=== PATIENT | female | born 1950 | race Caucasian/White ===

== ENCOUNTER 2019-10-23 19:33 | Inpatient (IN) | payer MEDICARE, OTHER ==
[~2019-10-23] VITALS: Ht 160 cm; Wt 86.9 kg
[2019-10-23 19:53] LABS: HEMOGLOBIN 10.7 G/DL (11.5-16.0); MEAN CORPUSCULAR HEMOGLOBIN 27 PG (25-34); WHITE BLOOD COUNT 11.7 10^3/uL (4.3-11.0)
[2019-10-23 19:54] LABS: BASOPHILS # (AUTO) 0.1 10^3/uL (0.0-0.1); BASOPHILS % (AUTO) 1 % (0-10); EOSINOPHILS # (AUTO) 0.1 10^3/uL (0.0-0.3); EOSINOPHILS % (AUTO) 0 % (0-10); HEMATOCRIT 31 % (35-52); LYMPHOCYTES % (AUTO) 9 % (12-44); MEAN CORPUSCULAR HGB CONC 34 G/DL (32-36); MEAN CORPUSCULAR VOLUME 78 FL (80-99); MEAN PLATELET VOLUME 8.1 FL (7.4-10.4); MONOCYTES % (AUTO) 9 % (0-12); NEUTROPHILS # (AUTO) 9.5 X 10^3 (1.8-7.8); NEUTROPHILS % (AUTO) 81 % (42-75); PLATELET COUNT 505 10^3/uL (130-400); RED CELL DISTRIBUTION WIDTH 17.7 % (10.0-14.5)
--- NOTE | 2019-10-23 19:54 | ED GI ---
General Chief Complaint: Abdominal/GI Problems Stated Complaint: WEAKNESS,VOMITING Source of Information: Patient Exam Limitations: No Limitations History of Present Illness Date Seen by Provider: Oct 23, 2019 Time Seen by Provider: 19:40 Initial Comments The patient is a pleasant 69-year-old female who presents for evaluation of 3-4 days of nausea, vomiting, and diarrhea which started after eating some hamburger at home which she states tasted "funny". No one else ate the food and she has not been around anyone else with similar symptoms. She reports an intermittent fever which she most recently had yesterday and she states was just about 101F. She denies any acute loss of taste or smell but mentions that she has not had a good sense of taste for years. She denies hematemesis, rectal bleeding, abdominal pain, chest pain or shortness of breath, cough, sore throat, headache, neck pain, urinary complaints, palpitations or syncope. She does report some fatigue and generalized weakness. She states that her daughter drove her to the emergency department this evening. She denies any recent travel or any recent antibiotics. Timing/Duration: 3-4 Days Severity/Quality: Moderate Associated Symptoms: Fever/Chills, Nausea/Vomiting Allergies and Home Medications Allergies Coded Allergies: Penicillins (Verified Allergy, Unknown, 10/23/19) Sulfa (Sulfonamide Antibiotics) (Verified Allergy, Unknown, 10/23/19) Patient Home Medication List Home Medication List Reviewed: Yes Review of Systems Review of Systems Constitutional: fever, weakness EENTM: No Symptoms Reported Respiratory: No Symptoms Reported Cardiovascular: No Symptoms Reported Gastrointestinal: Diarrhea, Nausea, Vomiting Genitourinary: No Symptoms Reported Musculoskeletal: no symptoms reported Skin: no symptoms reported Psychiatric/Neurological: No Symptoms Reported Endocrine: No Symptoms Reported Hematologic/Lymphatic: No Symptoms Reported All Other Systems Reviewed Negative Unless Noted: Yes Past Mcharzf-Bsfrjp-Thzwof Hx Past Med/Social Hx: Reviewed Nursing Past Med/Soc Hx Patient Social History Recent Foreign Travel: No Contact w/Someone Who Travel: No Physical Exam Vital Signs Vital Signs - First Documented 10/23/19 19:35 Temp 36.7 Pulse 98 Resp 18 B/P (MAP) 122/75 (91) Pulse Ox 98 Capillary Refill : Height/Weight/BMI Height: '" Weight: lbs. oz. 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, no motor/sensory deficits, alert, normal mood/affect, oriented x 3 Skin: normal color, warm/dry Progress/Results/Core Measures Results/Orders Lab Results Laboratory Tests Test 10/23/19 17:45 10/23/19 19:45 10/23/19 20:05 Range/Units White Blood Count 11.7 H 4.3-11.0 10^3/uL Red Blood Count 4.00 L 4.35-5.85 10^6/uL Hemoglobin 10.7 L 11.5-16.0 G/DL Hematocrit 31 L 35-52 % Mean Corpuscular Volume 78 L 80-99 FL Mean Corpuscular Hemoglobin 27 25-34 PG Mean Corpuscular Hemoglobin Concent 34 32-36 G/DL Red Cell Distribution Width 17.7 H 10.0-14.5 % Platelet Count 505 H 130-400 10^3/uL Mean Platelet Volume 8.1 7.4-10.4 FL Neutrophils (%) (Auto) 81 H 42-75 % Lymphocytes (%) (Auto) 9 L 12-44 % Monocytes (%) (Auto) 9 0-12 % Eosinophils (%) (Auto) 0 0-10 % Basophils (%) (Auto) 1 0-10 % Neutrophils # (Auto) 9.5 H 1.8-7.8 X 10^3 Lymphocytes # (Auto) 1.0 1.0-4.0 X 10^3 Monocytes # (Auto) 1.0 0.0-1.0 X 10^3 Eosinophils # (Auto) 0.1 0.0-0.3 10^3/uL Basophils # (Auto) 0.1 0.0-0.1 10^3/uL Sodium Level 114 *L 135-145 MMOL/L Potassium Level 4.5 3.6-5.0 MMOL/L Chloride Level 80 L 98-107 MMOL/L Carbon Dioxide Level 18 L 21-32 MMOL/L Anion Gap 16 H 5-14 MMOL/L Blood Urea Nitrogen 13 7-18 MG/DL Creatinine 1.24 0.60-1.30 MG/DL Estimat Glomerular Filtration Rate 43 BUN/Creatinine Ratio 10 Glucose Level 118 H 70-105 MG/DL Calcium Level 9.1 8.5-10.1 MG/DL Corrected Calcium 9.3 8.5-10.1 MG/DL Magnesium Level 1.7 1.6-2.4 MG/DL Total Bilirubin 0.3 0.1-1.0 MG/DL Aspartate Amino Transf (AST/SGOT) 15 5-34 U/L Alanine Aminotransferase (ALT/SGPT) 10 0-55 U/L Alkaline Phosphatase 107 40-136 U/L Total Protein 7.1 6.4-8.2 GM/DL Albumin 3.8 3.2-4.5 GM/DL My Orders Orders - AYESHA ABEBE DO Cbc With Automated Diff (10/23/19 19:40) Comprehensive Metabolic Panel (10/23/19 19:40) Magnesium (10/23/19 19:40) Ua Culture If Indicated (10/23/19 19:40) Ed Iv/Invasive Line Start (10/23/19 19:40) Coronavirus Sars-Cov-2 So 2018 (10/23/19 19:50) Ns Iv 1000 Ml (Sodium Chloride 0.9%) (10/23/19 20:00) Ondansetron Injection (Zofran Injectio (10/23/19 20:00) Ondansetron Injection (Zofran Injectio (10/23/19 19:59) Ns Iv 1000 Ml (Sodium Chloride 0.9%) (10/23/19 19:59) Chest 1 View Ap/Pa Only (10/23/19 20:41) Medications Given in ED Current Medications Medications Dose Ordered Sig/Kathy Route Start Time Stop Time Status Last Admin Dose Admin Ondansetron HCl 4 mg ONCE ONCE IVP 10/23/19 20:00 10/23/19 20:02 DC 10/23/19 20:06 4 MG Vital Signs/I&O 10/23/19 19:35 Temp 36.7 Pulse 98 Resp 18 B/P (MAP) 122/75 (91) Pulse Ox 98 Progress Progress Note : Progress Note @2042 - patient updated on lab results showing profound hyponatremia. She is receiving IV fluids at this time. Case discussed with Dr. Whiting who accepts the patient for admission at the ICU at [facility]. The patient is agreeable to this plan. Dr. Whiting requested a chest x-ray the patient be performed to evaluate for possible small cell carcinoma in relation to the hyponatremia as there is no clear cause at this time. Critical Care Note Critical Care Start Time: 20:00 Stop Time: 20:40 Total Time (minutes) 40 Progress Interpretation of lab results, discussion with the patient, discussion with consulting physician, admission, response to treatment Departure Communication (Admissions) Time/Spoke to Admitting Phy: 20:43 Dr. Whiting accepts the admission in the ICU at [facility]. The patient is agreeable to this plan. Impression Primary Impression: Acute hyponatremia Additional Impression: Nausea vomiting and diarrhea Disposition: ADMITTED INPATIENT Condition: Critical Admissions Decision to Admit Reason: Admit from ER (General) Decision to Admit/Date: Oct 23, 2019 Time/Decision to Admit Time: 20:43 Departure-Patient Inst. Referrals: ODALYS OWEN MD (PCP/Family) Primary Care Physician AYESHA ABEBE DO Oct 23, 2019 19:54
[2019-10-23] MEDS ORDERED: ONDANSETRON 4 MG/2 ML (SDV) Z0FRAN ONE (19:59)
[2019-10-23] MEDS ORDERED: NS IV 1000 ML 1,000 ML ONE ×2 (19:59→21:42)
[2019-10-23] MEDS ORDERED: NS IV 1000 ML 1,000 ML IV SCH ×2 (20:00→21:11)
[2019-10-23] MEDS ORDERED: ONDANSETRON 4 MG/2 ML (SDV) Z0FRAN IVP ONE (20:00)
[2019-10-23 20:16] LABS: POTASSIUM 4.5 MMOL/L (3.6-5.0)
[2019-10-23 20:17] LABS: ALBUMIN 3.8 GM/DL (3.2-4.5); BILIRUBIN,TOTAL 0.3 MG/DL (0.1-1.0); CALCIUM 9.1 MG/DL (8.5-10.1); CREATININE SERUM 1.24 MG/DL (0.60-1.30); MAGNESIUM 1.7 MG/DL (1.6-2.4); TOTAL PROTEIN 7.1 GM/DL (6.4-8.2)
[2019-10-23] MEDS ORDERED: morphine INJ 4 MG/ML 1 ML (VIAL/SYRINGE) IV PRN (21:15)
[2019-10-23] MEDS ORDERED: PATIENT MAY USE OWN MEDS, ALL PO SCH ×2 (21:15→21:30)
[2019-10-23] MEDS ORDERED: ONDANSETRON 4 MG/2 ML (SDV) Z0FRAN IVP PRN (21:15)
[2019-10-23] MEDS ORDERED: LORazepam INJ 2 MG/ML (ATIVAN) VIAL IVP PRN (21:15)
[2019-10-23] MEDS ORDERED: ENOXAPARIN 40 MG/0.4 ML (LOVENOX) SYR ONE (21:41)
[2019-10-23] MEDS ORDERED: 1/2 NS IV SOLUTION 0 ML IV ONE (21:41)
[2019-10-23 22:25] VITALS: BP 137/74
[2019-10-23] MEDS: ENOXAPARIN 40 MG/0.4 ML (LOVENOX) SYR SC SCH (22:43)
[2019-10-23] MEDS: NS IV 1000 ML 1,000 ML IV SCH (22:43)
[2019-10-23 22:45] VITALS: BP 126/75
[2019-10-23] MEDS: ACETAMINOPHEN 500 MG TAB (TYLENOL) PO SCH (22:48)
[2019-10-23 23:00] VITALS: BP 130/70
[2019-10-23 23:15] VITALS: BP 133/90
[2019-10-23 23:30] VITALS: BP 130/66
[2019-10-23 23:45] VITALS: BP 135/70
[2019-10-24] VITALS (22 sets, daily range): BP systolic 122–183; BP diastolic 54–109
[2019-10-24 03:51] LABS: BASOPHILS % (AUTO) 0 % (0-10); EOSINOPHILS # (AUTO) 0.1 10^3/uL (0.0-0.3); EOSINOPHILS % (AUTO) 2 % (0-10); HEMATOCRIT 28 % (35-52); HEMOGLOBIN 9.6 G/DL (11.5-16.0); LYMPHOCYTES # (AUTO) 1.3 X 10^3 (1.0-4.0); LYMPHOCYTES % (AUTO) 15 % (12-44); MEAN CORPUSCULAR HEMOGLOBIN 26 PG (25-34); MEAN CORPUSCULAR HGB CONC 34 G/DL (32-36); MEAN CORPUSCULAR VOLUME 78 FL (80-99); MEAN PLATELET VOLUME 8.4 FL (7.4-10.4); MONOCYTES # (AUTO) 1.1 X 10^3 (0.0-1.0); MONOCYTES % (AUTO) 13 % (0-12); NEUTROPHILS # (AUTO) 6.1 X 10^3 (1.8-7.8); NEUTROPHILS % (AUTO) 70 % (42-75); PLATELET COUNT 382 10^3/uL (130-400); RED CELL DISTRIBUTION WIDTH 18.1 % (10.0-14.5); WHITE BLOOD COUNT 8.7 10^3/uL (4.3-11.0)
[2019-10-24 04:07] LABS: POTASSIUM 4.7 MMOL/L (3.6-5.0)
[2019-10-24 04:08] LABS: CALCIUM 8.8 MG/DL (8.5-10.1)
[2019-10-24 04:12] LABS: PHOSPHORUS 3.9 MG/DL (2.3-4.7)
[2019-10-24 04:13] LABS: CREATININE SERUM 1.3 MG/DL (0.60-1.30)
[2019-10-24 04:15] LABS: MAGNESIUM 1.6 MG/DL (1.6-2.4)
[2019-10-24] MEDS: KCL 20 MEQ TAB (K-DUR) PO SCH (04:28)
[2019-10-24] MEDS: POTASSIUM CL 10MEQ/50ML IVPB 50 ML IV SCH (04:28)
[2019-10-24] MEDS: MAGNESIUM 1 GM/100 ML IVPB 100 ML IV SCH ×3 (04:29→08:16)
--- NOTE | 2019-10-24 05:05 | Pulmonary Consultation ---
History of Present Illness History of Present Illness Date Seen by Provider: Oct 24, 2019 Time Seen by Provider: 04:59 Date of Admission History of Present Illness 69yo presented to ED secondary to persistent fatigue, nausea, diarrhea, and vomiting over the last 3-4 days. SHe also had fever of 101. She denies any acute loss of taste or smell. She denies SOB, cough or any recent travel. I am consulted for ICU management. Allergies and Home Medications Allergies Coded Allergies: Penicillins (Verified Allergy, Unknown, 10/23/19) Sulfa (Sulfonamide Antibiotics) (Verified Allergy, Unknown, 10/23/19) Home Medications Acetaminophen 325 Mg Capsule, 650 MG PO Q6H PRN for PAIN-MILD (1-4), (Reported) Allopurinol 300 Mg Tablet, 150 MG PO DAILY, (Reported) LAST FILLED 07-18-2019 #30/60 DAY SUPPLY Bupropion HCl 150 Mg Tablet.er, 150 MG PO DAILY, (Reported) Citalopram Hydrobromide 20 Mg Tablet, 40 MG PO HS, (Reported) TAKES 2 (20MG) TABS Ferrous Sulfate 325 Mg Tablet, 650 MG PO DAILY, (Reported) TAKES 2 (325MG) TABS Lisinopril 10 Mg Tablet, 10 MG PO DAILY, (Reported) Meloxicam 15 Mg Tablet, 15 MG PO DAILY, (Reported) Past Njbjqeu-Dqrjmr-Etsbbx Hx Past Med/Social Hx: Reviewed Nursing Past Med/Soc Hx Patient Social History Alcohol Use: Denies Use Recreational Drug Use: No Smoking Status: Never a Smoker 2nd Hand Smoke Exposure: No Recent Foreign Travel: No Contact w/Someone Who Travel: No Recent Infectious Disease Expo: No Recent Hopitalizations: No Physical Abuse: No Sexual Abuse: No Past Medical History Surgeries: No Respiratory: No Cardiac: Yes Hypertension Neurological: No Genitourinary: No Gastrointestinal: No Musculoskeletal: Yes Gout Endocrine: No HEENT: No Cancer: No Psychosocial: Yes Depression Integumentary: No Review of Systems Time Seen by Provider: 04:59 Constitutional: Fever, Chills, Sweats, Weakness, Malaise, Other Eyes: No: Pain, Vision change, Conjunctivae inflammation, Eyelid inflammation, Other, Redness ENT: No: Ear pain, Ear discharge, Nose pain, Nose discharge, Nose congestion, Mouth pain, Mouth swelling, Throat pain, Throat swelling, Other Respiratory: No: Cough, Dry, Shortness of breath, SOB with excertion, Wheezing, Hemoptysis, Pleuritic Pain, Sputum, Wheezing, Other Cardiovascular: No: Chest Pain, Palpitations, Orthopnea, Paroxysmal Noc. Dyspnea, Edema, Lt Headedness, Other Gastrointestinal: Nausea, Vomiting, Abdominal Pain, Diarrhea Sepsis Event Evaluation Height, Weight, BMI Height: '" Weight: lbs. oz. kg; 30.00 BMI Method: Exam Exam Vital Signs Date Time Temp Pulse Resp B/P (MAP) Pulse Ox O2 Delivery O2 Flow Rate FiO2 10/24/19 04:00 98 Room Air 10/24/19 03:00 71 13 147/77 (100) Room Air 10/24/19 02:00 76 25 148/75 (99) Room Air 10/24/19 01:00 81 15 143/73 (96) Room Air 10/24/19 01:00 81 10/24/19 00:00 98 Room Air 10/24/19 00:00 36.5 10/24/19 00:00 79 11 151/86 (107) Room Air 10/23/19 23:45 82 7 135/70 (91) Room Air 10/23/19 23:30 86 16 130/66 (87) Room Air 10/23/19 23:30 86 16 130/66 (87) Room Air 10/23/19 23:15 87 15 133/90 (104) Room Air 10/23/19 23:10 Room Air 10/23/19 23:00 90 15 130/70 (90) Room Air 10/23/19 22:45 90 9 126/75 (92) 98 Room Air 10/23/19 22:25 36.5 88 18 137/74 (95) 98 Room Air 10/23/19 22:22 102 10/23/19 21:12 86 16 135/51 99 Room Air 10/23/19 19:35 36.7 98 18 122/75 (91) 98 Height & Weight Height: '" Weight: lbs. oz. kg; 30.00 BMI Method: Capillary Refill: Less Than 3 Seconds Gastrointestinal: normal bowel sounds, non tender, soft, no pulsatile mass, abnormal bowel sounds (hyperactive) Results Lab Laboratory Tests 10/23/19 17:45 10/23/19 19:45 10/24/19 03:22 Assessment/Plan Assessment/Plan Severe hyponatremia - Chronic -Pt states her sodium is always low. - -Pt feels much better since admission. -Currently on NS -Na has improved since admission while on NS. Will continue to montior Acute gastritis with nausea Vomiting and diarrhea -COVID testing is pending Leukocytosis - improving -Monitor Metabolic acidosis -Check JUDIE REYES DO Oct 24, 2019 05:05
[2019-10-24] MEDS: NS IV 1000 ML 1,000 ML IV SCH ×4 (05:18→18:37)
--- NOTE | 2019-10-24 05:54 | Diagnostic Imaging Report ---
Indication: Epigastric pain Portable chest 9:12 PM Heart size and pulmonary vascularity are normal. Lungs are clear. There are no effusions or pneumothoraces. IMPRESSION: Negative chest Dictated by: Dictated on workstation # [id number]
[2019-10-24] MEDS: ACETAMINOPHEN 500 MG TAB (TYLENOL) PO SCH ×4 (06:07→21:51)
[2019-10-24] MEDS ORDERED: hydrALAZINE (APESOLINE) 20 MG/ML VIAL IV PRN (07:00)
[2019-10-24] MEDS: PANTOPRAZOLE 40 MG (PROTONIX) VIAL IV SCH (08:16)
[2019-10-24 08:50] LABS: AMPHETAMINE SCREEN, URINE NEGATIVE (NEGATIVE); BARBITURATE SCREEN URINE NEGATIVE (NEGATIVE); BENZODIAZEPINES SCREEN URINE NEGATIVE (NEGATIVE); CANNABINOID SCREEN, URINE NEGATIVE (NEGATIVE); COCAINE SCREEN URINE NEGATIVE (NEGATIVE); METHADONE STAT NEGATIVE (NEGATIVE); METHAMPHETAMINE SCREEN URINE S NEGATIVE (NEGATIVE); OPIATE SCREEN URINE NEGATIVE (NEGATIVE); OXYCODONE STAT NEGATIVE (NEGATIVE); PROPOXYPHENE STAT NEGATIVE (NEGATIVE); TRICYCLIC ANTIDEPRESSANTS SCRE NEGATIVE (NEGATIVE)
[2019-10-24 08:55] LABS: CLARITY,URINE CLEAR; COLOR,URINE YELLOW
[2019-10-24 08:56] LABS: BACTERIA,URINE MODERATE /HPF; BILIRUBIN,URINE NEGATIVE (NEGATIVE); GLUCOSE, URINE (UA) NEGATIVE (NEGATIVE); KETONES,URINE NEGATIVE (NEGATIVE); LEUKOCYTE ESTERASE ,URINE NEGATIVE (NEGATIVE); NITRITE,URINE NEGATIVE (NEGATIVE); PROTEIN,URINE NEGATIVE (NEGATIVE); RBC,URINE RARE /HPF; SQUAMOUS EPITHELIAL CELL,UR RARE /HPF; WBC,URINE 0-2 /HPF
--- NOTE | 2019-10-24 10:03 | NUR ---
Received dietary consult for MST score. Note pt is currently COVID PUI. Will monitor PO intake and have full assessment, pending results. Deena Melara, MS, RD, LD
[2019-10-24 11:53] LABS: ALBUMIN 3.5 GM/DL (3.2-4.5); BILIRUBIN,TOTAL 0.2 MG/DL (0.1-1.0); CALCIUM 8.7 MG/DL (8.5-10.1); CREATININE SERUM 1.24 MG/DL (0.60-1.30); POTASSIUM 4.1 MMOL/L (3.6-5.0); TOTAL PROTEIN 6.3 GM/DL (6.4-8.2)
[2019-10-24] MEDS ORDERED: BUPR150T14 PO (12:12)
[2019-10-24] MEDS ORDERED: ACET325C7 PO (12:12)
[2019-10-24] MEDS ORDERED: MELO15TA39 PO (12:12)
[2019-10-24] MEDS ORDERED: CITA20TA9 PO (12:12)
[2019-10-24] MEDS ORDERED: FERR-84 PO (12:12)
[2019-10-24] MEDS ORDERED: LISI10TA2 PO (12:12)
[2019-10-24] MEDS ORDERED: ALLO300T2 PO (12:12)
--- NOTE | 2019-10-24 12:13 | NUR ---
SPOKE WITH THE PT (I CALLED HER ROOM PHONE) AND WENT THRU THE EXT MED HISTORY TO COMPLETE THE MED REC ALLOPURINOL 300MG : DIRECTIONS SHOW 1 TAB DAILY HOWEVER PT IS ONLY TAKES 150MG ( TAB) DAILY- IT WAS LAST FILLED 07-18-2019 #30/60DS. I DID DOCUMENT THE PAST DUE FILL ON THE MED REC OTC MEDs: IRON TYLENOL
[2019-10-24] MEDS ORDERED: SODIUM BICARB 8.4% 50 MEQ/50 ML VIAL IV NR (14:30)
[2019-10-24 17:21] LABS: POTASSIUM 4.4 MMOL/L (3.6-5.0)
[2019-10-24 17:22] LABS: CALCIUM 8.4 MG/DL (8.5-10.1)
[2019-10-24 17:26] LABS: PHOSPHORUS 3.7 MG/DL (2.3-4.7)
[2019-10-24 17:27] LABS: CREATININE SERUM 1.14 MG/DL (0.60-1.30)
[2019-10-24 17:29] LABS: MAGNESIUM 2.1 MG/DL (1.6-2.4)
--- NOTE | 2019-10-24 18:41 | History & Physical ---
HPI History of Present Illness: 69 yo F that presented to ER with 3-4 days of severe diarrhea and vomiting. States that she ate some beef that tasted funny but no one else who ate it is sick. Otherwise she denies any new foods or new medications. States that she has been on an SSRI for many years. Denies ever having similar symptoms in the past. Denies any other sick contacts and she has not been around anyone other then her . Denies any blood in stool or vomit. No cough but states that she felt hot yesterday. States that she is feeling much better this AM. She is still having the diarrhea but it is improving. Tolerating PO diet w/o N/V. Source: patient, old records Exam Limitations: no limitations Date seen by provider: Oct 24, 2019 Time Seen by Provider: 09:00 Attending Physician Hui Whiting Pankaj K MD Consult Date of Admission Oct 23, 2019 at 22:10 Home Medications Home Medications Reviewed patient Home Medication Reconciliation performed by pharmacy medication reconciliations customer data technician and/or nursing. Patients Allergies have been reviewed. Allergies Coded Allergies: Penicillins (Verified Allergy, Unknown, 10/23/19) Sulfa (Sulfonamide Antibiotics) (Verified Allergy, Unknown, 10/23/19) CAD-Jigill-Qnzbon Hx Patient Social History Alcohol Use: Denies Use Recreational Drug Use: No Smoking Status: Never a Smoker 2nd Hand Smoke Exposure: No Recent Foreign Travel: No Contact w/other who traveled: No Recent Hopitalizations: No Recent Infectious Disease Expo: No Past Medical History HTN Anemia Depression Review of Systems (CHC) Constitutional: chills, fever, malaise EENTM: no symptoms reported; No mouth pain, No nose congestion, No nose pain Respiratory: no symptoms reported; No cough, No dyspnea on exertion, No short of breath Cardiovascular: no symptoms reported; No chest pain, No edema, No palpitations Gastrointestinal: abdominal pain, diarrhea, loss of appetite, nausea, vomiting Genitourinary: no symptoms reported; No dysuria, No frequency, No hematuria : No Musculoskeletal: no symptoms reported; No back pain, No joint pain, No muscle pain Skin: no symptoms reported; No lesions, No rash Psychiatric/Neurological: No Symptoms Reported; Denies Headache, Denies Tremors, Denies Weakness Reviewed Test Results Reviewed Test Results Lab Laboratory Tests Test 10/23/19 19:45 10/23/19 20:05 10/24/19 03:22 10/24/19 08:17 Range/Units Sodium Level 114 *L 118 *L 135-145 MMOL/L Potassium Level 4.5 4.7 3.6-5.0 MMOL/L Chloride Level 80 L 91 L 98-107 MMOL/L Carbon Dioxide Level 18 L 17 L 21-32 MMOL/L Anion Gap 16 H 10 5-14 MMOL/L Blood Urea Nitrogen 13 13 7-18 MG/DL Creatinine 1.24 1.30 0.60-1.30 MG/DL Estimat Glomerular Filtration Rate 43 41 BUN/Creatinine Ratio 10 10 Glucose Level 118 H 92 70-105 MG/DL Calcium Level 9.1 8.8 8.5-10.1 MG/DL Corrected Calcium 9.3 8.5-10.1 MG/DL Magnesium Level 1.7 1.6 1.6-2.4 MG/DL Total Bilirubin 0.3 0.1-1.0 MG/DL Aspartate Amino Transf (AST/SGOT) 15 5-34 U/L Alanine Aminotransferase (ALT/SGPT) 10 0-55 U/L Alkaline Phosphatase 107 40-136 U/L Total Protein 7.1 6.4-8.2 GM/DL Albumin 3.8 3.2-4.5 GM/DL White Blood Count 8.7 4.3-11.0 10^3/uL Red Blood Count 3.64 L 4.35-5.85 10^6/uL Hemoglobin 9.6 L 11.5-16.0 G/DL Hematocrit 28 L 35-52 % Mean Corpuscular Volume 78 L 80-99 FL Mean Corpuscular Hemoglobin 26 25-34 PG Mean Corpuscular Hemoglobin Concent 34 32-36 G/DL Red Cell Distribution Width 18.1 H 10.0-14.5 % Platelet Count 382 130-400 10^3/uL Mean Platelet Volume 8.4 7.4-10.4 FL Neutrophils (%) (Auto) 70 42-75 % Lymphocytes (%) (Auto) 15 12-44 % Monocytes (%) (Auto) 13 H 0-12 % Eosinophils (%) (Auto) 2 0-10 % Basophils (%) (Auto) 0 0-10 % Neutrophils # (Auto) 6.1 1.8-7.8 X 10^3 Lymphocytes # (Auto) 1.3 1.0-4.0 X 10^3 Monocytes # (Auto) 1.1 H 0.0-1.0 X 10^3 Eosinophils # (Auto) 0.1 0.0-0.3 10^3/uL Basophils # (Auto) 0.0 0.0-0.1 10^3/uL Phosphorus Level 3.9 2.3-4.7 MG/DL B-Type Natriuretic Peptide 14.1 <100.0 PG/ML Urine Opiates Screen NEGATIVE NEGATIVE Urine Oxycodone Screen NEGATIVE NEGATIVE Urine Methadone Screen NEGATIVE NEGATIVE Urine Propoxyphene Screen NEGATIVE NEGATIVE Urine Barbiturates Screen NEGATIVE NEGATIVE Ur Tricyclic Antidepressants Screen NEGATIVE NEGATIVE Urine Phencyclidine Screen NEGATIVE NEGATIVE Urine Amphetamines Screen NEGATIVE NEGATIVE Urine Methamphetamines Screen NEGATIVE NEGATIVE Urine Benzodiazepines Screen NEGATIVE NEGATIVE Urine Cocaine Screen NEGATIVE NEGATIVE Urine Cannabinoids Screen NEGATIVE NEGATIVE Test 10/24/19 11:30 10/24/19 17:04 Range/Units Sodium Level 118 *L 125 *L 135-145 MMOL/L Potassium Level 4.1 4.4 3.6-5.0 MMOL/L Chloride Level 93 L 98 98-107 MMOL/L Carbon Dioxide Level 17 L 18 L 21-32 MMOL/L Anion Gap 8 9 5-14 MMOL/L Blood Urea Nitrogen 14 13 7-18 MG/DL Creatinine 1.24 1.14 0.60-1.30 MG/DL Estimat Glomerular Filtration Rate 43 47 BUN/Creatinine Ratio 11 11 Glucose Level 108 H 94 70-105 MG/DL Lactic Acid Level 1.12 0.50-2.00 MMOL/L Calcium Level 8.7 8.4 L 8.5-10.1 MG/DL Corrected Calcium 9.1 8.5-10.1 MG/DL Total Bilirubin 0.2 0.1-1.0 MG/DL Aspartate Amino Transf (AST/SGOT) 14 5-34 U/L Alanine Aminotransferase (ALT/SGPT) 10 0-55 U/L Alkaline Phosphatase 92 40-136 U/L Total Protein 6.3 L 6.4-8.2 GM/DL Albumin 3.5 3.2-4.5 GM/DL Phosphorus Level 3.7 2.3-4.7 MG/DL Magnesium Level 2.1 1.6-2.4 MG/DL Physical Exam-(CHC) Physical Exam Vital Signs VS - Last 72 Hours, by Label 10/23/19 10/23/19 10/23/19 10/23/19 19:35 21:12 22:22 22:25 Temp 36.7 36.5 Pulse 98 86 102 88 Resp 18 16 18 B/P (MAP) 122/75 (91) 135/51 137/74 (95) Pulse Ox 98 99 98 O2 Delivery Room Air Room Air 10/23/19 10/23/19 10/23/19 10/23/19 22:45 23:00 23:10 23:15 Pulse 90 90 87 Resp 9 15 15 B/P (MAP) 126/75 (92) 130/70 (90) 133/90 (104) Pulse Ox 98 O2 Delivery Room Air Room Air Room Air Room Air 10/23/19 10/23/19 10/23/19 10/24/19 23:30 23:30 23:45 00:00 Pulse 86 86 82 79 Resp 16 16 7 11 B/P (MAP) 130/66 (87) 130/66 (87) 135/70 (91) 151/86 (107) O2 Delivery Room Air Room Air Room Air Room Air 10/24/19 10/24/19 10/24/19 10/24/19 00:00 00:00 01:00 01:00 Temp 36.5 Pulse 81 81 Resp 15 B/P (MAP) 143/73 (96) Pulse Ox 98 O2 Delivery Room Air Room Air 10/24/19 10/24/19 10/24/19 10/24/19 02:00 03:00 04:00 04:15 Pulse 76 71 72 Resp 25 13 14 B/P (MAP) 148/75 (99) 147/77 (100) 123/60 (81) Pulse Ox 98 O2 Delivery Room Air Room Air Room Air Room Air 10/24/19 10/24/19 10/24/19 10/24/19 05:15 06:00 06:40 07:00 Pulse 79 78 79 86 Resp 14 13 15 B/P (MAP) 145/75 (98) 175/84 (114) 168/79 (108) O2 Delivery Room Air Room Air Room Air 10/24/19 10/24/19 10/24/19 10/24/19 07:39 08:00 08:00 09:00 Temp 36.6 Pulse 77 93 Resp 8 19 B/P (MAP) 163/90 (114) 145/93 (110) Pulse Ox 97 99 O2 Delivery Room Air Room Air Room Air 10/24/19 10/24/19 10/24/19 10/24/19 10:00 11:00 12:00 12:30 Pulse 93 96 92 Resp 16 14 21 B/P (MAP) 163/83 (109) 122/58 (79) Pulse Ox 97 98 98 97 O2 Delivery Room Air Room Air Room Air Room Air 10/24/19 10/24/19 10/24/19 10/24/19 12:51 13:00 14:00 15:00 Pulse 110 104 92 91 Resp 23 18 16 B/P (MAP) 179/92 (121) 183/109 (133) 151/54 (86) Pulse Ox 99 98 97 O2 Delivery Room Air Room Air Room Air 10/24/19 16:40 Pulse Ox 97 O2 Delivery Room Air Capillary Refill : Less Than 3 Seconds General Appearance: WD/WN, no apparent distress HEENT: PERRL/EOMI Neck: non-tender, full range of motion, supple Respiratory: chest non-tender, lungs clear, normal breath sounds, no respiratory distress, no accessory muscle use Cardiovascular: normal peripheral pulses, regular rate, rhythm, no edema, no murmur Gastrointestinal: normal bowel sounds, soft, tenderness (LLQ) Back: no CVA tenderness, no vertebral tenderness Extremities: normal range of motion, non-tender, normal inspection, no pedal edema, no calf tenderness, normal capillary refill 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, no motor/sensory deficits, alert, normal mood/affect, oriented x 3 Skin: normal color, warm/dry Lymphatic: no adenopathy Assessment/Plan Assessment/Plan Admission Status: Inpatient Order (span 2 midnights) Reason for Inpatient Admission: Patient requiring close monitoring for severe hyponatremia in order to monitor for over correction, needing ICU care (1) Hyponatremia Status: Acute Assessment & Plan: 10/23: Dr Christian consulted for ICU management, NS @ 100/hr, continue q 6hr labs (2) Acute gastritis without bleeding Status: Acute Assessment & Plan: 10/23: PPI, bland diet, advance as tolerated (3) HTN (hypertension) Status: Chronic Assessment & Plan: 10/23: Restarted home meds and decreased IVFs Qualifiers: Qualified Codes: I10 - Essential (primary) hypertension (4) Microcytic anemia Status: Chronic Assessment & Plan: 10/23: Will get iron studies (5) DVT prophylaxis Status: Acute Assessment & Plan: - Lovenox Clinical Quality Measures DVT/VTE Risk/Contraindication: Risk Factor Score Per Nursin RFS Level Per Nursing on Admit: 3=High FRANCY MORGAN MD Oct 24, 2019 18:41
[2019-10-24] MEDS: ENOXAPARIN 40 MG/0.4 ML (LOVENOX) SYR SC SCH (20:16)
[2019-10-25] VITALS (16 sets, daily range): BP systolic 139–180; BP diastolic 70–127
[2019-10-25 03:35] LABS: BASOPHILS % (AUTO) 0 % (0-10); EOSINOPHILS % (AUTO) 1 % (0-10); HEMATOCRIT 26 % (35-52); HEMOGLOBIN 8.6 G/DL (11.5-16.0); LYMPHOCYTES # (AUTO) 0.7 X 10^3 (1.0-4.0); LYMPHOCYTES % (AUTO) 13 % (12-44); MEAN CORPUSCULAR HEMOGLOBIN 26 PG (25-34); MEAN CORPUSCULAR HGB CONC 33 G/DL (32-36); MEAN CORPUSCULAR VOLUME 79 FL (80-99); MEAN PLATELET VOLUME 8.6 FL (7.4-10.4); MONOCYTES # (AUTO) 0.8 X 10^3 (0.0-1.0); MONOCYTES % (AUTO) 15 % (0-12); NEUTROPHILS # (AUTO) 3.9 X 10^3 (1.8-7.8); NEUTROPHILS % (AUTO) 71 % (42-75); PLATELET COUNT 361 10^3/uL (130-400); WHITE BLOOD COUNT 5.5 10^3/uL (4.3-11.0)
[2019-10-25 03:53] LABS: POTASSIUM 3.8 MMOL/L (3.6-5.0)
[2019-10-25 03:58] LABS: PHOSPHORUS 3.1 MG/DL (2.3-4.7)
[2019-10-25 03:59] LABS: CREATININE SERUM 0.96 MG/DL (0.60-1.30)
[2019-10-25 04:01] LABS: MAGNESIUM 1.9 MG/DL (1.6-2.4)
[2019-10-25] MEDS: NS IV 1000 ML 1,000 ML IV SCH ×2 (04:36→05:00)
[2019-10-25] MEDS: MAGNESIUM 1 GM/100 ML IVPB 100 ML IV SCH (04:37)
[2019-10-25] MEDS: KCL 20 MEQ TAB (K-DUR) PO SCH (04:37)
[2019-10-25] MEDS: POTASSIUM CL 10MEQ/50ML IVPB 50 ML IV SCH (04:37)
[2019-10-25] MEDS: ACETAMINOPHEN 500 MG TAB (TYLENOL) PO SCH ×2 (05:01→12:01)
--- NOTE | 2019-10-25 05:08 | Pulmonary Progress Note ---
Subjective Time Seen by a Provider: 05:07 Subjective/Events-last exam Pt appears to be doing better. Sepsis Event Evaluation Height, Weight, BMI Height: '" Weight: lbs. oz. kg; 30.00 BMI Method: Focused Exam Lactate Level 10/24/19 11:30: Lactic Acid Level 1.12 Exam Exam Vital Signs Date Time Temp Pulse Resp B/P (MAP) Pulse Ox O2 Delivery O2 Flow Rate FiO2 10/25/19 04:00 87 16 144/73 (96) 96 Room Air 10/25/19 04:00 97 Room Air 10/25/19 03:00 90 21 157/76 (103) 97 Room Air 10/25/19 02:00 89 16 153/78 (103) 95 Room Air 10/25/19 01:00 93 10/25/19 01:00 93 18 164/89 (114) 97 Room Air 10/25/19 00:00 97 Room Air 10/25/19 00:00 92 17 143/70 (94) 96 Room Air 10/24/19 23:00 89 20 138/75 (96) 97 Room Air 10/24/19 22:00 89 13 148/75 (99) 99 Room Air 10/24/19 21:00 88 11 135/74 (94) 99 Room Air 10/24/19 20:00 87 18 127/67 (87) 97 Room Air 10/24/19 20:00 97 Room Air 10/24/19 19:00 87 13 147/78 (101) 99 Room Air 10/24/19 19:00 87 10/24/19 18:00 97 21 131/69 (89) 98 Room Air 10/24/19 17:00 91 16 100 Room Air 10/24/19 16:40 97 Room Air 10/24/19 16:00 91 17 141/64 (89) 100 Room Air 10/24/19 15:00 91 16 151/54 (86) 97 Room Air 10/24/19 14:00 92 18 183/109 (133) 98 Room Air 10/24/19 13:00 104 23 179/92 (121) 99 Room Air 10/24/19 12:51 110 10/24/19 12:30 97 Room Air 10/24/19 12:00 92 21 98 Room Air 10/24/19 11:00 96 14 122/58 (79) 98 Room Air 10/24/19 10:00 93 16 163/83 (109) 97 Room Air 10/24/19 09:00 93 19 145/93 (110) 99 Room Air 10/24/19 08:00 97 Room Air 10/24/19 08:00 77 8 163/90 (114) Room Air 10/24/19 07:39 36.6 10/24/19 07:00 86 15 168/79 (108) Room Air 10/24/19 06:40 79 10/24/19 06:00 78 13 175/84 (114) Room Air 10/24/19 05:15 79 14 145/75 (98) Room Air I & O 10/25/19 07:00 Intake Total 1855 ml Output Total 400 ml Balance 1455 ml Height & Weight Height: '" Weight: lbs. oz. kg; 30.00 BMI Method: General Appearance: No Apparent Distress, WD/WN HEENT: PERRL/EOMI, TMs Normal, Normal ENT Inspection Neck: Full Range of Motion, Normal Inspection, Non Tender Respiratory: Chest Non Tender, Lungs Clear, Normal Breath Sounds, No Accessory Muscle Use, No Respiratory Distress Cardiovascular: Regular Rate, Rhythm, No Edema Capillary Refill: Less Than 3 Seconds Gastrointestinal: normal bowel sounds, soft, tenderness (LLQ) Extremity: Normal Capillary Refill, No Pedal Edema Neurologic/Psychiatric: Alert, Oriented x3 Skin: Normal Color, Warm/Dry Lymphatic: No Adenopathy Results Lab Laboratory Tests 10/23/19 17:45 10/23/19 19:45 10/24/19 03:22 10/24/19 11:30 10/24/19 17:04 10/25/19 02:57 Assessment/Plan Assessment/Plan Severe hyponatremia -acute on chronic -- Improving -Repeat Labs at 1300. If Na is still improving pt maybe able to transfer to 4th. -Pt states her sodium is always low probably from Antidepressants -Pt feels much better since admission. -fluid restriction -Currently on NS -Na has improved since admission while on NS. Will continue to montior Acute gastritis with nausea Vomiting and diarrhea-- improved -COVID testing is pending Leukocytosis - improving -Monitor Metabolic acidosis -Check LA Once pt transfers to 4th floor I am going to sign off. JUDIE ADEN DO Oct 25, 2019 05:08
[2019-10-25] MEDS ORDERED: SODIUM BICARB 8.4% 50 MEQ/50 ML VIAL IV ONE (05:15)
--- NOTE | 2019-10-25 05:46 | NUR ---
RECEIVED CALL FROM LAB @ 2057 ON 10/23 STATING THAT THIS PT'S COVID RESULTS CAME BACK NEGATIVE. CATHY NOTIFIED AT 2058 AND THIS RN RECEIVED ORDER TO REMOVE PT FROM ISOLATION.
[2019-10-25] MEDS: PANTOPRAZOLE 40 MG (PROTONIX) VIAL IV SCH (08:01)
[2019-10-25] MEDS ORDERED: lisINopril 10 MG (PRINIVIL) TABLET PO SCH (09:00)
[2019-10-25 13:43] LABS: ALANINE AMINOTRANSFERASE 8 U/L (0-55); ALBUMIN 3.2 GM/DL (3.2-4.5); ALKALINE PHOSPHATASE 94 U/L (40-136); BILIRUBIN,TOTAL 0.2 MG/DL (0.1-1.0); BUN/CREATININE RATIO 15; CALCIUM 8.1 MG/DL (8.5-10.1); CARBON DIOXIDE 22 MMOL/L (21-32); CHLORIDE 97 MMOL/L (98-107); CREATININE SERUM 0.89 MG/DL (0.60-1.30); GFR ESTIMATED > 60; GLUCOSE 106 MG/DL (70-105); POTASSIUM 3.7 MMOL/L (3.6-5.0); SODIUM 127 MMOL/L (135-145); TOTAL PROTEIN 5.7 GM/DL (6.4-8.2)
--- NOTE | 2019-10-25 13:48 | NUR ---
THIS NURSE NOTIFIED DR MORGAN PT SODIUM LEVEL WAS 127. PT WALKED A FEW LAPS AROUND THE UNIT INDEPENDENTLY. DR MORGAN SPOKE WITH DR ADEN AND NOTIFIED THIS NURSE PT MAY GO HOME. PT IS TO GET LABS THURSDAY AND FOLLOW-UP WITH PCP. DR MORGAN WILL PUT IN ORDERS.
--- NOTE | 2019-10-25 15:36 | Discharge Summary ---
Diagnosis/Chief Complaint Date of Admission Oct 23, 2019 at 22:10 Date of Discharge 10/25/2019 Admission Diagnosis Admission Diagnosis See problem list Discharge Diagnosis See Below Problems/Diagnosis: (1) Hyponatremia Assessment & Plan: 10/23: Dr Christian consulted for ICU management, NS @ 100/hr, continue q 6hr labs 10/24: Sodium improving, patient A/O x3, patient is wishing to go home today and will follow closely with outpatient labs on , stop SSRIs Status: Acute (2) Acute gastritis without bleeding Assessment & Plan: 10/23: PPI, bland diet, advance as tolerated 10/24: Continue PPI Status: Acute (3) HTN (hypertension) Assessment & Plan: 10/23: Restarted home meds and decreased IVFs Qualifiers: Qualified Codes: I10 - Essential (primary) hypertension Status: Chronic (4) Microcytic anemia Assessment & Plan: 10/23: Will get iron studies Status: Chronic (5) DVT prophylaxis Assessment & Plan: - Lovenox Status: Acute Chief Complaint/HPI Chief Complaint/HPI 69 yo F that presented to ER with 3-4 days of severe diarrhea and vomiting. States that she ate some beef that tasted funny but no one else who ate it is sick. Otherwise she denies any new foods or new medications. States that she has been on an SSRI for many years. Denies ever having similar symptoms in the past. Denies any other sick contacts and she has not been around anyone other then her . Denies any blood in stool or vomit. No cough but states that she felt hot yesterday. States that she is feeling much better this AM. She is still having the diarrhea but it is improving. Tolerating PO diet w/o N/V. Discharge Summary-Simple/Stand Consultations Dr Christian: Critical Care Discharge Physical Examination Allergies: Coded Allergies: Penicillins (Verified Allergy, Unknown, 10/23/19) Sulfa (Sulfonamide Antibiotics) (Verified Allergy, Unknown, 10/23/19) Vitals & I&Os Vital Sign - Last 12Hours Date Time Temp Pulse Resp B/P (MAP) Pulse Ox O2 Delivery O2 Flow Rate FiO2 10/25/19 15:00 87 16 180/81 (114) Room Air 10/25/19 14:00 99 10/25/19 11:25 36.3 Intake and Output 10/25/19 00:00 Intake Total 855 ml Balance 855 ml General Appearance: Alert, Oriented X3, Cooperative, No Acute Distress HEENT: Mucous Memb Moist/[place] Respiratory: Clear to Auscultation, Normal Air Movement Cardiovascular: Regular Rate, No Murmurs Abdominal: Normal Bowel Sounds, Soft, No Tenderness, No Masses Extremities: No Edema, No Tenderness/Swelling Skin: No Rashes, No Breakdown Neuro: Normal Speech, Sensation Intact, Cranial Nerves 3-12 NL Psych/Mental Status: Mental Status NL, Mood NL Hospital Course Was the Problem List Reviewed?: Yes See final discharge diagnosis. Discussion & Recommendations 69 yo F that presented with N/V and severe diarrhea and found to have hyponatremia. Patient was alert and oriented throughout her hospital stay which is consistent with a more nursing home and chronic hyponatremia. Hyponatremia is concerning for SSRI use. Patient's N/V resolved during hospital stay and her diarrhea has much improved. Will continue to follow CMP as outpatient. Discharge Condition at discharge stable Instructions to patient/family Please see electronic discharge instructions given to patient. Discharge Medications Reviewed and agree with Discharge Medication list on patient's Discharge Instruction sheet Clinical Quality Measures DVT/VTE Risk/Contraindication: Risk Factor Score Per Nursin RFS Level Per Nursing on Admit: 3=High Copy Copies To 1: ODALYS OWEN MD, HOLLY R MD Oct 25, 2019 15:36
--- NOTE | 2019-10-25 15:40 | Discharge Summary ---
Discharge [facility] Reconcile Patient Problems Problems Reviewed?: Yes Discharge Medications Continued Medications: Acetaminophen (Tylenol) 325 Mg Capsule 650 MG PO Q6H PRN for PAIN-MILD (1-4), CAP Allopurinol (Allopurinol) 300 Mg Tablet 150 MG PO DAILY, TAB LAST FILLED 07-18-2019 #30/60 DAY SUPPLY Ferrous Sulfate (Iron) 325 Mg Tablet 650 MG PO DAILY, TAB TAKES 2 (325MG) TABS Lisinopril (Lisinopril) 10 Mg Tablet 10 MG PO DAILY, TAB Discontinued Medications: Bupropion HCl (Bupropion HCl Sr) 150 Mg Tablet.er 150 MG PO DAILY, TAB Meloxicam (Meloxicam) 15 Mg Tablet 15 MG PO DAILY, TAB Patient Instructions Goal/Follow Up Appt: You have a f.u appt with Dr Levine on Nov 02 @ 09:45 am Patient Instructions: - Your SSRIs could be a cause of your hyponatremia, hold these medications and discuss alternatives with your PCP Return to The Hospital For: - Confusion - Altered mental status - Tremors Activity & Diet Discharge Diet: No Restrictions Activity as Tolerated: Yes Orders-Post D/C & Referrals Pneu Vac Indicated: Yes FRANCY MORGAN MD Oct 25, 2019 15:40
--- NOTE | 2019-10-25 16:10 | NUR ---
PT EDUCATED ON DISCHARGE INSTRUCTIONS AND HOME MEDICATIONS. PT STATED UNDERSTANDING. PT TAKEN DOWN VIA WHEELCHAIR WITH BELONGINGS.
--- NOTE | 2019-10-25 16:29 | NUR ---
THIS NURSE NOTIFIED DR HELMS PT IS UNABLE TO PEE FOR THE LAST COUPLE HOURS. PT IS STILL ON BEDREST R/T POST CATH AND HAS TRIED PUREWICK AND BEDPAN WITHOUT LUCK. PT BLADDER IS DISTENDED AND IS VERY UNCOMFORTABLE. ORDER GIVEN FOR STRAIGHT CATH X1. Addendum: 10/25/19 at 1702 by OSWALDO LUCIANO RN WRONG PT.
== END 2019-10-25 16:20 | disposition home or self-care (01) | DRG 641 ==
LOC: ER FS 19:36 → ICU 22:10
PROVIDERS: ADMIT Internal Medicine; ATTEND Family Medicine
DX: E87.1 Hypo-osmolality and hyponatremia (principal); K29.00 Acute gastritis without bleeding; I10 Essential (primary) hypertension; D50.9 Iron deficiency anemia, unspecified; E87.2 Acidosis; T43.225A Adverse effect of selective serotonin reuptake inhibitors, initial encounter; D72.829 Elevated white blood cell count, unspecified; F32.9 Major depressive disorder, single episode, unspecified; M10.9 Gout, unspecified; Z20.828 Contact with and (suspected) exposure to other viral communicable diseases; Z88.0 Allergy status to penicillin; Z88.2 Allergy status to sulfonamides
CPT/HCPCS: 36415; 71045; 80048; 80053; 80306; 81000; 82728; 83540; 83605; 83735; 83880; 84100; 84300; 85025; 87077; 87081; 87088; 87186; 87324; 87449; 87635

== ENCOUNTER → 2020-01-11 | Outpatient (CLI) | payer MEDICARE, OTHER ==
[~2020-01-11] MED LIST: ACET325C7 PO; ALLO300T2 PO; BUPR150T14 PO; CATHETER FLUSH 10 ML SYR IV PRN; CITA20TA9 PO; FERR-84 PO; HOLD METFORMIN - RECEIVED CONTRAST 20 ML VIAL IV SCH; IOHEXOL 350 MG/ML 100 ML (OMNIPAQUE 350) VIAL IV ONE; LISI10TA2 PO; MELO15TA39 PO; NS 100 ML (IVPB) BAG IV ONE
[2020-01-11 10:01] LABS: CALCIUM 9.6 MG/DL (8.5-10.1)
[2020-01-11 10:04] LABS: BILIRUBIN,TOTAL 0.4 MG/DL (0.1-1.0)
[2020-01-11 10:06] LABS: CREATININE SERUM 1.02 MG/DL (0.60-1.30)
--- NOTE | 2020-01-11 11:57 | Diagnostic Imaging Report ---
PROCEDURE: CT abdomen and pelvis with contrast. TECHNIQUE: Multiple contiguous axial images were obtained through the abdomen and pelvis after administration of intravenous contrast. Auto Exposure Controls were utilized during the CT exam to meet ALARA standards for radiation dose reduction. All CT scans use one or more of the following dose optimizing techniques: automated exposure control, MA and/or KvP adjustment based on patient size and exam type or iterative reconstruction. INDICATION: Lower abdominal pain COMPARISON: None available FINDINGS: Minimal left basilar scarring. Cholecystectomy. 1 cm enhancing nodule is noted within the dome of the right hepatic lobe, though this appears isodense on delayed imaging. Hyperenhancement is also seen within the left hepatic lobe adjacent to the falciform ligament. This is isodense on delayed imaging. 8 mm hypodensity is noted within the right hepatic lobe, series 2, image 19. Additional 7 mm hypodensity within the right hepatic lobe, series 2, image 15. The spleen is unremarkable. The adrenal glands are unremarkable. The pancreas is unremarkable. The kidneys are unremarkable. Moderate vascular calcifications without aneurysmal dilatation of the abdominal aorta. Extensive masslike mural thickening is identified associated with the cecum extending into the terminal ileum. This measures at least 8.2 x 4.7 x 4.9 cm. Several adjacent enlarged lymph nodes are also present within the right lower quadrant adjacent to the cecum, largest measuring 2.6 x 1.8 cm. No bowel obstruction. A left periaortic lymph node is present which is mildly enlarged measuring 1.2 cm in short dimension. Several central mesenteric lymph nodes also appear slightly prominent in size and number. The urinary bladder is decompressed, therefore not well evaluated. The uterus is not seen, likely surgically absent. No abnormal adnexal mass lesion. Grade 1 anterolisthesis of L4 and L5 with associated high-grade degenerative changes. There is resulting severe central canal stenosis. Superior endplate deformity with associated lucency and sclerosis is noted associated with L2, particularly on the right. More discrete lucency is seen extending through the anterior aspect of the L2 vertebral body with cortical discontinuity. Anterior wedging with sclerosis of T12 is also present. IMPRESSION: Large mass associated with the cecum extending into the terminal ileum with associated right lower quadrant adenopathy is concerning for malignancy with regional metastatic disease to proven otherwise. Recommend colonoscopy for further evaluation. Additional periaortic and mesenteric lymph nodes appearing borderline enlarged. Metastatic disease of these locations are not excluded. Recent mild superior endplate fracture of L2 versus metastatic lesion with age-indeterminate anterior wedging and sclerosis of T12 versus metastatic disease. MRI would help to further evaluate. Ill-defined small hypodensities within the liver. This may simply relate to transhepatic arterial defects, though small mass lesions not totally excluded. Depending on biopsy of the cecum and terminal ileum, PET/CT is likely necessary. Additional findings as above. Report was called/faxed to Shellie/transportation security officer of Dr. Levine by [place] at 11:53AM. Dictated by: Dictated on workstation # [id number]
== END ==
LOC: RAD 09:45
PROVIDERS: ATTEND Family Medicine
DX: K76.89 Other specified diseases of liver (principal); K63.89 Other specified diseases of intestine; E11.69 Type 2 diabetes mellitus with other specified complication; R59.0 Localized enlarged lymph nodes
CPT/HCPCS: 36415; 74177; 80053

== ENCOUNTER 2020-01-13 11:04 | Outpatient (RCR) | payer MEDICARE, OTHER ==
[~2020-01-13] VITALS: Ht 160 cm; Wt 77.2 kg
[~2020-01-13 11:04] MED LIST changes: -CATHETER FLUSH 10 ML SYR IV PRN; -HOLD METFORMIN - RECEIVED CONTRAST 20 ML VIAL IV SCH; -IOHEXOL 350 MG/ML 100 ML (OMNIPAQUE 350) VIAL IV ONE; -NS 100 ML (IVPB) BAG IV ONE
== END 2020-01-13 12:02 | disposition home or self-care (01) ==
LOC: PREOP 11:04
PROVIDERS: ATTEND Surgery
DX: Z01.818 Encounter for other preprocedural examination (principal)

== ENCOUNTER 2020-01-16 09:38 | Day surgery (SDC) | payer MEDICARE, OTHER ==
[~2020-01-16] VITALS: Ht 160 cm; Wt 77.2 kg
[2020-01-16] MEDS ORDERED: LACTATED RINGERS 1,000 ML IV ONE (09:51)
--- NOTE | 2020-01-16 10:03 | Progress Note-Pre Operative ---
Pre-Operative Progress Note H&P Reviewed The H&P was reviewed, patient examined and no changes noted. Time Seen by Provider: 10:01 Date H&P Reviewed: Jan 16, 2020 Time H&P Reviewed: 10:00 Pre-Operative Diagnosis: cecal/right colon mass KAREN FITZPATRICK DO Jan 16, 2020 10:03
[2020-01-16] MEDS ORDERED: LACTATED RINGERS 1,000 ML IV STA (10:14)
[2020-01-16 10:28] VITALS: BP 133/81
[2020-01-16] MEDS ORDERED: PROPOFOL INJECTION 50 ML IV ONE (10:43)
[2020-01-16 11:35] VITALS: BP 135/69
[2020-01-16 11:40] VITALS: BP 134/74
--- NOTE | 2020-01-16 11:40 | Anesthesia-General Post-Op ---
MAC Patient Condition Mental Status/LOC: Same as Preop Cardiovascular: Satisfactory Nausea/Vomiting: Absent Respiratory: Satisfactory Pain: Controlled Complications: Absent Post Op Complications Complications None Follow Up Care/Instructions Patient Instructions None needed. Anesthesiology Discharge Order Discharge Order Patient is doing well, no complaints, stable vital signs, no apparent adverse anesthesia problems. No complications reported per nursing. KIM ROBERTSON CRNA Jan 16, 2020 11:40
--- NOTE | 2020-01-16 11:42 | Progress Note-Post Operative ---
Post-Operative Progess Note Surgeon (s)/Steel Detailer (s) Surgeon KAREN FITZPATRICK DO Steel Detailer: none Pre-Operative Diagnosis cecal/right colon mass Post-Operative Diagnosis cecal mass colon polyps diverticula internal hemorrhoids Procedure & Operative Findings Date of Procedure 01/16/20 Procedure Performed/Findings Colon with snare Colon with hot bx Tattoo of colon Anesthesia Type IV sedation by PATIENT SERVICES REPRESENTATIVE Estimated Blood Loss Estimated blood loss (mL): scant Specimens/Packing Specimens Removed bx cecal mass transverse colon mass bx descending colon polyp sigmoid colon polyp KAREN FITZPATRICK DO Jan 16, 2020 11:42
--- NOTE | 2020-01-16 11:43 | Endoscopy Discharge Instruct ---
Endo Procedure/Findings Findings 1.: Other Findings (Cecal Mass) 2.: Polyp 3.: Diverticulosis 4.: Internal Hemorrhoids Discharge Instructions - Activity: You might feel a little sleepy until tomorrow. This is due to the med icine you received to relax you. Until tomorrow, you should: NOT drive a car, operate machinery or power tools. NOT drink any alcoholic beverages. NOT make any important decisions or sign importortant papers. Do not return to work until tomorrow, unless otherwise instructed. Resume previous activities tomorrow. Diet: Start by taking liquids. If you tolerate liquids, advance to solid food. 1.: Colonoscopy in 1 year Notify Physician - If you experience excessive bleeding, unusual abdominal pain, fever, or chest pain, contact your doctor immediately. KAREN FITZPATRICK DO Jan 16, 2020 11:43
[2020-01-16 12:10] VITALS: BP 120/78
[2020-01-16 12:25] VITALS: BP 120/78
--- NOTE | 2020-01-16 20:56 | OPERATIVE REPORT ---
DATE OF SERVICE: PREOPERATIVE DIAGNOSIS: Cecal mass. POSTOPERATIVE DIAGNOSES: Cecal mass, colon polyps, diverticula, internal hemorrhoids. PROCEDURES: 1. Colonoscopy with snare polypectomy. 2. Colonoscopy with hot biopsy. 3. Colonoscopy with tattooing. SURGEON: Sukhdev Guerrero DO MATERIAL HANDLER: None. ANESTHESIA: IV sedation by the FORM LAYER. SPECIMEN: Two biopsies from the cecal mass, two biopsies from a transverse colon mass and then one large descending colon polyp removed with snare in 3 pieces and then the sigmoid polyp. BLOOD LOSS: Scant. FLUIDS: Per anesthesia. POSTOPERATIVE CONDITION: Stable. INDICATION FOR PROCEDURE: The patient is a 69-year-old female who has been having some right lower quadrant pain going around to her back and she is being fatigued, had a CT which showed a cecal mass, she needed a workup. FINDINGS: The patient had a cecal mass. She also had large mass in the transverse colon. She had a large polyp in the descending colon and she had a small sigmoid polyp. She also had some internal hemorrhoids and some diverticula . PROCEDURE NOTE: After informed consent was obtained, the patient was brought to the endoscopy suite, placed in bed in left lateral decubitus position. She was administered IV sedation by the FORM LAYER who then monitored her vitals the entire time, heart rate, blood pressure and pulse ox and the scope was inserted, pushed all the way to about 150 cm, able to get to the cecum, took a picture of a polyp on the way in and then at the cecum, saw a large mass. was seen on the CAT scan, it looked like it may have actually been coming from the ileocecal valve. Elected to do two hot biopsies of this, then able to push pass this to take a picture of appendiceal orifice, then slowly withdrew the scope insufflating looking circumferentially at cardona looking the cecum and then up the ascending colon to the hepatic flexure and then down the transverse colon. In the transverse colon, saw another large mass, I elected to do two hot biopsies of this and then tattooed around it, in case we needed to go back to this area and then continued down to the splenic flexure, then into the descending colon. In the descending colon, saw a large polyp, I elected to do a snare polypectomy of this to remove it completely, took it in three pieces. Unable to get all of it completely off and then continued down into the sigmoid colon, saw the polyp we have seen earlier, did another snare polypectomy to completely remove this and then continued down into the rectum, retroflexed in rectal vault, saw some internal hemorrhoids, took a picture, one of the pieces from the descending colon polyp was so large, actually had to suction up to the scope, pulled the scope all the way out and then take the polyp off and then put the scope back in to complete the colonoscopy. The patient was recovered in the endoscopy suite. Job ID: [id number] DocumentID: [id number] Dictated Date: 01/16/2020 15:56:14 It Technician Date: 01/16/2020 20:54:50 Dictated By: SUKHDEV GUERRERO DO
== END 2020-01-16 12:25 | disposition home or self-care (01) ==
LOC: ENDO 09:38
PROVIDERS: ATTEND Surgery
DX: D12.0 Benign neoplasm of cecum (principal); D12.4 Benign neoplasm of descending colon; K63.5 Polyp of colon; K64.8 Other hemorrhoids; D37.4 Neoplasm of uncertain behavior of colon; E87.1 Hypo-osmolality and hyponatremia; Z79.899 Other long term (current) drug therapy; Z88.0 Allergy status to penicillin; Z88.2 Allergy status to sulfonamides; Z88.7 Allergy status to serum and vaccine; Z90.710 Acquired absence of both cervix and uterus; Z90.49 Acquired absence of other specified parts of digestive tract
CPT/HCPCS: 36415; 82378

== ENCOUNTER 2020-01-24 05:49 | Outpatient (RCR) | payer MEDICARE, OTHER ==
[~2020-01-24] VITALS: Ht 160 cm; Wt 76.8 kg
== END 2020-01-24 16:12 | disposition home or self-care (01) ==
LOC: PREOP 05:49
PROVIDERS: ATTEND Surgery
DX: Z01.812 Encounter for preprocedural laboratory examination (principal); C18.9 Malignant neoplasm of colon, unspecified; Z20.828 Contact with and (suspected) exposure to other viral communicable diseases

== ENCOUNTER → 2020-01-30 | Outpatient (CLI) | payer MEDICARE, OTHER | LOC: LAB FS 08:57 | PROVIDERS: ATTEND Surgery | DX: Z01.812 Encounter for preprocedural laboratory examination (principal); C18.9 Malignant neoplasm of colon, unspecified; Z20.828 Contact with and (suspected) exposure to other viral communicable diseases ==

== ENCOUNTER 2020-02-01 06:26 | Inpatient (IN) | payer MEDICARE, OTHER ==
[~2020-02-01] VITALS: Ht 160 cm; Wt 76.8 kg
[2020-02-01] VITALS (10 sets, daily range): BP systolic 108–154; BP diastolic 54–84
[2020-02-01] MEDS: LACTATED RINGERS 1,000 ML IV PRN ×2 (06:45→08:58)
[2020-02-01] MEDS ORDERED: CLINDAMYCIN 600 MG/50 ML IVPB 50 ML IV ONE ×2 (07:04→07:30)
[2020-02-01 07:16] LABS: BASOPHILS # (AUTO) 0.1 10^3/uL (0.0-0.1); BASOPHILS % (AUTO) 1 % (0-10); EOSINOPHILS # (AUTO) 0.1 10^3/uL (0.0-0.3); EOSINOPHILS % (AUTO) 0 % (0-10); HEMATOCRIT 32 % (35-52); HEMOGLOBIN 9.9 g/dL (11.5-16.0); LYMPHOCYTES # (AUTO) 0.7 10^3/uL (1.0-4.0); LYMPHOCYTES % (AUTO) 5 % (12-44); MEAN CORPUSCULAR HEMOGLOBIN 26 pg (25-34); MEAN CORPUSCULAR HGB CONC 31 g/dL (32-36); MEAN CORPUSCULAR VOLUME 83 fL (80-99); MONOCYTES # (AUTO) 0.5 10^3/uL (0.0-1.0); MONOCYTES % (AUTO) 4 % (0-12); NEUTROPHILS # (AUTO) 10.9 10^3/uL (1.8-7.8); NEUTROPHILS % (AUTO) 89 % (42-75); PLATELET COUNT 455 10^3/uL (130-400); WHITE BLOOD COUNT 12.3 10^3/uL (4.3-11.0)
[2020-02-01] MEDS ORDERED: fentaNYL INJECTION 100 MCG/2 ML AMP ONE (07:16)
[2020-02-01] MEDS ORDERED: LIDOCAINE PF 2% 5 ML (XYLOCAINE) VIAL ONE (07:16)
[2020-02-01] MEDS ORDERED: ONDANSETRON 4 MG/2 ML (SDV) Z0FRAN ONE (07:16)
[2020-02-01] MEDS ORDERED: proPOfol 200 MG/20 ML (DIPRIVAN) VIAL IV ONE (07:16)
[2020-02-01] MEDS ORDERED: SEVOFLURANE (ULTANE) 15 ML INHAL SOLN ONE ×8 (07:16→10:26)
[2020-02-01] MEDS ORDERED: MIDAZOLAM 2 MG/2 ML (VERSED) VIAL ONE (07:17)
[2020-02-01] MEDS ORDERED: ROCURONIUM 10 MG/ML 5 ML SYRINGE IV ONE (07:18)
[2020-02-01 07:34] LABS: ANISOCYTOSIS SLIGHT; BASOPHILS % (MANUAL) 2 %; HYPOCHROMASIA SLIGHT; LYMPHOCYTES % (MANUAL) 6 %; MONOCYTES % (MANUAL) 2 %; NEUTROPHILS % (MANUAL) 90 %
[2020-02-01 07:34] LABS: CALCIUM 10.3 MG/DL (8.5-10.1); CREATININE SERUM 1.17 MG/DL (0.60-1.30); POTASSIUM 3.9 MMOL/L (3.6-5.0)
[2020-02-01] MEDS ORDERED: LIDOCAINE/EPI 1%-1:100,000 (XYLOCAINE) 20ML ONE (07:35)
[2020-02-01] MEDS ORDERED: CATHETER FLUSH 10 ML SYR IV PRN (07:45)
--- NOTE | 2020-02-01 08:06 | Progress Note-Pre Operative ---
Pre-Operative Progress Note H&P Reviewed The H&P was reviewed, patient examined and no changes noted. Time Seen by Provider: 08:03 Date H&P Reviewed: Feb 01, 2020 Time H&P Reviewed: 08:04 Pre-Operative Diagnosis: Right sided colon CA KAREN FITZPATRICK DO Feb 01, 2020 08:06
[2020-02-01] MEDS ORDERED: PHENYLEPHRINE 100 MCG/ML 10 ML (ANESTHESIA) SYR ONE (08:56)
[2020-02-01] MEDS ORDERED: METHYLENE BLUE 0.5% (PROVAYBLUE) 50 mg/10 ml vial IV ONE (09:33)
[2020-02-01] MEDS ORDERED: NEOSTIGMINE 3 MG/3 ML VIAL ONE (10:56)
[2020-02-01] MEDS ORDERED: GLYCOPYRROLATE 0.2 MG/ML (ROBINUL) 2 ML VIAL ONE (10:56)
[2020-02-01] MEDS ORDERED: ROPIVACAINE 5MG/ML 30ML VIAL ONE (11:03)
[2020-02-01] MEDS ORDERED: HYDROmorphone 2 MG/ML VIAL (DILAUDID) ONE ×2 (11:05→11:52)
[2020-02-01] MEDS ORDERED: ACETAMINOPHEN 500 MG TAB (TYLENOL) PO SCH (11:15)
[2020-02-01] MEDS ORDERED: ONDANSETRON 4 MG/2 ML (SDV) Z0FRAN IVP PRN ×2 (11:15→11:45)
[2020-02-01] MEDS ORDERED: KETOROLAC 30 MG/ML VIAL IVP SCH (11:15)
[2020-02-01] MEDS ORDERED: metroNIDAZOLE 500MG/100ML IVPB 100 ML IV SCH (11:15)
--- NOTE | 2020-02-01 11:20 | Progress Note-Post Operative ---
Post-Operative Progess Note Surgeon (s)/Non Destructive Testing Specialist (s) Surgeon KAREN FITZPATRICK DO Non Destructive Testing Specialist: Karly Pre-Operative Diagnosis Right sided colon CA Post-Operative Diagnosis same pending path Procedure & Operative Findings Date of Procedure 02/01/20 Procedure Performed/Findings Lap Hand assisted right colectomy Anesthesia Type GET Estimated Blood Loss Estimated blood loss (mL): less than 20ml Specimens/Packing Specimens Removed Cecum, portion of ascending colon, portion of TI KAREN FITZPATRICK DO Feb 01, 2020 11:20
[2020-02-01] MEDS ORDERED: HYDROmorphone 2 MG/ML VIAL (DILAUDID) IV ONE (11:45)
[2020-02-01] MEDS: CLINDAMYCIN 600 MG/50 ML IVPB 50 ML IV SCH ×2 (14:31→21:54)
[2020-02-01] MEDS: morphine INJ 4 MG/ML 1 ML (VIAL/SYRINGE) IVP PRN ×3 (14:31→20:21)
[2020-02-01] MEDS: metroNIDAZOLE 500MG/100ML IVPB 100 ML IV SCH ×2 (16:01→23:32)
--- NOTE | 2020-02-01 16:28 | NUR ---
Contacted Dr Guerrero as patient has C/O pain in left eye since returning from surgery, states she feels like there is something in it. Flushed with NS a looked for anything in it, nothing found. Tried warm packing but pt continues to state is very uncomfortable. Dr Guerrero requested I ask anesthesia come look at it. Message left on phone as no answer.
[2020-02-01] MEDS: KETOROLAC 30 MG/ML VIAL IVP SCH ×2 (18:12→23:32)
[2020-02-01] MEDS: ACETAMINOPHEN 500 MG TAB (TYLENOL) PO SCH (18:13)
[2020-02-01] MEDS: LACTATED RINGERS 1,000 ML IV SCH ×3 (18:15→20:15)
--- NOTE | 2020-02-01 18:36 | OPERATIVE REPORT ---
DATE OF SERVICE: 02/01/2020 ATTENDING PHYSICIAN: Sukhdev Guerrero DO PREOPERATIVE DIAGNOSIS: Possible right ureteral laceration. POSTOPERATIVE DIAGNOSIS: Possible right ureteral laceration. OPERATION PERFORMED: Cystoscopy and right ureteral catheterization. DESCRIPTION OF PROCEDURE: I was asked in the operating room by Dr. Guerrero who was performing surgery on cancer of the colon and was concerned about injury to the right ureter. Looking at the laparoscopy, I was not very convinced that there was an injury to the ureter, being too superficial to the site of the ureter. We will give the patient methylene blue and Lasix, but we could not have still much of the bluish coloration, so we put the patient in the lithotomy position and removed the Dunn catheter, prepped and draped in sterile fashion. I inserted the cystoscope. I could see efflux on the right ureteral orifice. I went ahead and passed a 6-British ureteral catheter, injected contrast. There was no extravasation seen intraoperatively laparoscopically by me or the general surgeons. I went ahead and passed the catheter very easily with no problem whatsoever all the way up to the kidney. Greenish urine was coming out through it. Dr. Brandt was able to feel the catheter in the ureter that was not in the area of injury and as I said there was no extravasation of contrast intraabdominally. We did some fluoroscopy images. There was no extravasation of contrast and I could see the catheter going all the way up to the kidney. I went ahead and removed the cystoscope, reinserted the Dunn catheter and connected it to the ureteral catheter that was left indwelling for preventing injury of the ureter and it was connected with the Dunn catheter to the . The patient tolerated the procedure well and Dr. Guerrero and Karly proceeded with rest of her surgery that they will dictate. Job ID: [id number] DocumentID: [id number] Dictated Date: 02/01/2020 10:53:23 Footwear Sales Leader Date: 02/01/2020 18:35:47 Dictated By: JUAN DIEGO TURK MD
[2020-02-02 00:25] VITALS: BP 132/75
[2020-02-02] MEDS: ACETAMINOPHEN 500 MG TAB (TYLENOL) PO SCH ×2 (02:33→08:15)
[2020-02-02] MEDS: morphine INJ 4 MG/ML 1 ML (VIAL/SYRINGE) IVP PRN (03:19)
--- NOTE | 2020-02-02 03:24 | OPERATIVE REPORT ---
DATE OF SERVICE: 02/01/2020 PREOPERATIVE DIAGNOSIS: Right-sided colon cancer. POSTOPERATIVE DIAGNOSES: Right-sided colon cancer, pending pathology. PROCEDURE: Laparoscopic hand-assisted right colectomy. SURGEON: Karen Guerrero DO CRAFT RECRUITER: Chris Brandt DO ANESTHESIA: General endotracheal tube. SPECIMEN: Cecum, portion of ascending colon as well as portion of terminal ileum. BLOOD LOSS: Less than 50 mL. FLUIDS: Per anesthesia. POSTOPERATIVE CONDITION: Stable. INDICATION FOR PROCEDURE: The patient is a 69-year-old female who unfortunately had a mass seen on CT and then confirmed by colonoscopy that this was a cancer. FINDINGS: The patient had a large mass that incorporated part of the large portion of terminal ileum and there maybe even some tumor outside and she had some large lymph nodes as well removed and sent to pathology. PROCEDURE NOTE: After informed consent was obtained, the patient was brought to the operating room, placed on the operating table in supine position. She was sterilely prepped and draped in normal fashion. Midline incision was made starting about 2 or 3 inches above the umbilicus to just below the umbilicus, a C type incision made with a #15 blade, carried down through the skin into subcutaneous tissue, then deepened down to subcutaneous tissue with Bovie electrocautery down to the fascia. Fascia was incised with Bovie electrocautery and bluntly entered the abdomen. The patient had a lot of omentum and adhesions to the abdominal wall. Carefully started taking these down with blunt dissection. Once we were able to get most of this down then placed a limited trocar port in the subxiphoid area using local lidocaine, 11 blade for stab incision and then placed a bladder blade in to hold this to protect the bowel and then advanced the VersaStep system under direct visualization and then placed an 11 mm trocar port through here, then placed the gel hand port closed this, created pneumoperitoneum and placed another port suprapubically using local lidocaine, 11-blade for stab incision and VersaStep system, all done under direct visualization. This was a 5 mm port, took a picture of this mass in the right lower quadrant and it was attached to the abdominal wall, started taking this down with Bovie electrocautery as well as blunt dissection. Once we were able to take this down, then started coming up across the white line of Toldt in the pericolic gutter moving along this with the LigaSure and then Bovie electrocautery coming up and around the hepatic flexure looking distally in the pelvis coming across the mesentery, came across what looked like a cystic structure unsure whether this was Ureter. It did not appear to be in the right spot, but we were concerned this could be the ureter, so had Dr. Yanes come in. He was able to do a stent and the stent were all the way out passed and into the kidney and he was able to get urine out of this. It was reassured that this was not the ureter. At this point, came across above this. Continued to free up the cecum and the terminal ileum. There was a large mass and once we had freed up most of this, then able to bring this up through the midline incision. This area had a lot of the small intestine involved in it, picked a spot away from this mass of tumor. Made a defect in the mesentery with a Bovie electrocautery as well as blunt dissection then placed a SWETA-75 across the terminal ileum, clamped and fired, thereby transecting and then went up above the mass on the ascending colon. Again, got under the mesentery with Bovie electrocautery as well as blunt dissection, placed in the SWETA-75 and then clamped, held for 30 seconds, then fired, then started removing this portion of colon and mesentery with LigaSure, clamping, coagulating and transecting. There was a large area we thought was the right colic artery and mass of what felt like firm lymph nodes. Teased this out with Bovie electrocautery, trying to get down around it and then tied with 0 Vicryl tie and then finally able to remove this entire block of intestine and tumor. Passed this off table, then elected to perform our anastomosis grabbing the portion of terminal ileum antimesenteric border. I made a hole here with Bovie electrocautery as well as the hole along the tinea of the ascending colon, crossed these together with the SWETA-75 one on either side. Placed a crotch stitch with a 3-0 Vicryl and then held for seconds, clamped and fired thereby creating a [id number] functional end-to-end anastomosis and then used another SWETA-75 load to come across the enterocolotomy to close this. Once this was closed, then dropped this back into the abdomen, copiously irrigated with normal saline, suctioned this out. There did not appear to be any bleeding, no other obvious pathology. At this point, then closed the midline incision with #1 double stranded PDS suture running from the inferior portion and superior portion tied to itself, recreated pneumoperitoneum and looked around the midline incision, looked closed. I did not see any other obvious pathology. At this point, then removed all ports under direct visualization and allowed pneumoperitoneum to escape, closed all these ports with anthony as well as close the midline incision with anthony. The patient tolerated the procedure. Sponge and needle count correct at the end of the case. Dr. Brandt assisted in this case helping to make incisions, close incisions, identify anatomy, hold anatomy out of the way. Job ID: [id number] DocumentID: [id number] Dictated Date: 02/01/2020 16:27:52 Flight Radio Officer Date: 02/02/2020 03:23:55 Dictated By: KAREN GUERRERO DO MTDKristina
[2020-02-02 03:26] VITALS: BP 142/77
[2020-02-02] MEDS: LACTATED RINGERS 1,000 ML IV SCH (05:39)
[2020-02-02] MEDS: KETOROLAC 30 MG/ML VIAL IVP SCH ×2 (05:39→12:21)
[2020-02-02 07:50] VITALS: BP 132/70
[2020-02-02] MEDS ORDERED: PANTOPRAZOLE 40 MG (PROTONIX) VIAL IVP SCH (09:00)
[2020-02-02] MEDS ORDERED: ENOXAPARIN 40 MG/0.4 ML (LOVENOX) SYR SC SCH ×2 (11:15→14:30)
[2020-02-02 11:45] VITALS: BP 139/63
--- NOTE | 2020-02-02 14:08 | Progress Note - Surgery ---
Subjective Time Seen by a Provider: 12:47 Subjective/Events-last exam Pt seen and examined, states very little pain and she is hungry. She has been up walking and had some flatus, but hasn't urinated since phan was removed. Review of Systems General: No Chills, No Night Sweats Pulmonary: No Dyspnea, No Cough Cardiovascular: No: Chest Pain, Palpitations Gastrointestinal: Abdominal Pain; No: Nausea, Vomiting Objective Exam Vital Signs Date Time Temp Pulse Resp B/P (MAP) Pulse Ox O2 Delivery O2 Flow Rate FiO2 02/02/20 11:45 36.3 78 18 139/63 (88) 97 Room Air 02/02/20 09:33 Room Air 02/02/20 07:50 36.2 83 18 132/70 (90) 99 Room Air 02/02/20 03:26 36.4 78 16 142/77 (98) 99 Room Air 02/02/20 00:25 36.4 83 16 132/75 (94) 98 Room Air 02/01/20 21:00 Room Air 02/01/20 19:15 35.3 89 18 130/54 (79) 98 Room Air 02/01/20 18:13 35.0 02/01/20 15:50 35.0 89 16 154/84 (107) 100 Room Air I & O 02/02/20 07:00 Intake Total 3200 ml Output Total 1250 ml Balance 1950 ml Capillary Refill : Less Than 3 SecondsLess Than 3 Seconds General Appearance: No Apparent Distress, Obese Respiratory: Lungs Clear, Normal Breath Sounds, No Accessory Muscle Use, No Respiratory Distress Cardiovascular: Regular Rate, Rhythm, No Murmur Gastrointestinal: soft, tenderness (at incision), other (incisions C/D/I) Results Lab Microbiology 02/01/20 MRSA Screen - Final, Complete MRSA not isolated Assessment/Plan Assessment/Plan Assessment/Plan S/P Right colon resection Pt wants to increase to a soft diet and would like to go home today. Will try her on diet and make sure she is able to urinate. Her pain is controlled, so if she wants to go home after eating a little bit more and urinates; then I will send her home. KAREN FITZPATRICK DO Feb 02, 2020 14:08
--- NOTE | 2020-02-02 14:21 | Anesthesia-General Post-Op ---
General Patient Condition Mental Status/LOC: Same as Preop Cardiovascular: Satisfactory Nausea/Vomiting: Absent Respiratory: Satisfactory Pain: Controlled Complications: Absent Post Op Complications Complications None Follow Up Care/Instructions Patient Instructions None needed. Anesthesia/Patient Condition Patient Condition Patient is doing well, no complaints and stable vital signs. She was seen this morning C/O Left eye pain, stating it felt like she had a "rock" in her eye. I explained that this was most likely a small corneal abrasion, which usually occurs post op while the patient is emerging from anesthesia and rubs her eye. I told her this will most likely be self-limiting within 24 hours and the best thing she can do is leave the afftected eye alone. I just checked on the patient and the eye pain is now resolved and she has no complaints. We will be available if needed. LAURENT ALEJANDRA DO Feb 02, 2020 14:21
[2020-02-02 16:11] VITALS: BP 151/68
--- NOTE | 2020-02-02 16:21 | NUR ---
IV DC, VOIDING WITHOUT DIFFICULTY, ATE 75 PERCENT LUNCH, NO C/O ABD PAIN OR NAUSEA, WALKED IN [place], PASSING FLATUS. WANTING TO GO HOME.
--- NOTE | 2020-02-02 16:32 | Discharge Inst-Surgical ---
Discharge Inst-Surgical Depart Medication/Instructions New, Converted or Re-Newed RX: Other (use tylenol and ibuprofen at home for pain) Patient Instructions Follow up Appt: Make appointment for 1 week. [phone] Instructions: No lifting greater than 20 pounds. No strenuous activity. May shower in 24 hours, no tub bath or soaking. Use incentive spirometer at home as directed. No Smoking Skin/Wound Care: May remove bandages in am. You need to leave the Dermabond on incision it will fall off on it's own. Symptoms to Report: Appetite Changes, Extremity Discoloration, Numbness/Tingling, Swelling Increased, Bleeding Excessive, Eyesight Changes, Pain Increased, Urine Color Change, Constipation(Persistent), Fever over 101 degree F, Pain/Pressure in chest, Urinating Difficulty, Cough Up/Vomit Blood, Heart Beat Irreg/Pounding, Pain/Pressure in jaw, Cramps in feet or legs, Lightheadedness, Pain/Pressure in shoulder, Diarrhea(Persistent), Memory Changes Suddenly, Questions/Concerns, Weight gain consecutive days, Dizziness/Fainting, Nausea/Vomiting, Shortness of Breath, Weight gain over 2 pounds If questions or concerns contact your physician Or seek help at emergency department. Activity Activity as Tolerated: Yes Activity Instructions: Avoid Stress to Incision Driving Instructions: No Driving/Refer to Dr. Carrizales Discharge Diet: No Restrictions Diet After 24 Hours: Clear Liquid if Nauseous If Any Problems/Questions/Issu: Contact Your Physician, Go to Emergency Room Skin/Wound Care Infection Signs and Symptoms: Increased Redness, Foul Odor of Wound, Increased Drainage, Skin Itchy or Has a Rash, Increased Swelling, Temperature Above 101 F Bathing Instructions: Shower Stitches/Jerliyn/Dermabond Dis: Care of KAREN Rebollar DO Feb 02, 2020 16:32
[2020-02-02 16:56] VITALS: BP 151/68
--- NOTE | 2020-02-02 16:58 | NUR ---
DENIS ALTAMIRANO demonstrates understanding of discharge instructions and accurately returns instructions upon questioning. Copy of Post-Discharge Instructions and Medication Discharge Instructions given to PATIENT. DENIS ALTAMIRANO iS able to manage continuing needs after discharge. Patients belongings returned to PATIENT. Skin dry and intact; no breakdown noted. Patient discharged from [facility] on 02/02/20 at 1657. DENIS ALTAMIRANO left floor via W/C, accompanied by STAFF.
--- NOTE | 2020-02-08 07:42 | Physician Query Clarification ---
PQ-Link Path Diagnosis Admission/Discharge Admission Date: Feb 01, 2020 at 06:26 Discharge Date: Feb 02, 2020 at 17:00 Dr. 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 Please document a response in Progress Notes or Discharge Summary. 1. Agree with pathological diagnosis of list primary or metastasis. 2. No - Do not agree with pathology findings of [list primary or metastasis]. 3. Other, with explanation of the clinical findings. 4. Clinically undetermined, no explanation for the clinical findings. Is is appropriate for a provider to add additional documentation (addenda) to the record to explain the evaluation & care up to 30 days post-discharge. See [facility] and Patient Record Guidelines below. The [facility] Chapter Record of Care, Standard; RC.01.03.01EP 1: "The hospital has a written policy that required timely entry of information into the medical record." According to [facility] Patient Record Guidelines, ARTICLE XXI. CORRECTIONS AND ADDENDA, Modifications (addenda amendments, corrections and retractions) should be made timely and no later than regulatory requirements for record completion (i.e. 30 days post discharge). Official coding guidelines require coders to query the physician for agreement with pathology findings that occur during the encounter. Coders are not allowed to pull information directly from the path reports. PHYSICIAN RESPONSE Pathology Report Findings: Yes,agree w/path dx as documented Please remember a lack of response to the above will prompt a phone page by CDI/Coding staff. In responding to this query, please exercise your independent professional judgment. The purpose of this communication is to more accurately reflect the complexity of your patients condition. The fact that a question is asked does not imply that any particular answer is desired or expected. Thank you for your timely response to this clarification. Requestors name: Leatha THIS PHYSICIAN QUERY FORM IS A PERMANENT PART OF THE MEDICAL RECORD LEATHA EDGE Feb 08, 2020 07:42 KAREN GUERRERO DO Feb 13, 2020 14:56
== END 2020-02-02 17:00 | disposition home or self-care (01) | DRG 330 ==
LOC: 4TH 06:26 → SURG 06:27 → 4TH 12:35
PROVIDERS: ADMIT Surgery; ATTEND Surgery
PROC: 0DBB4ZZ Excision of Ileum, Percutaneous Endoscopic Approach (ICD-10-PCS; 2020-02-01)
PROC: 0T9680Z Drainage of Right Ureter with Drainage Device, Via Natural or Artificial Opening Endoscopic (ICD-10-PCS; 2020-02-01)
PROC: 0DTH4ZZ Resection of Cecum, Percutaneous Endoscopic Approach (ICD-10-PCS; principal; 2020-02-01 08:39)
PROC: 0DBK4ZZ Excision of Ascending Colon, Percutaneous Endoscopic Approach (ICD-10-PCS; 2020-02-01 08:39)
DX: C18.0 Malignant neoplasm of cecum (principal); C77.2 Secondary and unspecified malignant neoplasm of intra-abdominal lymph nodes; Z87.891 Personal history of nicotine dependence
CPT/HCPCS: 36415; 76000; 80048; 85007; 85027; 86850; 86900; 86901; 87081; 88309

== ENCOUNTER 2020-02-20 13:04 | Outpatient (RCR) | payer MEDICARE, OTHER ==
[2020-02-20 14:31] LABS: BASOPHILS # (AUTO) 0.1 10^3/uL (0.0-0.1); BASOPHILS % (AUTO) 1 % (0-10); EOSINOPHILS # (AUTO) 0.3 10^3/uL (0.0-0.3); EOSINOPHILS % (AUTO) 3 % (0-10); HEMATOCRIT 27 % (35-52); HEMOGLOBIN 8.2 g/dL (11.5-16.0); LYMPHOCYTES # (AUTO) 1.9 10^3/uL (1.0-4.0); LYMPHOCYTES % (AUTO) 20 % (12-44); MEAN CORPUSCULAR HEMOGLOBIN 25 pg (25-34); MEAN CORPUSCULAR HGB CONC 31 g/dL (32-36); MEAN CORPUSCULAR VOLUME 83 fL (80-99); MEAN PLATELET VOLUME 9.6 fL (9.0-12.2); MONOCYTES # (AUTO) 0.9 10^3/uL (0.0-1.0); MONOCYTES % (AUTO) 10 % (0-12); NEUTROPHILS # (AUTO) 6.2 10^3/uL (1.8-7.8); NEUTROPHILS % (AUTO) 67 % (42-75); PLATELET COUNT 397 10^3/uL (130-400); WHITE BLOOD COUNT 9.4 10^3/uL (4.3-11.0)
[2020-02-20 14:56] LABS: ALANINE AMINOTRANSFERASE 7 U/L (0-55); ALBUMIN 3.7 GM/DL (3.2-4.5); ALKALINE PHOSPHATASE 124 U/L (40-136); BILIRUBIN,TOTAL 0.4 MG/DL (0.1-1.0); BUN/CREATININE RATIO 13; CALCIUM 9.4 MG/DL (8.5-10.1); CARBON DIOXIDE 25 MMOL/L (21-32); CHLORIDE 102 MMOL/L (98-107); CREATININE SERUM 0.83 MG/DL (0.60-1.30); GFR ESTIMATED > 60; GLUCOSE 91 MG/DL (70-105); SODIUM 134 MMOL/L (135-145); TOTAL PROTEIN 7.6 GM/DL (6.4-8.2)
== END 2020-03-01 12:56 | disposition home or self-care (01) ==
LOC: ONC 13:04
PROVIDERS: ATTEND Internal Medicine Hematology & Oncology
DX: C18.2 Malignant neoplasm of ascending colon (principal); D50.9 Iron deficiency anemia, unspecified; I25.10 Atherosclerotic heart disease of native coronary artery without angina pectoris; E11.9 Type 2 diabetes mellitus without complications; I10 Essential (primary) hypertension; Z90.49 Acquired absence of other specified parts of digestive tract; Z90.89 Acquired absence of other organs
CPT/HCPCS: 80053; 82378; 82728; 83540; 85025; G0463; 99214

== ENCOUNTER → 2020-02-28 | Outpatient (CLI) | payer MEDICARE, OTHER ==
--- NOTE | 2020-02-28 13:42 | Diagnostic Imaging Report ---
INDICATION: Colon carcinoma, initial staging. TECHNIQUE: Serum blood glucose level at the time of injection is 98 mg/dL. Patient was administered 15.6 mCi F-18 FDG intravenously in the left antecubital location and PET imaging was performed from the top of the skull to mid thighs. Noncontrast CT was also performed for attenuation correction and anatomic correlation. COMPARISON: No prior PET/CT studies available for comparison. Comparison is made with prior CT abdomen and pelvis study from 01/11/2020. FINDINGS: There is symmetric activity throughout the brain. Soft tissues of the neck are unremarkable. No mediastinal or hilar hypermetabolism is identified. No pulmonary parenchymal hypermetabolism is seen. The upper abdomen does show a slightly hypermetabolic lesion within the right lobe of the liver anteriorly with SUV max of 4.3. Postsurgical changes in the right abdomen are identified from colon resection. There is some activity in the right colon which is indeterminate. This could be physiologic. No definite hypermetabolic abdominal or pelvic lymphadenopathy is seen. There is physiologic activity in the tracts. IMPRESSION: Postop changes involving the right colon. There is some activity in right-sided abdominal bowel loops which may be physiologic. No definite hypermetabolic abdominal or pelvic lymphadenopathy is seen. Dictated by: Dictated on workstation # [id number]
== END ==
LOC: RAD 09:34
PROVIDERS: ATTEND Internal Medicine Hematology & Oncology
DX: C18.9 Malignant neoplasm of colon, unspecified (principal)
CPT/HCPCS: 78815; A9552

== ENCOUNTER 2020-02-29 05:44 | Outpatient (RCR) | payer MEDICARE, OTHER ==
[~2020-02-29] VITALS: Ht 160 cm; Wt 78.0 kg
== END 2020-02-29 08:23 | disposition home or self-care (01) ==
LOC: PREOP 05:44
PROVIDERS: ATTEND Surgery
DX: Z01.812 Encounter for preprocedural laboratory examination (principal); C18.9 Malignant neoplasm of colon, unspecified

== ENCOUNTER 2020-03-02 07:09 | Day surgery (SDC) | payer MEDICARE, OTHER ==
[2020-03-02] VITALS (7 sets, daily range): BP systolic 149–176; BP diastolic 74–85
[~2020-03-02] VITALS: Ht 160 cm; Wt 99.0 kg
[2020-03-02] MEDS ORDERED: CLINDAMYCIN 600 MG/50 ML IVPB 50 ML IV ONE (07:15)
[2020-03-02] MEDS ORDERED: LIDOCAINE/EPI 1%-1:200,000 (XYLOCAINE) 30 ML VIAL ONE (07:19)
[2020-03-02] MEDS ORDERED: 0.9% SODIUM CHLORIDE PF INJ 20 ML VIAL ONE (07:19)
[2020-03-02] MEDS ORDERED: HEParin (CENTRAL IV FLUSH) 500 UNIT/5 ML SYR ONE (07:19)
[2020-03-02] MEDS: LACTATED RINGERS 1,000 ML IV PRN ×2 (07:30→09:33)
[2020-03-02] MEDS ORDERED: CATHETER FLUSH 10 ML SYR IV PRN (07:30)
[2020-03-02] MEDS ORDERED: PROPOFOL INJECTION 50 ML IV ONE (08:29)
--- NOTE | 2020-03-02 08:57 | Progress Note-Pre Operative ---
Pre-Operative Progress Note H&P Reviewed The H&P was reviewed, patient examined and no changes noted. Time Seen by Provider: 08:45 Date H&P Reviewed: Mar 02, 2020 Time H&P Reviewed: 08:46 Pre-Operative Diagnosis: Colon CA, Venous Insufficiency KAREN FITZPATRICK DO Mar 02, 2020 08:57
--- NOTE | 2020-03-02 09:42 | Progress Note-Post Operative ---
Post-Operative Progess Note Surgeon (s)/Hr Manager (s) Surgeon KAREN FITZPATRICK DO Hr Manager: ANGÉLICA Navarro Pre-Operative Diagnosis Colon CA, Venous Insufficiency Post-Operative Diagnosis same Procedure & Operative Findings Date of Procedure 03/02/20 Procedure Performed/Findings PROCEDURE: [Right] subclavian vein port placement. COMPLICATIONS: None. INDICATIONS: The patient is a 69 year old female [with Colon CA and Venous insufficiency]. Patient understands the risks and benefits of port placement and wished to proceed with the procedure. Consent was signed on the chart. PROCEDURE: The patient was taken to the operating suite, was prepped and draped in the sterile fashion. A surgical pause was performed. Local anesthetic was infiltrate the right anterior chest wall and towards the right clavicle. Using an 18 guage finder needle with negative inspiration it was advanced toward the right subclavian vein. It was accessed on second attempt and dark nonpulsatile blood was withdrawn. The wire was inserted using the Seldinger technique. Fluoroscopy assured proper placement. The needle was removed and the wire was then secured. A #11 blade scalpel was used to make an incision over the right anterior chest and a stab incision along the wire. Cautery was used to dissect down to the pectoral fascia. A pocket was created with blunt dissection. The dilator sheath was then advanced over the wire under fluoroscopy and the dilator and wire were removed. The Groshong catheter was then tunneled to the right chest pocket. It was inserted through the sheath and the sheath was then removed. Fluoroscopy was used to cut to length and this was then attached to the port which was then placed within the pocket. The port was then accessed without difficulty. It was then flushed with saline and then heparin. The subcutaneous tissues were then reapproximated using 3-0 Vicryl. The skin was then closed with 4-0 Undyed monocryl, 3 subcuticular stitches. The areas were then washed and dried. Skin Affix was placed over incision. The patient tolerated the procedure well without complication and was taken to recovery room in stable condition. Anesthesia Type IV sedation by HANDLE FINISHER Estimated Blood Loss Estimated blood loss (mL): scant Specimens/Packing Specimens Removed none KAREN FITZPATRICK DO Mar 02, 2020 09:42
--- NOTE | 2020-03-02 09:43 | Discharge Inst-Surgical ---
Discharge Inst-Surgical Depart Medication/Instructions New, Converted or Re-Newed RX: Other (pt to take home meds) Patient Instructions Follow up Appt: Make appointment for 1 week. [phone] Instructions: No lifting greater than 20 pounds. No strenuous activity. May shower in 24 hours, no tub bath or soaking. Use incentive spirometer at home as directed. No Smoking Skin/Wound Care: May remove bandages in am. You need to leave the Dermabond on incision it will fall off on it's own. Symptoms to Report: Appetite Changes, Extremity Discoloration, Numbness/Tingling, Swelling Increased, Bleeding Excessive, Eyesight Changes, Pain Increased, Urine Color Change, Constipation(Persistent), Fever over 101 degree F, Pain/Pressure in chest, Urinating Difficulty, Cough Up/Vomit Blood, Heart Beat Irreg/Pounding, Pain/Pressure in jaw, Cramps in feet or legs, Lightheadedness, Pain/Pressure in shoulder, Diarrhea(Persistent), Memory Changes Suddenly, Questions/Concerns, Weight gain consecutive days, Dizziness/Fainting, Nausea/Vomiting, Shortness of Breath, Weight gain over 2 pounds If questions or concerns contact your physician Or seek help at emergency department. Activity Activity as Tolerated: Yes Activity Instructions: Avoid Stress to Incision Driving Instructions: You May Drive Diet Discharge Diet: No Restrictions Diet After 24 Hours: Clear Liquid if Nauseous If Any Problems/Questions/Issu: Contact Your Physician, Go to Emergency Room Skin/Wound Care Infection Signs and Symptoms: Increased Redness, Foul Odor of Wound, Increased Drainage, Skin Itchy or Has a Rash, Increased Swelling, Temperature Above 101 F Bathing Instructions: Shower Stitches/[place]/Dermabond Dis: Dermabond Ice Pack: Ice On and Off Site (as needed for pain) KAREN FITZPATRICK DO Mar 02, 2020 09:43
--- NOTE | 2020-03-02 10:09 | Anesthesia-General Post-Op ---
MAC Patient Condition Mental Status/LOC: Same as Preop Cardiovascular: Satisfactory Nausea/Vomiting: Absent Respiratory: Satisfactory Pain: Controlled Complications: Absent Post Op Complications Complications None Follow Up Care/Instructions Patient Instructions None needed. Anesthesiology Discharge Order Discharge Order Patient is doing well, no complaints, stable vital signs, no apparent adverse anesthesia problems. No complications reported per nursing. KIM ROBERTSON CRNA Mar 02, 2020 10:09
--- NOTE | 2020-03-02 14:11 | Diagnostic Imaging Report ---
HISTORY: Port-A-Cath insertion. TECHNIQUE: Intraoperative fluoroscopy was used for the patient's procedure. One fluoroscopic image of the chest was saved. Fluoroscopy time: 3.9 seconds. FINDINGS/ IMPRESSION: Intraoperative fluoroscopy was used for the patient's procedure. Dictated by: Dictated on workstation # [id number]
== END 2020-03-02 10:50 | disposition home or self-care (01) ==
LOC: SDC 07:09
PROVIDERS: ATTEND Surgery
DX: C18.9 Malignant neoplasm of colon, unspecified (principal); I87.2 Venous insufficiency (chronic) (peripheral); M10.9 Gout, unspecified; Z88.0 Allergy status to penicillin; Z88.2 Allergy status to sulfonamides; Z90.710 Acquired absence of both cervix and uterus; Z87.891 Personal history of nicotine dependence
CPT/HCPCS: 36561; 76000; 87081; C1788

== ENCOUNTER → 2020-05-02 | Outpatient (CLI) | payer MEDICARE, OTHER ==
[~2020-05-02] MED LIST changes: -LISI10TA2 PO; +LISI10TA25 PO
[2020-05-02 12:03] LABS: BILIRUBIN,URINE NEGATIVE (NEGATIVE); CLARITY,URINE CLOUDY; COLOR,URINE YELLOW; GLUCOSE, URINE (UA) NEGATIVE (NEGATIVE); KETONES,URINE NEGATIVE (NEGATIVE); LEUKOCYTE ESTERASE ,URINE 2+ (NEGATIVE); NITRITE,URINE NEGATIVE (NEGATIVE); PROTEIN,URINE NEGATIVE (NEGATIVE)
[2020-05-02 12:04] LABS: BACTERIA,URINE LARGE /HPF; WBC,URINE 50-100 /HPF
== END ==
LOC: LAB FS 10:45
PROVIDERS: ATTEND Internal Medicine Hematology & Oncology
DX: R19.7 Diarrhea, unspecified (principal); R35.0 Frequency of micturition
CPT/HCPCS: 81000; 87077; 87088; 87324; 87449

== ENCOUNTER → 2020-05-29 | Outpatient (CLI) | payer MEDICARE, OTHER ==
--- NOTE | 2020-05-29 14:13 | Diagnostic Imaging Report ---
INDICATION: Malignant neoplasm of the colon. This study was performed to evaluate treatment response and restaging. TECHNIQUE: The serum blood glucose level at the time of injection was 125 mg/dL. The patient was administered 14.8 mCi of F18 FDG intravenously in the right antecubital location and PET imaging was performed from the top of the skull to the mid thighs. Noncontrast CT was also performed for attenuation correction and anatomic correlation. COMPARISON: PET/CT study from 02/28/2020. FINDINGS: There is physiologic activity throughout the brain. The soft tissues of the neck are unremarkable. No mediastinal or hilar hypermetabolism is identified. No pulmonary parenchymal hypermetabolism is identified. Physiologic activity throughout the GI and tracts is again noted within the abdomen and pelvis. There is a questionable small region of uptake in the left and right lobes of the liver, indeterminate. Assessment with a conventional CT abdomen and pelvis study could be performed. No hypermetabolic adenopathy in the abdomen or pelvis is seen. IMPRESSION: Essentially unremarkable PET/CT study apart from some questionable uptake in the right and left lobes of the liver. Liver metastases cannot be excluded and the appearance is similar to the prior PET study. Correlation with conventional CT would be recommended for better characterization. Dictated by: Dictated on workstation # [id number]
== END ==
LOC: RAD 09:08
PROVIDERS: ATTEND Internal Medicine Hematology & Oncology
DX: C18.9 Malignant neoplasm of colon, unspecified (principal)
CPT/HCPCS: 78815; A9552

== ENCOUNTER → 2020-06-05 | Outpatient (RCR) | payer MEDICARE, OTHER ==
[2020-03-07 10:48] LABS: BASOPHILS # (AUTO) 0.1 10^3/uL (0.0-0.1); BASOPHILS % (AUTO) 1 % (0-10); EOSINOPHILS # (AUTO) 0.6 10^3/uL (0.0-0.3); EOSINOPHILS % (AUTO) 6 % (0-10); HEMATOCRIT 27 % (35-52); HEMOGLOBIN 8.3 g/dL (11.5-16.0); LYMPHOCYTES # (AUTO) 1.8 10^3/uL (1.0-4.0); LYMPHOCYTES % (AUTO) 18 % (12-44); MEAN CORPUSCULAR HEMOGLOBIN 25 pg (25-34); MEAN CORPUSCULAR HGB CONC 30 g/dL (32-36); MEAN CORPUSCULAR VOLUME 82 fL (80-99); MEAN PLATELET VOLUME 9.5 fL (9.0-12.2); MONOCYTES # (AUTO) 0.7 10^3/uL (0.0-1.0); MONOCYTES % (AUTO) 7 % (0-12); NEUTROPHILS # (AUTO) 6.6 10^3/uL (1.8-7.8); NEUTROPHILS % (AUTO) 68 % (42-75); PLATELET COUNT 445 10^3/uL (130-400); WHITE BLOOD COUNT 9.8 10^3/uL (4.3-11.0)
[2020-03-07 11:07] LABS: ALANINE AMINOTRANSFERASE 12 U/L (0-55); ALBUMIN 3.7 GM/DL (3.2-4.5); ALKALINE PHOSPHATASE 128 U/L (40-136); BILIRUBIN,TOTAL 0.2 MG/DL (0.1-1.0); BUN/CREATININE RATIO 14; CALCIUM 9.5 MG/DL (8.5-10.1); CARBON DIOXIDE 24 MMOL/L (21-32); CHLORIDE 104 MMOL/L (98-107); CREATININE SERUM 0.84 MG/DL (0.60-1.30); GFR ESTIMATED > 60; GLUCOSE 104 MG/DL (70-105); POTASSIUM 4.2 MMOL/L (3.6-5.0); SODIUM 137 MMOL/L (135-145); TOTAL PROTEIN 7.5 GM/DL (6.4-8.2)
[2020-03-20 09:45] LABS: BASOPHILS % (AUTO) 1 % (0-10); EOSINOPHILS # (AUTO) 0.2 10^3/uL (0.0-0.3); EOSINOPHILS % (AUTO) 4 % (0-10); HEMATOCRIT 27 % (35-52); HEMOGLOBIN 8.3 g/dL (11.5-16.0); LYMPHOCYTES # (AUTO) 1.1 10^3/uL (1.0-4.0); LYMPHOCYTES % (AUTO) 18 % (12-44); MEAN CORPUSCULAR HEMOGLOBIN 26 pg (25-34); MEAN CORPUSCULAR HGB CONC 31 g/dL (32-36); MEAN CORPUSCULAR VOLUME 83 fL (80-99); MEAN PLATELET VOLUME 9.8 fL (9.0-12.2); MONOCYTES # (AUTO) 0.8 10^3/uL (0.0-1.0); MONOCYTES % (AUTO) 13 % (0-12); NEUTROPHILS # (AUTO) 4.2 10^3/uL (1.8-7.8); NEUTROPHILS % (AUTO) 65 % (42-75); PLATELET COUNT 200 10^3/uL (130-400); WHITE BLOOD COUNT 6.4 10^3/uL (4.3-11.0)
[2020-03-20 10:09] LABS: ALBUMIN 3.6 GM/DL (3.2-4.5); BILIRUBIN,TOTAL 0.2 MG/DL (0.1-1.0); CALCIUM 8.8 MG/DL (8.5-10.1); CREATININE SERUM 0.95 MG/DL (0.60-1.30); MAGNESIUM 1.5 MG/DL (1.6-2.4); POTASSIUM 3.6 MMOL/L (3.6-5.0); TOTAL PROTEIN 6.9 GM/DL (6.4-8.2)
[2020-04-03 10:00] LABS: BASOPHILS # (AUTO) 0.1 10^3/uL (0.0-0.1); BASOPHILS % (AUTO) 2 % (0-10); EOSINOPHILS # (AUTO) 0.2 10^3/uL (0.0-0.3); EOSINOPHILS % (AUTO) 4 % (0-10); HEMATOCRIT 31 % (35-52); HEMOGLOBIN 9.7 g/dL (11.5-16.0); LYMPHOCYTES % (AUTO) 24 % (12-44); MEAN CORPUSCULAR HEMOGLOBIN 27 pg (25-34); MEAN CORPUSCULAR HGB CONC 31 g/dL (32-36); MEAN CORPUSCULAR VOLUME 85 fL (80-99); MEAN PLATELET VOLUME 10.5 fL (9.0-12.2); MONOCYTES # (AUTO) 0.7 10^3/uL (0.0-1.0); MONOCYTES % (AUTO) 16 % (0-12); NEUTROPHILS # (AUTO) 2.4 10^3/uL (1.8-7.8); NEUTROPHILS % (AUTO) 55 % (42-75); PLATELET COUNT 147 10^3/uL (130-400); WHITE BLOOD COUNT 4.3 10^3/uL (4.3-11.0)
[2020-04-03 10:18] LABS: CALCIUM 9.4 MG/DL (8.5-10.1); CREATININE SERUM 0.94 MG/DL (0.60-1.30); MAGNESIUM 1.4 MG/DL (1.6-2.4); POTASSIUM 3.6 MMOL/L (3.6-5.0)
[2020-04-17 10:06] LABS: BASOPHILS % (AUTO) 1 % (0-10); EOSINOPHILS # (AUTO) 0.1 10^3/uL (0.0-0.3); EOSINOPHILS % (AUTO) 3 % (0-10); HEMATOCRIT 31 % (35-52); LYMPHOCYTES % (AUTO) 22 % (12-44); MEAN CORPUSCULAR HEMOGLOBIN 28 pg (25-34); MEAN CORPUSCULAR HGB CONC 32 g/dL (32-36); MEAN CORPUSCULAR VOLUME 87 fL (80-99); MEAN PLATELET VOLUME 9.9 fL (9.0-12.2); MONOCYTES # (AUTO) 0.7 10^3/uL (0.0-1.0); MONOCYTES % (AUTO) 16 % (0-12); NEUTROPHILS # (AUTO) 2.4 10^3/uL (1.8-7.8); NEUTROPHILS % (AUTO) 57 % (42-75); PLATELET COUNT 100 10^3/uL (130-400); WHITE BLOOD COUNT 4.2 10^3/uL (4.3-11.0)
[2020-04-17 10:32] LABS: ALBUMIN 3.6 GM/DL (3.2-4.5); BILIRUBIN,TOTAL 0.4 MG/DL (0.1-1.0); CALCIUM 9.2 MG/DL (8.5-10.1); CREATININE SERUM 0.99 MG/DL (0.60-1.30); MAGNESIUM 1.4 MG/DL (1.6-2.4); POTASSIUM 3.5 MMOL/L (3.6-5.0); TOTAL PROTEIN 6.9 GM/DL (6.4-8.2)
[2020-05-01 10:36] LABS: BASOPHILS # (AUTO) 0.1 10^3/uL (0.0-0.1); BASOPHILS % (AUTO) 2 % (0-10); EOSINOPHILS # (AUTO) 0.1 10^3/uL (0.0-0.3); EOSINOPHILS % (AUTO) 2 % (0-10); HEMATOCRIT 32 % (35-52); HEMOGLOBIN 10.5 g/dL (11.5-16.0); LYMPHOCYTES % (AUTO) 26 % (12-44); MEAN CORPUSCULAR HEMOGLOBIN 29 pg (25-34); MEAN CORPUSCULAR HGB CONC 33 g/dL (32-36); MEAN CORPUSCULAR VOLUME 89 fL (80-99); MEAN PLATELET VOLUME 10.5 fL (9.0-12.2); MONOCYTES # (AUTO) 0.7 10^3/uL (0.0-1.0); MONOCYTES % (AUTO) 20 % (0-12); NEUTROPHILS # (AUTO) 1.8 10^3/uL (1.8-7.8); NEUTROPHILS % (AUTO) 49 % (42-75); PLATELET COUNT 130 10^3/uL (130-400); WHITE BLOOD COUNT 3.7 10^3/uL (4.3-11.0)
[2020-05-01 10:54] LABS: ALBUMIN 3.5 GM/DL (3.2-4.5); BILIRUBIN,TOTAL 0.6 MG/DL (0.1-1.0); CREATININE SERUM 1.06 MG/DL (0.60-1.30); MAGNESIUM 1.3 MG/DL (1.6-2.4); POTASSIUM 3.3 MMOL/L (3.6-5.0)
[2020-05-08 13:21] LABS: BASOPHILS # (AUTO) 0.1 10^3/uL (0.0-0.1); BASOPHILS % (AUTO) 1 % (0-10); EOSINOPHILS # (AUTO) 0.2 10^3/uL (0.0-0.3); EOSINOPHILS % (AUTO) 2 % (0-10); HEMATOCRIT 35 % (35-52); HEMOGLOBIN 11.2 g/dL (11.5-16.0); LYMPHOCYTES # (AUTO) 1.1 10^3/uL (1.0-4.0); LYMPHOCYTES % (AUTO) 14 % (12-44); MEAN CORPUSCULAR HEMOGLOBIN 30 pg (25-34); MEAN CORPUSCULAR HGB CONC 32 g/dL (32-36); MEAN CORPUSCULAR VOLUME 93 fL (80-99); MONOCYTES # (AUTO) 1.1 10^3/uL (0.0-1.0); MONOCYTES % (AUTO) 13 % (0-12); NEUTROPHILS # (AUTO) 5.4 10^3/uL (1.8-7.8); NEUTROPHILS % (AUTO) 69 % (42-75); PLATELET COUNT 200 10^3/uL (130-400); WHITE BLOOD COUNT 7.9 10^3/uL (4.3-11.0)
[2020-05-08 13:45] LABS: ALBUMIN 3.5 GM/DL (3.2-4.5); BILIRUBIN,TOTAL 0.4 MG/DL (0.1-1.0); CREATININE SERUM 1.19 MG/DL (0.60-1.30); MAGNESIUM 1.9 MG/DL (1.6-2.4); POTASSIUM 3.7 MMOL/L (3.6-5.0); TOTAL PROTEIN 7.2 GM/DL (6.4-8.2)
[2020-05-22 11:11] LABS: BASOPHILS # (AUTO) 0.1 10^3/uL (0.0-0.1); BASOPHILS % (AUTO) 1 % (0-10); EOSINOPHILS # (AUTO) 0.2 10^3/uL (0.0-0.3); EOSINOPHILS % (AUTO) 3 % (0-10); HEMATOCRIT 34 % (35-52); HEMOGLOBIN 11.2 g/dL (11.5-16.0); LYMPHOCYTES # (AUTO) 1.1 10^3/uL (1.0-4.0); LYMPHOCYTES % (AUTO) 21 % (12-44); MEAN CORPUSCULAR HEMOGLOBIN 31 pg (25-34); MEAN CORPUSCULAR HGB CONC 33 g/dL (32-36); MEAN CORPUSCULAR VOLUME 93 fL (80-99); MEAN PLATELET VOLUME 10.5 fL (9.0-12.2); MONOCYTES # (AUTO) 0.8 10^3/uL (0.0-1.0); MONOCYTES % (AUTO) 16 % (0-12); NEUTROPHILS # (AUTO) 3.1 10^3/uL (1.8-7.8); NEUTROPHILS % (AUTO) 59 % (42-75); PLATELET COUNT 125 10^3/uL (130-400); WHITE BLOOD COUNT 5.2 10^3/uL (4.3-11.0)
[2020-05-22 11:35] LABS: ALBUMIN 3.6 GM/DL (3.2-4.5); BILIRUBIN,TOTAL 0.4 MG/DL (0.1-1.0); CALCIUM 9.3 MG/DL (8.5-10.1); CREATININE SERUM 0.94 MG/DL (0.60-1.30); MAGNESIUM 1.7 MG/DL (1.6-2.4); TOTAL PROTEIN 7.7 GM/DL (6.4-8.2)
[~2020-06-05] VITALS: Ht 160 cm; Wt 74.4 kg
[~2020-06-05] MED LIST changes: +D5W 500 ML IV (CANCER CTR) 500 ML IV SCH; +FAMOTIDINE 20MG/2ML IV (CANCER CTR) IV SCH; +FERRIC CARBOXYMALTOSE (CANCER) 750 MG in NS (IVPB) CANCER CENTER 250 ML IV SCH; +FLUOROURACIL IV SCH; +FOSAPREPITANT (CANCER CENTER) 150 MG in NS (IVPB) CANCER CENTER ONLY 150 ML IV SCH; +LEUCOVORIN CALCIUM 500 MG, LEUCOVORIN CALCIUM 100 MG in D5W 250 ML IVPB (CANCER CTR) 25... IV SCH; +LEUCOVORIN CALCIUM IV SCH; +MAGNESIUM SULFATE (CANCER CTR) 2 GM in NS (IVPB) CANCER CENTER 100 ML IV ONE; +MAGNESIUM SULFATE (CANCER CTR) 2 GM in NS (IVPB) CANCER CENTER 50 ML IV ONE; +MAGNESIUM SULFATE (CANCER CTR) 3 GM in D5W 50 ML IV(CANCER CTR) 50 ML IV ONE; +MAGNESIUM SULFATE IV ONE; +NS IV ONE; +NS IV SCH; +OXALIPLATIN 100 MG, OXALIPLATIN (GENERIC) 50 MG in D5W 250 ML IVPB (CANCER CTR) 250 ML IV SCH; +[UNRECOGNIZED DRUG - OTHER] IV SCH; +diphenhydrAMINE 25 MG TAB (BENADRYL) CANCER CENTER PO SCH
[2020-06-05 10:18] LABS: BASOPHILS # (AUTO) 0.1 10^3/uL (0.0-0.1); BASOPHILS % (AUTO) 2 % (0-10); EOSINOPHILS # (AUTO) 0.1 10^3/uL (0.0-0.3); EOSINOPHILS % (AUTO) 2 % (0-10); HEMATOCRIT 33 % (35-52); HEMOGLOBIN 10.7 g/dL (11.5-16.0); LYMPHOCYTES # (AUTO) 0.9 10^3/uL (1.0-4.0); LYMPHOCYTES % (AUTO) 28 % (12-44); MEAN CORPUSCULAR HEMOGLOBIN 31 pg (25-34); MEAN CORPUSCULAR HGB CONC 33 g/dL (32-36); MEAN CORPUSCULAR VOLUME 95 fL (80-99); MEAN PLATELET VOLUME 10.5 fL (9.0-12.2); MONOCYTES # (AUTO) 0.6 10^3/uL (0.0-1.0); MONOCYTES % (AUTO) 20 % (0-12); NEUTROPHILS # (AUTO) 1.5 10^3/uL (1.8-7.8); NEUTROPHILS % (AUTO) 48 % (42-75); PLATELET COUNT 105 10^3/uL (130-400); WHITE BLOOD COUNT 3.1 10^3/uL (4.3-11.0)
[2020-06-05 10:38] LABS: ALBUMIN 3.4 GM/DL (3.2-4.5); BILIRUBIN,TOTAL 0.6 MG/DL (0.1-1.0); CREATININE SERUM 0.96 MG/DL (0.60-1.30); POTASSIUM 3.7 MMOL/L (3.6-5.0)
== END | disposition home or self-care (01) ==
LOC: ONC 03-07 08:50
PROVIDERS: ATTEND Internal Medicine Hematology & Oncology
DX: C18.0 Malignant neoplasm of cecum (principal); D50.9 Iron deficiency anemia, unspecified; K90.9 Intestinal malabsorption, unspecified
CPT/HCPCS: 80053; 82378; 85025; 96367; 96368; 96375; 96411; 96413; 96416; G0463; 36591; 80048; 83735; 84443; 96365; 96415

== ENCOUNTER → 2020-06-25 | Outpatient (CLI) | payer MEDICARE, OTHER ==
[~2020-06-25] MED LIST changes: -D5W 500 ML IV (CANCER CTR) 500 ML IV SCH; -FAMOTIDINE 20MG/2ML IV (CANCER CTR) IV SCH; -FERRIC CARBOXYMALTOSE (CANCER) 750 MG in NS (IVPB) CANCER CENTER 250 ML IV SCH; -FLUOROURACIL IV SCH; -FOSAPREPITANT (CANCER CENTER) 150 MG in NS (IVPB) CANCER CENTER ONLY 150 ML IV SCH; -LEUCOVORIN CALCIUM 500 MG, LEUCOVORIN CALCIUM 100 MG in D5W 250 ML IVPB (CANCER CTR) 25... IV SCH; -LEUCOVORIN CALCIUM IV SCH; -MAGNESIUM SULFATE (CANCER CTR) 2 GM in NS (IVPB) CANCER CENTER 100 ML IV ONE; -MAGNESIUM SULFATE (CANCER CTR) 2 GM in NS (IVPB) CANCER CENTER 50 ML IV ONE; -MAGNESIUM SULFATE (CANCER CTR) 3 GM in D5W 50 ML IV(CANCER CTR) 50 ML IV ONE; -MAGNESIUM SULFATE IV ONE; -NS IV ONE; -NS IV SCH; -OXALIPLATIN 100 MG, OXALIPLATIN (GENERIC) 50 MG in D5W 250 ML IVPB (CANCER CTR) 250 ML IV SCH; -[UNRECOGNIZED DRUG - OTHER] IV SCH; -diphenhydrAMINE 25 MG TAB (BENADRYL) CANCER CENTER PO SCH
[2020-06-25 10:50] LABS: BASOPHILS # (AUTO) 0.1 10^3/uL (0.0-0.1); BASOPHILS % (AUTO) 2 % (0-10); EOSINOPHILS # (AUTO) 0.1 10^3/uL (0.0-0.3); EOSINOPHILS % (AUTO) 3 % (0-10); HEMATOCRIT 36 % (35-52); HEMOGLOBIN 11.8 G/DL (11.5-16.0); LYMPHOCYTES # (AUTO) 1.1 X 10^3 (1.0-4.0); LYMPHOCYTES % (AUTO) 27 % (12-44); MEAN CORPUSCULAR HEMOGLOBIN 32 PG (25-34); MEAN CORPUSCULAR HGB CONC 33 G/DL (32-36); MEAN CORPUSCULAR VOLUME 98 FL (80-99); MEAN PLATELET VOLUME 9.8 FL (7.4-10.4); MONOCYTES # (AUTO) 0.8 X 10^3 (0.0-1.0); MONOCYTES % (AUTO) 20 % (0-12); NEUTROPHILS # (AUTO) 1.9 X 10^3 (1.8-7.8); NEUTROPHILS % (AUTO) 48 % (42-75); PLATELET COUNT 138 10^3/uL (130-400); WHITE BLOOD COUNT 3.9 10^3/uL (4.3-11.0)
== END ==
LOC: LAB FS 09:59
PROVIDERS: ATTEND Internal Medicine Hematology & Oncology
DX: C18.9 Malignant neoplasm of colon, unspecified (principal)
CPT/HCPCS: 36415; 85025

== ENCOUNTER → 2020-09-17 | Outpatient (RCR) | payer MEDICARE, OTHER ==
[2020-06-19 11:11] LABS: BASOPHILS % (AUTO) 2 % (0-10); EOSINOPHILS # (AUTO) 0.1 10^3/uL (0.0-0.3); EOSINOPHILS % (AUTO) 5 % (0-10); HEMATOCRIT 33 % (35-52); HEMOGLOBIN 10.5 g/dL (11.5-16.0); LYMPHOCYTES # (AUTO) 0.7 10^3/uL (1.0-4.0); LYMPHOCYTES % (AUTO) 37 % (12-44); MEAN CORPUSCULAR HEMOGLOBIN 32 pg (25-34); MEAN CORPUSCULAR HGB CONC 32 g/dL (32-36); MEAN CORPUSCULAR VOLUME 99 fL (80-99); MONOCYTES # (AUTO) 0.4 10^3/uL (0.0-1.0); MONOCYTES % (AUTO) 19 % (0-12); NEUTROPHILS # (AUTO) 0.7 10^3/uL (1.8-7.8); NEUTROPHILS % (AUTO) 37 % (42-75); PLATELET COUNT 99 10^3/uL (130-400)
[2020-06-19 11:41] LABS: ALANINE AMINOTRANSFERASE 15 U/L (0-55); ALBUMIN 3.3 GM/DL (3.2-4.5); ALKALINE PHOSPHATASE 242 U/L (40-136); BILIRUBIN,TOTAL 0.5 MG/DL (0.1-1.0); BUN/CREATININE RATIO 10; CALCIUM 9.4 MG/DL (8.5-10.1); CARBON DIOXIDE 22 MMOL/L (21-32); CHLORIDE 106 MMOL/L (98-107); CREATININE SERUM 0.87 MG/DL (0.60-1.30); GFR ESTIMATED > 60; GLUCOSE 145 MG/DL (70-105); POTASSIUM 3.8 MMOL/L (3.6-5.0); SODIUM 138 MMOL/L (135-145); TOTAL PROTEIN 7.1 GM/DL (6.4-8.2)
[2020-06-26 13:20] LABS: BUN/CREATININE RATIO 15; CALCIUM 8.8 MG/DL (8.5-10.1); CARBON DIOXIDE 24 MMOL/L (21-32); CHLORIDE 101 MMOL/L (98-107); CREATININE SERUM 0.89 MG/DL (0.60-1.30); GFR ESTIMATED > 60; GLUCOSE 156 MG/DL (70-105); MAGNESIUM 1.5 MG/DL (1.6-2.4); POTASSIUM 4.1 MMOL/L (3.6-5.0); SODIUM 132 MMOL/L (135-145)
[2020-07-10 10:39] LABS: EOSINOPHILS # (AUTO) 0.2 10^3/uL (0.0-0.3); LYMPHOCYTES # (AUTO) 0.9 10^3/uL (1.0-4.0)
[2020-07-10 10:41] LABS: BASOPHILS % (AUTO) 1 % (0-10); EOSINOPHILS % (AUTO) 7 % (0-10); HEMATOCRIT 32 % (35-52); HEMOGLOBIN 10.1 g/dL (11.5-16.0); LYMPHOCYTES % (AUTO) 34 % (12-44); MEAN CORPUSCULAR HEMOGLOBIN 32 pg (25-34); MEAN CORPUSCULAR HGB CONC 32 g/dL (32-36); MEAN CORPUSCULAR VOLUME 102 fL (80-99); MONOCYTES # (AUTO) 0.6 10^3/uL (0.0-1.0); MONOCYTES % (AUTO) 21 % (0-12); NEUTROPHILS % (AUTO) 36 % (42-75); PLATELET COUNT 95 10^3/uL (130-400); WHITE BLOOD COUNT 2.7 10^3/uL (4.3-11.0)
[2020-07-10 10:53] LABS: ALANINE AMINOTRANSFERASE 17 U/L (0-55); ALBUMIN 3.3 GM/DL (3.2-4.5); ALKALINE PHOSPHATASE 242 U/L (40-136); BILIRUBIN,TOTAL 0.6 MG/DL (0.1-1.0); BUN/CREATININE RATIO 10; CARBON DIOXIDE 24 MMOL/L (21-32); CHLORIDE 105 MMOL/L (98-107); CREATININE SERUM 0.83 MG/DL (0.60-1.30); GFR ESTIMATED > 60; GLUCOSE 138 MG/DL (70-105); POTASSIUM 3.7 MMOL/L (3.6-5.0); SODIUM 136 MMOL/L (135-145); TOTAL PROTEIN 7.2 GM/DL (6.4-8.2)
[2020-07-16 10:52] LABS: BASOPHILS # (AUTO) 0.1 10^3/uL (0.0-0.1); BASOPHILS % (AUTO) 1 % (0-10); EOSINOPHILS # (AUTO) 0.2 10^3/uL (0.0-0.3); EOSINOPHILS % (AUTO) 4 % (0-10); HEMATOCRIT 33 % (35-52); HEMOGLOBIN 10.7 g/dL (11.5-16.0); LYMPHOCYTES # (AUTO) 1.2 10^3/uL (1.0-4.0); LYMPHOCYTES % (AUTO) 26 % (12-44); MEAN CORPUSCULAR HEMOGLOBIN 33 pg (25-34); MEAN CORPUSCULAR HGB CONC 32 g/dL (32-36); MEAN CORPUSCULAR VOLUME 103 fL (80-99); MONOCYTES % (AUTO) 22 % (0-12); NEUTROPHILS # (AUTO) 2.1 10^3/uL (1.8-7.8); NEUTROPHILS % (AUTO) 46 % (42-75); PLATELET COUNT 138 10^3/uL (130-400); WHITE BLOOD COUNT 4.6 10^3/uL (4.3-11.0)
[2020-07-16 11:10] LABS: ALANINE AMINOTRANSFERASE 14 U/L (0-55); ALBUMIN 3.4 GM/DL (3.2-4.5); ALKALINE PHOSPHATASE 246 U/L (40-136); BILIRUBIN,TOTAL 0.6 MG/DL (0.1-1.0); BUN/CREATININE RATIO 13; CALCIUM 9.2 MG/DL (8.5-10.1); CARBON DIOXIDE 27 MMOL/L (21-32); CHLORIDE 105 MMOL/L (98-107); CREATININE SERUM 0.86 MG/DL (0.60-1.30); GFR ESTIMATED > 60; GLUCOSE 124 MG/DL (70-105); POTASSIUM 3.8 MMOL/L (3.6-5.0); SODIUM 137 MMOL/L (135-145); TOTAL PROTEIN 7.8 GM/DL (6.4-8.2)
[2020-07-16 12:10] LABS: MAGNESIUM 1.5 MG/DL (1.6-2.4)
[2020-08-07 10:57] LABS: BASOPHILS # (AUTO) 0.1 10^3/uL (0.0-0.1); BASOPHILS % (AUTO) 2 % (0-10); EOSINOPHILS # (AUTO) 0.1 10^3/uL (0.0-0.3); EOSINOPHILS % (AUTO) 3 % (0-10); HEMATOCRIT 33 % (35-52); LYMPHOCYTES # (AUTO) 1.4 10^3/uL (1.0-4.0); LYMPHOCYTES % (AUTO) 28 % (12-44); MEAN CORPUSCULAR HEMOGLOBIN 33 pg (25-34); MEAN CORPUSCULAR HGB CONC 34 g/dL (32-36); MEAN CORPUSCULAR VOLUME 99 fL (80-99); MEAN PLATELET VOLUME 9.2 fL (9.0-12.2); MONOCYTES # (AUTO) 0.8 10^3/uL (0.0-1.0); MONOCYTES % (AUTO) 15 % (0-12); NEUTROPHILS # (AUTO) 2.7 10^3/uL (1.8-7.8); NEUTROPHILS % (AUTO) 52 % (42-75); PLATELET COUNT 131 10^3/uL (130-400); WHITE BLOOD COUNT 5.2 10^3/uL (4.3-11.0)
[2020-08-07 11:17] LABS: ALBUMIN 3.5 GM/DL (3.2-4.5); CHLORIDE 99 MMOL/L (98-107); POTASSIUM 3.8 MMOL/L (3.6-5.0); SODIUM 133 MMOL/L (135-145)
[2020-08-07 11:18] LABS: CALCIUM 9.3 MG/DL (8.5-10.1)
[2020-08-07 11:19] LABS: GLUCOSE 128 MG/DL (70-105)
[2020-08-07 11:20] LABS: TOTAL PROTEIN 8.3 GM/DL (6.4-8.2)
[2020-08-07 11:21] LABS: CARBON DIOXIDE 25 MMOL/L (21-32)
[2020-08-07 11:22] LABS: BILIRUBIN,TOTAL 0.7 MG/DL (0.1-1.0)
[2020-08-07 11:23] LABS: ALKALINE PHOSPHATASE 260 U/L (40-136); CREATININE SERUM 0.83 MG/DL (0.60-1.30); GFR ESTIMATED > 60
[2020-08-07 11:24] LABS: BUN/CREATININE RATIO 10
[2020-08-07 11:26] LABS: ALANINE AMINOTRANSFERASE 14 U/L (0-55); MAGNESIUM 1.7 MG/DL (1.6-2.4)
[2020-08-28 13:41] LABS: BASOPHILS # (AUTO) 0.1 10^3/uL (0.0-0.1); BASOPHILS % (AUTO) 2 % (0-10); EOSINOPHILS # (AUTO) 0.2 10^3/uL (0.0-0.3); EOSINOPHILS % (AUTO) 4 % (0-10); HEMATOCRIT 33 % (35-52); HEMOGLOBIN 11.1 g/dL (11.5-16.0); LYMPHOCYTES # (AUTO) 1.3 10^3/uL (1.0-4.0); LYMPHOCYTES % (AUTO) 28 % (12-44); MEAN CORPUSCULAR HEMOGLOBIN 33 pg (25-34); MEAN CORPUSCULAR HGB CONC 33 g/dL (32-36); MEAN CORPUSCULAR VOLUME 99 fL (80-99); MEAN PLATELET VOLUME 9.5 fL (9.0-12.2); MONOCYTES # (AUTO) 0.8 10^3/uL (0.0-1.0); MONOCYTES % (AUTO) 17 % (0-12); NEUTROPHILS # (AUTO) 2.4 10^3/uL (1.8-7.8); NEUTROPHILS % (AUTO) 49 % (42-75); PLATELET COUNT 143 10^3/uL (130-400); WHITE BLOOD COUNT 4.8 10^3/uL (4.3-11.0)
[2020-08-28 14:08] LABS: ALANINE AMINOTRANSFERASE 22 U/L (0-55); ALBUMIN 3.4 GM/DL (3.2-4.5); ALKALINE PHOSPHATASE 255 U/L (40-136); BILIRUBIN,TOTAL 0.6 MG/DL (0.1-1.0); BUN/CREATININE RATIO 9; CALCIUM 9.4 MG/DL (8.5-10.1); CARBON DIOXIDE 22 MMOL/L (21-32); CHLORIDE 101 MMOL/L (98-107); CREATININE SERUM 0.86 MG/DL (0.60-1.30); GFR ESTIMATED > 60; GLUCOSE 99 MG/DL (70-105); MAGNESIUM 1.5 MG/DL (1.6-2.4); POTASSIUM 4.1 MMOL/L (3.6-5.0); SODIUM 131 MMOL/L (135-145); TOTAL PROTEIN 8.1 GM/DL (6.4-8.2)
[2020-09-10 10:25] LABS: BASOPHILS # (AUTO) 0.1 10^3/uL (0.0-0.1); BASOPHILS % (AUTO) 1 % (0-10); EOSINOPHILS # (AUTO) 0.2 10^3/uL (0.0-0.3); EOSINOPHILS % (AUTO) 4 % (0-10); HEMATOCRIT 35 % (35-52); HEMOGLOBIN 11.7 g/dL (11.5-16.0); LYMPHOCYTES # (AUTO) 1.2 10^3/uL (1.0-4.0); LYMPHOCYTES % (AUTO) 20 % (12-44); MEAN CORPUSCULAR HEMOGLOBIN 33 pg (25-34); MEAN CORPUSCULAR HGB CONC 33 g/dL (32-36); MEAN CORPUSCULAR VOLUME 99 fL (80-99); MEAN PLATELET VOLUME 9.6 fL (9.0-12.2); MONOCYTES # (AUTO) 0.8 10^3/uL (0.0-1.0); MONOCYTES % (AUTO) 13 % (0-12); NEUTROPHILS # (AUTO) 3.8 10^3/uL (1.8-7.8); NEUTROPHILS % (AUTO) 62 % (42-75); PLATELET COUNT 129 10^3/uL (130-400); WHITE BLOOD COUNT 6.1 10^3/uL (4.3-11.0)
[2020-09-10 10:46] LABS: ALANINE AMINOTRANSFERASE 27 U/L (0-55); ALBUMIN 3.6 GM/DL (3.2-4.5); ALKALINE PHOSPHATASE 313 U/L (40-136); BILIRUBIN,TOTAL 0.6 MG/DL (0.1-1.0); BUN/CREATININE RATIO 18; CALCIUM 9.7 MG/DL (8.5-10.1); CARBON DIOXIDE 23 MMOL/L (21-32); CHLORIDE 102 MMOL/L (98-107); CREATININE SERUM 0.83 MG/DL (0.60-1.30); GFR ESTIMATED > 60; GLUCOSE 135 MG/DL (70-105); MAGNESIUM 1.7 MG/DL (1.6-2.4); POTASSIUM 4.5 MMOL/L (3.6-5.0); SODIUM 133 MMOL/L (135-145); TOTAL PROTEIN 8.5 GM/DL (6.4-8.2)
[~2020-09-17] MED LIST changes: +D5W 500 ML IV (CANCER CTR) 500 ML IV SCH; +FAMOTIDINE 20MG/2ML IV (CANCER CTR) IV SCH; +FOSAPREPITANT (CANCER CENTER) 150 MG in NS (IVPB) CANCER CENTER ONLY 150 ML IV SCH; +LEUCOVORIN CALCIUM 500 MG, LEUCOVORIN CALCIUM 100 MG in D5W 250 ML IVPB (CANCER CTR) 25... IV SCH; +MAGNESIUM SULFATE (CANCER CTR) 2 GM in D5W 50 ML IV(CANCER CTR) 50 ML IV ONE; +OXALIPLATIN 100 MG, OXALIPLATIN (GENERIC) 40 MG in D5W 250 ML IVPB (CANCER CTR) 250 ML IV SCH; +OXALIPLATIN 100 MG, OXALIPLATIN (GENERIC) 50 MG in D5W 250 ML IVPB (CANCER CTR) 250 ML IV SCH; +diphenhydrAMINE 25 MG TAB (BENADRYL) CANCER CENTER PO SCH
[2020-09-17 10:12] LABS: BASOPHILS # (AUTO) 0.1 10^3/uL (0.0-0.1); BASOPHILS % (AUTO) 1 % (0-10); EOSINOPHILS # (AUTO) 0.2 10^3/uL (0.0-0.3); EOSINOPHILS % (AUTO) 4 % (0-10); HEMATOCRIT 33 % (35-52); LYMPHOCYTES # (AUTO) 1.2 10^3/uL (1.0-4.0); LYMPHOCYTES % (AUTO) 18 % (12-44); MEAN CORPUSCULAR HEMOGLOBIN 33 pg (25-34); MEAN CORPUSCULAR HGB CONC 33 g/dL (32-36); MEAN CORPUSCULAR VOLUME 100 fL (80-99); MEAN PLATELET VOLUME 9.7 fL (9.0-12.2); MONOCYTES # (AUTO) 0.7 10^3/uL (0.0-1.0); MONOCYTES % (AUTO) 11 % (0-12); NEUTROPHILS # (AUTO) 4.3 10^3/uL (1.8-7.8); NEUTROPHILS % (AUTO) 66 % (42-75); PLATELET COUNT 146 10^3/uL (130-400); WHITE BLOOD COUNT 6.5 10^3/uL (4.3-11.0)
[2020-09-17 10:31] LABS: CALCIUM 9.2 MG/DL (8.5-10.1); CREATININE SERUM 0.84 MG/DL (0.60-1.30); MAGNESIUM 2.1 MG/DL (1.6-2.4); POTASSIUM 4.7 MMOL/L (3.6-5.0)
== END | disposition home or self-care (01) ==
LOC: ONC 06-19 10:56
PROVIDERS: ATTEND Internal Medicine Hematology & Oncology
DX: C18.9 Malignant neoplasm of colon, unspecified (principal); D50.9 Iron deficiency anemia, unspecified; K90.9 Intestinal malabsorption, unspecified; E83.42 Hypomagnesemia; E11.9 Type 2 diabetes mellitus without complications; I25.10 Atherosclerotic heart disease of native coronary artery without angina pectoris; Z90.49 Acquired absence of other specified parts of digestive tract; Z90.89 Acquired absence of other organs; Z79.899 Other long term (current) drug therapy
CPT/HCPCS: 80053; 85025; G0463; 36591; 80048; 82378; 83735; 96367; 96368; 96375; 96411; 96413

== ENCOUNTER → 2020-10-10 | Outpatient (CLI) | payer MEDICARE, OTHER ==
[~2020-10-10] MED LIST changes: -D5W 500 ML IV (CANCER CTR) 500 ML IV SCH; -FAMOTIDINE 20MG/2ML IV (CANCER CTR) IV SCH; -FOSAPREPITANT (CANCER CENTER) 150 MG in NS (IVPB) CANCER CENTER ONLY 150 ML IV SCH; +IOHEXOL 240 MGI/ML 50 ML (OMNIPAQUE) VIAL IV ONE; +IOHEXOL 300 MG/ML 50 ML (OMNIPAQUE 300) VIAL IV ONE; -LEUCOVORIN CALCIUM 500 MG, LEUCOVORIN CALCIUM 100 MG in D5W 250 ML IVPB (CANCER CTR) 25... IV SCH; -MAGNESIUM SULFATE (CANCER CTR) 2 GM in D5W 50 ML IV(CANCER CTR) 50 ML IV ONE; -OXALIPLATIN 100 MG, OXALIPLATIN (GENERIC) 40 MG in D5W 250 ML IVPB (CANCER CTR) 250 ML IV SCH; -OXALIPLATIN 100 MG, OXALIPLATIN (GENERIC) 50 MG in D5W 250 ML IVPB (CANCER CTR) 250 ML IV SCH; -diphenhydrAMINE 25 MG TAB (BENADRYL) CANCER CENTER PO SCH
--- NOTE | 2020-10-10 10:02 | Diagnostic Imaging Report ---
INDICATION: Port malfunction. DETAILS OF THE PROCEDURE: The patient was brought to the procedure room and placed on the table in the supine position. The patient's port was accessed by [facility] nursing. Approximately 20 cc of Omnipaque 240 contrast was injected through the patient's port during fluoroscopic observation. 23 seconds of fluoroscopic time was utilized with 2 images obtained. Images demonstrate normal passage of contrast through the port tubing and out the catheter tip at the SVC/right atrial junction. No extravasation of contrast is seen. There is no fracture or interruption of the port tubing. No kinking is seen. The port flushed normally with saline with normal aspiration of blood. IMPRESSION: Normal fluoroscopically evaluated port check. No port malfunction is identified. Dictated by: Dictated on workstation # [id number]
== END ==
LOC: RAD 09:00
PROVIDERS: ATTEND Internal Medicine Hematology & Oncology
DX: T82.599A Other mechanical complication of unspecified cardiac and vascular devices and implants, initial encounter (principal)
CPT/HCPCS: 36598

== ENCOUNTER → 2020-10-30 | Outpatient (CLI) | payer MEDICARE, OTHER ==
[~2020-10-30] MED LIST changes: -IOHEXOL 240 MGI/ML 50 ML (OMNIPAQUE) VIAL IV ONE; -IOHEXOL 300 MG/ML 50 ML (OMNIPAQUE 300) VIAL IV ONE
--- NOTE | 2020-10-30 12:58 | Diagnostic Imaging Report ---
INDICATION: Colon carcinoma with subsequent treatment strategy, restaging, and assessing treatment response. FINDINGS: The serum blood glucose level at the time of injection was 105 mg/dL. The patient was administered 12.4 mCi of F-18 FDG intravenously in the right antecubital location and PET imaging was performed from the top of the skull to the mid thighs. A noncontrast CT was also performed for attenuation correction and anatomic correlation. COMPARISON: Correlation is made with prior PET/CT study from 05/29/2020. FINDINGS: There is symmetric activity throughout the brain. The soft tissues of the neck are unremarkable. No mediastinal or hilar hypermetabolism is seen. No pulmonary parenchymal hypermetabolism is identified. There is physiologic activity throughout the GI and tracts of the abdomen and pelvis. No suspicious focus of tracer accumulation is seen. There are postop changes to the right colon. IMPRESSION: Continued stable PET/CT study when compared to the exam from 05/29/2020. No suspicious regions of hypermetabolism are identified. Dictated by: Dictated on workstation # [id number]
== END ==
LOC: RAD 08:15
PROVIDERS: ATTEND Internal Medicine Hematology & Oncology
DX: C18.9 Malignant neoplasm of colon, unspecified (principal)
CPT/HCPCS: 78815; A9552

== ENCOUNTER 2020-11-06 10:33 | Outpatient (RCR) | payer MEDICARE, OTHER ==
[2020-10-09 09:38] LABS: BASOPHILS # (AUTO) 0.1 10^3/uL (0.0-0.1); BASOPHILS % (AUTO) 1 % (0-10); EOSINOPHILS # (AUTO) 0.1 10^3/uL (0.0-0.3); EOSINOPHILS % (AUTO) 2 % (0-10); HEMATOCRIT 34 % (35-52); HEMOGLOBIN 11.5 g/dL (11.5-16.0); LYMPHOCYTES # (AUTO) 1.2 10^3/uL (1.0-4.0); LYMPHOCYTES % (AUTO) 23 % (12-44); MEAN CORPUSCULAR HEMOGLOBIN 32 pg (25-34); MEAN CORPUSCULAR HGB CONC 34 g/dL (32-36); MEAN CORPUSCULAR VOLUME 96 fL (80-99); MEAN PLATELET VOLUME 9.4 fL (9.0-12.2); MONOCYTES # (AUTO) 0.7 10^3/uL (0.0-1.0); MONOCYTES % (AUTO) 14 % (0-12); NEUTROPHILS # (AUTO) 3.1 10^3/uL (1.8-7.8); NEUTROPHILS % (AUTO) 60 % (42-75); PLATELET COUNT 174 10^3/uL (130-400); WHITE BLOOD COUNT 5.2 10^3/uL (4.3-11.0)
[2020-10-09 09:57] LABS: ALBUMIN 3.6 GM/DL (3.2-4.5); BILIRUBIN,TOTAL 0.6 MG/DL (0.1-1.0); CALCIUM 10.1 MG/DL (8.5-10.1); CREATININE SERUM 0.84 MG/DL (0.60-1.30); MAGNESIUM 1.7 MG/DL (1.6-2.4); TOTAL PROTEIN 8.4 GM/DL (6.4-8.2)
[2020-10-30 08:11] LABS: BASOPHILS # (AUTO) 0.1 10^3/uL (0.0-0.1); BASOPHILS % (AUTO) 2 % (0-10); EOSINOPHILS # (AUTO) 0.1 10^3/uL (0.0-0.3); EOSINOPHILS % (AUTO) 2 % (0-10); HEMATOCRIT 35 % (35-52); HEMOGLOBIN 11.8 g/dL (11.5-16.0); LYMPHOCYTES % (AUTO) 22 % (12-44); MEAN CORPUSCULAR HEMOGLOBIN 32 pg (25-34); MEAN CORPUSCULAR HGB CONC 34 g/dL (32-36); MEAN CORPUSCULAR VOLUME 95 fL (80-99); MEAN PLATELET VOLUME 9.1 fL (9.0-12.2); MONOCYTES # (AUTO) 0.9 10^3/uL (0.0-1.0); MONOCYTES % (AUTO) 19 % (0-12); NEUTROPHILS # (AUTO) 2.6 10^3/uL (1.8-7.8); NEUTROPHILS % (AUTO) 55 % (42-75); PLATELET COUNT 195 10^3/uL (130-400); WHITE BLOOD COUNT 4.6 10^3/uL (4.3-11.0)
[2020-10-30 08:28] LABS: ALBUMIN 3.8 GM/DL (3.2-4.5); BILIRUBIN,TOTAL 0.9 MG/DL (0.1-1.0); CALCIUM 10.7 MG/DL (8.5-10.1); CREATININE SERUM 0.85 MG/DL (0.60-1.30); POTASSIUM 4.1 MMOL/L (3.6-5.0); TOTAL PROTEIN 8.9 GM/DL (6.4-8.2)
[~2020-11-06 10:33] MED LIST changes: +D5W 500 ML IV (CANCER CTR) 500 ML IV SCH; +FAMOTIDINE 20MG/2ML IV (CANCER CTR) IV SCH; +FOSAPREPITANT (CANCER CENTER) 150 MG in NS (IVPB) CANCER CENTER ONLY 150 ML IV SCH; +IOHEXOL 240 MGI/ML 50 ML (OMNIPAQUE) VIAL IV ONE; +LEUCOVORIN CALCIUM 500 MG, LEUCOVORIN CALCIUM 100 MG in D5W 250 ML IVPB (CANCER CTR) 25... IV SCH; +LEUCOVORIN CALCIUM 600 MG in D5W 250 ML IVPB (CANCER CTR) 250 ML IV SCH; +OXALIPLATIN 100 MG, OXALIPLATIN (GENERIC) 40 MG in D5W 250 ML IVPB (CANCER CTR) 250 ML IV SCH; +diphenhydrAMINE 25 MG TAB (BENADRYL) CANCER CENTER PO SCH
== END 2021-01-07 | disposition home or self-care (01) ==
LOC: ONC 10:33
PROVIDERS: ATTEND Internal Medicine Hematology & Oncology
DX: Z51.11 Encounter for antineoplastic chemotherapy (principal); C18.0 Malignant neoplasm of cecum; D50.9 Iron deficiency anemia, unspecified; K90.9 Intestinal malabsorption, unspecified; E11.9 Type 2 diabetes mellitus without complications; I25.10 Atherosclerotic heart disease of native coronary artery without angina pectoris; Z90.49 Acquired absence of other specified parts of digestive tract; Z90.89 Acquired absence of other organs; Z79.899 Other long term (current) drug therapy; Z87.891 Personal history of nicotine dependence; Z45.2 Encounter for adjustment and management of vascular access device
CPT/HCPCS: 80053; 82378; 83735; 85025; G0463; 36591; 96367; 96368; 96375; 96409; 96411; 96413; 99213

== ENCOUNTER 2021-01-22 10:36 | Outpatient (RCR) | payer MEDICARE, OTHER ==
[~2021-01-22 10:36] MED LIST changes: -D5W 500 ML IV (CANCER CTR) 500 ML IV SCH; -FAMOTIDINE 20MG/2ML IV (CANCER CTR) IV SCH; -FOSAPREPITANT (CANCER CENTER) 150 MG in NS (IVPB) CANCER CENTER ONLY 150 ML IV SCH; -IOHEXOL 240 MGI/ML 50 ML (OMNIPAQUE) VIAL IV ONE; -LEUCOVORIN CALCIUM 500 MG, LEUCOVORIN CALCIUM 100 MG in D5W 250 ML IVPB (CANCER CTR) 25... IV SCH; -LEUCOVORIN CALCIUM 600 MG in D5W 250 ML IVPB (CANCER CTR) 250 ML IV SCH; -OXALIPLATIN 100 MG, OXALIPLATIN (GENERIC) 40 MG in D5W 250 ML IVPB (CANCER CTR) 250 ML IV SCH; -diphenhydrAMINE 25 MG TAB (BENADRYL) CANCER CENTER PO SCH
[2021-01-22 11:10] LABS: BASOPHILS # (AUTO) 0.1 10^3/uL (0.0-0.1); BASOPHILS % (AUTO) 1 % (0-10); EOSINOPHILS # (AUTO) 0.1 10^3/uL (0.0-0.3); EOSINOPHILS % (AUTO) 2 % (0-10); HEMATOCRIT 39 % (35-52); HEMOGLOBIN 12.4 g/dL (11.5-16.0); LYMPHOCYTES # (AUTO) 1.1 10^3/uL (1.0-4.0); LYMPHOCYTES % (AUTO) 19 % (12-44); MEAN CORPUSCULAR HEMOGLOBIN 31 pg (25-34); MEAN CORPUSCULAR HGB CONC 32 g/dL (32-36); MEAN CORPUSCULAR VOLUME 98 fL (80-99); MONOCYTES # (AUTO) 0.7 10^3/uL (0.0-1.0); MONOCYTES % (AUTO) 11 % (0-12); NEUTROPHILS # (AUTO) 3.9 10^3/uL (1.8-7.8); NEUTROPHILS % (AUTO) 66 % (42-75); PLATELET COUNT 152 10^3/uL (130-400); WHITE BLOOD COUNT 5.9 10^3/uL (4.3-11.0)
[2021-01-22 11:30] LABS: ALBUMIN 3.7 GM/DL (3.2-4.5); BILIRUBIN,TOTAL 0.5 MG/DL (0.1-1.0); CALCIUM 9.6 MG/DL (8.5-10.1); CREATININE SERUM 0.84 MG/DL (0.60-1.30); POTASSIUM 3.8 MMOL/L (3.6-5.0); TOTAL PROTEIN 8.1 GM/DL (6.4-8.2)
== END 2021-02-22 | disposition home or self-care (01) ==
LOC: ONC 10:36
PROVIDERS: ATTEND Internal Medicine Hematology & Oncology
DX: Z45.2 Encounter for adjustment and management of vascular access device (principal); C18.0 Malignant neoplasm of cecum; D50.9 Iron deficiency anemia, unspecified; K90.9 Intestinal malabsorption, unspecified; E11.9 Type 2 diabetes mellitus without complications; I25.10 Atherosclerotic heart disease of native coronary artery without angina pectoris; Z90.49 Acquired absence of other specified parts of digestive tract; Z90.89 Acquired absence of other organs; Z79.899 Other long term (current) drug therapy; Z87.891 Personal history of nicotine dependence
CPT/HCPCS: 80053; 82378; 85025; G0463; 36591

== ENCOUNTER → 2021-04-24 | Outpatient (CLI) | payer MEDICARE, OTHER ==
[2021-04-24 11:14] LABS: BASOPHILS # (AUTO) 0.1 10^3/uL (0.0-0.1); BASOPHILS % (AUTO) 1 % (0-10); EOSINOPHILS # (AUTO) 0.2 10^3/uL (0.0-0.3); EOSINOPHILS % (AUTO) 3 % (0-10); HEMATOCRIT 33 % (35-52); HEMOGLOBIN 11.2 g/dL (11.5-16.0); LYMPHOCYTES # (AUTO) 1.3 10^3/uL (1.0-4.0); LYMPHOCYTES % (AUTO) 19 % (12-44); MEAN CORPUSCULAR HEMOGLOBIN 31 pg (25-34); MEAN CORPUSCULAR HGB CONC 34 g/dL (32-36); MEAN CORPUSCULAR VOLUME 91 fL (80-99); MEAN PLATELET VOLUME 8.8 fL (9.0-12.2); MONOCYTES # (AUTO) 0.6 10^3/uL (0.0-1.0); MONOCYTES % (AUTO) 9 % (0-12); NEUTROPHILS # (AUTO) 4.5 10^3/uL (1.8-7.8); NEUTROPHILS % (AUTO) 68 % (42-75); PLATELET COUNT 140 10^3/uL (130-400); WHITE BLOOD COUNT 6.6 10^3/uL (4.3-11.0)
[2021-04-24 11:41] LABS: BILIRUBIN,TOTAL 0.3 MG/DL (0.1-1.0); CALCIUM 7.5 MG/DL (8.5-10.1); CREATININE SERUM 0.55 MG/DL (0.60-1.30); POTASSIUM 3.4 MMOL/L (3.6-5.0); TOTAL PROTEIN 6.1 GM/DL (6.4-8.2)
== END ==
LOC: ONC 10:32
PROVIDERS: ATTEND Internal Medicine Hematology & Oncology
DX: Z45.2 Encounter for adjustment and management of vascular access device (principal); C18.9 Malignant neoplasm of colon, unspecified; D50.9 Iron deficiency anemia, unspecified; E83.42 Hypomagnesemia; I25.10 Atherosclerotic heart disease of native coronary artery without angina pectoris; E11.9 Type 2 diabetes mellitus without complications; F17.210 Nicotine dependence, cigarettes, uncomplicated; Z90.89 Acquired absence of other organs; Z90.49 Acquired absence of other specified parts of digestive tract
CPT/HCPCS: 80053; 82378; 85025; G0463; 36591; 99213

== ENCOUNTER → 2021-04-29 | Outpatient (CLI) | payer MEDICARE, OTHER ==
--- NOTE | 2021-04-29 12:24 | Diagnostic Imaging Report ---
INDICATION: Malignant neoplasm of the colon, restaging. TECHNIQUE: The serum blood glucose level at the time of injection was 100 mg/dL. The patient was administered 13.8 mCi of F-18 FDG intravenously in the right antecubital location and PET imaging was performed from the top of the skull to the mid thighs. A noncontrast CT was also performed for attenuation correction and anatomic correlation. COMPARISON: Correlation is made with the prior PET/CT study from 10/30/2020. FINDINGS: Symmetric activity throughout the brain is noted. The soft tissues of the neck are unremarkable. No mediastinal or hilar hypermetabolism is seen. No pulmonary parenchymal hypermetabolism is identified. Physiologic activity throughout the GI and tracts is again noted. No suspicious region of hypermetabolism is identified. IMPRESSION: Continued stable and unremarkable PET/CT study when compared with the prior exam from 10/30/2020. No suspicious region of hypermetabolism is identified. Dictated by: Dictated on workstation # [id number]
== END ==
LOC: RAD 09:45
PROVIDERS: ATTEND Internal Medicine Hematology & Oncology
DX: C18.9 Malignant neoplasm of colon, unspecified (principal)
CPT/HCPCS: 78815; A9552

== ENCOUNTER 2021-05-03 05:35 | Outpatient (CLI) | payer MEDICARE, OTHER ==
[~2021-05-03] VITALS: Ht 160 cm; Wt 77.1 kg
[2021-05-03] MEDS ORDERED: ACET325T49 PO (09:50)
[2021-05-03] MEDS ORDERED: BACI1TAB8 PO (09:50)
[2021-05-03] MEDS ORDERED: ASCO500T16 PO (09:50)
[2021-05-03] MEDS ORDERED: MELO5CAP3 PO (09:50)
== END 2021-05-03 09:59 ==
LOC: PREOP 05:35
PROVIDERS: ATTEND Surgery
DX: Z01.818 Encounter for other preprocedural examination (principal)

== ENCOUNTER 2021-05-06 10:28 | Day surgery (SDC) | payer MEDICARE, OTHER ==
[~2021-05-06] VITALS: Ht 160 cm; Wt 77.0 kg
[~2021-05-06 10:28] MED LIST changes: +ACET325T49 PO; +ASCO500T16 PO; +BACI1TAB8 PO; +MELO5CAP3 PO
[2021-05-06] MEDS ORDERED: LACTATED RINGERS 1,000 ML IV ONE (10:37)
[2021-05-06 10:45] VITALS: BP 132/74
[2021-05-06] MEDS ORDERED: LACTATED RINGERS 1,000 ML IV STA (10:50)
--- NOTE | 2021-05-06 11:42 | Progress Note-Pre Operative ---
Pre-Operative Progress Note H&P Reviewed The H&P was reviewed, patient examined and no changes noted. Time Seen by Provider: 11:23 Date H&P Reviewed: May 06, 2021 Time H&P Reviewed: 11:23 Pre-Operative Diagnosis: Hx of colon CA KAREN FITZPATRICK DO May 06, 2021 11:42
[2021-05-06] MEDS ORDERED: PROPOFOL INJECTION 50 ML IV ONE (12:40)
[2021-05-06] MEDS ORDERED: proPOfol 200 MG/20 ML (DIPRIVAN) VIAL IV ONE (13:21)
[2021-05-06] MEDS ORDERED: PHENYLEPHRINE 100 MCG/ML 10 ML (ANESTHESIA) SYR ONE (13:26)
[2021-05-06 13:35] VITALS: BP 110/55
--- NOTE | 2021-05-06 13:37 | Progress Note-Post Operative ---
Post-Operative Progess Note Surgeon (s)/Preservationist (s) Surgeon KAREN FITZPATRICK DO Preservationist: VALENTIN Oconnor Pre-Operative Diagnosis Hx of colon CA Post-Operative Diagnosis large polyp Procedure & Operative Findings Date of Procedure 05/06/21 Procedure Performed/Findings Colon with snare polypectomy PROCEDURE NOTE: After informed consent was obtained, the patient was brought to the endoscopy suite, placed in bed in left lateral decubitus position. She was administered IV sedation by the WINDOWS MOBILE DEVELOPER who then monitored her vitals the entire time, heart rate, blood pressure and pulse ox and the scope was inserted, pushed all the way to about 110 cm and got to previous anastomosis. Slowly withdrew the scope insufflating to look circumferentially at the cardona and approximately 10cm away from the anastomosis near some tattooing found a large polyp. It was right on a fold and very hard to get, took many attempts with the snare and finally got 5 pieces; one so large we grabbed it and two others with the fang net. Continue up to the hepatic flexure, then down the transverse colon, splenic flexure, into the descending colon down in the sigmoid and then into the rectal vault. The patient tolerated the procedure. She was recovered in endoscopy suite. Anesthesia Type IV sedation by WINDOWS MOBILE DEVELOPER Estimated Blood Loss Estimated blood loss (mL): scant Specimens/Packing Specimens Removed polyp KAREN FITZPATRICK DO May 06, 2021 13:37
--- NOTE | 2021-05-06 13:38 | Endoscopy Discharge Instruct ---
Endo Procedure/Findings Findings 1.: Polyp Discharge Instructions - Activity: You might feel a little sleepy until tomorrow. This is due to the medicine you received to relax you. Until tomorrow, you should: NOT drive a car, operate machinery or power tools. NOT drink any alcoholic beverages. NOT make any important decisions or sign importortant papers. Do not return to work until tomorrow, unless otherwise instructed. Resume pr evious activities tomorrow. Diet: Start by taking liquids. If you tolerate liquids, advance to solid food. 1.: Colonoscopy in 1 year Notify Physician - If you experience excessive bleeding, unusual abdominal pain, fever, or chest pain, contact your doctor immediately. KAREN FITZPATRICK DO May 06, 2021 13:38
[2021-05-06 13:41] VITALS: BP 100/60
--- NOTE | 2021-05-06 14:03 | Anesthesia-General Post-Op ---
MAC Patient Condition Mental Status/LOC: Same as Preop Cardiovascular: Satisfactory Nausea/Vomiting: Absent Respiratory: Satisfactory Pain: Controlled Complications: Absent Post Op Complications Complications None Follow Up Care/Instructions Patient Instructions None needed. Anesthesiology Discharge Order Discharge Order Patient is doing well, no complaints, stable vital signs, no apparent adverse anesthesia problems. No complications reported per nursing. EULA ABREU CRNA May 06, 2021 14:03
[2021-05-06 14:08] VITALS: BP 111/74
[2021-05-06 14:09] VITALS: BP 111/74
== END 2021-05-06 14:16 | disposition home or self-care (01) ==
LOC: ENDO 10:28
PROVIDERS: ATTEND Surgery
DX: Z12.11 Encounter for screening for malignant neoplasm of colon (principal); D12.6 Benign neoplasm of colon, unspecified; Z85.038 Personal history of other malignant neoplasm of large intestine; Z87.891 Personal history of nicotine dependence

== ENCOUNTER → 2021-05-23 | Outpatient (RCR) | payer MEDICARE, OTHER | END | disposition home or self-care (01) | LOC: ONC 13:43 | PROVIDERS: ATTEND Internal Medicine Hematology & Oncology | DX: C18.0 Malignant neoplasm of cecum (principal) | CPT/HCPCS: 99213 ==

== ENCOUNTER 2021-07-25 12:51 | Outpatient (RCR) | payer MEDICARE, OTHER ==
[~2021-07-25 12:51] MED LIST changes: +BUPR-105 PO; -BUPR150T14 PO
[2021-07-25 13:31] LABS: BASOPHILS # (AUTO) 0.1 10^3/uL (0.0-0.1); BASOPHILS % (AUTO) 1 % (0-10); EOSINOPHILS # (AUTO) 0.1 10^3/uL (0.0-0.3); EOSINOPHILS % (AUTO) 1 % (0-10); HEMATOCRIT 35 % (35-52); LYMPHOCYTES # (AUTO) 1.4 10^3/uL (1.0-4.0); LYMPHOCYTES % (AUTO) 11 % (12-44); MEAN CORPUSCULAR HEMOGLOBIN 31 pg (25-34); MEAN CORPUSCULAR HGB CONC 34 g/dL (32-36); MEAN CORPUSCULAR VOLUME 89 fL (80-99); MONOCYTES # (AUTO) 1.1 10^3/uL (0.0-1.0); MONOCYTES % (AUTO) 9 % (0-12); NEUTROPHILS # (AUTO) 9.5 10^3/uL (1.8-7.8); NEUTROPHILS % (AUTO) 78 % (42-75); PLATELET COUNT 187 10^3/uL (130-400); WHITE BLOOD COUNT 12.3 10^3/uL (4.3-11.0)
[2021-07-25 13:43] LABS: ALBUMIN 3.8 GM/DL (3.2-4.5)
[2021-07-25 13:44] LABS: POTASSIUM 3.9 MMOL/L (3.6-5.0)
[2021-07-25 13:45] LABS: CALCIUM 9.1 MG/DL (8.5-10.1)
[2021-07-25 13:46] LABS: TOTAL PROTEIN 7.5 GM/DL (6.4-8.2)
[2021-07-25 13:48] LABS: BILIRUBIN,TOTAL 0.6 MG/DL (0.1-1.0)
[2021-07-25 13:50] LABS: CREATININE SERUM 0.74 MG/DL (0.60-1.30)
== END 2021-08-22 | disposition home or self-care (01) ==
LOC: ONC 12:51
PROVIDERS: ATTEND Internal Medicine Hematology & Oncology
DX: Z45.2 Encounter for adjustment and management of vascular access device (principal); C18.9 Malignant neoplasm of colon, unspecified; C77.9 Secondary and unspecified malignant neoplasm of lymph node, unspecified; D50.9 Iron deficiency anemia, unspecified; E83.42 Hypomagnesemia; I25.10 Atherosclerotic heart disease of native coronary artery without angina pectoris; E11.9 Type 2 diabetes mellitus without complications; Z90.49 Acquired absence of other specified parts of digestive tract; Z90.89 Acquired absence of other organs
CPT/HCPCS: 80053; 82378; 85025; G0463; 36591

== ENCOUNTER 2021-09-02 09:44 | Emergency (ER) | payer MEDICARE, OTHER ==
[~2021-09-02] VITALS: Ht 160 cm; Wt 77.0 kg
[2021-09-02] MEDS ORDERED: FAMOTIDINE 20 MG (PEPCID) TABLET PO STA (10:03)
[2021-09-02] MEDS ORDERED: LACTATED RINGERS 1,000 ML IV STA (10:03)
[2021-09-02 10:05] VITALS: BP 169/83
[2021-09-02] MEDS ORDERED: ONDA4TAB11 PO (10:11)
--- NOTE | 2021-09-02 10:11 | ED GI ---
General Chief Complaint: COVID19 Suspect/Confirmed Stated Complaint: COVID+; GEN WEAKNESS Source of Information: Patient Exam Limitations: No Limitations History of Present Illness Date Seen by Provider: Sep 02, 2021 Time Seen by Provider: 09:50 Initial Comments 71yoF with no pertinent PMH coming COVID positive for 5 days with symptoms starting roughly 9 days ago coming in due to nausea and nonbloody nonbilious vomiting with nonbloody diarrhea. Symptoms have been okay, started Paxlovid roughly 4 days ago, she says it makes her stomach very upset. The nausea, vomiting, diarrhea really started yesterday. Denies any chest pain, shortness of breath, cough, abdominal pain, focal weakness or numbness, rash, headache, vision changes, or any other concerns. Nothing is really making the nausea better. She is not taking any medicines for it as of yet. Patient is vaccinated for COVID x2 with Moderna Allergies and Home Medications Allergies Coded Allergies: Penicillins (Verified Allergy, Mild, HIVES, 03/02/20) Sulfa (Sulfonamide Antibiotics) (Verified Allergy, Mild, HIVES, 03/02/20) Patient Home Medication List Home Medication List Reviewed: Yes Acetaminophen (Acetaminophen) 325 Mg Tablet, 325 MG PO PRN, (Reported) Entered as Reported by: DILLON KWAN on 05/03/21 0950 Ascorbic Acid/Ascorbate Sodium (Vitamin C 500 mg Tablet Chew) 500 Mg Tab.chew, 500 MG PO DAILY, (Reported) Entered as Reported by: DILLON KWAN on 05/03/21 0950 Bacillus Coagulans/Vitamin D3 (Probiotic 2 Billion Gummies) 1 Each Tab.chew, 1 EACH PO DAILY, (Reported) Entered as Reported by: DILLON KWAN on 05/03/21 0950 Meloxicam, Submicronized (Meloxicam) 5 Mg Capsule, 5 MG PO DAILY, (Reported) Entered as Reported by: DILLON KWAN on 05/03/21 0950 Ondansetron (Ondansetron Odt) 4 Mg Tab.rapdis, 4 MG PO Q6H PRN for NAUSEA/VOMITING-1ST LINE Prescribed by: ELLE BERRIOS on 09/02/21 1011 Review of Systems Review of Systems Constitutional: No fever EENTM: No Blurred Vision Respiratory: Denies Cough Cardiovascular: Denies Chest Pain Gastrointestinal: Denies Abdominal Pain; Diarrhea, Nausea, Vomiting Genitourinary: No Symptoms Reported Musculoskeletal: no symptoms reported Skin: no symptoms reported Psychiatric/Neurological: No Symptoms Reported Endocrine: No Symptoms Reported Hematologic/Lymphatic: No Symptoms Reported All Other Systems Reviewed Negative Unless Noted: Yes Past Fulfqmy-Iiphzl-Xhufco Hx Immunizations Up To Date First/Initial COVID19 Vaccinat: JUNE 2020 Second COVID19 Vaccination Hernando: JULY 2020 Third COVID19 Vaccination Date: NO Seasonal Allergies Seasonal Allergies: Yes Past Medical History Surgeries: Yes (wrist sx-CTR, colon resection) Appendectomy, Section, Gallbladder, Hysterectomy, Tonsillectomy Respiratory: No Currently Using CPAP: No Currently Using BIPAP: No Cardiac: No Hypertension Neurological: No Sexually Transmitted Disease: No HIV/AIDS: No Genitourinary: No Gastrointestinal: Yes (colon ca) Musculoskeletal: Yes Gout Endocrine: No HEENT: No Cancer: Yes Colon What Type of Treatment Did You: Surgical Intervention Psychosocial: Yes Depression Integumentary: No Blood Disorders: No Physical Exam Vital Signs Vital Signs - First Documented 09/02/21 10:05 Temp 36.8 Pulse 101 Resp 18 B/P (MAP) 169/83 (111) Pulse Ox 96 O2 Delivery Room Air Capillary Refill : Height/Weight/BMI Height: '" Weight: lbs. oz. kg; 30.07 BMI Method: General Appearance: WD/WN HEENT: PERRL/EOMI, normal ENT inspection, pharynx normal Neck: non-tender, full range of motion, supple, normal inspection Respiratory: chest non-tender, lungs clear, normal breath sounds, no respiratory distress, no accessory muscle use Cardiovascular: regular rate, rhythm, no edema, no murmur Gastrointestinal: normal bowel sounds, non tender, soft; No distended, No guarding, No rebound Extremities: normal range of motion, non-tender, normal inspection, no pedal edema, no calf tenderness, normal capillary refill Back: normal inspection, no CVA tenderness Neurologic/Psychiatric: no motor/sensory deficits, alert, normal mood/affect Skin: normal color, warm/dry Lymphatic: no adenopathy Progress/Results/Core Measures Results/Orders Lab Results Laboratory Tests Test 09/02/21 10:05 Range/Units White Blood Count 8.8 4.3-11.0 10^3/uL Red Blood Count 4.54 3.80-5.11 10^6/uL Hemoglobin 13.6 11.5-16.0 g/dL Hematocrit 38 35-52 % Mean Corpuscular Volume 84 80-99 fL Mean Corpuscular Hemoglobin 30 25-34 pg Mean Corpuscular Hemoglobin Concent 36 32-36 g/dL Red Cell Distribution Width 14.3 10.0-14.5 % Platelet Count 239 130-400 10^3/uL Mean Platelet Volume 9.3 9.0-12.2 fL Immature Granulocyte % (Auto) 1 % Neutrophils (%) (Auto) 76 H 42-75 % Lymphocytes (%) (Auto) 13 12-44 % Monocytes (%) (Auto) 9 0-12 % Eosinophils (%) (Auto) 1 0-10 % Basophils (%) (Auto) 1 0-10 % Neutrophils # (Auto) 6.7 1.8-7.8 10^3/uL Lymphocytes # (Auto) 1.1 1.0-4.0 10^3/uL Monocytes # (Auto) 0.8 0.0-1.0 10^3/uL Eosinophils # (Auto) 0.1 0.0-0.3 10^3/uL Basophils # (Auto) 0.1 0.0-0.1 10^3/uL Immature Granulocyte # (Auto) 0.0 0.0-0.1 10^3/uL Sodium Level 123 *L 135-145 MMOL/L Potassium Level 3.9 3.6-5.0 MMOL/L Chloride Level 88 L 98-107 MMOL/L Carbon Dioxide Level 22 21-32 MMOL/L Anion Gap 13 5-14 MMOL/L Blood Urea Nitrogen 7 7-18 MG/DL Creatinine 0.83 0.60-1.30 MG/DL Estimat Glomerular Filtration Rate 75 BUN/Creatinine Ratio 8 Glucose Level 140 H 70-105 MG/DL Calcium Level 9.6 8.5-10.1 MG/DL Corrected Calcium 9.5 8.5-10.1 MG/DL Magnesium Level 1.5 L 1.6-2.4 MG/DL Total Bilirubin 1.0 0.1-1.0 MG/DL Aspartate Amino Transf (AST/SGOT) 24 5-34 U/L Alanine Aminotransferase (ALT/SGPT) 17 0-55 U/L Alkaline Phosphatase 210 H 40-136 U/L Total Protein 8.1 6.4-8.2 GM/DL Albumin 4.1 3.2-4.5 GM/DL Lipase 27 8-78 U/L My Orders Orders - ELLE BERRIOS MD Cbc With Automated Diff (09/02/21 10:03) Comprehensive Metabolic Panel (09/02/21 10:03) Lipase (09/02/21 10:03) Magnesium (09/02/21 10:03) Ondansetron Injection (Zofran Injectio (09/02/21 10:15) Famotidine Tablet (Pepcid Tablet) (09/02/21 10:03) Lactated Ringers (Lr 1000 Ml Iv Solution (09/02/21 10:03) Ed Iv/Invasive Line Start (09/02/21 10:03) Medications Given in ED Current Medications Medications Dose Ordered Sig/Kathy Route Start Time Stop Time Status Last Admin Dose Admin Ondansetron HCl 4 mg ONCE ONCE IVP 09/02/21 10:15 09/02/21 10:16 DC 09/02/21 10:13 4 MG Vital Signs/I&O 09/02/21 10:05 Temp 36.8 Pulse 101 Resp 18 B/P (MAP) 169/83 (111) Pulse Ox 96 O2 Delivery Room Air Progress Progress Note : Progress Note 71-year-old female with above history coming in due to nausea, vomiting, diarrhea in the setting of being day 9 of symptoms from COVID and day 4 on Paxlovid. ABCs were intact and vitals were stable on presentation. Physical exam reassuring including a soft and nontender abdomen. An IV was placed and she was given a bolus of IV fluids as well as Zofran for nausea. Basic labs sent and are pending. Her sodium came back low at 123. 1 month ago was 128. A couple years ago it w as around 114. She has had intermittent issues with hyponatremia, and this seems to be more of a chronic issue. After IV fluids she was feeling back to her baseline. I did offer her admission for her hyponatremia. She is quite adamant that she wants to go home and she has follow-up with her regular doctor and is getting her sodium redrawn soon. I discussed if she changes her mind ever she can come back to the ER for reevaluation and potential admission. She is no longer feeling weak, and she is at her physical baseline. Departure Impression Primary Impression: COVID-19 Additional Impressions: Vomiting in adult Hyponatremia Disposition: 01 HOME, SELF-CARE Condition: Stable Departure-Patient Inst. Referrals: ODALYS OWEN MD (PCP) Primary Care Physician Patient Instructions: COVID-19 Overview, Hyponatremia Add. Discharge Instructions: It is possible the symptoms you are having are from the new pills you are taking for COVID. Given your day 9 roughly of symptoms, it is likely here over the worst of it from the infection standpoint. I sent nausea medicines to your pharmacy. Take frequent small sips of fluids until you are feeling better. Follow-up with your regular doctor in a couple days if you are not feeling better. Your sodium was low at 123. Roughly 1 month ago it was 128. I do want you to call your regular doctor and have it redrawn sooner if able. If you begin feeling extremely weak or worse in any way you can come back to the ER for reevaluation. Scripts Ondansetron (Ondansetron Odt) 4 Mg Tab.rapdis 4 MG PO Q6H PRN for NAUSEA/VOMITING-1ST LINE for 5 Days, #20 TAB Prov: ELLE BERRIOS MD 09/02/21 ELLE BERRIOS MD Sep 02, 2021 10:11
[2021-09-02] MEDS ORDERED: ONDANSETRON 4 MG/2 ML (SDV) Z0FRAN IVP ONE (10:15)
[2021-09-02 10:19] LABS: BASOPHILS # (AUTO) 0.1 10^3/uL (0.0-0.1); BASOPHILS % (AUTO) 1 % (0-10); EOSINOPHILS # (AUTO) 0.1 10^3/uL (0.0-0.3); EOSINOPHILS % (AUTO) 1 % (0-10); HEMATOCRIT 38 % (35-52); HEMOGLOBIN 13.6 g/dL (11.5-16.0); LYMPHOCYTES # (AUTO) 1.1 10^3/uL (1.0-4.0); LYMPHOCYTES % (AUTO) 13 % (12-44); MEAN CORPUSCULAR HEMOGLOBIN 30 pg (25-34); MEAN CORPUSCULAR HGB CONC 36 g/dL (32-36); MEAN CORPUSCULAR VOLUME 84 fL (80-99); MEAN PLATELET VOLUME 9.3 fL (9.0-12.2); MONOCYTES # (AUTO) 0.8 10^3/uL (0.0-1.0); MONOCYTES % (AUTO) 9 % (0-12); NEUTROPHILS # (AUTO) 6.7 10^3/uL (1.8-7.8); NEUTROPHILS % (AUTO) 76 % (42-75); PLATELET COUNT 239 10^3/uL (130-400); WHITE BLOOD COUNT 8.8 10^3/uL (4.3-11.0)
[2021-09-02 10:42] LABS: CALCIUM 9.6 MG/DL (8.5-10.1); CREATININE SERUM 0.83 MG/DL (0.60-1.30); MAGNESIUM 1.5 MG/DL (1.6-2.4); POTASSIUM 3.9 MMOL/L (3.6-5.0); TOTAL PROTEIN 8.1 GM/DL (6.4-8.2)
[2021-09-02 10:43] LABS: ALBUMIN 4.1 GM/DL (3.2-4.5)
== END 2021-09-02 11:00 | disposition home or self-care (01) ==
LOC: EDUNIT# 09:44 → ER FS 09:47
DX: U07.1 COVID-19 (principal); E87.1 Hypo-osmolality and hyponatremia; Z73.0 Burn-out
CPT/HCPCS: 36415; 80053; 83690; 83735; 85025

== ENCOUNTER 2021-10-24 12:28 | Outpatient (RCR) | payer MEDICARE, OTHER ==
[~2021-10-24 12:28] MED LIST changes: +ONDA4TAB11 PO
[2021-10-24 12:50] LABS: BASOPHILS # (AUTO) 0.1 10^3/uL (0.0-0.1); BASOPHILS % (AUTO) 1 % (0-10); EOSINOPHILS # (AUTO) 0.2 10^3/uL (0.0-0.3); EOSINOPHILS % (AUTO) 2 % (0-10); HEMATOCRIT 36 % (35-52); HEMOGLOBIN 12.3 g/dL (11.5-16.0); LYMPHOCYTES # (AUTO) 1.6 10^3/uL (1.0-4.0); LYMPHOCYTES % (AUTO) 19 % (12-44); MEAN CORPUSCULAR HEMOGLOBIN 31 pg (25-34); MEAN CORPUSCULAR HGB CONC 34 g/dL (32-36); MEAN CORPUSCULAR VOLUME 90 fL (80-99); MEAN PLATELET VOLUME 8.8 fL (9.0-12.2); MONOCYTES # (AUTO) 0.8 10^3/uL (0.0-1.0); MONOCYTES % (AUTO) 10 % (0-12); NEUTROPHILS # (AUTO) 5.9 10^3/uL (1.8-7.8); NEUTROPHILS % (AUTO) 68 % (42-75); PLATELET COUNT 199 10^3/uL (130-400); WHITE BLOOD COUNT 8.6 10^3/uL (4.3-11.0)
[2021-10-24 13:14] LABS: BILIRUBIN,TOTAL 0.5 MG/DL (0.1-1.0); CALCIUM 9.5 MG/DL (8.5-10.1); CREATININE SERUM 0.92 MG/DL (0.60-1.30); POTASSIUM 4.8 MMOL/L (3.6-5.0); TOTAL PROTEIN 7.8 GM/DL (6.4-8.2)
[2021-11-20] MEDS ORDERED: CITA20TA9 PO (14:43)
[2021-11-20] MEDS ORDERED: MELO15TA39 PO (14:43)
== END 2021-11-22 | disposition home or self-care (01) ==
LOC: ONC 12:28
PROVIDERS: ATTEND Internal Medicine Hematology & Oncology
DX: Z45.2 Encounter for adjustment and management of vascular access device (principal); C18.9 Malignant neoplasm of colon, unspecified; C77.9 Secondary and unspecified malignant neoplasm of lymph node, unspecified; D50.9 Iron deficiency anemia, unspecified; E83.42 Hypomagnesemia; I25.10 Atherosclerotic heart disease of native coronary artery without angina pectoris; E11.9 Type 2 diabetes mellitus without complications; Z90.49 Acquired absence of other specified parts of digestive tract; Z90.89 Acquired absence of other organs
CPT/HCPCS: 36591; 80053; 82378; 85025

== ENCOUNTER 2021-11-20 05:51 | Outpatient (CLI) | payer MEDICARE, OTHER ==
[2021-11-20] MEDS ORDERED: CITA20TA9 PO (14:43)
[2021-11-20] MEDS ORDERED: MELO15TA39 PO (14:43)
== END 2021-11-20 14:47 ==
LOC: PREOP 05:51
PROVIDERS: ATTEND Surgery
DX: Z01.818 Encounter for other preprocedural examination (principal); K63.5 Polyp of colon

== ENCOUNTER 2021-12-02 09:34 | Day surgery (SDC) | payer MEDICARE, OTHER ==
[~2021-12-02] VITALS: Ht 160 cm; Wt 81.3 kg
[2021-12-02] MEDS ORDERED: LACTATED RINGERS 1,000 ML IV STA (09:41)
--- NOTE | 2021-12-02 09:46 | Progress Note-Pre Operative ---
Pre-Operative Progress Note Date of Available H&P: Nov 12, 2021 Date H&P Reviewed: Dec 02, 2021 Time H&P Reviewed: 09:45 History & Physical: H&P Reviewed, Patient Examed, No changes noted Pre-Operative Diagnosis: Hx of polyp with high grade dysplasia KAREN FITZPATRICK DO Dec 02, 2021 09:46
[2021-12-02] MEDS ORDERED: LACTATED RINGERS 1,000 ML IV ONE (09:50)
[2021-12-02 10:15] VITALS: BP 133/80
[2021-12-02] MEDS ORDERED: PROPOFOL INJECTION 50 ML IV ONE (11:15)
[2021-12-02 11:45] VITALS: BP 96/55
--- NOTE | 2021-12-02 11:48 | Progress Note-Post Operative ---
Post-Operative Progess Note Surgeon (s)/Electrical Inspector (s) Surgeon KAREN FITZPATRICK DO Electrical Inspector: DEQUAN CameronII Pre-Operative Diagnosis Hx of polyp with high grade dysplasia Post-Operative Diagnosis Same rectal polyp int hemorrhoids Procedure & Operative Findings Date of Procedure 12/02/21 Procedure Performed/Findings Colonoscopy with hot bx PROCEDURE NOTE: After informed consent was obtained, the patient was brought to the endoscopy suite, placed in bed in left lateral decubitus position. She was administered IV sedation by the DRUM PULLER who then monitored her vitals the entire time, heart rate, blood pressure and pulse ox and the scope was inserted, pushed all the way to about 120 cm and pushed to the anastomosis, I also saw the area of tattoo. I took a picture of the anastomosis and then slowly withdrew the scope insufflating to look circumferentially at the cardona starting at anastomosis and then down to the tattooed area. I think I found the same polyp, again on a fold and hard to even get a hot biopsy of. Continued down the transverse colon, to the splenic flexure, into the descending colon down in the sigmoid and then into the rectal vault. Here I found another polyp and did another hot biopsy. Finally retroflexed the scope and took a picture of the internal hemorrhoids. The patient tolerated the procedure. She was recovered in endoscopy suite. Recommended for repeat colonoscopy in 1 years. Anesthesia Type IV sedation by DRUM PULLER Estimated Blood Loss Estimated blood loss (mL): scant Specimens/Packing Specimens Removed polyp near anastomosis rectal polyp KAREN FITZPATRICK DO Dec 02, 2021 11:48
--- NOTE | 2021-12-02 11:49 | Endoscopy Discharge Instruct ---
Endo Procedure/Findings Findings 1.: Polyp 2.: Internal Hemorrhoids Discharge Instructions - Activity: You might feel a little sleepy until tomorrow. This is due to the medicine you received to relax you. Until tomorrow, you should: NOT drive a car, operate machinery or power tools. NOT drink any alcoholic beverages. NOT make any important decisions or sign importortant papers. Do not return to work until tomorrow, unless otherwise instructed. Resume previous activities tomorrow. Diet: Start by taking liquids. If you tolerate liquids, advance to solid food. 1.: Colonoscopy in 1 year Notify Physician - If you experience excessive bleeding, unusual abdominal pain, fever, or chest pain, contact your doctor immediately. KAREN FITZPATRICK DO Dec 02, 2021 11:49
[2021-12-02 11:50] VITALS: BP 110/67
[2021-12-02 11:55] VITALS: BP 120/68
[2021-12-02 12:20] VITALS: BP 149/78
--- NOTE | 2021-12-02 12:23 | Anesthesia-General Post-Op ---
MAC Patient Condition Mental Status/LOC: Same as Preop Cardiovascular: Satisfactory Nausea/Vomiting: Absent Respiratory: Satisfactory Pain: Controlled Complications: Absent Post Op Complications Complications None Follow Up Care/Instructions Patient Instructions None needed. Anesthesiology Discharge Order Discharge Order Patient is doing well, no complaints, stable vital signs, no apparent adverse anesthesia problems. No complications reported per nursing. EULA ABREU CRNA Dec 02, 2021 12:23
[2021-12-02 12:27] VITALS: BP 149/78
== END 2021-12-02 12:27 | disposition home or self-care (01) ==
LOC: ENDO 09:34
PROVIDERS: ATTEND Surgery
DX: K62.1 Rectal polyp (principal); K63.5 Polyp of colon; K64.8 Other hemorrhoids; Z86.010 Personal history of colon polyps; Z87.891 Personal history of nicotine dependence; Z85.038 Personal history of other malignant neoplasm of large intestine
CPT/HCPCS: 88305

== ENCOUNTER 2022-01-23 13:12 | Outpatient (RCR) | payer MEDICARE, OTHER ==
[2022-01-23 13:56] LABS: BASOPHILS # (AUTO) 0.1 10^3/uL (0.0-0.1); BASOPHILS % (AUTO) 1 % (0-10); EOSINOPHILS # (AUTO) 0.1 10^3/uL (0.0-0.3); EOSINOPHILS % (AUTO) 1 % (0-10); HEMATOCRIT 34 % (35-52); HEMOGLOBIN 11.7 g/dL (11.5-16.0); LYMPHOCYTES # (AUTO) 1.5 10^3/uL (1.0-4.0); LYMPHOCYTES % (AUTO) 14 % (12-44); MEAN CORPUSCULAR HEMOGLOBIN 30 pg (25-34); MEAN CORPUSCULAR HGB CONC 34 g/dL (32-36); MEAN CORPUSCULAR VOLUME 89 fL (80-99); MEAN PLATELET VOLUME 9.3 fL (9.0-12.2); MONOCYTES # (AUTO) 0.8 10^3/uL (0.0-1.0); MONOCYTES % (AUTO) 7 % (0-12); NEUTROPHILS # (AUTO) 8.1 10^3/uL (1.8-7.8); NEUTROPHILS % (AUTO) 76 % (42-75); PLATELET COUNT 222 10^3/uL (130-400); WHITE BLOOD COUNT 10.7 10^3/uL (4.3-11.0)
[2022-01-23 14:21] LABS: ALBUMIN 3.7 GM/DL (3.2-4.5); BILIRUBIN,TOTAL 0.4 MG/DL (0.1-1.0); CALCIUM 9.1 MG/DL (8.5-10.1); CREATININE SERUM 0.78 MG/DL (0.60-1.30); POTASSIUM 3.5 MMOL/L (3.6-5.0); TOTAL PROTEIN 7.3 GM/DL (6.4-8.2)
== END 2022-02-22 | disposition home or self-care (01) ==
LOC: ONC 13:12
PROVIDERS: ATTEND Internal Medicine Hematology & Oncology
DX: Z45.2 Encounter for adjustment and management of vascular access device (principal); C18.9 Malignant neoplasm of colon, unspecified; C77.9 Secondary and unspecified malignant neoplasm of lymph node, unspecified; D50.9 Iron deficiency anemia, unspecified; E83.42 Hypomagnesemia; I25.10 Atherosclerotic heart disease of native coronary artery without angina pectoris; E11.9 Type 2 diabetes mellitus without complications; Z90.49 Acquired absence of other specified parts of digestive tract; Z90.89 Acquired absence of other organs
CPT/HCPCS: 80053; 82378; 85025; G0463; 36591

== ENCOUNTER → 2022-03-26 | Outpatient (CLI) | payer MEDICARE, OTHER ==
[~2022-03-26] MED LIST changes: +HOLD METFORMIN - RECEIVED CONTRAST 20 ML VIAL IV SCH; +IOHEXOL 350 MG/ML 100 ML (OMNIPAQUE 350) VIAL IV ONE; +NS 100 ML (IVPB) BAG IV ONE
--- NOTE | 2022-03-26 10:40 | Diagnostic Imaging Report ---
EXAMINATION: CT chest, abdomen and pelvis with intravenous contrast. TECHNIQUE: Multiple contiguous axial images were obtained through the chest, abdomen and pelvis after the uneventful administration of intravenous contrast. All CT scans use one or more of the following dose optimizing techniques: automated exposure control, MA and/or KvP adjustment based on patient size and exam type or iterative reconstruction. HISTORY: Colon cancer COMPARISON: 04/29/2021 FINDINGS: There is no edema or pneumonia. No pleural effusion. No pneumothorax. No suspicious nodules. There is no axillary or supraclavicular lymphadenopathy. There is no mediastinal lymphadenopathy. . Right-sided Port-A-Cath is present. Heart size is normal. There are severe coronary artery calcifications. No pericardial effusion. Aorta is normal in caliber. 1.0 cm segment 7 liver lesion measured 1.0 cm dated 01/11/2020. There is a new segment 8 lesion measuring 1.3 x 1.2 cm (series 2, image 98). There is a narrow segment 7 lesion measuring 0.8 cm seen on the same slice. There is no biliary ductal dilation. Gallbladder is absent. Pancreas is normal. Spleen is normal. Adrenal glands are normal. The kidneys are normal. There is no hydronephrosis. Urinary bladder is normal. Bowel is normal in caliber without obstruction or inflammation. There has been a right colon resection. No free fluid or air. No abdominal or pelvic lymphadenopathy. Aorta is normal in caliber without aneurysm. There are no suspicious osseus lesions. There are unchanged mild L4 and T12 compression fractures. IMPRESSION: 1. There are two new liver lesions compared to prior CT in 2019 and not seen on noncontrast PET/CT images from 04/29/2021. Liver MRI with and without contrast recommended to further characterize. 2. No metastatic disease in the chest. Dictated by: Dictated on workstation # [id number]
== END ==
LOC: RAD 09:32
PROVIDERS: ATTEND Internal Medicine Hematology & Oncology
DX: K76.9 Liver disease, unspecified (principal); C18.9 Malignant neoplasm of colon, unspecified
CPT/HCPCS: 71260; 74177

== ENCOUNTER → 2022-04-02 | Outpatient (CLI) | payer MEDICARE, OTHER ==
[~2022-04-02] MED LIST changes: +GADOTERATE 0.5 MMOL/ML (CLARISCAN) 20 ML VIAL IV ONE; -HOLD METFORMIN - RECEIVED CONTRAST 20 ML VIAL IV SCH; -IOHEXOL 350 MG/ML 100 ML (OMNIPAQUE 350) VIAL IV ONE; -NS 100 ML (IVPB) BAG IV ONE
--- NOTE | 2022-04-02 14:02 | Diagnostic Imaging Report ---
EXAMINATION: MRI of the abdomen with and without contrast. TECHNIQUE: Multiplanar, multisequence MR images of the abdomen were obtained with and without intravenous contrast. HISTORY: Liver lesion evaluation, history of colon cancer COMPARISON: 03/26/2022 FINDINGS: Liver: There are greater than five T1 hypointense, mildly T2 hyperintense lesions seen throughout the liver. Most of these demonstrate predominantly peripheral enhancement as seen on the 5 minute delayed images. A liability claims representative lesion within the left hepatic lobe measures 1.2 cm (series 11 image 34). A liability claims representative lesion within the right hepatic lobe measures 1.0 cm on (series 11 image 40). These likely correspond to abnormality seen on prior CT. There is some abnormal contouring of the liver adjacent to the more peripheral lesions in the right hepatic lobe. Gallbladder and Bile Ducts: Gallbladder is nonvisualized. No biliary ductal dilatation. Pancreas: The pancreas is normal in volume, signal intensity and enhancement. There is no dilation of the main pancreatic duct. Kidneys: There is no hydronephrosis. Adrenal glands: There is no adrenal gland nodule or thickening. Spleen: The spleen is normal in size without focal lesion. Lymph Nodes: There is no suspicious lymphadenopathy. Other: There is no ascites. IMPRESSION: 1. Greater than peripheral enhancing lesions seen throughout the liver measuring up to 1.2 cm highly concerning for polymetastatic disease given history of colon cancer. Dictated by: Dictated on workstation # [id number]
== END ==
LOC: RAD 12:30
PROVIDERS: ATTEND Internal Medicine Hematology & Oncology
DX: K76.9 Liver disease, unspecified (principal); Z85.038 Personal history of other malignant neoplasm of large intestine
CPT/HCPCS: 74183

== ENCOUNTER → 2022-04-09 | Outpatient (CLI) | payer MEDICARE, OTHER ==
[~2022-04-09] VITALS: Ht 160 cm; Wt 79.0 kg
[2022-04-09] VITALS (10 sets, daily range): BP systolic 130–185; BP diastolic 73–90
[~2022-04-09] MED LIST changes: -GADOTERATE 0.5 MMOL/ML (CLARISCAN) 20 ML VIAL IV ONE; +HYDROcodone/APAP 5 MG/325 MG (LORTAB) TAB PO PRN; +LIDOCAINE 1% INJ 30 ML (XYLOCAINE) VIAL INJ ONE; +MIDAZOLAM 2 MG/2 ML (VERSED) VIAL IVP ONE; +NS IV 1000 ML 1,000 ML IV STA; +fentaNYL INJ 100 MCG/2 ML AMP IVP ONE
[2022-04-09 08:47] LABS: HEMATOCRIT 35 % (35-52); HEMOGLOBIN 11.9 g/dL (11.5-16.0); MEAN CORPUSCULAR HEMOGLOBIN 30 pg (25-34); MEAN CORPUSCULAR HGB CONC 34 g/dL (32-36); MEAN CORPUSCULAR VOLUME 87 fL (80-99); MEAN PLATELET VOLUME 9.3 fL (9.0-12.2); PLATELET COUNT 225 10^3/uL (130-400); WHITE BLOOD COUNT 8.8 10^3/uL (4.3-11.0)
[2022-04-09 08:59] LABS: INR 0.9 (0.8-1.4); PROTHROMBIN TIME PATIENT 12.9 SEC (12.2-14.7)
--- NOTE | 2022-04-09 11:20 | Diagnostic Imaging Report ---
INDICATION: Liver disease, essential HTN. TECHNIQUE: All CT scans use one or more of the following dose optimizing techniques: Automated exposure control, MA and/or KvP adjustment based on patient size and exam type or iterative reconstruction. The patient was brought to the CT suite and placed on table in the supine position. Axial imaging through the liver was performed to evaluate appropriate entry site. The procedure was performed utilizing conscious sedation with radiology nursing and constant patient monitoring. Patient was given a total of 50 mcg of fentanyl intravenously and 0.5 mg of Versed intravenously. Total procedure time was approximately 9 minutes. The right abdomen was prepped and draped in the usual sterile fashion. A small amount of 1% lidocaine was utilized for local anesthesia. An 18-gauge coaxial Temno needle was advanced and placed with its tip along the margin of a low-attenuation lesion in the right lobe of the liver. A total of four core biopsies were obtained. The needle was removed during blood patch administration. Hemostasis was obtained using manual compression. Follow-up imaging shows no complicating features. IMPRESSION: CT-guided right lobe liver nodule biopsy, utilizing conscious sedation. Pathology results are currently pending. Dictated by: Dictated on workstation # [id number]
--- NOTE | 2022-04-09 12:22 | Pre-Op Note & Conscious Sedat ---
Pre-Operative Progress Note Date of Available H&P: Apr 09, 2022 Date H&P Reviewed: Apr 09, 2022 Time H&P Reviewed: 09:00 Pre-Op Diagnosis: Liver mass Conscious Sedation Pre-Proced Time 09:00 ASA Score 2 For ASA 3 and 4: Consider anesthesia and medical clearance. Also, for patients with a history of failed moderate sedation consider anesthesia. Airway Lungs Heart ASA score ASA 1: a normal healthy patient ASA 2: a patient with a mild systemic disease (mid diabetes, controlled hypertension, obesity ASA 3: a patient with a severe systemic disease that limits activity (angina, COPD, prior Myocardial infarction) ASA 4: a patient with an incapacitating disease that is a constant threat to life (CHF, renal failure) ASA 5: a moribund patient not expected to survive 24 hrs. (ruptured aneurysm) ASA 6: a declared brain- patient whose organs are being harvested. For emergent operations, add the letter E after the classification Mallampati Classification Grade 2 Sedation Plan Analgesia, Amnesia, Plan communicated to team members, Discussed options with patient/fam, Discussed risks with patient/fam The patient is an appropriate candidate to undergo the planned procedure, sedation, and anesthesia. The patient immediately re-assessed prior to indication. YAIR RUIZ MD Apr 09, 2022 12:22
== END ==
LOC: SDC 08:08
PROVIDERS: ATTEND Internal Medicine Hematology & Oncology
DX: K76.9 Liver disease, unspecified (principal)
CPT/HCPCS: 36415; 77012; 85027; 85610; 85730; 99156

== ENCOUNTER 2022-04-21 10:48 | Outpatient (RCR) | payer MEDICARE, OTHER ==
[2022-03-26 09:33] LABS: BASOPHILS # (AUTO) 0.1 10^3/uL (0.0-0.1); BASOPHILS % (AUTO) 1 % (0-10); EOSINOPHILS # (AUTO) 0.1 10^3/uL (0.0-0.3); EOSINOPHILS % (AUTO) 1 % (0-10); HEMATOCRIT 36 % (35-52); HEMOGLOBIN 12.3 g/dL (11.5-16.0); LYMPHOCYTES # (AUTO) 1.1 10^3/uL (1.0-4.0); LYMPHOCYTES % (AUTO) 10 % (12-44); MEAN CORPUSCULAR HEMOGLOBIN 30 pg (25-34); MEAN CORPUSCULAR HGB CONC 34 g/dL (32-36); MEAN CORPUSCULAR VOLUME 87 fL (80-99); MEAN PLATELET VOLUME 8.8 fL (9.0-12.2); MONOCYTES # (AUTO) 0.8 10^3/uL (0.0-1.0); MONOCYTES % (AUTO) 7 % (0-12); NEUTROPHILS # (AUTO) 8.6 10^3/uL (1.8-7.8); NEUTROPHILS % (AUTO) 81 % (42-75); PLATELET COUNT 227 10^3/uL (130-400); WHITE BLOOD COUNT 10.7 10^3/uL (4.3-11.0)
[2022-03-26 10:06] LABS: ALBUMIN 3.9 GM/DL (3.2-4.5); BILIRUBIN,TOTAL 0.6 MG/DL (0.1-1.0); CALCIUM 9.8 MG/DL (8.5-10.1); CREATININE SERUM 0.92 MG/DL (0.60-1.30); POTASSIUM 4.3 MMOL/L (3.6-5.0); TOTAL PROTEIN 7.7 GM/DL (6.4-8.2)
[~2022-04-21 10:48] MED LIST changes: -HYDROcodone/APAP 5 MG/325 MG (LORTAB) TAB PO PRN; -LIDOCAINE 1% INJ 30 ML (XYLOCAINE) VIAL INJ ONE; -MIDAZOLAM 2 MG/2 ML (VERSED) VIAL IVP ONE; -NS IV 1000 ML 1,000 ML IV STA; -fentaNYL INJ 100 MCG/2 ML AMP IVP ONE
== END 2022-04-22 | disposition home or self-care (01) ==
LOC: ONC 10:48
PROVIDERS: ATTEND Internal Medicine Hematology & Oncology
DX: C18.9 Malignant neoplasm of colon, unspecified (principal); D50.9 Iron deficiency anemia, unspecified; E83.42 Hypomagnesemia; Z90.49 Acquired absence of other specified parts of digestive tract; Z90.89 Acquired absence of other organs
CPT/HCPCS: 36415; 80053; 85025

== ENCOUNTER 2022-07-14 10:34 | Outpatient (RCR) | payer MEDICARE, OTHER ==
[2022-07-14 11:00] LABS: BASOPHILS # (AUTO) 0.1 10^3/uL (0.0-0.1); BASOPHILS % (AUTO) 1 % (0-10); EOSINOPHILS # (AUTO) 0.1 10^3/uL (0.0-0.3); EOSINOPHILS % (AUTO) 1 % (0-10); HEMATOCRIT 35 % (35-52); LYMPHOCYTES % (AUTO) 8 % (12-44); MEAN CORPUSCULAR HEMOGLOBIN 31 pg (25-34); MEAN CORPUSCULAR HGB CONC 35 g/dL (32-36); MEAN CORPUSCULAR VOLUME 88 fL (80-99); MEAN PLATELET VOLUME 9.2 fL (9.0-12.2); MONOCYTES # (AUTO) 0.9 10^3/uL (0.0-1.0); MONOCYTES % (AUTO) 8 % (0-12); NEUTROPHILS # (AUTO) 9.4 10^3/uL (1.8-7.8); NEUTROPHILS % (AUTO) 82 % (42-75); PLATELET COUNT 205 10^3/uL (130-400); WHITE BLOOD COUNT 11.5 10^3/uL (4.3-11.0)
[2022-07-14 11:21] LABS: ALBUMIN 3.8 GM/DL (3.2-4.5); BILIRUBIN,TOTAL 0.4 MG/DL (0.1-1.0); CALCIUM 9.4 MG/DL (8.5-10.1); CREATININE SERUM 0.79 MG/DL (0.60-1.30); POTASSIUM 3.8 MMOL/L (3.6-5.0); TOTAL PROTEIN 7.4 GM/DL (6.4-8.2)
== END 2022-07-23 | disposition home or self-care (01) ==
LOC: ONC 10:34
PROVIDERS: ATTEND Internal Medicine Hematology & Oncology
DX: Z45.2 Encounter for adjustment and management of vascular access device (principal); C18.9 Malignant neoplasm of colon, unspecified; D50.9 Iron deficiency anemia, unspecified; E83.42 Hypomagnesemia; Z90.49 Acquired absence of other specified parts of digestive tract; Z90.89 Acquired absence of other organs
CPT/HCPCS: 36591; 80053; 82378; 85025

== ENCOUNTER → 2022-08-18 | Outpatient (CLI) | payer MEDICARE, OTHER ==
[~2022-08-18] MED LIST changes: +CATHETER FLUSH 10 ML SYR IV PRN; +IOHEXOL 350 MG/ML 100 ML (OMNIPAQUE 350) VIAL IV ONE; +NITROGLYCERIN 0.4 MG SL TABS BTL 25'S SL ONE; +NS 100 ML (IVPB) BAG IV ONE
[2022-08-18] MEDS: meTOprolol 5 MG/5 ML (LOPRESSOR) VIAL IV PRN ×2 (13:29→13:34)
[2022-08-18 13:30] VITALS: BP 187/108
[2022-08-18 13:35] VITALS: BP 183/96
[2022-08-18 13:40] VITALS: BP 160/86
[2022-08-18 13:45] VITALS: BP 156/83
--- NOTE | 2022-08-18 16:21 | Diagnostic Imaging Report ---
INDICATION: Coronary artery screening, atherosclerotic heart disease. TECHNIQUE: CT coronary artery evaluation performed with pre and post IV contrast images of the heart with EKG gating and 3-D reconstructions. There is no prior coronary artery CT for comparison. Dose reduction protocol was used. FINDINGS: Visualized portions of the lung sosa show some scarring in the left upper lobe. There is no consolidation or nodule. There is no pleural fluid seen. The entirety of the chest is not included on the study. Port-A-Cath tip is in the SVC. Noncontrast images demonstrate some aortic valvular calcifications. There are extensive coronary artery calcifications in all three territories. There are some mitral annular calcifications as well. CT coronary artery evaluation demonstrates the left main coronary artery to be patent and without significant stenosis. There is fairly extensive long segment calcification throughout the LAD with diffuse LAD significant stenosis. The circumflex coronary artery shows extensive plaquing as well, especially in its mid to distal portion. The right coronary artery shows motion artifact which limits its evaluation, but there does appear to be diffuse calcified plaquing throughout its length. IMPRESSION: Extensive coronary artery disease as described above with significant long segment calcifications and stenoses in all three territories. There is also some calcification in the mitral valve and aortic valve, recommend further cardiac workup as clinically warranted. Dictated by: Dictated on workstation # [id number]
== END ==
LOC: RAD 11:04
PROVIDERS: ATTEND Internal Medicine Cardiovascular Disease
DX: I25.10 Atherosclerotic heart disease of native coronary artery without angina pectoris (principal); I08.0 Rheumatic disorders of both mitral and aortic valves; I10 Essential (primary) hypertension
CPT/HCPCS: 75574; C8929; 93306

== ENCOUNTER 2022-09-22 09:31 | Day surgery (SDC) | payer MEDICARE, OTHER ==
[~2022-09-22] VITALS: Ht 165 cm; Wt 79.8 kg
[~2022-09-22 09:31] MED LIST changes: +ACHD5005 PO; -CATHETER FLUSH 10 ML SYR IV PRN; +CITA40TA13 PO; -IOHEXOL 350 MG/ML 100 ML (OMNIPAQUE 350) VIAL IV ONE; +LOSA50TA63 PO; -NITROGLYCERIN 0.4 MG SL TABS BTL 25'S SL ONE; -NS 100 ML (IVPB) BAG IV ONE
[2022-09-22] MEDS ORDERED: LACTATED RINGERS 1,000 ML IV STA (09:40)
--- NOTE | 2022-09-22 10:03 | Progress Note-Pre Operative ---
Pre-Operative Progress Note Date of Available H&P: Sep 11, 2022 Date H&P Reviewed: Sep 22, 2022 Time H&P Reviewed: 10:00 History & Physical: H&P Reviewed, Patient Examed, No changes noted Pre-Operative Diagnosis: Hx of polyps KAREN FITZPATRICK DO Sep 22, 2022 10:03
[2022-09-22 10:15] VITALS: BP 137/83
[2022-09-22] MEDS ORDERED: PROPOFOL INJECTION 50 ML IV ONE (10:41)
[2022-09-22 11:10] VITALS: BP 112/62
--- NOTE | 2022-09-22 11:15 | Progress Note-Post Operative ---
Post-Operative Progess Note Surgeon (s)/Maint Mechanic (s) Surgeon KAREN FITZPATRICK DO Maint Mechanic: none Pre-Operative Diagnosis Hx of polyps Post-Operative Diagnosis Polyp colon mass int hemorrhoids Procedure & Operative Findings Date of Procedure 09/22/22 Procedure Performed/Findings Colonoscopy with snare polypectomy Colonoscopy with hot biops PROCEDURE NOTE: After informed consent was obtained, the patient was brought to the endoscopy suite, placed in bed in left lateral decubitus position. She was administered IV sedation by the CONSERVATION PLANNER who then monitored her vitals the entire time, heart rate, blood pressure and pulse ox and the scope was inserted, pushed into the rectum and found a small polyp. Elected to remove it with the snare. Continued all the way to about 100 cm and pushed into the anastomosis. On the way in I had noted previous area of tattooing. I took a picture of the anastomosis and then slowly withdrew the scope insufflating to look circumferentially at the wal ls starting from the anastomosis and up (probably) the ascending colon to the area of tattooing. At this site I found a relatively large mass and elected to get two hot biopsies. Then down the transverse colon to the splenic flexure, into the descending colon down into the sigmoid and then into the rectal vault. I retroflexed the scope and took a picture of the internal hemorrhoids. The patient tolerated the procedure. She was recovered in endoscopy suite. Recommended for repeat colonoscopy in 1 year, she may need colon resection. Anesthesia Type IV sedation by CONSERVATION PLANNER Estimated Blood Loss Estimated blood loss (mL): scant Specimens/Packing Specimens Removed rectal polyp colon mass biopsy KAREN FITZPATRICK DO Sep 22, 2022 11:15
--- NOTE | 2022-09-22 11:16 | Endoscopy Discharge Instruct ---
Endo Procedure/Findings Findings 1.: Polyp 2.: Internal Hemorrhoids 3.: Other Findings (colon mass) Discharge Instructions - Activity: You might feel a little sleepy until tomorrow. This is due to the medicine you received to relax you. Until tomorrow, you should: NOT drive a car, operate machinery or power tools. NOT drink any alcoholic beverages. NOT make any important decisions or sign importortant papers. Do not return to work until tomorrow, unless otherwise instructed. Resume previous activities tomorrow. Diet: Start by taking liquids. If you tolerate liquids, advance to solid food. 1.: Colonoscopy in 1 year Notify Physician - If you experience excessive bleeding, unusual abdominal pain, fever, or chest pain, contact your doctor immediately. Follow-Up: Other Follow up in my office in one week KAREN FITZPATRICK DO Sep 22, 2022 11:16
[2022-09-22 11:20] VITALS: BP 105/64
[2022-09-22 11:56] VITALS: BP 105/64
--- NOTE | 2022-09-22 12:17 | Anesthesia-General Post-Op ---
MAC Patient Condition Mental Status/LOC: Same as Preop Cardiovascular: Satisfactory Nausea/Vomiting: Absent Respiratory: Satisfactory Pain: Controlled Complications: Absent Post Op Complications Complications None Follow Up Care/Instructions Patient Instructions None needed. Anesthesiology Discharge Order Discharge Order Patient is doing well, no complaints, stable vital signs, no apparent adverse anesthesia problems. No complications reported per nursing. KIM ROBERTSON CRNA Sep 22, 2022 12:17
== END 2022-09-22 12:06 | disposition home or self-care (01) ==
LOC: ENDO 09:31
PROVIDERS: ATTEND Surgery
DX: Z12.11 Encounter for screening for malignant neoplasm of colon (principal); D12.6 Benign neoplasm of colon, unspecified; K62.1 Rectal polyp; K64.8 Other hemorrhoids; F17.210 Nicotine dependence, cigarettes, uncomplicated; Z98.0 Intestinal bypass and anastomosis status; Z85.038 Personal history of other malignant neoplasm of large intestine
CPT/HCPCS: 88305

== ENCOUNTER → 2022-09-25 | Outpatient (CLI) | payer MEDICARE, OTHER ==
[~2022-09-25] MED LIST changes: +CATHETER FLUSH 10 ML SYR IVP PRN
--- NOTE | 2022-09-25 16:26 | Diagnostic Imaging Report ---
INDICATION: Subsequent staging, colon carcinoma. TECHNIQUE: Serum blood glucose level at the time of injection was 134 mg/dL. Patient was administered 9.6 mCi F-18 FDG intravenously in left antecubital location, and PET imaging was performed from the top of the skull to mid thighs. Noncontrast CT was also performed for attenuation correction and anatomic correlation. Correlation is made with prior PET/CT study from 04/29/2021. FINDINGS: There is symmetric activity throughout the brain. Soft tissues of the neck are unremarkable. No mediastinal, hilar, or pulmonary parenchymal hypermetabolism is identified. Physiologic activity in the GI and tracts of the abdomen and pelvis is again noted. No suspicious areas of hypermetabolism are identified. No definite hypermetabolic lymphadenopathy is seen. IMPRESSION: Continued stable, unremarkable PET/CT study when compared with the prior examination from 04/29/2021. Dictated by: Dictated on workstation # [id number]
== END ==
LOC: RAD 10:10
PROVIDERS: ATTEND Internal Medicine Hematology & Oncology
DX: C18.9 Malignant neoplasm of colon, unspecified (principal)
CPT/HCPCS: 78815; 82947; A9552

== ENCOUNTER 2022-10-03 10:37 | Inpatient (IN) | payer MEDICARE, OTHER ==
[~2022-10-03] VITALS: Ht 160 cm; Wt 80.0 kg
[~2022-10-03 10:37] MED LIST changes: -CATHETER FLUSH 10 ML SYR IVP PRN
[2022-10-03] MEDS ORDERED: ONDANSETRON 4 MG/2 ML (SDV) Z0FRAN IVP STA (11:04)
[2022-10-03] MEDS ORDERED: NS IV 1000 ML 1,000 ML IV STA (11:04)
[2022-10-03] MEDS ORDERED: fentaNYL INJECTION 100 MCG/2 ML VIAL IVP STA ×2 (11:04→12:10)
[2022-10-03 11:22] LABS: BASOPHILS # (AUTO) 0.1 10^3/uL (0.0-0.1); BASOPHILS % (AUTO) 1 % (0-10); EOSINOPHILS % (AUTO) 0 % (0-10); HEMATOCRIT 36 % (35-52); HEMOGLOBIN 12.2 g/dL (11.5-16.0); LYMPHOCYTES # (AUTO) 1.1 10^3/uL (1.0-4.0); LYMPHOCYTES % (AUTO) 12 % (12-44); MEAN CORPUSCULAR HEMOGLOBIN 30 pg (25-34); MEAN CORPUSCULAR HGB CONC 34 g/dL (32-36); MEAN CORPUSCULAR VOLUME 89 fL (80-99); MEAN PLATELET VOLUME 9.1 fL (9.0-12.2); MONOCYTES # (AUTO) 0.7 10^3/uL (0.0-1.0); MONOCYTES % (AUTO) 8 % (0-12); NEUTROPHILS # (AUTO) 7.3 10^3/uL (1.8-7.8); NEUTROPHILS % (AUTO) 79 % (42-75); PLATELET COUNT 229 10^3/uL (130-400); WHITE BLOOD COUNT 9.2 10^3/uL (4.3-11.0)
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
[2022-10-03 11:41] LABS: BILIRUBIN,TOTAL 0.5 MG/DL (0.1-1.0); CALCIUM 10.2 MG/DL (8.5-10.1); CREATININE SERUM 1.14 MG/DL (0.60-1.30); POTASSIUM 4.7 MMOL/L (3.6-5.0)
[2022-10-03 11:42] LABS: ALBUMIN 4.2 GM/DL (3.2-4.5); TOTAL PROTEIN 7.6 GM/DL (6.4-8.2)
--- NOTE | 2022-10-03 12:03 | Diagnostic Imaging Report ---
INDICATION: Pain, fall. COMPARISON: Imaging of the left tibia and fibula from the same date and left knee dated 09/13/2022. TECHNIQUE: Four radiographs of the left femur dated 10/03/2022. FINDINGS: Recent fracturing of the medial aspect of the proximal tibia is incidentally noted, though better evaluated on concurrent radiographs of the left tibia and fibula from the same date. No acute fracture within the left femur or visualized left pelvis. The left femoral head maintains its normal shape and contour. Mild degenerative changes of the left hip. Mild degenerative changes of the left knee. Moderate background vascular calcifications. No suspicious radiopaque foreign body. IMPRESSION: Recent fracturing of the medial aspect of the proximal left tibia. See separately dictated report from the same date for radiographs of the left tibia and fibula for further details. No acute osseous abnormality involving the left femur or visualized left pelvis with mild degenerative changes and moderate background vascular calcifications present. Dictated by: Dictated on workstation # [id number]
--- NOTE | 2022-10-03 12:03 | Diagnostic Imaging Report ---
INDICATION: Pain, fall COMPARISON: Imaging from the same date as well as from 09/13/2022. TECHNIQUE: 2 radiographs of the left tibia and fibula dated 10/03/2022. FINDINGS: Recent fracturing of the medial aspect of the proximal tibia is present. Fracture plane extends to the medial tibial plateau just medial to the tibial spine. This appears new from the prior examination. No significant displacement. No additional fracture or dislocation. No obstructive osseous process. Mild background vascular calcifications. No suspicious radiopaque foreign body. IMPRESSION: Recent essentially nondisplaced medial proximal tibial fracture with fracture extending to the medial tibial plateau articular surface. Dictated by: Dictated on workstation # [id number]
[2022-10-03] MEDS ORDERED: KETOROLAC INJ 15 MG/ML VIAL IVP STA (12:10)
--- NOTE | 2022-10-03 12:26 | Diagnostic Imaging Report ---
PROCEDURE: CT abdomen and pelvis without contrast. TECHNIQUE: Multiple contiguous axial images were obtained through the abdomen and pelvis without the use of intravenous contrast. Auto Exposure Controls were utilized during the CT exam to meet ALARA standards for radiation dose reduction. INDICATION: Left hip and knee pain, fall sustained two weeks ago. COMPARISON: Correlation made with CT fusion PET 09/25/2022. That exam was performed for the workup and staging of colon cancer. FINDINGS: The visible lower rib segments are intact. There are degenerative changes and multilevel grade 1 listheses in the lumbar spine, not appreciably changed from the prior. The T12 inferior endplate concavity and L2 anterosuperior endplate compression are stable from CT March 2022. No acute spinal pathology apparent. Degenerative changes result in severe stenosis at L4-L5, unchanged. No sacrococcygeal fracture deformity. No SI joint or symphyseal diastasis. The superior and inferior pubic rami appeared intact. The femoral heads bilaterally are directed into the acetabula. No femoral or hip fracture. No intra- or extra-peritoneal pelvic hemorrhage. No intramuscular hematoma. Postsurgical changes to the right colon are noted without apparent complication. There is no abdominopelvic lymphadenopathy. The unopacified liver is nonacute. There is a small hiatal hernia. The kidneys are unobstructed. There are aortoiliac and mesenteric atherosclerotic vascular calcifications, chronic. No hemoperitoneum. No findings to suggest solid or hollow visceral injury at this uninfused exam. IMPRESSION: No acute fracture identified. Advanced chronic degenerative changes and severe multilevel stenoses, most notably at L4-L5, chronic. Old endplate compressions are chronic. No pelvic or hip fracture. No intra- or extra-peritoneal hemorrhage. No findings to suggest metastatic disease. Dictated by: Dictated on workstation # [id number]
[2022-10-03 12:35] LABS: BILIRUBIN,URINE NEGATIVE (NEGATIVE); COLOR,URINE YELLOW; GLUCOSE, URINE (UA) NEGATIVE (NEGATIVE); KETONES,URINE NEGATIVE (NEGATIVE); LEUKOCYTE ESTERASE ,URINE 2+ (NEGATIVE); NITRITE,URINE NEGATIVE (NEGATIVE); PROTEIN,URINE NEGATIVE (NEGATIVE)
[2022-10-03 12:38] LABS: BACTERIA,URINE LARGE /HPF; CLARITY,URINE CLOUDY; WBC,URINE >100 /HPF
[2022-10-03 12:39] LABS: SQUAMOUS EPITHELIAL CELL,UR >50 /HPF
[2022-10-03] MEDS ORDERED: morphine INJ 10 MG/ML 1ML (SYR OR VIAL) IVP STA (12:47)
[2022-10-03] MEDS ORDERED: diphenhydrAMINE INJ 50 MG/ML VIAL IVP PRN (15:00)
[2022-10-03] MEDS ORDERED: LACTULOSE SYRUP 10GM/15ML 30ML UDC PO PRN (15:00)
[2022-10-03] MEDS ORDERED: diphenhydrAMINE 25 MG TABLET PO PRN (15:00)
[2022-10-03] MEDS ORDERED: ONDANSETRON 4 MG (ZOFRAN) ORAL DISSOLVE TAB PO PRN (15:00)
[2022-10-03] MEDS ORDERED: ANTACID SUSPENSION 30 ML UDC PO PRN (15:00)
[2022-10-03] MEDS ORDERED: polyethylene glycoL POWDER 17 GM (MIRALAX) PACK PO PRN (15:00)
[2022-10-03] MEDS ORDERED: MELATONIN 3 MG TABLET PO PRN (15:00)
[2022-10-03] MEDS ORDERED: BISACODYL 10 MG SUPPOSITORY PR PRN (15:00)
[2022-10-03] MEDS ORDERED: ONDANSETRON 4 MG/2 ML (SDV) Z0FRAN IV PRN (15:00)
--- NOTE | 2022-10-03 15:17 | Physical Therapy Progress Note ---
Therapy Progress Note Attempted to see patient for PT initial evaluation. Nurse requested hold as patient has not had medications updated in the system and has not had any pain medicine. Per Dr. Styles orders patient is WBAT BLEs. Patient has knee immobilizer donned and nurse asked if that could be removed. This PT advised checking with Orthopod to determine frequency of knee immobilizer. Will attempt again tomorrow. JOHANNA YOUNG PT Oct 03, 2022 15:17
[2022-10-03] MEDS: HYDROmorphone INJECTION 2 MG/ML VIAL IV PRN ×2 (15:34→21:16)
[2022-10-03] MEDS: NS IV 1000 ML 1,000 ML IV SCH (15:35)
[2022-10-03] MEDS: oxyCODONE IMMEDIATE RELEASE 5 MG TABLET PO PRN ×2 (15:35→23:59)
[2022-10-03 15:44] VITALS: BP 120/72
[2022-10-03] MEDS ORDERED: RT-ALBUTEROL SULF 2.5 MG/3 ML PRE-MIX VIAL INH PRN (15:45)
[2022-10-03] MEDS ORDERED: LOSA25TA41 PO (15:47)
[2022-10-03] MEDS ORDERED: ACHD5005 PO (15:47)
[2022-10-03] MEDS ORDERED: CETI10TA17 PO (15:47)
[2022-10-03] MEDS ORDERED: CITA20TA9 PO (15:47)
[2022-10-03] MEDS ORDERED: MECL-149 PO (15:47)
[2022-10-03 16:34] VITALS: BP 172/81
[2022-10-03] MEDS: ENOXAPARIN 40 MG/0.4 ML SYRINGE SC SCH (17:14)
[2022-10-03 19:53] VITALS: BP 139/70
[2022-10-03] MEDS: DOCUSATE SODIUM 100 MG CAPSULE PO SCH (20:55)
--- NOTE | 2022-10-03 21:39 | History & Physical ---
History of Present Illness HPI/Chief Complaint Chief complaint: Severe pain from left tibia plateau fracture with severe abdominal pain HPI: This is a 72-year-old female clinic patient of Dr Levine who presented to the ER in [place] with severe left leg pain unable to ambulate due to a fall and resulted in tibia plateau fracture currently nonweightbearing along with severe abdominal pain CT scan showing no evidence of any acute abnormality. She has been barely navigating at home due to the pain and unable to ambulate. She will be a good candidate for inpatient rehab. Source: patient, family Exam Limitations: clinical condition Date Seen 10/03/22 Time Seen by a Provider: 18:00 Attending Physician Nadir Levine MD PCP Admitting Physician: Hui Whiting DO Attending Physician: Hui Whiting DO Referring Physician Date of Admission Oct 03, 2022 at 14:37 Home Medications & Allergies Home Medications Reviewed patient Home Medication Reconciliation performed by pharmacy medication reconciliations patient services technician and/or nursing. Patients Allergies have been reviewed. Allergies Allergies Coded Allergies Penicillins (Verified Allergy, Mild, HIVES, 03/02/20) Sulfa (Sulfonamide Antibiotics) (Verified Allergy, Mild, HIVES, 03/02/20) Tetanus Vaccines and Toxoid (Verified Allergy, Unknown, 09/13/22) aspirin (Verified Allergy, Unknown, 09/13/22) Past Twdyncz-Cthwgr-Vvgzta Hx Past Med/Social Hx: Reviewed Nursing Past Med/Soc Hx, Reviewed and Corrections made Patient Social History Marrital Status: single Employed/Student: retired Alcohol Use: Denies Use Smoking Status: Never a Smoker Former Smoker, Quit: Jan 12, 2017 2nd Hand Smoke Exposure: Yes Recent Foreign Travel: No Contact w/other who traveled: No Recent Hopitalizations: No Immunizations Up To Date Date of Pneumonia Vaccine: Jan 12, 2018 Date of Influenza Vaccine: Jan 23, 2021 Seasonal Allergies Seasonal Allergies: Yes Past Medical History Surgeries: Appendectomy, Section, Gallbladder, Hysterectomy, Tonsillectomy Currently Using CPAP: No Currently Using BIPAP: No Cardiac: Hypertension Sexually Transmitted Disease: No HIV/AIDS: No Musculoskeletal: Gout Cancer: Colon What Type of Treatment Did You: Surgical Intervention Psychosocial: Depression History of Blood Disorders: No Review of Systems Constitutional: see HPI, malaise, weakness EENTM: no symptoms reported Respiratory: no symptoms reported Cardiovascular: no symptoms reported Gastrointestinal: abdominal pain, loss of appetite, nausea Genitourinary: no symptoms reported Musculoskeletal: back pain, joint pain Skin: no symptoms reported Psychiatric/Neurological: Anxiety, Depressed All Other Systems Reviewed Negative Unless Noted: Yes Physical Exam Physical Exam Vital Signs Vital Signs - First Documented 10/03/22 10:50 Temp 36.6 Pulse 102 Resp 22 B/P (MAP) 117/80 (92) Pulse Ox 96 O2 Delivery Room Air Capillary Refill : Less Than 3 Seconds Height, Weight, BMI Height: '" Weight: lbs. oz. kg; 31.25 BMI Method: General Appearance: WD/WN, Anxious, Chronically ill, Mild Distress, Obese Respiratory: Chest Non Tender, Lungs Clear, Normal Breath Sounds, No Accessory Muscle Use, No Respiratory Distress Cardiovascular: Regular Rate, Rhythm, Normal Peripheral Pulses Gastrointestinal: Normal Bowel Sounds, No Pulsatile Mass, Soft; No Distended, No Guarding; Tenderness (left flank and LLQ) Rectal: Deferred Extremity: Normal Capillary Refill, Normal Range of Motion, No Calf Tenderness, No Pedal Edema, Other (complaint of pain from left hip all the way down her leg) Neurologic/Psychiatric: Alert, Oriented x3 Skin: Normal Color, Warm/Dry Results Results/Procedures Labs Laboratory Tests 10/03/22 11:18 Patient resulted labs reviewed. Assessment/Plan Admission Diagnosis Assessment: Severe abdominal pain without CT abnl Left tibia plateau fracture Falls Confusion OA HTN Plan: Pain control IVF Monitor closely Admission Status: Inpatient Order (span 2 midnights) Reason for Inpatient Admission: tibia plateau fracture unable to ambulate with severe abd pain Clinical Quality Measures DVT/VTE Risk/Contraindication: Contraindications-Mechi: Other *list below* Other: plateau fracture HUI WHITING DO Oct 03, 2022 21:39
[2022-10-03] MEDS ORDERED: MECLIZINE 25 MG TABLET PO PRN (21:45)
[2022-10-03] MEDS ORDERED: LORATADINE 10 MG TABLET PO PRN (22:00)
[2022-10-03 23:48] VITALS: BP 135/77
[2022-10-04] MEDS: NS IV 1000 ML 1,000 ML IV SCH (04:14)
[2022-10-04] MEDS: oxyCODONE IMMEDIATE RELEASE 5 MG TABLET PO PRN ×2 (04:14→13:15)
[2022-10-04] MEDS: HYDROmorphone INJECTION 2 MG/ML VIAL IV PRN ×2 (04:36→19:16)
[2022-10-04 04:45] VITALS: BP 144/70
[2022-10-04 05:18] LABS: BASOPHILS # (AUTO) 0.1 10^3/uL (0.0-0.1); BASOPHILS % (AUTO) 1 % (0-10); EOSINOPHILS # (AUTO) 0.1 10^3/uL (0.0-0.3); EOSINOPHILS % (AUTO) 2 % (0-10); HEMATOCRIT 33 % (35-52); HEMOGLOBIN 10.9 g/dL (11.5-16.0); LYMPHOCYTES # (AUTO) 1.7 10^3/uL (1.0-4.0); LYMPHOCYTES % (AUTO) 26 % (12-44); MEAN CORPUSCULAR HEMOGLOBIN 30 pg (25-34); MEAN CORPUSCULAR HGB CONC 33 g/dL (32-36); MEAN CORPUSCULAR VOLUME 91 fL (80-99); MEAN PLATELET VOLUME 9.2 fL (9.0-12.2); MONOCYTES # (AUTO) 0.5 10^3/uL (0.0-1.0); MONOCYTES % (AUTO) 8 % (0-12); NEUTROPHILS # (AUTO) 4.1 10^3/uL (1.8-7.8); NEUTROPHILS % (AUTO) 63 % (42-75); PLATELET COUNT 176 10^3/uL (130-400); WHITE BLOOD COUNT 6.5 10^3/uL (4.3-11.0)
[2022-10-04 05:27] LABS: ALBUMIN 3.6 GM/DL (3.2-4.5)
[2022-10-04 05:28] LABS: POTASSIUM 4.2 MMOL/L (3.6-5.0)
[2022-10-04 05:29] LABS: CALCIUM 9.3 MG/DL (8.5-10.1)
[2022-10-04 05:30] LABS: TOTAL PROTEIN 6.5 GM/DL (6.4-8.2)
[2022-10-04 05:32] LABS: BILIRUBIN,TOTAL 0.5 MG/DL (0.1-1.0)
[2022-10-04 05:34] LABS: CREATININE SERUM 1.1 MG/DL (0.60-1.30)
--- NOTE | 2022-10-04 06:34 | Progress Note ---
Subjective Date Seen by a Provider: Oct 04, 2022 Time Seen by a Provider: 11:00 Subjective/Events-last exam Much improved status Pain is improved and medication is helping Reviewed meds and labs Bowels are moving now No abdominal pain Very slow to recover Review of Systems General: Fatigue, Malaise (She told) Objective Exam Last Set of Vital Signs Vital Signs Date Time Temp Pulse Resp B/P (MAP) Pulse Ox O2 Delivery O2 Flow Rate FiO2 10/04/22 04:45 36.1 87 18 144/70 (94) 100 Room Air Capillary Refill : Less Than 3 Seconds I&O Intake and Output 10/04/22 00:00 Intake Total 1340 ml Balance 1340 ml Intake Oral 340 ml IV Total 1000 ml # Voids 2 Daily Weight Change No General: Alert, Oriented X3, Cooperative, No Acute Distress Lungs: Clear to Auscultation, Normal Air Movement Heart: Regular Rate, Normal S1, Normal S2, No Murmurs Psych/Mental Status: Mental Status NL, Mood NL Results Lab Laboratory Tests 10/03/22 11:18: White Blood Count 9.2, Red Blood Count 4.05, Hemoglobin 12.2, Hematocrit 36, Mean Corpuscular Volume 89, Mean Corpuscular Hemoglobin 30, Mean Corpuscular Hemoglobin Concent 34, Red Cell Distribution Width 14.8H, Platelet Count 229, Mean Platelet Volume 9.1, Immature Granulocyte % (Auto) 0, Neutrophils (%) (Auto) 79H, Lymphocytes (%) (Auto) 12, Monocytes (%) (Auto) 8, Eosinophils (%) (Auto) 0, Basophils (%) (Auto) 1, Neutrophils # (Auto) 7.3, Lymphocytes # (Auto) 1.1, Monocytes # (Auto) 0.7, Eosinophils # (Auto) 0.0, Basophils # (Auto) 0.1, Immature Granulocyte # (Auto) 0.0, Sodium Level 128L, Potassium Level 4.7, Chloride Level 96L, Carbon Dioxide Level 16L, Anion Gap 16H, Blood Urea Nitrogen 21H, Creatinine 1.14, Estimat Glomerular Filtration Rate 51, BUN/Creatinine Ratio 18, Glucose Level 145H, Calcium Level 10.2H, Corrected Calcium 10.0, Total Bilirubin 0.5, Aspartate Amino Transf (AST/SGOT) 25, Alanine Aminotransferase (ALT/SGPT) 22, Alkaline Phosphatase 234H, Total Protein 7.6, Albumin 4.2, Lipase 29 10/03/22 12:32: Urine Color YELLOW, Urine Clarity CLOUDY, Urine pH 6.0, Urine Specific [place] <=1.005, Urine Protein NEGATIVE, Urine Glucose (UA) NEGATIVE, Urine Ketones NEGATIVE, Urine Nitrite NEGATIVE, Urine Bilirubin NEGATIVE, Urine Urobilinogen 0.2, Urine Leukocyte Esterase 2+H, Urine RBC (Auto) NEGATIVE, Urine RBC NONE, Urine WBC >100H, Urine Squamous Epithelial Cells >50H, Urine Crystals NONE, Urine Bacteria LARGEH, Urine Casts NONE, Urine Mucus NEGATIVE, Urine Culture Indicated NO 10/04/22 05:10: White Blood Count 6.5, Red Blood Count 3.64L, Hemoglobin 10.9L, Hematocrit 33L, Mean Corpuscular Volume 91, Mean Corpuscular Hemoglobin 30, Mean Corpuscular Hemoglobin Concent 33, Red Cell Distribution Width 15.1H, Platelet Count 176, Mean Platelet Volume 9.2, Immature Granulocyte % (Auto) 1, Neutrophils (%) (Auto) 63, Lymphocytes (%) (Auto) 26, Monocytes (%) (Auto) 8, Eosinophils (%) (Auto) 2, Basophils (%) (Auto) 1, Neutrophils # (Auto) 4.1, Lymphocytes # (Auto) 1.7, Monocytes # (Auto) 0.5, Eosinophils # (Auto) 0.1, Basophils # (Auto) 0.1, Immature Granulocyte # (Auto) 0.0, Sodium Level 132L, Potassium Level 4.2, Chloride Level 105, Carbon Dioxide Level 18L, Anion Gap 9, Blood Urea Nitrogen 19H, Creatinine 1.10, Estimat Glomerular Filtration Rate 53, BUN/Creatinine Ratio 17, Glucose Level 86, Calcium Level 9.3, Corrected Calcium 9.6, Total Bilirubin 0.5, Aspartate Amino Transf (AST/SGOT) 20, Alanine Aminotransferase (ALT/SGPT) 20, Alkaline Phosphatase 165H, Total Protein 6.5, Albumin 3.6 Assessment/Plan Assessment/Plan Assess & Plan/Chief Complaint Assessment: Severe abdominal pain without CT abnl Left tibia plateau fracture Falls Confusion OA HTN Plan: Pain control IVFHL Monitor closely Clinical Quality Measures DVT/VTE Risk/Contraindication: Contraindications-Mechi: Other *list below* Other: plateau fracture SHAINA BROCK DO Oct 04, 2022 06:34
[2022-10-04] MEDS: CITALOPRAM 20 MG TABLET PO SCH (07:58)
[2022-10-04] MEDS: DOCUSATE SODIUM 100 MG CAPSULE PO SCH ×2 (07:58→20:22)
[2022-10-04] MEDS: MELOXICAM 7.5 MG TABLET PO SCH (07:58)
[2022-10-04] MEDS: LOSARTAN 25 MG TABLET PO SCH (07:59)
[2022-10-04] MEDS: HYDROcodone/ACETAMINOPHEN 5 MG/325 MG TABLET PO PRN (07:59)
[2022-10-04 08:26] VITALS: BP 152/87
--- NOTE | 2022-10-04 09:44 | Diagnostic Imaging Report ---
PROCEDURE: US left lower extremity venous. TECHNIQUE: Multiple real-time grayscale images were obtained over the left lower extremity in various projections. Additional duplex Doppler and color Doppler images were also obtained. INDICATION: Left leg pain and swelling. COMPARISON: None. Technique: The left lower extremity deep venous system was interrogated and the images were assessed for grayscale appearance, color and spectral Doppler blood flow, compression, and augmentation. Findings: There is no evidence of intraluminal filling defect. Normal compression and augmentation is noted throughout. Soft tissues are unremarkable. Impression: 1. No sonographic evidence of deep venous thrombosis in the left lower extremity. Dictated by: Dictated on workstation # [id number]
[2022-10-04] MEDS: ACETAMINOPHEN 325 MG TABLET PO PRN ×2 (09:49→16:43)
--- NOTE | 2022-10-04 11:18 | Physical Therapy Evaluation ---
PT Evaluation-General Medical Diagnosis Admission Date Oct 03, 2022 at 14:37 Medical Diagnosis: L tibial plateau fracture, L leg pain Onset Date: Oct 03, 2022 Therapy Diagnosis Therapy Diagnosis: decreased mobility Precautions Precautions/Isolations: Standard Precautions Weight Bear Status Right Lower Extremity: Right Weight Bearing/Tolerated Left Lower Extremity: Left Weight Bearing/Tolerated Referral Physician: Johanne Reason for Referral: Evaluation/Treatment Medical History Current History Pt. fell a few weeks ago, sustained L tibial plateau fracture. Pt. having increased L leg and c/o shoulder pain, having a difficult time with mobility at home. Reviewed History: Yes Social History Home: Single Level Current Living Status: Alone PT Steps Into Home: 1 Prior Prior Level of Function SCALE: Activities may be completed with or without assistive devices. 1-Xekrropojj-qtoogiy completes the activity by him/herself with no assistance from a helper. 5-Set-up or Clean-up Assistance-helper sets up or cleans up; patient completes activity. [place] assists only prior to or following the activity. 4-Supervision or Touching Assistance-helper provides verbal cues and/or touching/steadying and/or contact guard assistance as patient completes activity. Assistance may be provided throughout the activity or intermittently. 3-Partial/Moderate Assistance-helper does LESS THAN HALF the effort. [place] lifts, holds or supports trunk or limbs, but provides less than half the effort. 2-Substantial/Maximal Assistance-helper does MORE THAN HALF the effort. [place] lifts or holds trunk or limbs and provides more than half the effort. 8-Cdvbwglvs-wmnqbo does ALL the effort. Patient does none of the effort to complete the activity. Or, the assistance of 2 or more helpers is required for the patient to complete the activity. If activity was not attempted, code reason: 7-Patient Refused. 9-Not Applicable-not attempted and the patient did not perform the activity b efore the current illness, exacerbation or injury. 10-Not Attempted due to Environmental Limitations-(lack of equipment, weather restraints, etc.). 88-Not Attempted due to Medical Conditions or Safety Concerns. Bed Mobility: 6 Transfers (B,C,W/C): 6 Gait: 6 Indoor Mobility (Ambulation): Independent Prior Devices Use: Walker PT Evaluation-Current Subjective Pt. agrees to sit up in chair; reports a difficult time with walking due to inability to maintain TTWB on L. Objective Patient Orientation: Person, Place, Time, Situation Attachments: IV ROM/Strength ROM Upper Extremities WFL ROM Lower Extremities WFL but immobilizer on L LE Strength Upper Extremities WFL Strength Lower Extremities Grossly 4/5 R LE, n/t L LE Integumentary/Posture Integumentary grossly intact Bowel Incontinence: No Bladder Incontinence: No Posture kyphotic Neuromuscular (Tone, Coordination, Reflexes) diminished Sensory Vision: Wears Glasses Sensation Right Upper Extremit: Intact Sensation Left Upper Extremity: Intact Sensation Right Lower Extremit: Intact Sensation Left Lower Extremity: Intact Transfers Sit to Lying (QC): 6 Lying to Sitting/Side of Bed(Q: 6 Sit to Stand (QC): 3 Chair/Ech-vk-Lmeeu Xfer(QC): 4 Gait Does the Patient Walk?: Yes Mode of Locomotion: Walk Anticipated Mode of Locomotion: Walk Distance: 5 ft Gait Assistive Device: FWW Comments/Gait Description unable to maintain TTWB on L, appears more of PWB Assessment/Needs Pt. is a 72 y.o. female with prior L LE injury and difficulty getting around at home. Pt. was (I) with bed mobility but mod A with sit to stand, CGA with transfers bed to chair using FWW. Pt. unable to maintain TTWB on L. Pt. would benefit from skilled PT to improve mobility and strength for return home. Rehab Potential: Good PT [facility] Goals Motor Tune Up Specialist Goals PT [facility] Goals Time Frame: Oct 11, 2022 Sit to Lying (QC): 6 Lying-Sitting on Side/Bed(QC): 6 Sit to Stand (QC): 6 Chair/Xjq-ss-Wwhbs Xfer(QC): 6 Does the Patient Walk: Yes Walk 10 feet (QC): 4 Walk 50ft with 2 Turns (QC): 4 PT Plan Problem List Problem List: Activity Tolerance, Functional Strength, Safety, Balance, Gait, Transfer, Bed Mobility, ROM Treatment/Plan Treatment Plan: Continue Plan of Care Treatment Plan: Bed Mobility, Education, Functional Activity Gina, Functional Strength, Gait, Safety, Therapeutic Exercise, Transfers Treatment Duration: Oct 11, 2022 Frequency: 6 times per week Estimated Hrs Per Day: .25 hour per day Patient and/or Family Agrees t: Yes Time Time In: 0900 Time Out: 942 DATE: Oct 04, 2022 Total Billed Treatment Time: 24 Total Billed Treatment 1, EVL [id number], FA [id number] BOB CRUZ PT Oct 04, 2022 11:18
[2022-10-04 12:00] VITALS: BP 123/79
[2022-10-04 16:00] VITALS: BP 162/90
[2022-10-04] MEDS: ENOXAPARIN 40 MG/0.4 ML SYRINGE SC SCH (16:42)
[2022-10-04 19:57] VITALS: BP 97/60
[2022-10-05] VITALS (7 sets, daily range): BP systolic 114–167; BP diastolic 69–90
[2022-10-05] MEDS: oxyCODONE IMMEDIATE RELEASE 5 MG TABLET PO PRN ×2 (00:32→11:56)
[2022-10-05] MEDS: ACETAMINOPHEN 325 MG TABLET PO PRN ×2 (04:34→11:56)
[2022-10-05 05:43] LABS: BASOPHILS # (AUTO) 0.1 10^3/uL (0.0-0.1); BASOPHILS % (AUTO) 1 % (0-10); EOSINOPHILS # (AUTO) 0.2 10^3/uL (0.0-0.3); EOSINOPHILS % (AUTO) 3 % (0-10); HEMATOCRIT 34 % (35-52); HEMOGLOBIN 11.2 g/dL (11.5-16.0); LYMPHOCYTES # (AUTO) 1.2 10^3/uL (1.0-4.0); LYMPHOCYTES % (AUTO) 22 % (12-44); MEAN CORPUSCULAR HEMOGLOBIN 31 pg (25-34); MEAN CORPUSCULAR HGB CONC 33 g/dL (32-36); MEAN CORPUSCULAR VOLUME 92 fL (80-99); MONOCYTES # (AUTO) 0.6 10^3/uL (0.0-1.0); MONOCYTES % (AUTO) 10 % (0-12); NEUTROPHILS # (AUTO) 3.7 10^3/uL (1.8-7.8); NEUTROPHILS % (AUTO) 64 % (42-75); PLATELET COUNT 156 10^3/uL (130-400); WHITE BLOOD COUNT 5.8 10^3/uL (4.3-11.0)
[2022-10-05 05:56] LABS: ALBUMIN 3.5 GM/DL (3.2-4.5); POTASSIUM 4.8 MMOL/L (3.6-5.0)
[2022-10-05 05:57] LABS: CALCIUM 9.3 MG/DL (8.5-10.1)
[2022-10-05 05:58] LABS: TOTAL PROTEIN 6.6 GM/DL (6.4-8.2)
[2022-10-05 06:00] LABS: BILIRUBIN,TOTAL 0.4 MG/DL (0.1-1.0)
[2022-10-05 06:02] LABS: CREATININE SERUM 1.04 MG/DL (0.60-1.30)
--- NOTE | 2022-10-05 07:56 | Progress Note ---
Subjective Date Seen by a Provider: Oct 05, 2022 Time Seen by a Provider: 11:00 Subjective/Events-last exam Patient doing well Left shoulder hurts from fall I did review x-ray from 09/13/2022 no fracture but will re- x-ray Orthopedic surgery will be consulted tomorrow We will evaluate weightbearing restrictions and make decision about inpatient rehab Review of Systems General: Fatigue, Malaise Musculoskeletal: arm pain, leg pain Objective Exam Last Set of Vital Signs Vital Signs Date Time Temp Pulse Resp B/P (MAP) Pulse Ox O2 Delivery O2 Flow Rate FiO2 10/05/22 04:22 36.8 87 20 163/74 (103) 98 Room Air Capillary Refill : Less Than 3 Seconds I&O Intake and Output 10/05/22 00:00 Intake Total 2955 ml Balance 2955 ml Intake Oral 2805 ml IV Total 150 ml # Voids 6 # Bowel Movements 1 General: Alert, Oriented X3, Cooperative, No Acute Distress Lungs: Clear to Auscultation, Normal Air Movement Heart: Regular Rate, Normal S1, Normal S2, No Murmurs Psych/Mental Status: Mental Status NL, Mood NL Results Lab Laboratory Tests 10/05/22 05:22: White Blood Count 5.8, Red Blood Count 3.65L, Hemoglobin 11.2L, Hematocrit 34L, Mean Corpuscular Volume 92, Mean Corpuscular Hemoglobin 31, Mean Corpuscular Hemoglobin Concent 33, Red Cell Distribution Width 15.2H, Platelet Count 156, Mean Platelet Volume 9.0, Immature Granulocyte % (Auto) 0, Neutrophils (%) (Auto) 64, Lymphocytes (%) (Auto) 22, Monocytes (%) (Auto) 10, Eosinophils (%) (Auto) 3, Basophils (%) (Auto) 1, Neutrophils # (Auto) 3.7, Lymphocytes # (Auto) 1.2, Monocytes # (Auto) 0.6, Eosinophils # (Auto) 0.2, Basophils # (Auto) 0.1, Immature Granulocyte # (Auto) 0.0, Sodium Level 133L, Potassium Level 4.8, Chloride Level 108H, Carbon Dioxide Level 16L, Anion Gap 9, Blood Urea Nitrogen 17, Creatinine 1.04, Estimat Glomerular Filtration Rate 57, BUN/Creatinine Ratio 16, Glucose Level 76, Calcium Level 9.3, Corrected Calcium 9.7, Total Bilirubin 0.4, Aspartate Amino Transf (AST/SGOT) 19, Alanine Aminotransferase (ALT/SGPT) 19, Alkaline Phosphatase 181H, Total Protein 6.6, Albumin 3.5 Assessment/Plan Assessment/Plan Assess & Plan/Chief Complaint Assessment: Severe abdominal pain without CT abnl-Now resolved Left tibia plateau fracture Falls Confusion- improved OA HTN Plan: Pain control IVFHL Monitor closely Clinical Quality Measures DVT/VTE Risk/Contraindication: Contraindications-Mechi: Other *list below* Other: plateau fracture SHAINA BROCK DO Oct 05, 2022 07:56
[2022-10-05] MEDS: DOCUSATE SODIUM 100 MG CAPSULE PO SCH ×2 (08:26→19:58)
[2022-10-05] MEDS: CITALOPRAM 20 MG TABLET PO SCH (08:26)
[2022-10-05] MEDS: LOSARTAN 25 MG TABLET PO SCH (08:26)
[2022-10-05] MEDS: MELOXICAM 7.5 MG TABLET PO SCH (08:26)
[2022-10-05] MEDS: HYDROcodone/ACETAMINOPHEN 5 MG/325 MG TABLET PO PRN (08:26)
[2022-10-05] MEDS: HYDROmorphone INJECTION 2 MG/ML VIAL IV PRN (12:43)
[2022-10-05] MEDS ORDERED: DICLOFENAC 1% GEL 100 GM TUBE TOP SCH (13:00)
--- NOTE | 2022-10-05 13:22 | Diagnostic Imaging Report ---
INDICATION: Left shoulder pain post recent fall. TECHNIQUE: Two views of the left shoulder. CORRELATION STUDY: 09/13/2022. FINDINGS: No acute fracture or dislocation. Advanced degenerative changes which includes joint space narrowing. Degenerative changes of the glenohumeral and acromioclavicular joint. The visualized soft tissues are unremarkable. IMPRESSION: Negative for acute bony abnormality of the shoulder. Dictated by: Dictated on workstation # [id number]
[2022-10-05] MEDS: DICLOFENAC 1% GEL 50 GM TUBE TOP SCH ×3 (14:22→19:58)
[2022-10-05] MEDS: ENOXAPARIN 40 MG/0.4 ML SYRINGE SC SCH (17:02)
[2022-10-06] MEDS: oxyCODONE IMMEDIATE RELEASE 5 MG TABLET PO PRN ×2 (00:19→08:42)
[2022-10-06] MEDS: HYDROcodone/ACETAMINOPHEN 5 MG/325 MG TABLET PO PRN ×2 (03:15→13:08)
[2022-10-06 03:17] VITALS: BP 153/80
[2022-10-06 06:01] LABS: BASOPHILS % (AUTO) 1 % (0-10); EOSINOPHILS # (AUTO) 0.2 10^3/uL (0.0-0.3); EOSINOPHILS % (AUTO) 4 % (0-10); HEMATOCRIT 32 % (35-52); HEMOGLOBIN 10.7 g/dL (11.5-16.0); LYMPHOCYTES # (AUTO) 1.1 10^3/uL (1.0-4.0); LYMPHOCYTES % (AUTO) 19 % (12-44); MEAN CORPUSCULAR HEMOGLOBIN 30 pg (25-34); MEAN CORPUSCULAR HGB CONC 33 g/dL (32-36); MEAN CORPUSCULAR VOLUME 91 fL (80-99); MEAN PLATELET VOLUME 9.4 fL (9.0-12.2); MONOCYTES # (AUTO) 0.5 10^3/uL (0.0-1.0); MONOCYTES % (AUTO) 9 % (0-12); NEUTROPHILS # (AUTO) 3.7 10^3/uL (1.8-7.8); NEUTROPHILS % (AUTO) 67 % (42-75); PLATELET COUNT 160 10^3/uL (130-400); WHITE BLOOD COUNT 5.6 10^3/uL (4.3-11.0)
[2022-10-06 06:13] LABS: ALBUMIN 3.4 GM/DL (3.2-4.5); POTASSIUM 4.9 MMOL/L (3.6-5.0)
[2022-10-06 06:15] LABS: CALCIUM 9.2 MG/DL (8.5-10.1)
[2022-10-06 06:16] LABS: TOTAL PROTEIN 6.4 GM/DL (6.4-8.2)
[2022-10-06 06:17] LABS: BILIRUBIN,TOTAL 0.3 MG/DL (0.1-1.0)
[2022-10-06 06:19] LABS: CREATININE SERUM 1.05 MG/DL (0.60-1.30)
[2022-10-06 07:25] VITALS: BP 191/83
[2022-10-06] MEDS: DOCUSATE SODIUM 100 MG CAPSULE PO SCH (08:41)
[2022-10-06] MEDS: CITALOPRAM 20 MG TABLET PO SCH (08:41)
[2022-10-06] MEDS: LOSARTAN 25 MG TABLET PO SCH (08:42)
[2022-10-06] MEDS: ACETAMINOPHEN 325 MG TABLET PO PRN (08:43)
[2022-10-06] MEDS: MELOXICAM 7.5 MG TABLET PO SCH (08:43)
--- NOTE | 2022-10-06 08:57 | Physical Therapy Daily Note ---
PT Daily Note-Current Subjective Patient agrees to PT. Knee immobilizer in place left LE Pain Section J - Health Conditions 1. Rarely or not at all 2. Occasionally 3. Frequently 4. Almost constantly 8. Unable to answer Pain Effect on Sleep: 3 Pain Interference with Therapy: 3 Pain Interference w/Day-to-Day: 3 Transfers SCALE: Activities may be completed with or without assistive devices. 5-Btchoblctg-rendskt completes the activity by him/herself with no assistance from a helper. 5-Set-up or Clean-up Assistance-helper sets up or cleans up; patient completes activity. [place] assists only prior to or following the activity. 4-Supervision or Touching Assistance-helper provides verbal cues and/or touching/steadying and/or contact guard assistance as patient completes activity. Assistance may be provided throughout the activity or intermittently. 3-Partial/Moderate Assistance-helper does LESS THAN HALF the effort. [place] lifts, holds or supports trunk or limbs, but provides less than half the effort. 2-Substantial/Maximal Assistance-helper does MORE THAN HALF the effort. [place] lifts or holds trunk or limbs and provides more than half the effort. 4-Dwzmikfmw-bcuglo does ALL the effort. Patient does none of the effort to compl ete the activity. Or, the assistance of 2 or more helpers is required for the patient to complete the activity. If activity was not attempted, code reason: 7-Patient Refused. 9-Not Applicable-not attempted and the patient did not perform the activity before the current illness, exacerbation or injury. 10-Not Attempted due to Environmental Limitations-(lack of equipment, weather restraints, etc.). 88-Not Attempted due to Medical Conditions or Safety Concerns. Sit to Stand (QC): 4 Chair/Nxy-si-Hdemn Xfer(QC): 4 Weight Bearing Right Lower Extremity: Right Weight Bearing/Tolerated Left Lower Extremity: Left Weight Bearing/Tolerated Gait Training Distance: 100' Walk 10 feet (QC): 4 Walk 50 ft with 2 Turns(QC): 4 Assessment Patient tolerated treatment well and remains up in recliner with needs met. PT to increase activity as tolerated by patient. PT Parts Counter Clerk Goals Correction Goals PT Parts Counter Clerk Goals Time Frame: Oct 11, 2022 Sit to Lying (QC): 6 Lying-Sitting on Side/Bed(QC): 6 Sit to Stand (QC): 6 Chair/Sbh-jc-Ynltm Xfer(QC): 6 Does the Patient Walk: Yes Walk 10 feet (QC): 4 Walk 50ft with 2 Turns (QC): 4 PT Plan Treatment/Plan Treatment Plan: Continue Plan of Care Treatment Plan: Bed Mobility, Education, Functional Activity Gina, Functional Strength, Gait, Safety, Therapeutic Exercise, Transfers Treatment Duration: Oct 11, 2022 Frequency: 6 times per week Estimated Hrs Per Day: .25 hour per day Patient and/or Family Agrees t: Yes Time Time In: 830 Time Out: 843 DATE: Oct 06, 2022 Total Billed Treatment Time: 13 Total Billed Treatment 1 visit GT 13 min LOWELL TANG PT Oct 06, 2022 08:57
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
[2022-10-06] MEDS ORDERED: LevoFLOXacin 750 MG TABLET PO SCH (11:00)
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
[2022-10-06] MEDS ORDERED: LEVO750T PO (11:09)
[2022-10-06] MEDS ORDERED: ENOX40DI8 SC (11:09)
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
[2022-10-06 11:25] VITALS: BP 139/68
--- NOTE | 2022-10-06 11:32 | Physician Query-Final Dx ---
JENNY ROBERTSON 10/06/22 1132: Final Diagnosis Give Final Diagnosis Please give Final Diagnosis The medical record reflects the following clinical scenario: The patient, in the setting of History/Risk factors, admitted due to decreased mobility with tibial plateau fracture Clinical Findings UA with 2+ LE greater than 100 WBCs large amount of bacteria, flank Pain Treatment levofloxacin IV started on the changed to p.o. on the , UA with culture Question: Do you agree with the impression of acute cystitis per Dr. Ken Simmons? Yes; will document acute cystitis in the Progress Notes, present on admission No; will continue current documentation in the Progress Notes Other; will document explanation of clinical findings Clinically undetermined; no explanation for clinical findings Please clarify and document your clinical opinion in the Progress Notes and Discharge Summary including the definitive and/or presumptive diagnosis, (suspected or probable), related to the above clinical findings. Please include clinical findings supporting your diagnosis. In responding to this query, please exercise your independent professional judgment. The purpose of this communication is to more accurately reflect the complexity of your patients condition. The fact that a question is asked does not imply that any particular answer is desired or expected. Thank you for timely response to this clarification. Jenny Robertson, MSN, RN Clinical Catering Truck Operator [phone] [email or web address] SHAINA BROCK DO 10/06/22 1934: Final Diagnosis Give Final Diagnosis acute cystitis JENNY ROBERTSON Oct 06, 2022 11:32 SHAINA BROCK DO Oct 06, 2022 19:34
--- NOTE | 2022-10-06 11:37 | Physician Query-Final Dx ---
JENNY ROBERTSON 10/06/22 1137: Final Diagnosis Give Final Diagnosis Please give Final Diagnosis The medical record reflects the following clinical evidence: Clinical Indicators: Documentation of confusion on admission then documentation of confusion improved after treatment multiple IV pain medications and sedation medications given in ER for fracture and abdominal pain Risk Factor(s): Cystitis acute per ER provider, admitted with fracture to tibial plateau Treatment: IV antibiotics, neuro monitoring, Encephalopathy likely Toxic/Metabolic present on admission, resolving Other explanation of clinical findings Unable to determine (no explanation for clinical findings) Please clarify and document your clinical opinion in the progress notes and discharge summary including the definitive and/or presumptive diagnosis, (suspected or probable), related to the above clinical findings. Please include clinical findings supporting your diagnosis. Jenny Robertson, MSN, RN Clinical Metal Technician [phone] [email or web address] SHAINA BROCK DO 10/06/226: Final Diagnosis Give Final Diagnosis metabolic toxic encephalopathy JENNY ROBERTSON Oct 06, 2022 11:37 SHAINA BROCK DO Oct 06, 2022 19:36
[2022-10-06] MEDS: DICLOFENAC 1% GEL 50 GM TUBE TOP SCH ×2 (12:13→13:57)
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
== END 2022-10-06 13:59 | DRG 689 ==
LOC: EDUNIT# 10:37 → ER FS 10:38 → 4TH 14:37
PROVIDERS: ADMIT Internal Medicine; ATTEND Internal Medicine
DX: N30.00 Acute cystitis without hematuria (principal); G92.8 Other toxic encephalopathy; S82.144A Nondisplaced bicondylar fracture of right tibia, initial encounter for closed fracture; I10 Essential (primary) hypertension; F32.A Depression, unspecified; F41.9 Anxiety disorder, unspecified; Z85.038 Personal history of other malignant neoplasm of large intestine; M10.9 Gout, unspecified; Z66 Do not resuscitate; W18.30XA Fall on same level, unspecified, initial encounter; M19.012 Primary osteoarthritis, left shoulder; I25.10 Atherosclerotic heart disease of native coronary artery without angina pectoris; R06.00 Dyspnea, unspecified; Z87.891 Personal history of nicotine dependence; E11.9 Type 2 diabetes mellitus without complications; Z82.49 Family history of ischemic heart disease and other diseases of the circulatory system
CPT/HCPCS: 36415; 73030; 73552; 73590; 74176; 80053; 81000; 83690; 85025; 85379; 94664; 94760

== ENCOUNTER 2022-10-06 11:50 | Inpatient (IN) | payer MEDICARE, OTHER ==
[~2022-10-06] VITALS: Ht 160 cm; Wt 82.1 kg
[~2022-10-06 11:50] MED LIST changes: +CETI10TA17 PO; +ENOX40DI8 SC; +LEVO750T PO; +LOSA25TA41 PO; +MECL-149 PO
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
[2022-10-06] MEDS ORDERED: LACTULOSE SYRUP 10GM/15ML 30ML UDC PO PRN ×2 (13:45→18:15)
[2022-10-06] MEDS ORDERED: Sodium Phosphate/Sodium Biphosphate ADULT enema PR PRN (13:45)
[2022-10-06] MEDS ORDERED: LOPERAMIDE 2 MG CAPSULE PO PRN (13:45)
[2022-10-06] MEDS ORDERED: ACETAMINOPHEN 325 MG TABLET PO PRN ×2 (13:45→18:15)
[2022-10-06] MEDS ORDERED: ALPRAZolam 0.25 MG TABLET PO PRN (13:45)
[2022-10-06] MEDS ORDERED: BISACODYL 10 MG SUPPOSITORY PR PRN ×2 (13:45→18:15)
[2022-10-06] MEDS ORDERED: guaiFENesin/CODEINE 10ML UDC PO PRN (13:45)
[2022-10-06] MEDS ORDERED: diphenhydrAMINE 25 MG TABLET PO PRN ×2 (13:45→18:15)
[2022-10-06] MEDS ORDERED: DOCUSATE SODIUM 100 MG CAPSULE PO PRN (13:45)
[2022-10-06] MEDS ORDERED: CALCIUM CARBONATE 500 MG CHEW TABLET PO PRN (13:45)
[2022-10-06] MEDS ORDERED: ONDANSETRON 4 MG ORAL DISSOLVE TABLET PO PRN (13:45)
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
--- NOTE | 2022-10-06 15:39 | Physical Therapy Daily Note ---
PT Daily Note-Current Subjective Pt sitting in recliner upon arrival. Pt's daughter & son are present. Pt agrees to PT/OT co-treat. Co-treat with OT ([id number]), skills of 2 clinicians required to decrease fall risk, increase activity tolerance, adhere to TTWB and increase functional mobility. PT focusing on transfers, ambulation and increasing activity tolerance while OT focusing on ADLs and functional mobility. Pain Numeric Pain Scale: 9 Location: Left Location Body Site: Knee Pain Description: Sharp Comment: Pt reports pain in L knee w/movement, pt encouraged to keep WBing Section J - Health Conditions 1. Rarely or not at all 2. Occasionally 3. Frequently 4. Almost constantly 8. Unable to answer Pain Effect on Sleep: 3 Pain Interference with Therapy: 4 Pain Interference w/Day-to-Day: 4 Mental Status Patient Orientation: Person, Place, Time, Situation Attachments: Knee Immobilizer Transfers SCALE: Activities may be completed with or without assistive devices. 7-Hyamqlezau-ojnmlqb completes the activity by him/herself with no assistance from a helper. 5-Set-up or Clean-up Assistance-helper sets up or cleans up; patient completes activity. [place] assists only prior to or following the activity. 4-Supervision or Touching Assistance-helper provides verbal cues and/or touching/steadying and/or contact guard assistance as patient completes activity. Assistance may be provided throughout the activity or intermittently. 3-Partial/Moderate Assistance-helper does LESS THAN HALF the effort. [place] lifts, holds or supports trunk or limbs, but provides less than half the effort. 2-Substantial/Maximal Assistance-helper does MORE THAN HALF the effort. [place] lifts or holds trunk or limbs and provides more than half the effort. 9-Wzastwpfc-lfsypu does ALL the effort. Patient does none of the effort to comp lete the activity. Or, the assistance of 2 or more helpers is required for the patient to complete the activity. If activity was not attempted, code reason: 7-Patient Refused. 9-Not Applicable-not attempted and the patient did not perform the activity before the current illness, exacerbation or injury. 10-Not Attempted due to Environmental Limitations-(lack of equipment, weather restraints, etc.). 88-Not Attempted due to Medical Conditions or Safety Concerns. Sit to Stand (QC): 4 Chair/Pnr-fu-Jblbl Xfer(QC): 4 Toilet Transfer (QC): 4 Car Transfer (QC): 4 Weight Bearing Right Lower Extremity: Right Full Weight Bearing Left Lower Extremity: Left Touch Toe Bearing L knee immobilizer Gait Training Does the Patient Walk?: Yes Distance: 15' Walk 10 feet (QC): 4 Gait Persons Needed: 1 Gait Assistive Device: Walker Platform Wheelchair Training Does the Pt Use a Wheelchair?: Yes Wheel 50 ft with 2 turns (QC): 4 Type of Wheelchair: Manual Treatments Pt TF to standing and amb to BR for shower (see OT note for ADLs). After completing shower & drying off, pt dresses as well as brushes teeth & hair. Pt TF to [facility] and propels in hallway after given instruction. Pt is able to complete amb across uneven surface as well as car transfer then returns to room via WC to TF to EOB then rest Supine in bed. All needs met, call light in hand & Nurse present. Assessment Current Status: Good Progress Pt has difficulty maintaining WB status w/amb so platform is added to each side which assisted w/improving maintaining WB. Pt fatigues w/pain. PT Fdc Goals Heavy Line Technician Goals Roll Left & Right (QC): 6 Sit to Lying (QC): 6 Lying-Sitting on Side/Bed(QC): 6 Sit to Stand (QC): 6 Chair/Djd-js-Oeloq Xfer(QC): 6 Toilet Transfer (QC): 6 Car Transfer (QC): 6 Does the Patient Walk: Yes Walk 10 feet (QC): 4 Walk 50ft with 2 Turns (QC): 4 Walk 150 ft (QC): 4 Walking 10ft on Uneven Surface: 4 1 Step (curb) (QC): 4 4 Steps (QC): 9 12 Steps (QC): 9 Picking up an Object (QC): 6 Does the Pt use WC or Scooter?: Yes Wheel 50 feet with 2 turns (QC: 6 Type: Manual Wheel 150 feet: 6 Type: Manual PT Plan Problem List Problem List: Safety, Gait Treatment/Plan Treatment Plan: Continue Plan of Care Treatment Duration: Oct 20, 2022 Frequency: At least 5 of 7 days/Wk (IRF) Estimated Hrs Per Day: 2 hours per day Patient and/or Family Agrees t: Yes Safety Risks/Education Patient Education: Gait Training, Correct Positioning, Safety Issues Teaching Recipient: Patient Teaching Methods: Discussion Response to Teaching: Verbalize Understanding Time Time In: 1420 Time Out: 1525 DATE: Oct 06, 2022 Total Billed Treatment Time: 65 Total Billed Treatment 1, FA x3 (45m) & WCH (20m) OSWALDO JOHNSON PTA Oct 06, 2022 15:39
--- NOTE | 2022-10-06 15:45 | Occupational Ther Daily Note ---
OT Current Status-Daily Note Subjective Pt alert, sitting in recliner. Pt agrees to therapy. C/o L knee and shldr pain though did not rate. Co-treat with PT ([id number]), skills of 2 clinicians required to decrease fall risk, increase activity tolerance, adhere to TTWB and increase functional mobility. PT focusing on transfers, ambulation and inc reasing activity tolerance while OT focusing on ADLs and functional mobility. Mental Status/Objective Patient Orientation: Person, Place, Time, Situation Attachments: Knee Immobilizer ADL-Treatment Pt agrees to shower. Pt ambulated using FWW to bathroom and required constant cues to maintain TTWB. Pt stood at sink to complete oral care with SBA, pt c/o increased R knee pain and required recovery break in sitting. Pt transferred to shower using FWW and grabbars with CGA. Pt used shower bench, grabbar, hand held shower to complete bathing with SBA in stance for safety, able to reach all areas to bath. SBA for UBD. Min A for LBD. Therapy Code Descriptions/Definitions Functional [place] Measure: 0=Not Assessed/NA 4=Minimal Assistance 1=Total Assistance 5=Supervision or Setup 2=Maximal Assistance 6=Modified [place] 3=Moderate Assistance 7=Complete IndependenceSCALE: Activities may be completed with or without assistive devices. 8-Opkvqeiyjq-ybhulxs completes the activity by him/herself with no assistance from a helper. 5-Set-up or Clean-up Assistance-helper sets up or cleans up; patient completes activity. [place] assists only prior to or following the activity. 4-Supervision or Touching Assistance-helper provides verbal cues and/or touching/steadying and/or contact guard assistance as patient completes activity. Assistance may be provided throughout the activity or intermittently. 3-Partial/Moderate Assistance-helper does LESS THAN HALF the effort. [place] lifts, holds or supports trunk or limbs, but provides less than half the effort. 2-Substantial/Maximal Assistance-helper does MORE THAN HALF the effort. [place] lifts or holds trunk or limbs and provides more than half the effort. 3-Qgmypbaji-ggrnqp does ALL the effort. Patient does none of the effort to complete the activity. Or, the assistance of 2 or more helpers is required for the patient to complete the activity. If activity was not attempted, code reason: 7-Patient Refused. 9-Not Applicable-not attempted and the patient did not perform the activity before the current illness, exacerbation or injury. 10-Not Attempted due to Environmental Limitations-(lack of equipment, weather restraints, etc.). 88-Not Attempted due to Medical Conditions or Safety Concerns. Oral Hygiene (QC): 4 Shower/Bathe Self (QC): 3 (assist to dry R foot) Upper Body Dressing (QC): 4 Lower Body Dressing (QC): 3 Other Treatment See PT notes for ambulation and transfers. After therapy, pt lying in bed with call light/phone in reach. All needs met in room. Nrsg in room. OT Short Term Goals Short Term Goals Time Frame: Oct 09, 2022 Eatin Oral hygiene: 6 Toileting hygiene: 6 OT Longterm Goals Final Inspector Shuttle Goals Time Frame: Oct 15, 2022 Acute change in mental status: 0 Inattention: 0 Disorganized thinkin Altered level of consciousness: 0 Eating (QC): 6 Oral Hygiene (QC): 6 Toileting Hygiene (QC): 5 Shower/Bathe Self (QC): 5 Upper Body Dressing (QC): 6 Lower Body Dressing (QC): 5 On/Off Footwear (QC): 6 1=Demonstrate adherence to instructed precautions during ADL tasks. 2=Patient will verbalize/demonstrate understanding of assistive device s/modifications for ADL. 3=Patient will improve strength/tolerance for activity to enable patient to perform ADL's. OT Education/Plan Problem List/Assessment Assessment: Decreased Activ Tolerance, Decreased UE Strength, Impaired Funct Balance, Impaired Self-Care Skills Discharge Recommendations Plan/Recommendations: Continue POC Treatment Plan/Plan of Care Patient would benefit from OT for education, treatment and training to promote independence in ADL's, mobility, safety and/or upper extremity function for ADL's. Plan of Care: ADL Retraining, Concurrent Therapy, Functional Mobility, Group Exercise/Act as Ind, Orthotic Fitting/Training, UE Funct Exercise/Act, UE Neuromus Re-Ed/Coord Treatment Duration: Oct 15, 2022 Frequency: At least 5 of 7 days/Wk (IRF) Estimated Hrs Per Day: 1 hour per day Agreement: Yes Rehab Potential: Good Time Start Time: 14:20 Stop Time: 15:25 DATE: Oct 06, 2022 Total Time Billed (hr/min): 65 Billed Treatment Time 1 visit-ADL 3 (45 min) FA 1 (20 min) cotreat with PT 65 min JOANNE CESPEDES Oct 06, 2022 15:45
[2022-10-06] MEDS ORDERED: MECLIZINE 25 MG TABLET PO PRN (18:15)
[2022-10-06] MEDS ORDERED: MELATONIN 3 MG TABLET PO PRN (18:15)
[2022-10-06] MEDS ORDERED: RT-ALBUTEROL SULF 2.5 MG/3 ML PRE-MIX VIAL INH PRN (18:15)
[2022-10-06] MEDS ORDERED: LORATADINE 10 MG TABLET PO PRN (18:15)
[2022-10-06] MEDS ORDERED: ANTACID SUSPENSION 30 ML UDC PO PRN (18:15)
[2022-10-06] MEDS ORDERED: ONDANSETRON INJECTION 4 MG/2 ML (SDV) IV PRN (18:15)
[2022-10-06] MEDS ORDERED: diphenhydrAMINE INJ 50 MG/ML VIAL IVP PRN (18:15)
[2022-10-06] MEDS: ENOXAPARIN 40 MG/0.4 ML SYRINGE SC SCH (18:42)
[2022-10-06] MEDS: ONDANSETRON 4 MG ORAL DISSOLVE TABLET PO PRN (18:51)
[2022-10-06] MEDS: HYDROcodone/ACETAMINOPHEN 5 MG/325 MG TABLET PO PRN (18:55)
[2022-10-06 19:50] VITALS: BP 148/81
[2022-10-06] MEDS ORDERED: DOCUSATE SODIUM 100 MG CAPSULE PO SCH (21:00)
[2022-10-06] MEDS: MELATONIN 3 MG TABLET PO PRN (21:01)
[2022-10-06] MEDS: SENNA W/DOCUSATE (SENOKOT S) TABLET PO SCH (21:01)
[2022-10-06] MEDS: oxyCODONE IMMEDIATE RELEASE 5 MG TABLET PO PRN (21:01)
[2022-10-06] MEDS: DOCUSATE SODIUM 100 MG CAPSULE PO SCH (21:01)
[2022-10-06 22:08] VITALS: BP 148/81
[2022-10-07] MEDS: oxyCODONE IMMEDIATE RELEASE 5 MG TABLET PO PRN ×2 (03:29→09:07)
[2022-10-07 05:20] LABS: BASOPHILS # (AUTO) 0.1 10^3/uL (0.0-0.1); BASOPHILS % (AUTO) 1 % (0-10); EOSINOPHILS # (AUTO) 0.3 10^3/uL (0.0-0.3); EOSINOPHILS % (AUTO) 5 % (0-10); HEMATOCRIT 31 % (35-52); HEMOGLOBIN 10.4 g/dL (11.5-16.0); LYMPHOCYTES # (AUTO) 0.9 10^3/uL (1.0-4.0); LYMPHOCYTES % (AUTO) 15 % (12-44); MEAN CORPUSCULAR HEMOGLOBIN 30 pg (25-34); MEAN CORPUSCULAR HGB CONC 33 g/dL (32-36); MEAN CORPUSCULAR VOLUME 90 fL (80-99); MEAN PLATELET VOLUME 8.9 fL (9.0-12.2); MONOCYTES # (AUTO) 0.6 10^3/uL (0.0-1.0); MONOCYTES % (AUTO) 10 % (0-12); NEUTROPHILS % (AUTO) 69 % (42-75); PLATELET COUNT 147 10^3/uL (130-400); WHITE BLOOD COUNT 5.8 10^3/uL (4.3-11.0)
[2022-10-07 05:31] LABS: ALBUMIN 3.4 GM/DL (3.2-4.5); POTASSIUM 4.7 MMOL/L (3.6-5.0)
[2022-10-07 05:32] LABS: CALCIUM 9.4 MG/DL (8.5-10.1)
[2022-10-07 05:33] LABS: TOTAL PROTEIN 6.3 GM/DL (6.4-8.2)
[2022-10-07 05:35] LABS: BILIRUBIN,TOTAL 0.4 MG/DL (0.1-1.0)
[2022-10-07 05:37] LABS: CREATININE SERUM 1.02 MG/DL (0.60-1.30)
[2022-10-07] MEDS: HYDROcodone/ACETAMINOPHEN 5 MG/325 MG TABLET PO PRN ×3 (05:41→20:42)
[2022-10-07] MEDS: DOCUSATE SODIUM 100 MG CAPSULE PO SCH ×2 (08:02→20:45)
[2022-10-07] MEDS: CITALOPRAM 20 MG TABLET PO SCH (08:02)
[2022-10-07] MEDS: SENNA W/DOCUSATE (SENOKOT S) TABLET PO SCH ×2 (08:03→20:45)
[2022-10-07] MEDS: MELOXICAM 7.5 MG TABLET PO SCH (08:03)
[2022-10-07 08:04] VITALS: BP 161/73
[2022-10-07] MEDS: LOSARTAN 25 MG TABLET PO SCH (08:07)
--- NOTE | 2022-10-07 08:52 | Cardiology Progress Note ---
Subjective Date Seen by Provider: Oct 07, 2022 Time Seen by Provider: 08:20 Subjective/Events-last exam Patient is sitting up in bed, complaining of knee pain. Denies any chest pain Objective-Cardiology Exam Last Set of Vital Signs Vital Signs 10/06/22 10/07/22 10/07/22 22:08 06:58 09:11 Temp 35.6 Pulse 112 Resp 20 B/P (MAP) 119/77 (91) Pulse Ox 96 O2 Delivery Room Air FiO2 21 I&O Intake and Output 10/07/22 00:00 Intake Total 300 ml Balance 300 ml Intake Oral 300 ml # Voids 3 Daily Weight Change No General: Alert, Oriented X3, Cooperative HEENT: Atraumatic, PERRLA Lungs: Clear to Auscultation, Normal Air Movement Heart: Regular Rate, Normal S1, Normal S2 Abdomen: Normal Bowel Sounds, Soft Extremities: No Edema Skin: No Rashes, No Significant Lesion Neuro: Normal Speech Psych/Mental Status: Mental Status NL, Mood NL Results Lab Laboratory Tests 10/07/22 04:50 A/P-Cardiology Admission Diagnosis UTI Left tibial fx CAD HTN Assessment/Plan UTI, management per medical service Left tibia plateau fracture, Dr. Liu consulted, does not require surgery Coronary artery disease Patient was noted to have significant coronary calcification on CT of the chest and abdomen done in March 2022 Has multiple risk factors including strong family history of heart disease Coronary CTA done 08/18/22 showing extensive coronary artery disease as described above with significant long segment calcifications and stenoses in all three territories. There is also some calcification in the mitral valve and aortic valve. Patient is scheduled for [facility] for tomorrow morning Dyspnea on exertion, results of 2D Echo pending, planning for [facility] History of colon cancer, followed and managed with Dr. Rodarte History of diabetes mellitus, management per medical services Hypertension, controlled, continue to monitor. Tobaccoism, stopped smoking over 10 years ago Degenerative joint disease. Maintained on meloxicam Hx Colon CA, follows with Dr. Rodarte. Strong family hx of CAD. Patient was seen and evaluated with Ban, examination performed, management plan was discussed, agree with the current scribed note, I made few changes to the note using Italic font Patient was seen at bedside, she was laying down in bed, Still having pain in her knee Discussed the management plan recommended cardiac catheterization, patient is already on the schedule for October 08, 2022. Supervisory-Addendum Brief Supervisory Addendum Participated in pt care: history, MDM, physical Personally performed: exam, history, MDM Care discussed with: PA Results interpretation: Verified all documentation BAN LINDSAY Oct 07, 2022 08:52 ETIENNE CONTRERAS MD Oct 07, 2022 11:48
[2022-10-07 09:11] VITALS: BP 119/77
--- NOTE | 2022-10-07 09:59 | Physical Therapy Daily Note ---
PT Daily Note-Current Subjective Pt laying Supine in bed visiting w/son Roby upon arrival. Nurse is also present giving morning meds. Pt agrees to PT despite reporting not sleeping well last night due to pain & not being able to get comfortable. Pain Numeric Pain Scale: 10-Worst Possible Pain Location: Left Location Body Site: Knee Pain Description: Pressure, Cramping Section J - Health Conditions 1. Rarely or not at all 2. Occasionally 3. Frequently 4. Almost constantly 8. Unable to answer Pain Effect on Sleep: 3 Pain Interference with Therapy: 4 Pain Interference w/Day-to-Day: 4 Mental Status Patient Orientation: Person, Place, Time, Situation Attachments: Knee Immobilizer Transfers SCALE: Activities may be completed with or without assistive devices. 4-Mbnalkbgmc-ohpulqe completes the activity by him/herself with no assistance from a helper. 5-Set-up or Clean-up Assistance-helper sets up or cleans up; patient completes activity. [place] assists only prior to or following the activity. 4-Supervision or Touching Assistance-helper provides verbal cues and/or touching/steadying and/or contact guard assistance as patient completes activity. Assistance may be provided throughout the activity or intermittently. 3-Partial/Moderate Assistance-helper does LESS THAN HALF the effort. [place] lifts, holds or supports trunk or limbs, but provides less than half the effort. 2-Substantial/Maximal Assistance-helper does MORE THAN HALF the effort. [place] lifts or holds trunk or limbs and provides more than half the effort. 5-Nefwdeiwd-awmjoa does ALL the effort. Patient does none of the effort to complete the activity. Or, the assistance of 2 or more helpers is required for the patient to complete the activity. If activity was not attempted, code reason: 7-Patient Refused. 9-Not Applicable-not attempted and the patient did not perform the activity before the current illness, exacerbation or injury. 10-Not Attempted due to Environmental Limitations-(lack of equipment, weather restraints, etc.). 88-Not Attempted due to Medical Conditions or Safety Concerns. Lying to Sitting/Side of Bed(Q: 4 Sit to Stand (QC): 4 Weight Bearing Right Lower Extremity: Right Full Weight Bearing Left Lower Extremity: Left Touch Toe Bearing L knee immobilizer Gait Training Does the Patient Walk?: Yes Distance: 15' Walk 10 feet (QC): 4 Gait Persons Needed: 1 Gait Assistive Device: Walker Platform Pt reports pain w/amb in attempting to keep WB status. Exercises Seated Therapy Exercises: Ankle pumps, Long arc quads (R side only), Hip flexion (R side only), Hip abd/add, Glut set Seated Reps: 15 Treatments Morning meds given then TF from Supine to EOB to complete Seated EX after dizziness passes. Pt stands and amb 2' before feeling nauseated/pain & needs to sit. Nurse gives pain med. Pt stands and attempts walking again. Pt walks to doorway than needs to sit in w/c. Pt asks to return to bed as feeling nauseated again. SPT from w/c to EOB then Supine in bed to R sidelying for comfort, knee immob. removed per request & pillow between knees. All needs met, call light in hand. Assessment Current Status: Fair Progress Pt is limited by pain & nausea from pain during tx. When pt is able to push through task, pt is able to complete tasks well. Vitals monitored: Starting tx- 161/73, HR- 105; After initial walk- 119/77, HR-112, O2- 96% PT Retirement Goals Retirement Goals PT Retirement Goals Time Frame: Oct 20, 2022 Roll Left & Right (QC): 6 Sit to Lying (QC): 6 Lying-Sitting on Side/Bed(QC): 6 Sit to Stand (QC): 6 Chair/Hrj-gq-Jlnsc Xfer(QC): 6 Toilet Transfer (QC): 6 Car Transfer (QC): 6 Does the Patient Walk: Yes Walk 10 feet (QC): 4 Walk 50ft with 2 Turns (QC): 4 Walk 150 ft (QC): 4 Walking 10ft on Uneven Surface: 4 1 Step (curb) (QC): 4 4 Steps (QC): 9 12 Steps (QC): 9 Picking up an Object (QC): 6 Does the Pt use WC or Scooter?: Yes Wheel 50 feet with 2 turns (QC: 6 Type: Manual Wheel 150 feet: 6 Type: Manual PT Plan Problem List Problem List: Activity Tolerance, Functional Strength, Gait Treatment/Plan Treatment Plan: Continue Plan of Care Treatment Plan: Bed Mobility, Concurrent Therapy, Education, Functional Activity Gina, Functional Strength, Group Therapy, Gait, Safety, Therapeutic Exercise, Transfers Treatment Duration: Oct 20, 2022 Frequency: At least 5 of 7 days/Wk (IRF) Estimated Hrs Per Day: 2 hours per day Patient and/or Family Agrees t: Yes Safety Risks/Education Patient Education: Gait Training, Correct Positioning Teaching Recipient: Patient, Family Teaching Methods: Discussion Response to Teaching: Verbalize Understanding Time Time In: 800 Time Out: 930 DATE: Oct 07, 2022 Total Billed Treatment Time: 90 Total Billed Treatment 1, EX x2 (30m), GT x2 (30m) & FA x2 (30m) OSWALDO JOHNSON PNEUMATIC TOOL REPAIRER Oct 07, 2022 09:59
--- NOTE | 2022-10-07 11:45 | Occupational Ther Daily Note ---
OT Current Status-Daily Note Subjective Pt sitting EOB upon arrival, alert and cooperative, agreed to shower on this date. Pt states pain at a 8/10 in knee/leg, also mentions mild shoulder pain. ADL-Treatment Pt stood from EOB with CGA. Pt then stand pivot transferred into wheelchair to propel self into bathroom. Pt transferred to toilet from wheelchair using grab bars and required continous cues to remain TTW. Pt then completed toilet hygiene with CGA. Pt propelled to shower bench and utilized grab bars to stand pivot transfer into shower. Pt completed shower with set up assist, seated 100% of the time. Pt then dried self off, and stand pivot transfer to wheelchair in bathroom. Pt completed upper body dressing with set up assist. pt then donned footwear with set up assist. Pt did require multiple recovery breaks due to fatigue. Pt sat in wheelchair to complete oral hygiene and grooming at sink in bathroom. Pt then propelled self to therapy gym addressing wheelchair mobility. Pt sat and completed 5 mins, no resistance on arm bike to work on strengthening and endurance. Pt mentioned shoulder pain, so NICK adapted to pts pain level and stopped arm bike at 5 instead of going to 8 mins. Pt required 5 recovery breaks in between 5 min arm bike exercises. Pt was given HEP and introduced to all exercises with no resistance to start due to pain in shoulder. Pt did well, no resistance, pt completed 5 exercises 2 sets 8-10 reps. Pt did mentioned pain had subsided a small amount and was now at 6/10 at end of session. Pt then was propelled back to room, transferred into chair using FWW. Pt was left sitting in chair with son present in room, all needs met at this time. Therapy Code Descriptions/Definitions Functional [place] Measure: 0=Not Assessed/NA 4=Minimal Assistance 1=Total Assistance 5=Supervision or Setup 2=Maximal Assistance 6=Modified [place] 3=Moderate Assistance 7=Complete IndependenceSCALE: Activities may be completed with or without assistive devices. 5-Daozsstrkl-dhmeocl completes the activity by him/herself with no assistance from a helper. 5-Set-up or Clean-up Assistance-helper sets up or cleans up; patient completes activity. [place] assists only prior to or following the activity. 4-Supervision or Touching Assistance-helper provides verbal cues and/or touching/steadying and/or contact guard assistance as patient completes activity. Assistance may be provided throughout the activity or intermittently. 3-Partial/Moderate Assistance-helper does LESS THAN HALF the effort. [place] lifts, holds or supports trunk or limbs, but provides less than half the effort. 2-Substantial/Maximal Assistance-helper does MORE THAN HALF the effort. [place] lifts or holds trunk or limbs and provides more than half the effort. 6-Ncrtijzia-fwahlh does ALL the effort. Patient does none of the effort to complete the activity. Or, the assistance of 2 or more helpers is required for the patient to complete the activity. If activity was not attempted, code reason: 7-Patient Refused. 9-Not Applicable-not attempted and the patient did not perform the activity before the current illness, exacerbation or injury. 10-Not Attempted due to Environmental Limitations-(lack of equipment, weather restraints, etc.). 88-Not Attempted due to Medical Conditions or Safety Concerns. Education OT Patient Education: Energy conservation, Home exercise program, Modified ADL techniques, Progress toward Goal/Update tx plan, Purpose of tx/functional activities, Rehab process Teaching Recipient: Patient Teaching Methods: Demonstration, Handout Response to Teaching: Verbalize Understanding, Return Demonstration OT Short Term Goals Short Term Goals Time Frame: Oct 09, 2022 Eatin Oral hygiene: 6 Toileting hygiene: 6 OT Chcf Goals Chcf Goals Time Frame: Oct 15, 2022 Acute change in mental status: 0 Inattention: 0 Disorganized thinkin Altered level of consciousness: 0 Eating (QC): 6 Oral Hygiene (QC): 6 Toileting Hygiene (QC): 5 Shower/Bathe Self (QC): 5 Upper Body Dressing (QC): 6 Lower Body Dressing (QC): 5 On/Off Footwear (QC): 6 1=Demonstrate adherence to instructed precautions during ADL tasks. 2=Patient will verbalize/demonstrate understanding of assistive devices/modifications for ADL. 3=Patient will improve strength/tolerance for activity to enable patient to pe rform ADL's. OT Education/Plan Problem List/Assessment Assessment: Decreased Activ Tolerance, Decreased UE Strength Discharge Recommendations Plan/Recommendations: Continue POC Treatment Plan/Plan of Care Patient would benefit from OT for education, treatment and training to promote independence in ADL's, mobility, safety and/or upper extremity function for ADL's. Plan of Care: ADL Retraining, Concurrent Therapy, Functional Mobility, Group Exercise/Act as Ind, Orthotic Fitting/Training, UE Funct Exercise/Act, UE Neuromus Re-Ed/Coord Treatment Duration: Oct 15, 2022 Frequency: At least 5 of 7 days/Wk (IRF) Estimated Hrs Per Day: 1 hour per day Agreement: Yes Rehab Potential: Good Time Start Time: 10:15 Stop Time: 11:45 DATE: Oct 07, 2022 Total Time Billed (hr/min): 90 Billed Treatment Time 1 visit ADL 3 (40) EX 3 (50) Jana Lynn COTA Oct 07, 2022 11:45
[2022-10-07] MEDS: LevoFLOXacin 750 MG TABLET PO SCH (11:48)
[2022-10-07] MEDS: DICLOFENAC 1% GEL 50 GM TUBE TOP PRN (16:07)
[2022-10-07] MEDS: ENOXAPARIN 40 MG/0.4 ML SYRINGE SC SCH (19:01)
[2022-10-07 19:37] VITALS: BP 110/67
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
--- NOTE | 2022-10-07 19:57 | Individualized Plan of Care ---
Individualized Plan of Care Rehab Nursing IPOC Order Admission Date Oct 06, 2022 at 13:15 Current Orders Orders Admission Arrival Bed Request (10/06/22 13:19) Admission Order(Inpt,Obs,Sdc) (10/06/22 13:40) Vital Signs: Per Unit Policy ( 08,16,00 (10/06/22 13:40) Brandon Dong 09,21 (10/06/22 13:40) Sequential Compression Device [id number] (10/06/22 13:40) Home Performance Consultant-Inpt Rehab Con (10/06/22 13:40) Rehab Nursing Orders-Ipoc (10/06/22 13:40) Physical Therapy Rehab Orders (10/06/22 13:40) Occupational Therapy Rehab Ord (10/06/22 13:40) Speech Therapy Rehab Orders (10/06/22 13:40) Cbc With Automated Diff (10/07/22 06:00) Comprehensive Metabolic Panel (10/07/22 06:00) Precautions (Aru) (10/06/22 13:40) Weekly Weight WEEK (10/06/22 13:40) Rehab-Intensity Of Therapy (10/06/22 13:40) Initiate Admission Nursing Pro .admission (10/06/22 13:40) Alprazolam Tablet (Alprazolam Tablet) (10/06/22 13:45) Calcium Carbonate Chew Tablet (Calcium C (10/06/22 13:45) Diphenhydramine Tablet (Diphenhydramine (10/06/22 13:45) Docusate Sodium Capsule (Docusate Sodium (10/06/22 21:00) Docusate Sodium Capsule (Docusate Sodium (10/06/22 13:45) Bisacodyl Suppository (Bisacodyl Supposi (10/06/22 13:45) Lactulose Oral Solution (Enulose Oral So (10/06/22 13:45) Na Phos/Na Biphos Adult Enema (Na Phos/N (10/06/22 13:45) Guaifenesin/Codeine Syrup (Guaifenesin/C (10/06/22 13:45) Loperamide Capsule (Loperamide Capsule) (10/06/22 13:45) Melatonin Tablet (Melatonin Tablet) (10/06/22 13:45) Polyethylene Glycol Powder Pkt (Miralax (10/06/22 21:00) Ondansetron Oral Dissolve Tab (Zofran (10/06/22 13:45) Senna S Tablet (Senokot S Tablet) (10/06/22 21:00) Acetaminophen Tablet (Acetaminophen Ta (10/06/22 13:45) Initiate Admission Nursing Pro .admission (10/06/22 13:40) Patient Visit (10/06/22 ) Functional Activities, Ea 15 (10/06/22 ) Wheelchair Mgmt/Propulsn 15min (10/06/22 ) Patient Visit (10/06/22 ) Pt Eval Moderate Complexity (10/06/22 ) General/Regular (10/06/22 Dinner) Code/Resuscitation (10/06/22 18:13) Incentive Spirometry (Nursing) Q2H (10/06/22 18:13) Vte Contraindication (10/06/22 18:13) Albuterol Pre-Mix Nebs (Rt) (Albuterol (10/06/22 18:15) Diphenhydramine Injection (Diphenhydram (10/06/22 18:15) Diphenhydramine Tablet (Diphenhydramine (10/06/22 18:15) Citalopram Tablet (Citalopram Tablet) (10/07/22 09:00) Docusate Sodium Capsule (Docusate Sodium (10/06/22 21:00) Bisacodyl Suppository (Bisacodyl Supposi (10/06/22 18:15) Lactulose Oral Solution (Enulose Oral So (10/06/22 18:15) Hydrocodone/Apap 5/325 Tablet (Hydrocod (10/06/22 18:15) Hydromorphone Injection (Hydromorphone (10/06/22 18:15) Levofloxacin Tablet (Levofloxacin Tabl (10/07/22 11:00) Loratadine Tablet (Loratadine Tablet) (10/06/22 18:15) Losartan Tablet (Losartan Tablet) (10/07/22 09:00) Enoxaparin Injection (Enoxaparin Injecti (10/06/22 18:30) Meclizine Tablet (Antivert Tablet) (10/06/22 18:15) Melatonin Tablet (Melatonin Tablet) (10/06/22 18:15) Meloxicam Tablet (Mobic Tablet) (10/07/22 09:00) Polyethylene Glycol Powder Pkt (Miralax (10/06/22 18:15) Antacid Suspension (Mylanta Suspension (10/06/22 18:15) Acetaminophen Tablet (Acetaminophen Ta (10/06/22 18:15) Ondansetron Injection (Zofran Injectio (10/06/22 18:15) Ondansetron Oral Dissolve Tab (Zofran (10/06/22 18:15) Oxycodone Immediate Rel Tablet (Oxycodon (10/06/22 18:15) Incentive Spirometry Initial (10/06/22 18:13) Knee Immobilizer (10/06/22 18:13) Svn Small Volume Nebulizer (10/06/22 18:13) Incentive Spirometry (Nursing) Q2H (10/06/22 18:13) Mat Initiate Protocol (10/06/22 22:13) Npo After Midnight (Nursing Or (10/07/22 08:22) Nothing By Mouth (10/08/22 Breakfast) Patient Visit (10/07/22 ) Exercise Therap, Ea 15 Min (10/07/22 ) Gait Training, Ea 15 Min (10/07/22 ) Functional Activities, Ea 15 (10/07/22 ) Diclofenac 1% Gel (Diclofenac 1% Gel) (10/07/22 12:15) Consult Cardiology (10/07/22 12:06) Consult Oncology/Hematology (10/07/22 13:34) Physical Therapy Order (10/07/22 13:34) Occupational Therapy Rehab Ord (10/07/22 13:34) Occupational Therapy Order (10/07/22 13:56) Nursing Communication (Order) (10/07/22 14:49) Rehab Nursing Orders: Ongoing Assess. of Cognitive Status, Ongoing Assess. of Function Status, Bladder Management, Bladder Scan, Bladder Training, Bowel Management, Bowel Training, Disease Management & Educaiton, DVT Prophylaxis, Fall Prevention, Fluid/Electrolyte/Nutrition Mgmt, Infection Prevention, Medication Management & Education, Management of Risks & Complications, Management of Skin Intergrity, Nutrition Management, Pain Management, Patient/Family Support Intensity of Therapy to be met Patient to be seen: Min.3h per day/5 of 7d PT IPOC Problem List: Activity Tolerance, Functional Strength, Gait Treatment Plan: Continue Plan of Care Bed Mobility, Concurrent Therapy, Education, Functional Activity Gina, Functional Strength, Group Therapy, Gait, Safety, Therapeutic Exercise, Transfers Treatment Duration: Oct 20, 2022 Frequency: At least 5 of 7 days/Wk (IRF) Estimated Hrs Per Day: 2 hours per day OT IPOC Problems: Decreased Activ Tolerance, Decreased UE Strength, Impaired Funct Balance, Impaired Self-Care Skills OT Treatment, Training and Edu: Yes Plan of Care: ADL Retraining, Concurrent Therapy, Functional Mobility, Group Exercise/Act as Ind, Orthotic Fitting/Training, UE Funct Exercise/Act, UE Neuromus Re-Ed/Coord Treatment Duration: Oct 15, 2022 Frequency: At least 5 of 7 days/Wk (IRF) Estimated Hrs Per Day: [address] IPOC Speech Therapy Treatment Plan: Discontinue ST Treatment Duration: Oct 07, 2022 Frequency: Modified Program (IRF) Estimated Hrs Per Day: Other Home Performance Consultant/Case Mgmt Home Performance Consultant/Case Managemen: Discharge Planning Dietitian/Action Finisher Dietitian/Action Finisher to monitor nutritional status and make changes and/or recommendations as needed and work with speech pathology on dietary upgrades as the occur. Physician IPOC Medical Issues being managed closely and that require the 24 hour availability of a physician: Recent fall with tibial plateau fracture with confusion requiring admission to hospital with dehydration will be at high risk for decline and will need close monitoring of pain control by physician Medical Issues: Bowel/Bladder Function, DVT Prophylaxis, Falls Precautions, Fluid/Electrolyte/Nutrition Balance, Infection Protection, Pain Management, Weight Bearing Precautions Brief Synthesis of Preadmission Screen, Post-Admission Evaluation, and Therapy Evaluations: PT and OT will focus on regaining function with use of assistive devices in order to regain function to ambulate and to return back to independent living while maintaining toe-touch weightbearing on left leg Medical Prognosis: Good Anticipated Length of Stay: 7 days SHAINA BROCK DO Oct 07, 2022 19:57
[2022-10-08] MEDS: HYDROmorphone INJECTION 2 MG/ML VIAL IV PRN (07:54)
[2022-10-08 08:00] VITALS: BP 139/77
[2022-10-08] MEDS: ONDANSETRON 4 MG ORAL DISSOLVE TABLET PO PRN (08:00)
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
--- NOTE | 2022-10-08 10:42 | Cardiac Procedure Note-CS/ASA ---
Pre-Procedure Note Pre-Op Procedure Note Date of Available H&P: Oct 08, 2022 Date H&P Reviewed: Oct 08, 2022 Time H&P Reviewed: 10:00 History & Physical: H&P Reviewed, Patient Examed, No changes noted Pre-Operative Diagnosis: CAD Moderate Sedation PreProcedure Time 10:00 ASA Score 3 Airway Lungs Heart ASA score ASA 1: a normal healthy patient ASA 2: a patient with a mild systemic disease (mid diabetes, controlled hypertension, obesity ASA 3: a patient with a severe systemic disease that limits activity (angina, COPD, prior Myocardial infarction) ASA 4: a patient with an incapacitating disease that is a constant threat to life (CHF, renal failure) ASA 5: a moribund patient not expected to survive 24 hrs. (ruptured aneurysm) ASA 6: a declared brain- patient whose organs are being harvested. For emergent operations, add the letter E after the classification Mallampati Classification Grade 3 Sedation Plan Analgesia, Amnesia, Plan communicated to team members, Discussed options with patient/fam, Discussed risks with patient/fam The patient is an appropriate candidate to undergo the planned procedure, sedation, and anesthesia. The patient immediately re-assessed prior to indication. ETIENNE CONTRERAS MD Oct 08, 2022 10:42
--- NOTE | 2022-10-08 10:42 | Cardiology Progress Note ---
Subjective Date Seen by Provider: Oct 08, 2022 Time Seen by Provider: 10:00 Subjective/Events-last exam Patient was seen at bedside, laying down comfortably, feeling well. No new complaint Objective-Cardiology Exam Last Set of Vital Signs Vital Signs 10/06/22 10/08/22 22:08 08:00 Temp 35.9 Pulse 77 Resp 18 B/P (MAP) 139/77 (97) Pulse Ox 99 O2 Delivery Room Air FiO2 21 I&O Intake and Output 10/08/22 00:00 Intake Total 2350 ml Balance 2350 ml Intake Oral 2350 ml # Voids 7 # Bowel Movements 1 General: Alert, Oriented X3, Cooperative HEENT: Atraumatic, PERRLA Lungs: Clear to Auscultation, Normal Air Movement Heart: Regular Rate, Normal S1, Normal S2 Abdomen: Normal Bowel Sounds, Soft Extremities: No Edema Skin: No Rashes, No Significant Lesion Neuro: Normal Speech Psych/Mental Status: Mental Status NL, Mood NL A/P-Cardiology Admission Diagnosis UTI Left tibial fx CAD HTN Assessment/Plan UTI, management per medical service Left tibia plateau fracture, Dr. Liu consulted, does not require surgery Coronary artery disease Patient was noted to have significant coronary calcification on CT of the chest and abdomen done in March 2022 Has multiple risk factors including strong family history of heart disease Coronary CTA done 08/18/22 showing extensive coronary artery disease as described above with significant long segment calcifications and stenoses in all three territories. There is also some calcification in the mitral valve and aortic valve. Patient is scheduled for cardiac catheterization today. I discussed the management plan and the procedure with the patient and her family. Dyspnea on exertion, results of 2D Echo pending, planning for [facility] History of colon cancer, followed and managed with Dr. Rodarte History of diabetes mellitus, management per medical services Hypertension, controlled, continue to monitor. Tobaccoism, stopped smoking over 10 years ago Degenerative joint disease. Maintained on meloxicam Hx Colon CA, follows with Dr. Rodarte. Strong family hx of CAD. ETIENNE CONTRERAS MD Oct 08, 2022 10:42
--- NOTE | 2022-10-08 11:52 | Cardiac Cath Report ---
Cardiac Cath Report Physician (s)/Calender Machine Operator Helper (s) Physician ETIENNE CONTRERAS MD Pre-Procedure Diagnosis Pre-Procedure Diagnosis: CAD Post-Procedure Note Procedure Start Date: Oct 08, 2022 Name of Procedure: Left heart catheterization IFR to the circumflex artery Stent to the circumflex artery Findings/Procedure Note PROCEDURE NOTE: 72-year-old lady with history of hypertension, hyperlipidemia, has been having chest pain, had an abnormal CT angiogram, scheduled for cardiac catheterization possible PTCA. Patient suffered from fall and a tibial fracture, conservative management was recommended We decided to proceed with cardiac catheterization due to her extensive cardiac history. After explaining the procedure to the patient, all pros and cons were explained, all questions were answered. The patient signed the consent and then she was placed in the cardiac catheterization laboratory. Groin was prepped in SL fashion local anesthesia was used. Sheath placed in the right radial artery, [place] catheter was advanced to the left ventricular cavity, engaged the right and left coronary system, angiogram was done. Patient received a total of 6000 units of heparin. Catheter was exchanged to [place] left guide. iFR wire was advanced in the circumflex artery, baseline IFR was 0.82. I proceeded with balloon angioplasty for a 90% stenosis at the distal circumflex artery. Predilatation with 3 x 12 mm balloon then deployment of 3 x 12 mm oscar point stent deployed under 14 shannon up to 3.2 mm. Angiogram showed no residual stenosis 0% residual stenosis with IFR postintervention 0.94. At the end of the procedure the sheath was removed. Vascular band was used FINDINGS: Hemodynamics LV 118/18, end-diastolic pressure of 18 Aorta 125/72 mean of 81 ANATOMY: Left Main is free of obstructive disease Left Anterior Descending has mild calcification with less than 10% stenosis at the midportion nonobstructive disease Left Circumflex is moderate in size, has distal stenosis 90% with IFR 0.82. Status post balloon angioplasty and deployment of Skypoint 3 x 12 mm stent expanded to 3.2 mm with 0% residual stenosis, IFR postintervention 0.94 Right Coronary Artery is large dominant artery with mild irregularity with no obstructive disease LV Gram was not done, pressure was measured PERCUTANEOUS INTERVENTION: Pre stenosis 90% Post Stenosis 0% Pre ALMA flow 2 Post ALMA flow 3 Dominance right coronary artery CONCLUSION: 90% stenosis at the mid to distal circumflex artery successful deployment of Skypoint 3 x 12 mm with no residual stenosis, IFR showed significant improvement. Otherwise mild disease in the coronary system nonobstructive disease Normal left ventricular end-diastolic pressure DISCUSSION AND RECOMMENDATION: Patient is intolerant/allergic to aspirin, she will be loaded with Plavix 600 mg then 75 mg daily Anesthesia Type: Conscious Sedation Estimated blood loss (mL): 25 ml Contrast Amount: 125 ml Post-Procedure Diagnosis Post-operative diagnosis: Chest pain Tibial plateau fracture Hypertension Hyperlipidemia ETIENNE CONTRERAS MD Oct 08, 2022 11:52
[2022-10-08] MEDS: NS IV 1000 ML 1,000 ML IV SCH ×2 (14:16→22:11)
[2022-10-08] MEDS: SENNA W/DOCUSATE (SENOKOT S) TABLET PO SCH ×2 (14:24→21:30)
[2022-10-08] MEDS: CITALOPRAM 20 MG TABLET PO SCH (14:24)
[2022-10-08] MEDS: LOSARTAN 25 MG TABLET PO SCH (14:25)
[2022-10-08] MEDS: LevoFLOXacin 750 MG TABLET PO SCH (14:25)
[2022-10-08] MEDS: DOCUSATE SODIUM 100 MG CAPSULE PO SCH ×2 (14:25→21:30)
[2022-10-08] MEDS: MELOXICAM 7.5 MG TABLET PO SCH (14:26)
[2022-10-08] MEDS: DICLOFENAC 1% GEL 50 GM TUBE TOP PRN ×2 (14:29→21:36)
--- NOTE | 2022-10-08 15:41 | Physical Therapy Progress Note ---
Therapy Progress Note Patient has mobility limitation that significantly impairs her ability to participate in one or more mobility-related activities of daily living (MRADL)in the home. The patient is able to safely use the front wheeled walker when two platforms (one on each side of the walker) are used due to the Toe Touch Weight Bearing (TTWB) status of doctor's orders as well as to aid in relieving patient's reported shoulder pain. The functional mobility deficit can be sufficiently resolved with the use of a front wheeled walker. OSWALDO JOHNSON SKEIN BANDER Oct 08, 2022 15:41
[2022-10-08] MEDS: ENOXAPARIN 40 MG/0.4 ML SYRINGE SC SCH (18:40)
[2022-10-08] MEDS: HYDROcodone/ACETAMINOPHEN 5 MG/325 MG TABLET PO PRN (18:44)
[2022-10-08 20:00] VITALS: BP 150/65
[2022-10-08] MEDS: MELATONIN 3 MG TABLET PO PRN (21:35)
[2022-10-09] MEDS: HYDROcodone/ACETAMINOPHEN 5 MG/325 MG TABLET PO PRN ×2 (00:12→17:44)
[2022-10-09 00:21] VITALS: BP 136/65
[2022-10-09 04:00] VITALS: BP 136/63
[2022-10-09] MEDS: DICLOFENAC 1% GEL 50 GM TUBE TOP PRN ×2 (04:26→21:58)
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
[2022-10-09 05:56] LABS: HEMOGLOBIN 9.5 g/dL (11.5-16.0); MEAN PLATELET VOLUME 9.2 fL (9.0-12.2)
[2022-10-09 05:59] LABS: POTASSIUM 4.5 MMOL/L (3.6-5.0)
[2022-10-09 06:00] LABS: CALCIUM 8.7 MG/DL (8.5-10.1)
[2022-10-09 06:04] LABS: CREATININE SERUM 0.87 MG/DL (0.60-1.30)
[2022-10-09] MEDS: oxyCODONE IMMEDIATE RELEASE 5 MG TABLET PO PRN ×3 (06:48→21:58)
[2022-10-09 07:56] VITALS: BP 150/90
[2022-10-09] MEDS: CLOPIDOGREL 75 MG TABLET PO SCH (08:14)
[2022-10-09] MEDS: PANTOPRAZOLE 40 MG TABLET PO SCH (08:14)
[2022-10-09] MEDS: CITALOPRAM 20 MG TABLET PO SCH (08:14)
[2022-10-09] MEDS: MELOXICAM 7.5 MG TABLET PO SCH (08:14)
[2022-10-09] MEDS: LOSARTAN 25 MG TABLET PO SCH (08:15)
--- NOTE | 2022-10-09 08:25 | Cardiology Progress Note ---
Subjective Date Seen by Provider: Oct 09, 2022 Time Seen by Provider: 08:22 Subjective/Events-last exam Patient was seen at bedside, laying down comfortably, feeling well. Review of Systems General: No Chills, No Night Sweats, No Fatigue, No Malaise, No Appetite, No Other HEENT: No Head Aches, No Visual Changes, No Eye Pain, No Ear Pain, No Dysphasia, No Sinus Congestion, No Post Nasal Drip, No Sore Throat, No Other Pulmonary: No Dyspnea, No Cough, No Pleuritic Chest Pain, No Other Cardiovascular: No: Chest Pain, Palpitations, Orthopnea, Paroxysmal Noc. Dyspnea, Edema, Lt Headedness, Other Objective-Cardiology Exam Last Set of Vital Signs Vital Signs 10/06/22 10/09/22 22:08 07:56 Temp 36.4 Pulse 93 Resp 18 B/P (MAP) 150/90 (110) Pulse Ox 99 O2 Delivery Room Air FiO2 21 I&O Intake and Output 10/09/22 00:00 Intake Total 1510 ml Balance 1510 ml Intake Oral 1510 ml # Voids 7 # Bowel Movements 2 General: Alert, Oriented X3, Cooperative HEENT: Atraumatic, PERRLA Neck: Supple, No JVD Lungs: Clear to Auscultation, Normal Air Movement Heart: Regular Rate, Normal S1, Normal S2 Abdomen: Normal Bowel Sounds, Soft Extremities: No Edema Skin: No Rashes, No Significant Lesion Neuro: Normal Speech Psych/Mental Status: Mental Status NL, Mood NL Results Lab Laboratory Tests 10/09/22 05:30 A/P-Cardiology Admission Diagnosis UTI Left tibial fx CAD HTN Assessment/Plan UTI, management per medical service Left tibia plateau fracture, Dr. Liu consulted, does not require surgery Coronary artery disease Patient was noted to have significant coronary calcification on CT of the chest and abdomen done in March 2022 Has multiple risk factors including strong family history of heart disease Coronary CTA done 08/18/22 showing extensive coronary artery disease as described above with significant long segment calcifications and stenoses in all three territories. There is also some calcification in the mitral valve and aortic valve. Status post cardiac catheterization on October 08, 2022 with balloon angioplasty and stenting of the circumflex artery with 3 x 12 Skypoint stent Patient was started on aspirin and Plavix Patient does not have allergy to aspirin, She reported history of stomach upset and peptic ulcer disease. I started her back on aspirin and Protonix Dyspnea on exertion, reporting improvement 2D echo was done on August 18, 2022 with normal LV size, ejection fraction 60 to 65%, aortic valve sclerosis with no stenosis History of colon cancer, followed and managed with Dr. Rodarte History of diabetes mellitus, management per medical services Hypertension, controlled, continue to monitor. Tobaccoism, stopped smoking over 10 years ago Degenerative joint disease. Maintained on meloxicam Hx Colon CA, follows with Dr. Rodarte. Strong family hx of CAD. ETIENNE CONTRERAS MD Oct 09, 2022 08:25
[2022-10-09] MEDS: DOCUSATE SODIUM 100 MG CAPSULE PO SCH ×2 (11:22→21:58)
[2022-10-09] MEDS: SENNA W/DOCUSATE (SENOKOT S) TABLET PO SCH ×2 (11:23→22:00)
[2022-10-09] MEDS: LevoFLOXacin 750 MG TABLET PO SCH (11:23)
--- NOTE | 2022-10-09 12:13 | Physical Therapy Daily Note ---
PT Daily Note-Current Subjective Pt sitting up in bed upon arrival. Pt's son is present. Pt reports feeling really good and wanting to go home. Pt agrees to PT. Pain Numeric Pain Scale: 7 Location: Left Location Body Site: Knee Pain Description: Ache Section J - Health Conditions 1. Rarely or not at all 2. Occasionally 3. Frequently 4. Almost constantly 8. Unable to answer Pain Effect on Sleep: 3 Pain Interference with Therapy: 4 Pain Interference w/Day-to-Day: 4 Mental Status Patient Orientation: Person, Place, Time, Situation Attachments: Knee Immobilizer Transfers SCALE: Activities may be completed with or without assistive devices. 0-Ibutzsbikl-lzruyqy completes the activity by him/herself with no assistance from a helper. 5-Set-up or Clean-up Assistance-helper sets up or cleans up; patient completes activity. [place] assists only prior to or following the activity. 4-Supervision or Touching Assistance-helper provides verbal cues and/or touch ing/steadying and/or contact guard assistance as patient completes activity. Assistance may be provided throughout the activity or intermittently. 3-Partial/Moderate Assistance-helper does LESS THAN HALF the effort. [place] lifts, holds or supports trunk or limbs, but provides less than half the effort. 2-Substantial/Maximal Assistance-helper does MORE THAN HALF the effort. [place] lifts or holds trunk or limbs and provides more than half the effort. 0-Udwxignsm-dvzuga does ALL the effort. Patient does none of the effort to complete the activity. Or, the assistance of 2 or more helpers is required for the patient to complete the activity. If activity was not attempted, code reason: 7-Patient Refused. 9-Not Applicable-not attempted and the patient did not perform the activity before the current illness, exacerbation or injury. 10-Not Attempted due to Environmental Limitations-(lack of equipment, weather restraints, etc.). 88-Not Attempted due to Medical Conditions or Safety Concerns. Sit to Stand (QC): 4 Weight Bearing Right Lower Extremity: Right Full Weight Bearing Left Lower Extremity: Left Touch Toe Bearing L knee immobilizer Gait Training Does the Patient Walk?: Yes Distance: 40'x2, 50' x2 Walk 10 feet (QC): 4 Walk 50 ft with 2 Turns(QC): 4 Gait Persons Needed: 1 Gait Assistive Device: Walker Platform Exercises Supine Ex: Ankle pumps, Quad Set, Glut sets, Heel Slides, Straight leg raise, Hip abd/add Supine Reps: 15 Treatments TF to EOB after receiving morning meds and completing Supine EX in bed. Pt stands and amb to hallway before resting. Pt amb again then rests before retur mike to room to rest in bed. All needs met, call light in hand. PT Usp Goals Usp Goals PT Derrick Man Goals Time Frame: Oct 20, 2022 Roll Left & Right (QC): 6 Sit to Lying (QC): 6 Lying-Sitting on Side/Bed(QC): 6 Sit to Stand (QC): 6 Chair/Inp-pj-Igpyy Xfer(QC): 6 Toilet Transfer (QC): 6 Car Transfer (QC): 6 Does the Patient Walk: Yes Walk 10 feet (QC): 4 Walk 50ft with 2 Turns (QC): 4 Walk 150 ft (QC): 4 Walking 10ft on Uneven Surface: 4 1 Step (curb) (QC): 4 4 Steps (QC): 9 12 Steps (QC): 9 Picking up an Object (QC): 6 Does the Pt use WC or Scooter?: Yes Wheel 50 feet with 2 turns (QC: 6 Type: Manual Wheel 150 feet: 6 Type: Manual PT Plan Problem List Problem List: Activity Tolerance, Functional Strength, Gait Treatment/Plan Treatment Plan: Continue Plan of Care Treatment Plan: Bed Mobility, Concurrent Therapy, Education, Functional Activity Gina, Functional Strength, Group Therapy, Gait, Safety, Therapeutic Exercise, Transfers Treatment Duration: Oct 20, 2022 Frequency: At least 5 of 7 days/Wk (IRF) Estimated Hrs Per Day: 2 hours per day Patient and/or Family Agrees t: Yes Safety Risks/Education Patient Education: Gait Training, Correct Positioning, Safety Issues Teaching Recipient: Patient, Family Teaching Methods: Discussion Response to Teaching: Verbalize Understanding Time Time In: 0800 Time Out: 0900 DATE: Oct 09, 2022 Total Billed Treatment Time: 60 Total Billed Treatment 1, FA (20m), GT x2 (25m) & EX (15m) OSWALDO JOHNSON COMMISSIONED SECURITY OFFICER Oct 09, 2022 12:13
--- NOTE | 2022-10-09 13:26 | Occupational Ther Daily Note ---
OT Current Status-Daily Note Subjective Pt alert and cooperative, lying in bed upon arrival. Pt requested shower. No pain mentioned at this time. Mental Status/Objective Patient Orientation: Person, Place, Time, Situation ADL-Treatment Pt sat EOB independently. Pt donned knee brace before ambulating into bathroom. Pt completed toileting with SBA, ambulated to shower bench, doffed clothing and brace. Pt is set up for shower, nurse covered port for shower. Pt showered requiring CGA when standing, pt stood once in shower to cleanse buttocks and rin se body. Pt dried self and transferred out of shower to chair to art clothing. Pt donned gown self and therapist assisted with ties in back.Pt was able to art R sock, required max assist for L due to knee brace. Pt then used FWW to ambulated back to bed in room, SBA. Therapist donned compression stocks. Pt completed 5 BUE exercises on HEP, no resistance used at this time, 8-10 reps completed 2 sets with multiple lengthy recovery breaks required. Pt was left lying in bed, call light and phone within reach, all needs met at this time. Therapy Code Descriptions/Definitions Functional [place] Measure: 0=Not Assessed/NA 4=Minimal Assistance 1=Total Assistance 5=Supervision or Setup 2=Maximal Assistance 6=Modified [place] 3=Moderate Assistance 7=Complete IndependenceSCALE: Activities may be completed with or without assistive devices. 7-Iibplpqmom-exkqkng completes the activity by him/herself with no assistance from a helper. 5-Set-up or Clean-up Assistance-helper sets up or cleans up; patient completes activity. [place] assists only prior to or following the activity. 4-Supervision or Touching Assistance-helper provides verbal cues and/or touching/steadying and/or contact guard assistance as patient completes activity. Assistance may be provided throughout the activity or intermittently. 3-Partial/Moderate Assistance-helper does LESS THAN HALF the effort. [place] lifts, holds or supports trunk or limbs, but provides less than half the effort. 2-Substantial/Maximal Assistance-helper does MORE THAN HALF the effort. [place] lifts or holds trunk or limbs and provides more than half the effort. 0-Gheqflwiv-bmqgvm does ALL the effort. Patient does none of the effort to complete the activity. Or, the assistance of 2 or more helpers is required for the patient to complete the activity. If activity was not attempted, code reason: 7-Patient Refused. 9-Not Applicable-not attempted and the patient did not perform the activity before the current illness, exacerbation or injury. 10-Not Attempted due to Environmental Limitations-(lack of equipment, weather restraints, etc.). 88-Not Attempted due to Medical Conditions or Safety Concerns. Education OT Patient Education: Correct positioning, Progress toward Goal/Update tx plan, Purpose of tx/functional activities Teaching Recipient: Patient Teaching Methods: Demonstration, Discussion Response to Teaching: Verbalize Understanding OT Short Term Goals Short Term Goals Time Frame: Oct 09, 2022 Eatin Oral hygiene: 6 Toileting hygiene: 6 OT Produce Department Manager Goals Produce Department Manager Goals Time Frame: Oct 15, 2022 Acute change in mental status: 0 Inattention: 0 Disorganized thinkin Altered level of consciousness: 0 Eating (QC): 6 Oral Hygiene (QC): 6 Toileting Hygiene (QC): 5 Shower/Bathe Self (QC): 5 Upper Body Dressing (QC): 6 Lower Body Dressing (QC): 5 On/Off Footwear (QC): 6 1=Demonstrate adherence to instructed precautions during ADL tasks. 2=Patient will verbalize/demonstrate understanding of assistive devices/modifications for ADL. 3=Patient will improve strength/tolerance for activity to enable patient to pe rform ADL's. OT Education/Plan Problem List/Assessment Assessment: Decreased Activ Tolerance, Decreased Safety Aware, Decreased UE Strength Discharge Recommendations Plan/Recommendations: Continue POC Treatment Plan/Plan of Care Patient would benefit from OT for education, treatment and training to promote independence in ADL's, mobility, safety and/or upper extremity function for ADL's. Plan of Care: ADL Retraining, Concurrent Therapy, Functional Mobility, Group Exercise/Act as Ind, Orthotic Fitting/Training, UE Funct Exercise/Act, UE Neuromus Re-Ed/Coord Treatment Duration: Oct 15, 2022 Frequency: At least 5 of 7 days/Wk (IRF) Estimated Hrs Per Day: 1 hour per day Agreement: Yes Rehab Potential: Good Time Start Time: 10:00 Stop Time: 11:30 DATE: Oct 09, 2022 Total Time Billed (hr/min): 90 Billed Treatment Time 1 visit ADL 4 (60) Ex 2 (30) Jana Lynn COTA Oct 09, 2022 13:26
[2022-10-09] MEDS: ASPIRIN enteric coated 81MG TABLET PO SCH (13:47)
--- NOTE | 2022-10-09 15:22 | Physical Therapy Daily Note ---
PT Daily Note-Current Subjective Pt laying Supine in bed upon arrival. Pt agrees to PT. Pain Numeric Pain Scale: 7 Location: Left Location Body Site: Knee Pain Description: Ache Section J - Health Conditions 1. Rarely or not at all 2. Occasionally 3. Frequently 4. Almost constantly 8. Unable to answer Pain Effect on Sleep: 3 Pain Interference with Therapy: 4 Pain Interference w/Day-to-Day: 4 Mental Status Patient Orientation: Person, Place, Time, Situation Attachments: Knee Immobilizer Transfers SCALE: Activities may be completed with or without assistive devices. 6-Rwjiyybiuo-lkphrmf completes the activity by him/herself with no assistance from a helper. 5-Set-up or Clean-up Assistance-helper sets up or cleans up; patient completes activity. [place] assists only prior to or following the activity. 4-Supervision or Touching Assistance-helper provides verbal cues and/or touching/steadying and/or contact guard assistance as patient completes activity . Assistance may be provided throughout the activity or intermittently. 3-Partial/Moderate Assistance-helper does LESS THAN HALF the effort. [place] lifts, holds or supports trunk or limbs, but provides less than half the effort. 2-Substantial/Maximal Assistance-helper does MORE THAN HALF the effort. [place] lifts or holds trunk or limbs and provides more than half the effort. 6-Fwvcjdqbo-guuvqu does ALL the effort. Patient does none of the effort to complete the activity. Or, the assistance of 2 or more helpers is required for the patient to complete the activity. If activity was not attempted, code reason: 7-Patient Refused. 9-Not Applicable-not attempted and the patient did not perform the activity before the current illness, exacerbation or injury. 10-Not Attempted due to Environmental Limitations-(lack of equipment, weather restraints, etc.). 88-Not Attempted due to Medical Conditions or Safety Concerns. Sit to Lying (QC): 4 Lying to Sitting/Side of Bed(Q: 4 Sit to Stand (QC): 4 Weight Bearing Right Lower Extremity: Right Full Weight Bearing Left Lower Extremity: Left Touch Toe Bearing L knee immobilizer Gait Training Does the Patient Walk?: Yes Distance: 15' x2 Walk 10 feet (QC): 4 Gait Persons Needed: 1 Gait Assistive Device: Walker Platform Treatments COMPUTING MACHINE OPERATOR assisted pt w/donning knee immobilizer as pt decided to use BR to start tx. TF to EOB then stands & amb to BR. Pt has misstep but able to self correct w/assistance from COMPUTING MACHINE OPERATOR. After toileting, pt completes pericare & washes hands before returning to EOB. Pt doffs knee immobilizer and repositions in bed. All needs met, call light in hand. Assessment Current Status: Good Progress Pt is moving better w/decreased reported pain and fatigue. PT Budder Goals Budder Goals PT Budder Goals Time Frame: Oct 20, 2022 Roll Left & Right (QC): 6 Sit to Lying (QC): 6 Lying-Sitting on Side/Bed(QC): 6 Sit to Stand (QC): 6 Chair/Iqe-uv-Bcmsf Xfer(QC): 6 Toilet Transfer (QC): 6 Car Transfer (QC): 6 Does the Patient Walk: Yes Walk 10 feet (QC): 4 Walk 50ft with 2 Turns (QC): 4 Walk 150 ft (QC): 4 Walking 10ft on Uneven Surface: 4 1 Step (curb) (QC): 4 4 Steps (QC): 9 12 Steps (QC): 9 Picking up an Object (QC): 6 Does the Pt use WC or Scooter?: Yes Wheel 50 feet with 2 turns (QC: 6 Type: Manual Wheel 150 feet: 6 Type: Manual PT Plan Problem List Problem List: Activity Tolerance, Functional Strength, Gait Treatment/Plan Treatment Plan: Continue Plan of Care Treatment Plan: Bed Mobility, Concurrent Therapy, Education, Functional Activity Gina, Functional Strength, Group Therapy, Gait, Safety, Therapeutic Exercise, Transfers Treatment Duration: Oct 20, 2022 Frequency: At least 5 of 7 days/Wk (IRF) Estimated Hrs Per Day: 2 hours per day Patient and/or Family Agrees t: Yes Safety Risks/Education Patient Education: Gait Training, Transfer Techniques, Correct Positioning, Safety Issues Teaching Recipient: Patient Teaching Methods: Discussion Response to Teaching: Verbalize Understanding Time Time In: 1300 Time Out: 1330 DATE: Oct 09, 2022 Total Billed Treatment Time: 30 Total Billed Treatment 1, FA x2 (30m) OSWALDO JOHNSON COMPUTING MACHINE OPERATOR Oct 09, 2022 15:22
[2022-10-09] MEDS: ENOXAPARIN 40 MG/0.4 ML SYRINGE SC SCH (17:46)
[2022-10-09] MEDS: NS IV 1000 ML 1,000 ML IV SCH ×2 (18:14→19:00)
[2022-10-09 20:00] VITALS: BP 128/65
[2022-10-09] MEDS: MELATONIN 3 MG TABLET PO PRN (21:58)
[2022-10-10] MEDS: HYDROcodone/ACETAMINOPHEN 5 MG/325 MG TABLET PO PRN (00:25)
[2022-10-10 01:00] VITALS: BP 150/90
[2022-10-10] MEDS: HYDROmorphone INJECTION 2 MG/ML VIAL IV PRN (02:18)
[2022-10-10] MEDS: NS IV 1000 ML 1,000 ML IV SCH (04:17)
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
[2022-10-10 08:00] VITALS: BP 170/75
[2022-10-10] MEDS: ONDANSETRON 4 MG ORAL DISSOLVE TABLET PO PRN (08:08)
[2022-10-10] MEDS: oxyCODONE IMMEDIATE RELEASE 5 MG TABLET PO PRN ×2 (08:09→21:11)
--- NOTE | 2022-10-10 09:44 | Cardiology Progress Note ---
Subjective Date Seen by Provider: Oct 10, 2022 Time Seen by Provider: 09:44 Subjective/Events-last exam Patient was seen at bedside, receiving physical therapy Laying down in bed, feeling better Review of Systems General: No Chills, No Night Sweats, No Fatigue, No Malaise, No Appetite, No Other HEENT: No Head Aches, No Visual Changes, No Eye Pain, No Ear Pain, No Dysphasia, No Sinus Congestion, No Post Nasal Drip, No Sore Throat, No Other Pulmonary: No Dyspnea, No Cough, No Pleuritic Chest Pain, No Other Cardiovascular: No: Chest Pain, Palpitations, Orthopnea, Paroxysmal Noc. Dyspnea, Edema, Lt Headedness, Other Objective-Cardiology Exam Last Set of Vital Signs Vital Signs 10/10/22 10/10/22 10/10/22 10/10/22 01:00 08:00 08:04 09:06 Temp 35.5 Pulse 86 Resp 20 B/P (MAP) 170/75 (106) Pulse Ox 97 O2 Delivery Room Air O2 Flow Rate 0.00 FiO2 21 I&O Intake and Output 10/10/22 00:00 Intake Total 4410 ml Balance 4410 ml Intake Oral 3410 ml IV Total 1000 ml # Voids 8 # Bowel Movements 2 General: Alert, Oriented X3, Cooperative HEENT: Atraumatic, PERRLA Neck: Supple, No JVD Lungs: Clear to Auscultation, Normal Air Movement Heart: Regular Rate, Normal S1, Normal S2 Abdomen: Normal Bowel Sounds, Soft Extremities: No Edema Skin: No Rashes, No Significant Lesion Neuro: Normal Speech Psych/Mental Status: Mental Status NL, Mood NL A/P-Cardiology Admission Diagnosis UTI Left tibial fx CAD HTN Assessment/Plan Left tibia plateau fracture, Dr. Liu consulted, does not require surgery Coronary artery disease Patient was noted to have significant coronary calcification on CT of the chest and abdomen done in March 2022 Has multiple risk factors including strong family history of heart disease Coronary CTA done 08/18/22 showing extensive coronary artery disease as described above with significant long segment calcifications and stenoses in all three territories. There is also some calcification in the mitral valve and aortic valve. Status post cardiac catheterization on October 08, 2022 with balloon angioplasty and stenting of the circumflex artery with 3 x 12 [place] stent Patient was started on aspirin and Plavix Patient does not have allergy to aspirin, She reported history of stomach upset and peptic ulcer disease. I started her back on aspirin and Protonix Dyspnea on exertion, reporting improvement 2D echo was done on August 18, 2022 with normal LV size, ejection fraction 60 to 65%, aortic valve sclerosis with no stenosis History of colon cancer, followed and managed with Dr. Rodarte History of diabetes mellitus, management per medical services Hypertension, controlled, continue to monitor. Tobaccoism, stopped smoking over 10 years ago Degenerative joint disease. Maintained on meloxicam Hx Colon CA, follows with Dr. Rodarte. Strong family hx of CAD. ETIENNE CONTRERAS MD Oct 10, 2022 09:44
[2022-10-10] MEDS: PANTOPRAZOLE 40 MG TABLET PO SCH (09:47)
[2022-10-10] MEDS: DOCUSATE SODIUM 100 MG CAPSULE PO SCH ×2 (09:47→21:10)
[2022-10-10] MEDS: MELOXICAM 7.5 MG TABLET PO SCH (09:47)
[2022-10-10] MEDS: ASPIRIN enteric coated 81MG TABLET PO SCH (09:47)
[2022-10-10] MEDS: CITALOPRAM 20 MG TABLET PO SCH (09:47)
[2022-10-10] MEDS: LOSARTAN 25 MG TABLET PO SCH (09:48)
[2022-10-10] MEDS: CLOPIDOGREL 75 MG TABLET PO SCH (09:48)
[2022-10-10] MEDS: SENNA W/DOCUSATE (SENOKOT S) TABLET PO SCH ×2 (09:48→21:10)
--- NOTE | 2022-10-10 10:32 | Physical Therapy Daily Note ---
PT Daily Note-Current Subjective Patient had episode of (R)-sided sciatica-type pain last night - unable to get comfortable in bed. Got up to chair for some relief. Has had pain pill prior to PT session. Patient states she does have regular shoes here at [facility]. Discussed wearing shoe to provide shock-absorption/support to (R) LE when walking to see if (R) hip pain decreases - patient agreeable. Pain Numeric Pain Scale: 8 Location: Right Location Body Site: Sacrum Comment: 10/02 prior to session, decr. to 08/02 midway thru session, 06/02 /p stretches Section J - Health Conditions 1. Rarely or not at all 2. Occasionally 3. Frequently 4. Almost constantly 8. Unable to answer Pain Effect on Sleep: 4 Pain Interference with Therapy: 2 Pain Interference w/Day-to-Day: 2 Appearance Sitting up in recliner with legs elevated. (L) knee immobilizer on leg, but has slid all the way down to her ankle - readjusted to appropriate position for patient prior to upright activities. Mental Status Patient Orientation: Normal For Age Transfers SCALE: Activities may be completed with or without assistive devices. 4-Xdhlzpcedd-bgsomsn completes the activity by him/herself with no assistance from a helper. 5-Set-up or Clean-up Assistance-helper sets up or cleans up; patient completes activity. [place] assists only prior to or following the activity. 4-Supervision or Touching Assistance-helper provides verbal cues and/or touching/steadying and/or contact guard assistance as patient completes activity. Assistance may be provided throughout the activity or intermittently. 3-Partial/Moderate Assistance-helper does LESS THAN HALF the effort. [place] lifts, holds or supports trunk or limbs, but provides less than half the effort. 2-Substantial/Maximal Assistance-helper does MORE THAN HALF the effort. [place] lifts or holds trunk or limbs and provides more than half the effort. 0-Unmxdgjzg-xgdzfj does ALL the effort. Patient does none of the effort to complete the activity. Or, the assistance of 2 or more helpers is required for the patient to complete the activity. If activity was not attempted, code reason: 7-Patient Refused. 9-Not Applicable-not attempted and the patient did not perform the activity before the current illness, exacerbation or injury. 10-Not Attempted due to Environmental Limitations-(lack of equipment, weather restraints, etc.). 88-Not Attempted due to Medical Conditions or Safety Concerns. Sit to Lying (QC): 6 (lifts (L) leg by lifting brace) Lying to Sitting/Side of Bed(Q: 6 (lifts (L) leg by lifting brace. Also discussed elevated foot of bed to desc. hip/back discomfort.) Sit to Stand (QC): 3 (varied from CGA in recliner to min (A) from w/c(lower surface). Needs continued strengthening to incr. sit>stand independence.) Chair/Ohq-ne-Yrgwf Xfer(QC): 4 Weight Bearing Right Lower Extremity: Right Full Weight Bearing Left Lower Extremity: Left Touch Toe Bearing L knee immobilizer Reviewed toe-touch weight bearing prior to curb step instruction. Gait Training Does the Patient Walk?: Yes Distance: 25', 25', 65' without rest, TTWB (L) LE Walk 10 feet (QC): 4 (/w (B) platform RW) Walk 50 ft with 2 Turns(QC): 4 Stair Training Stair Training: Handrails/: uses walker #of Steps: 1 (curb step training) 1 Step (curb) (QC): 4 (/c v.c. for sequence and TTWB) Patient navigated a 2" curb step x 2 , 4"x 1 and 6" curb step x 1 with (B) platform FWW, CGA with prn cues for sequence and WB. No pain increase in (L) L E. No LOB's with this activity. Son present for curb training. Treatments (B) LE exercise sitting in recliner with legs elevated: DF with RTB x 15 (B) PF with RTB x 15 (B) Hip abd x 10 (B), min (A) (L) to minimally elevated (L) heel Isometric hip adduction/pillow squeeze x 10 reps Sitting in recliner with feet on floor: (R) ham curls with RTB x 10 (R) hip flexion with RTB x 10 (R) hip extension with RTB x 10 (B) DF/PF presses. (R) LAQ 10 x :03 hold Supine ex following upright mobility activities: (R) piriformis stretch 3 x :15 with patient education and handout provided for self-performance. SLR (R) x 10 SLR (L) x 10 Hip ER/IR x 10 (B) with legs extended on bed Hip abd/add x 10 (B) with legs extended, pause in abduction for groin stretch (B). Repeated (R) piriformis stretch 3 x :15 (R) - patient self-performed with good technique. Assessment Current Status: Good Progress Improved gait distance this date as well as less discomfort in (R) hip with use of tennis shoe on (R) vs slipper sock. Excellent performance on curb step - she has 1 such step to enter her home. Son present for curb step training. PT Web Press Operator Goals Correction Goals PT Web Press Operator Goals Time Frame: Oct 20, 2022 Roll Left & Right (QC): 6 Sit to Lying (QC): 6 Lying-Sitting on Side/Bed(QC): 6 Sit to Stand (QC): 6 Chair/Lse-jv-Xwnqi Xfer(QC): 6 Toilet Transfer (QC): 6 Car Transfer (QC): 6 Does the Patient Walk: Yes Walk 10 feet (QC): 4 Walk 50ft with 2 Turns (QC): 4 Walk 150 ft (QC): 4 Walking 10ft on Uneven Surface: 4 1 Step (curb) (QC): 4 4 Steps (QC): 9 12 Steps (QC): 9 Picking up an Object (QC): 6 Does the Pt use WC or Scooter?: Yes Wheel 50 feet with 2 turns (QC: 6 Type: Manual Wheel 150 feet: 6 Type: Manual PT Plan Problem List Problem List: Activity Tolerance, Balance, Gait, Transfer Needs continued sit>stand strengthening. Treatment/Plan Treatment Plan: Continue Plan of Care Treatment Plan: Bed Mobility, Concurrent Therapy, Education, Functional Activity Gina, Functional Strength, Group Therapy, Gait, Safety, Therapeutic Exercise, Transfers Treatment Duration: Oct 20, 2022 Frequency: At least 5 of 7 days/Wk (IRF) Estimated Hrs Per Day: 2 hours per day Patient and/or Family Agrees t: Yes Safety Risks/Education Patient Education: Gait Training Teaching Recipient: Patient, Family Teaching Methods: Demonstration, Discussion Response to Teaching: Verbalize Understanding, Return Demonstration Discharge Recommendations Therapy Discharge Recommendati: Home & Family Equpiment Recommendations-D/C: Front Wheeled Walker (/c (B) platforms) Discharge Status/Home Program Added piriformis stretch to HEP. Time Time In: 815 Time Out: 944 DATE: Oct 10, 2022 Total Billed Treatment Time: 90 Total Billed Treatment 1, ex 3, fa 1, gait 2 Lydia Duenas PT Oct 10, 2022 10:32
[2022-10-10] MEDS: LevoFLOXacin 750 MG TABLET PO SCH (11:27)
[2022-10-10] MEDS: BACLOFEN 10 MG TABLET PO PRN ×2 (11:29→17:44)
--- NOTE | 2022-10-10 15:18 | Occupational Ther Daily Note ---
OT Current Status-Daily Note Subjective Pt seen in commons area after group. Agreeable to OT. No pain mentioned. Appearance Alert, cooperative ADL-Treatment Therapy Code Descriptions/Definitions Functional [place] Measure: 0=Not Assessed/NA 4=Minimal Assistance 1=Total Assistance 5=Supervision or Setup 2=Maximal Assistance 6=Modified [place] 3=Moderate Assistance 7=Complete IndependenceSCALE: Activities may be completed with or without assistive devices. 1-Uupeezcmcc-ihdtsug completes the activity by him/herself with no assistance from a helper. 5-Set-up or Clean-up Assistance-helper sets up or cleans up; patient completes activity. [place] assists only prior to or following the activity. 4-Supervision or Touching Assistance-helper provides verbal cues and/or touching/steadying and/or contact guard assistance as patient completes activity. Assistance may be provided throughout the activity or intermittently. 3-Partial/Moderate Assistance-helper does LESS THAN HALF the effort. [place] lifts, holds or supports trunk or limbs, but provides less than half the effort. 2-Substantial/Maximal Assistance-helper does MORE THAN HALF the effort. [place] lifts or holds trunk or limbs and provides more than half the effort. 0-Yaadjfygn-wmubjw does ALL the effort. Patient does none of the effort to complete the activity. Or, the assistance of 2 or more helpers is required for the patient to complete the activity. If activity was not attempted, code reason: 7-Patient Refused. 9-Not Applicable-not attempted and the patient did not perform the activity before the current illness, exacerbation or injury. 10-Not Attempted due to Environmental Limitations-(lack of equipment, weather restraints, etc.). 88-Not Attempted due to Medical Conditions or Safety Concerns. Other Treatment Pt's daughter present during tx. Pt walked back to room, using FWW with platforms, SBA/CGA. Needed to toilet. Toilet transfer SBA, using tall toilet and grab bar. Managed clothing and hygiene without help. Stood at sink to wash hands. Pt commented that she felt like she was falling backwards when washing hands at sink. Pt educ to support herself with one hand on the counter, which she tried and commented that she felt much steadier doing that. Walked to recliner with SBA/CGA and transferred into recliner without assistance. Pt had handout for theraband exercises. Reviewed each one with OT and completed 5 reps each, requiring recovery breaks between each exercise. Pt educ on pacing herself during exercises and other activities. Pt then return demonstrated each of the 5 [place] [address]-4 reps each. Pt educ on doing exercises in her room over the weekend, in preparation for discharge. Pt left up in recliner, all needs met, brendan cobb present in room. Education OT Patient Education: Energy conservation, Exercise program, Progress toward Goal/Update tx plan, Purpose of tx/functional activities Teaching Recipient: Patient, Family Teaching Methods: Discussion Response to Teaching: Verbalize Understanding OT Short Term Goals Short Term Goals Time Frame: Oct 09, 2022 Eatin Oral hygiene: 6 Toileting hygiene: 6 OT Long-Term Goals Model Builder Display Goals Time Frame: Oct 15, 2022 Acute change in mental status: 0 Inattention: 0 Disorganized thinkin Altered level of consciousness: 0 Eating (QC): 6 Oral Hygiene (QC): 6 Toileting Hygiene (QC): 5 Shower/Bathe Self (QC): 5 Upper Body Dressing (QC): 6 Lower Body Dressing (QC): 5 On/Off Footwear (QC): 6 1=Demonstrate adherence to instructed precautions during ADL tasks. 2=Patient will verbalize/demonstrate understanding of assistive devices/modifications for ADL. 3=Patient will improve strength/tolerance for activity to enable patient to perform ADL's. OT Education/Plan Discharge Recommendations Plan/Recommendations: Continue POC Treatment Plan/Plan of Care Patient would benefit from OT for education, treatment and training to promote independence in ADL's, mobility, safety and/or upper extremity function for ADL's. Plan of Care: ADL Retraining, Concurrent Therapy, Functional Mobility, Group Exercise/Act as Ind, Orthotic Fitting/Training, UE Funct Exercise/Act, UE Neuromus Re-Ed/Coord Treatment Duration: Oct 15, 2022 Frequency: At least 5 of 7 days/Wk (IRF) Estimated Hrs Per Day: 1 hour per day Agreement: Yes Rehab Potential: Good Time Start Time: 14:04 Stop Time: 14:34 DATE: Oct 10, 2022 Total Time Billed (hr/min): 30 Billed Treatment Time visit, 10 minutes ADL, 20 minutes exercise KARL REYNOLDS OT Oct 10, 2022 15:18
--- NOTE | 2022-10-10 15:21 | Therapy Group Daily Note ---
Therapy Daily Group Note Patient Education Topic Home Safety, Exercises Exercises LE Seated Exercise, UE Exercise Session Ratio (pt:therapist): 7;:2 Goal of Session: Home Safety Strategies, Memory Strategies Goal Met for this Session: Yes Pt Benefit of Group: Contributions to Others, F/U Use of Strategies @Home, Increased Functional Safety, Increased Functional Strength, Improved Cognition, Recognition of Peers, Socialization Other/Notes Pt ambulated to [facility] group for OT/PT group with Nando Odom PTA. Group consisted of introductions (name, place living, dx), socialization, B UE/LE exercises with HEP and education on safety devices for home environment in case of falls. Pt introduced self appropriately and actively listened to peers. Pt completed B UE/LE HEP with skilled instruction and modifications when needed. Pt's have HEP and medium resistance theraband for B UE given. Pt's acknowledged understanding of educational topic and gave personal stories that were appropriate to topic. After therapy, pt working with OTR/L. All needs met. Start Time: 13:00 Stop Time: 14:00 Total Billed Treatment Time: 60 Total Billed Treatment 1-GRP JOANNE CESPEDES Oct 10, 2022 15:21
[2022-10-10] MEDS: ENOXAPARIN 40 MG/0.4 ML SYRINGE SC SCH (17:44)
[2022-10-10 20:30] VITALS: BP 133/60
[2022-10-10] MEDS: MELATONIN 3 MG TABLET PO PRN (21:11)
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
[2022-10-11] MEDS: BACLOFEN 10 MG TABLET PO PRN ×2 (08:38→15:39)
[2022-10-11] MEDS: CLOPIDOGREL 75 MG TABLET PO SCH (08:38)
[2022-10-11] MEDS: PANTOPRAZOLE 40 MG TABLET PO SCH (08:38)
[2022-10-11] MEDS: ASPIRIN enteric coated 81MG TABLET PO SCH (08:38)
[2022-10-11] MEDS: CITALOPRAM 20 MG TABLET PO SCH (08:38)
[2022-10-11] MEDS: DICLOFENAC 1% GEL 50 GM TUBE TOP PRN (08:38)
[2022-10-11] MEDS: LOSARTAN 25 MG TABLET PO SCH (08:39)
[2022-10-11] MEDS: MELOXICAM 7.5 MG TABLET PO SCH (08:39)
[2022-10-11 08:44] VITALS: BP 149/68
[2022-10-11] MEDS ORDERED: LORATADINE 10 MG TABLET PO ONE (14:00)
[2022-10-11] MEDS: DOCUSATE SODIUM 100 MG CAPSULE PO SCH ×2 (15:40→21:05)
[2022-10-11] MEDS: SENNA W/DOCUSATE (SENOKOT S) TABLET PO SCH ×2 (16:19→21:05)
[2022-10-11] MEDS: ENOXAPARIN 40 MG/0.4 ML SYRINGE SC SCH (17:52)
[2022-10-11] MEDS: HYDROcodone/ACETAMINOPHEN 5 MG/325 MG TABLET PO PRN ×2 (18:03→22:29)
[2022-10-11 19:40] VITALS: BP 134/62
[2022-10-11] MEDS: MELATONIN 3 MG TABLET PO PRN (22:29)
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
[2022-10-12 07:23] VITALS: BP 184/81
[2022-10-12] MEDS: PANTOPRAZOLE 40 MG TABLET PO SCH (08:11)
[2022-10-12] MEDS: CITALOPRAM 20 MG TABLET PO SCH (08:11)
[2022-10-12] MEDS: CLOPIDOGREL 75 MG TABLET PO SCH (08:12)
[2022-10-12] MEDS: ASPIRIN enteric coated 81MG TABLET PO SCH (08:12)
[2022-10-12] MEDS: LORATADINE 10 MG TABLET PO SCH (08:12)
[2022-10-12] MEDS: MELOXICAM 7.5 MG TABLET PO SCH (08:12)
[2022-10-12] MEDS: LOSARTAN 25 MG TABLET PO SCH (08:13)
[2022-10-12] MEDS: BACLOFEN 10 MG TABLET PO PRN (08:13)
[2022-10-12] MEDS: DOCUSATE SODIUM 100 MG CAPSULE PO SCH ×2 (08:17→21:40)
[2022-10-12] MEDS: SENNA W/DOCUSATE (SENOKOT S) TABLET PO SCH ×2 (08:19→21:40)
[2022-10-12 08:46] VITALS: BP 169/73
[2022-10-12] MEDS: DICLOFENAC 1% GEL 50 GM TUBE TOP PRN (12:44)
[2022-10-12 17:21] VITALS: BP 163/73
[2022-10-12] MEDS: ENOXAPARIN 40 MG/0.4 ML SYRINGE SC SCH (17:32)
[2022-10-12 20:00] VITALS: BP 168/77
[2022-10-12] MEDS: HYDROcodone/ACETAMINOPHEN 5 MG/325 MG TABLET PO PRN (21:43)
[2022-10-12] MEDS: MELATONIN 3 MG TABLET PO PRN (21:44)
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
[2022-10-13 05:38] LABS: BASOPHILS % (AUTO) 1 % (0-10); EOSINOPHILS # (AUTO) 0.2 10^3/uL (0.0-0.3); EOSINOPHILS % (AUTO) 5 % (0-10); HEMATOCRIT 29 % (35-52); HEMOGLOBIN 9.5 g/dL (11.5-16.0); LYMPHOCYTES # (AUTO) 0.9 10^3/uL (1.0-4.0); LYMPHOCYTES % (AUTO) 19 % (12-44); MEAN CORPUSCULAR HEMOGLOBIN 30 pg (25-34); MEAN CORPUSCULAR HGB CONC 33 g/dL (32-36); MEAN CORPUSCULAR VOLUME 91 fL (80-99); MEAN PLATELET VOLUME 10.3 fL (9.0-12.2); MONOCYTES # (AUTO) 0.7 10^3/uL (0.0-1.0); MONOCYTES % (AUTO) 14 % (0-12); NEUTROPHILS # (AUTO) 2.9 10^3/uL (1.8-7.8); NEUTROPHILS % (AUTO) 61 % (42-75); PLATELET COUNT 108 10^3/uL (130-400); WHITE BLOOD COUNT 4.7 10^3/uL (4.3-11.0)
[2022-10-13] MEDS: BACLOFEN 10 MG TABLET PO PRN ×3 (05:41→18:52)
[2022-10-13 06:05] LABS: ALBUMIN 3.1 GM/DL (3.2-4.5); BILIRUBIN,TOTAL 0.4 MG/DL (0.1-1.0); CALCIUM 8.6 MG/DL (8.5-10.1); CREATININE SERUM 0.97 MG/DL (0.60-1.30); POTASSIUM 4.5 MMOL/L (3.6-5.0); TOTAL PROTEIN 5.6 GM/DL (6.4-8.2)
[2022-10-13] MEDS: CLOPIDOGREL 75 MG TABLET PO SCH (07:51)
[2022-10-13] MEDS: CITALOPRAM 20 MG TABLET PO SCH (07:51)
[2022-10-13] MEDS: PANTOPRAZOLE 40 MG TABLET PO SCH (07:51)
[2022-10-13] MEDS: ASPIRIN enteric coated 81MG TABLET PO SCH (07:51)
[2022-10-13] MEDS: LORATADINE 10 MG TABLET PO SCH (07:52)
[2022-10-13] MEDS: MELOXICAM 7.5 MG TABLET PO SCH (07:52)
[2022-10-13 07:56] VITALS: BP 186/75
[2022-10-13] MEDS: HYDROcodone/ACETAMINOPHEN 5 MG/325 MG TABLET PO PRN ×2 (08:00→20:59)
[2022-10-13] MEDS: LOSARTAN 25 MG TABLET PO SCH (08:00)
[2022-10-13] MEDS: DOCUSATE SODIUM 100 MG CAPSULE PO SCH ×2 (08:00→20:01)
[2022-10-13] MEDS: SENNA W/DOCUSATE (SENOKOT S) TABLET PO SCH ×2 (08:01→20:01)
--- NOTE | 2022-10-13 08:26 | Occupational Ther Daily Note ---
OT Current Status-Daily Note Subjective Pt sitting in recliner upon arrival. alert and cooperative. Pt mentioned 6/10 pain at beginning of session, nursing in room. After session, pt mentioned pain was "not as noticeable". Mental Status/Objective Patient Orientation: Person, Place, Time, Situation ADL-Treatment Pt ambulated to bathroom using FWW platforms, SBA. Pt completed toilet hygiene with no assistance required, just after to ambulate back to chair. Pt ambulated back to chair in room, and sat to rest before exercises. Pt completed 5 BUE HEP exercises and educated on importance of continuing the exercise at home, in preparation for going home. Pt then agreed to shower and ambulated to shower bench in bathroom using FWW with platforms, and required 2 verbal cues to remain TTWB. Pt doffed socks and gown once sat down on bench, completed shower with no assistance required during that time. Pt was seated most of the time during shower and stood once to cleanse buttocks, set up assist. Pt set up assist for completing upper body dressing. Pt also able to art footwear with set up assist. Pt donned brace to transfer, and ambulated to sink in bathroom to complete oral hygiene and grooming while standing, SBA for safety, due to fatigue. Pt required multiple recovery breaks to rest in between activities on this date. Pt sat in recliner, call light and phone within reach, all needs met at this time. Therapy Code Descriptions/Definitions Functional [place] Measure: 0=Not Assessed/NA 4=Minimal Assistance 1=Total Assistance 5=Supervision or Setup 2=Maximal Assistance 6=Modified [place] 3=Moderate Assistance 7=Complete IndependenceSCALE: Activities may be completed with or without assistive devices. 8-Zrfbnwpytx-yegvojv completes the activity by him/herself with no assistance from a helper. 5-Set-up or Clean-up Assistance-helper sets up or cleans up; patient completes activity. [place] assists only prior to or following the activity. 4-Supervision or Touching Assistance-helper provides verbal cues and/or touching/steadying and/or contact guard assistance as patient completes activity. Assistance may be provided throughout the activity or intermittently. 3-Partial/Moderate Assistance-helper does LESS THAN HALF the effort. [place] lifts, holds or supports trunk or limbs, but provides less than half the effort. 2-Substantial/Maximal Assistance-helper does MORE THAN HALF the effort. [place] lifts or holds trunk or limbs and provides more than half the effort. 8-Ppnrfgnwr-okepzh does ALL the effort. Patient does none of the effort to complete the activity. Or, the assistance of 2 or more helpers is required for the patient to complete the activity. If activity was not attempted, code reason: 7-Patient Refused. 9-Not Applicable-not attempted and the patient did not perform the activity before the current illness, exacerbation or injury. 10-Not Attempted due to Environmental Limitations-(lack of equipment, weather restraints, etc.). 88-Not Attempted due to Medical Conditions or Safety Concerns. Eating (QC): 6 Oral Hygiene (QC): 4 Shower/Bathe Self (QC): 6 Upper Body Dressing (QC): 5 Lower Body Dressing (QC): 5 On/Off Footwear: 5 Toileting Hygiene (QC): 5 Education Teaching Recipient: Patient Teaching Methods: Demonstration, Discussion Response to Teaching: Verbalize Understanding, Return Demonstration BIMS CAM BIMS Expression of Ideas and Wants: Without Difficulty Understanding Verbal Content: Understands Brief Interview/Mental Status: Yes IRF NORI BIMS: IRF NORI BIMS Response (Comments) Value Repitition of Three Words Three 3 Recalls Socks Yes, No Cue Required 2 Recalls Blue Yes, No Cue Required 2 Recalls Bed Yes, No Cue Required 2 Year Correct 3 Month Accurate Within 5 Days 2 Day Correct 1 Total 15 Patient Normally Able to Recal: Current Session, Location of own room, Staff Names and faces, That he/she in a [facility] Should Staff Asses. Mental St.: No Memory/Recall Ability: Current Season, Location of Own Room, Staff Names and Faces, That He[facility]She in [facility] Mental Status Change/Baseline: 0 Inattention: 0 Disorganized thinkin Altered level of consciousness: 0 OT Short Term Goals Short Term Goals Time Frame: Oct 09, 2022 Eatin Oral hygiene: 6 Toileting hygiene: 6 OT Intermediate Goals Chemical Dependency Attendant Goals Time Frame: Oct 15, 2022 Acute change in mental status: 0 Inattention: 0 Disorganized thinkin Altered level of consciousness: 0 Eating (QC): 6 (met) Oral Hygiene (QC): 6 (not met) Toileting Hygiene (QC): 5 (met) Shower/Bathe Self (QC): 5 (met) Upper Body Dressing (QC): 6 (met) Lower Body Dressing (QC): 5 (met) On/Off Footwear (QC): 6 (not met) 1=Demonstrate adherence to instructed precautions during ADL tasks. 2=Patient will verbalize/demonstrate understanding of assistive devices/modifications for ADL. 3=Patient will improve strength/tolerance for activity to enable patient to perform ADL's. OT Education/Plan Problem List/Assessment Assessment: Decreased Activ Tolerance, Decreased Safety Aware, Decreased UE Strength Discharge Recommendations Plan/Recommendations: Continue POC Treatment Plan/Plan of Care Patient would benefit from OT for education, treatment and training to promote independence in ADL's, mobility, safety and/or upper extremity function for ADL's. Plan of Care: ADL Retraining, Concurrent Therapy, Functional Mobility, Group Exercise/Act as Ind, Orthotic Fitting/Training, UE Funct Exercise/Act, UE Neuromus Re-Ed/Coord Treatment Duration: Oct 15, 2022 Frequency: At least 5 of 7 days/Wk (IRF) Estimated Hrs Per Day: 1 hour per day Agreement: Yes Rehab Potential: Good Time Start Time: 08:00 Stop Time: 09:30 DATE: Oct 13, 2022 Total Time Billed (hr/min): 90 Billed Treatment Time 1 visit ADL 3 (45) EX 3 (45) Jana Lynn COTA Oct 13, 2022 08:26
--- NOTE | 2022-10-13 11:42 | Physical Therapy Daily Note ---
PT Daily Note-Current Subjective Patient states she has had "hardly any" sciatic pain since being shown the piriformis stretch. Also believes that wearing the shoe on the right has helped. Following extensive walking and curb steps, states she has 4.5/10 discomfort in the arch of her (R) foot and the (L) knee. Pain Section J - Health Conditions 1. Rarely or not at all 2. Occasionally 3. Frequently 4. Almost constantly 8. Unable to answer Pain Effect on Sleep: 1 Pain Interference with Therapy: 1 Pain Interference w/Day-to-Day: 1 Appearance Knee immobilizer in place (L) knee. Mental Status Patient Orientation: Person, Place, Time Transfers SCALE: Activities may be completed with or without assistive devices. 3-Zhttilacrr-ssorljl completes the activity by him/herself with no assistance from a helper. 5-Set-up or Clean-up Assistance-helper sets up or cleans up; patient completes activity. [place] assists only prior to or following the activity. 4-Supervision or Touching Assistance-helper provides verbal cues and/or touching/steadying and/or contact guard assistance as patient completes activity. Assistance may be provided throughout the activity or intermittently. 3-Partial/Moderate Assistance-helper does LESS THAN HALF the effort. [place] lifts, holds or supports trunk or limbs, but provides less than half the effort. 2-Substantial/Maximal Assistance-helper does MORE THAN HALF the effort. [place] lifts or holds trunk or limbs and provides more than half the effort. 1-Cmikzdlep-jrsgyc does ALL the effort. Patient does none of the effort to complete the activity. Or, the assistance of 2 or more helpers is required for the patient to complete the activity. If activity was not attempted, code reason: 7-Patient Refused. 9-Not Applicable-not attempted and the patient did not perform the activity b efore the current illness, exacerbation or injury. 10-Not Attempted due to Environmental Limitations-(lack of equipment, weather restraints, etc.). 88-Not Attempted due to Medical Conditions or Safety Concerns. Roll Left & Right (QC): 6 Sit to Lying (QC): 6 Lying to Sitting/Side of Bed(Q: 6 Sit to Stand (QC): 6 Chair/Hdu-zx-Fzgov Xfer(QC): 6 Toilet Transfer (QC): 6 Car Transfer (QC): 6 3" wheelchair cushion placed in low w/c - patient able to stand (I) from this surface. Handout given to patient to acquire 3" cushion for her home w/c from DME of her choice. Weight Bearing Right Lower Extremity: Right Full Weight Bearing Left Lower Extremity: Left Touch Toe Bearing L knee immobilizer Gait Training Does the Patient Walk?: Yes Distance: 172' (I) without rest, (B) platform RW, TTWB (L), (L) knee immobilizer Walk 10 feet (QC): 6 Walk 50 ft with 2 Turns(QC): 6 Walk 150 ft (QC): 6 Walking 10ft/uneven surface-QC: 6 Wheelchair Training Does the Pt Use a Wheelchair?: No Stair Training #of Steps: 1 1 Step (curb) (QC): 4 (prn v.c. to slow down and 1x instruction for sequencing) 4 Steps (QC): 9 12 Steps (QC): 9 No increased (L) leg pain with curb step navigation with walker. Balance Picking up an Object (QC): 6 (with sewing machine tester) Special Test Comments [facility] Standing Balance Scale = 4/5 (remains TTWB (L) LE). [facility] Sitting Balance Scale = 5/5 Treatments (B) foot intrinic stretch 10 x :03 -- added to HEP due to c/o pain in arches and hx of plantar fasciitis DMT rolling spiked Rock ball under arch of foot x 10 (B) - added to HEP Reviewed piriformis stretch - patient able to self-perform on (R) (I). Shown how to modify with stretch for piriformis stretch (L) with brace in place - added to HEP. SLR (L) using gait belt on foot to assist, brace in place. Added to HEP. New walker with platforms delivered to patient. Walker adjusted to correct height and platforms modified to interior of walker (were too wide for patient to use appropriately). Patient verbalized new walker was very comfortable. Reviewed handouts for support/compression socks and 3" cushion for her w/c at home to elevate seat height and ease sit>stand. PT Straight Edger Goals Snf Goals PT Snf Goals Time Frame: Oct 20, 2022 Roll Left & Right (QC): 6 Sit to Lying (QC): 6 Lying-Sitting on Side/Bed(QC): 6 Sit to Stand (QC): 6 Chair/Vde-fy-Lyqae Xfer(QC): 6 Toilet Transfer (QC): 6 Car Transfer (QC): 6 Does the Patient Walk: Yes Walk 10 feet (QC): 4 Walk 50ft with 2 Turns (QC): 4 Walk 150 ft (QC): 4 Walking 10ft on Uneven Surface: 4 1 Step (curb) (QC): 4 4 Steps (QC): 9 12 Steps (QC): 9 Picking up an Object (QC): 6 Does the Pt use WC or Scooter?: Yes Wheel 50 feet with 2 turns (QC: 6 Type: Manual Wheel 150 feet: 6 Type: Manual PT Plan Treatment/Plan Treatment Plan: Continue Plan of Care Treatment Plan: Bed Mobility, Concurrent Therapy, Education, Functional Activity Gina, Functional Strength, Group Therapy, Gait, Safety, Therapeutic Exercise, Transfers Treatment Duration: Oct 20, 2022 Frequency: At least 5 of 7 days/Wk (IRF) Estimated Hrs Per Day: 2 hours per day Patient and/or Family Agrees t: Yes Discharge Recommendations Therapy Discharge Recommendati: Home & Family, Post Acute PT Time Time In: 1000 Time Out: 1130 DATE: Oct 13, 2022 Total Billed Treatment Time: 90 Total Billed Treatment GT 2, FA 2, Ex 2 Lydia Duenas PT Oct 13, 2022 11:42
--- NOTE | 2022-10-13 11:51 | Cardiology Progress Note ---
Subjective Date Seen by Provider: Oct 13, 2022 Time Seen by Provider: 11:50 Subjective/Events-last exam Patient is sitting up in chair, denies any chest pain or dyspnea. Objective-Cardiology Exam Last Set of Vital Signs Vital Signs 10/10/22 10/12/22 10/13/22 10/13/22 01:00 20:08 07:56 09:18 Temp 35.4 Pulse 65 Resp 16 B/P (MAP) 186/75 (112) Pulse Ox 98 O2 Delivery Room Air O2 Flow Rate 0.00 FiO2 21 I&O Intake and Output 10/13/22 00:00 Intake Total 1895 ml Balance 1895 ml Intake Oral 1895 ml # Voids 7 General: Alert, Oriented X3, Cooperative HEENT: Atraumatic, PERRLA Neck: Supple, No JVD Lungs: Clear to Auscultation, Normal Air Movement Heart: Regular Rate, Normal S1, Normal S2 Abdomen: Normal Bowel Sounds, Soft Extremities: No Edema Skin: No Rashes, No Significant Lesion Neuro: Normal Speech Psych/Mental Status: Mental Status NL, Mood NL Results Lab Laboratory Tests 10/13/22 05:08 A/P-Cardiology Admission Diagnosis UTI Left tibial fx CAD HTN Assessment/Plan Left tibia plateau fracture, Dr. Liu consulted, does not require surgery Coronary artery disease Patient was noted to have significant coronary calcification on CT of the chest and abdomen done in March 2022 Has multiple risk factors including strong family history of heart disease Coronary CTA done 08/18/22 showing extensive coronary artery disease as described above with significant long segment calcifications and stenoses in all three territories. There is also some calcification in the mitral valve and aortic valve. Status post cardiac catheterization on October 08, 2022 with balloon angioplasty and stenting of the circumflex artery with 3 x 12 Sk[place]oint stent Patient was started on aspirin and Plavix Patient does not have allergy to aspirin, She reported history of stomach upset and peptic ulcer disease. I started her back on aspirin and Protonix Dyspnea on exertion, reporting improvement 2D echo was done on August 18, 2022 with normal LV size, ejection fraction 60 to 65%, aortic valve sclerosis with no stenosis History of colon cancer, followed and managed with Dr. Rodarte History of diabetes mellitus, management per medical services Hypertension, amlodipine started yesterday, continue to monitor. Tobaccoism, stopped smoking over 10 years ago Degenerative joint disease. Maintained on meloxicam Hx Colon CA, follows with Dr. Rodarte. Strong family hx of CAD. Supervisory-Addendum Brief Supervisory Addendum Participated in pt care: history, MDM, physical Personally performed: exam, history, MDM Care discussed with: JOI Results interpretation: Verified all documentation Notes: Patient was seen and evaluated with Adela, examination performed, management plan was discussed, agree with the current scribed note, I made few changes to the note using Italic font Patient was seen at bedside, laying down comfortably, feeling better. No new complain Continue on current medication Okay for discharge and follow-up as an outpatient ADELA LINDSAY Oct 13, 2022 11:51 ETIENNE CONTRERAS MD Oct 13, 2022 12:58
[2022-10-13 17:29] VITALS: BP 145/85
[2022-10-13] MEDS: ENOXAPARIN 40 MG/0.4 ML SYRINGE SC SCH (18:51)
[2022-10-13 19:44] VITALS: BP 150/66
[2022-10-13] MEDS: MELATONIN 3 MG TABLET PO PRN (20:58)
[2022-10-13] MEDS: DICLOFENAC 1% GEL 50 GM TUBE TOP PRN (20:59)
[2022-10-14] MEDS ORDERED: ASPI-1238 PO (06:20)
[2022-10-14] MEDS ORDERED: DICL20GE TOP (06:20)
[2022-10-14] MEDS ORDERED: AMLO2.5T4 PO (06:20)
[2022-10-14] MEDS ORDERED: BACL10TA PO (06:20)
[2022-10-14] MEDS ORDERED: CLOP75TA28 PO (06:20)
[2022-10-14] MEDS ORDERED: PANT40TA52 PO (06:20)
[2022-10-14] MEDS ORDERED: ACHD5005 PO (06:20)
--- NOTE | 2022-10-14 06:22 | D/C HH Face to Face Order ---
D/C HH Face to Face Orders Reconcile Patient Problems Problems Reviewed?: Yes Instructions for Patient HH Patient Instructions/FollowUp: pcp as scheduled Physician to follow Patient: Julianna Discharge Diet for Home: No Restrictions Patient Problems: tibial plateau fx CAD s/p stent Patient Data-Allergies,Ht & Wt Patient Allergies: Coded Allergies: Penicillins (Verified Allergy, Mild, HIVES, 10/06/22) Sulfa (Sulfonamide Antibiotics) (Verified Allergy, Mild, HIVES, 10/06/22) Tetanus Vaccines and Toxoid (Verified Allergy, Unknown, 10/06/22) aspirin (Verified Adverse Reaction, Unknown, 10/09/22) GI problems 30 years ago Home Health Need/Face to Face Date of Face to Face: Oct 14, 2022 Clinical Findings: Generalized weakness and fatigue, Instability, Muscle weakness, Non or partial weight bearing, Pain with ambulation I have seen Pt tuds-bv-mlse: Yes Discharged To: Home Diagnosis/Conditions: Debility Patient is Homebound due to: Nathalie fall risk due to instabilty, Muscle weakness, Pain w/ambulation Homebound Status Due to the above stated illness, injury or surgical procedure (medical condition or diagnosis) and associated clinical findings, the patient is homebound because of his/her inability to leave home except with aid of a supportive device and/or person AND leaving the home requires a considerable and taxing effort or is medically contraindicated. Pt req the following assistanc: Walker Home Health Nursing Orders Home Health Services Order: Nursing Services, Signal Wirer-Evaluate & Treat, Physical Therapy-Evaluate & Treat Home Health Infusion Therapy Line Start Date: Oct 06, 2022 Certify Stmt I certify that this patient is under my care and that I, a nurse practitioner or a physician; a retail event and sales assistant working with me, had a face to face encounter that -meets the physician face to face encounter requirements with this patient as dated. SHAINA BROCK DO Oct 14, 2022 06:22
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
[2022-10-14 08:00] VITALS: BP 182/78
[2022-10-14] MEDS: CITALOPRAM 20 MG TABLET PO SCH (09:00)
[2022-10-14] MEDS: LOSARTAN 25 MG TABLET PO SCH (09:00)
[2022-10-14] MEDS: DOCUSATE SODIUM 100 MG CAPSULE PO SCH (09:01)
[2022-10-14] MEDS: SENNA W/DOCUSATE (SENOKOT S) TABLET PO SCH (09:01)
[2022-10-14] MEDS: MELOXICAM 7.5 MG TABLET PO SCH (09:01)
[2022-10-14] MEDS: LORATADINE 10 MG TABLET PO SCH (09:01)
[2022-10-14] MEDS: ASPIRIN enteric coated 81MG TABLET PO SCH (09:01)
[2022-10-14] MEDS: PANTOPRAZOLE 40 MG TABLET PO SCH (09:01)
[2022-10-14] MEDS: CLOPIDOGREL 75 MG TABLET PO SCH (09:02)
[2022-10-14] MEDS: HYDROcodone/ACETAMINOPHEN 5 MG/325 MG TABLET PO PRN (09:02)
[2022-10-14 09:44] VITALS: BP 174/67
[2022-10-14 10:55] VITALS: BP 177/74
[2022-10-14 11:25] VITALS: BP 177/74
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
== END 2022-10-14 11:30 | disposition home health service (06) | DRG 561 ==
PROVIDERS: ADMIT Internal Medicine; ATTEND Internal Medicine
DX: S82.145D Nondisplaced bicondylar fracture of left tibia, subsequent encounter for closed fracture with routine healing (principal); M19.012 Primary osteoarthritis, left shoulder; I10 Essential (primary) hypertension; F32.A Depression, unspecified; Z66 Do not resuscitate; Z85.038 Personal history of other malignant neoplasm of large intestine; Z88.6 Allergy status to analgesic agent; Z88.0 Allergy status to penicillin; Z88.2 Allergy status to sulfonamides; Z88.7 Allergy status to serum and vaccine; Z79.899 Other long term (current) drug therapy; V89.2XXD Person injured in unspecified motor-vehicle accident, traffic, subsequent encounter; I25.10 Atherosclerotic heart disease of native coronary artery without angina pectoris; Z87.891 Personal history of nicotine dependence; E78.5 Hyperlipidemia, unspecified; K27.9 Peptic ulcer, site unspecified, unspecified as acute or chronic, without hemorrhage or perforation; Z79.02 Long term (current) use of antithrombotics/antiplatelets; Z86.39 Personal history of other endocrine, nutritional and metabolic disease; E66.9 Obesity, unspecified; Z68.31 Body mass index [BMI] 31.0-31.9, adult
CPT/HCPCS: 36415; 80048; 80053; 85025; 85027; 93005; 94760

== ENCOUNTER 2022-10-08 07:46 | Day surgery (SDC) | payer MEDICARE, OTHER ==
[~2022-10-08] VITALS: Ht 160 cm; Wt 81.1 kg
[2022-10-08] MEDS ORDERED: NS IV 1000 ML 1,000 ML IV ONE (08:00)
[2022-10-08 08:41] VITALS: BP 174/84
[2022-10-08 08:56] LABS: HEMATOCRIT 31 % (35-52); HEMOGLOBIN 10.6 g/dL (11.5-16.0); MEAN CORPUSCULAR HEMOGLOBIN 31 pg (25-34); MEAN CORPUSCULAR HGB CONC 34 g/dL (32-36); MEAN CORPUSCULAR VOLUME 90 fL (80-99); MEAN PLATELET VOLUME 8.9 fL (9.0-12.2); PLATELET COUNT 148 10^3/uL (130-400); WHITE BLOOD COUNT 5.9 10^3/uL (4.3-11.0)
--- NOTE | 2022-10-08 08:58 | Diagnostic Imaging Report ---
Indication: Pre-heart catheterization. Time of Exam: 8:27 AM Correlation is made with prior chest 10/23/2019. Heart size normal. Right chest wall port has tip overlying SVC. Lungs are clear. No infiltrates are seen. There is no effusion or pneumothorax. Impression: No acute cardiopulmonary process is detected. Dictated by: Dictated on workstation # [id number]
[2022-10-08 09:05] LABS: PROTHROMBIN TIME PATIENT 13.2 SEC (12.2-14.7)
[2022-10-08] MEDS ORDERED: HEParin (CATH LAB) 2,000 ML IV ONE (09:09)
[2022-10-08] MEDS ORDERED: NS IV 1000 ML 1,000 ML ONE (09:09)
[2022-10-08] MEDS ORDERED: LIDOCAINE 1% INJ 20 ML VIAL ONE (09:09)
[2022-10-08 09:11] LABS: ALBUMIN 3.6 GM/DL (3.2-4.5); BILIRUBIN,TOTAL 0.5 MG/DL (0.1-1.0); CALCIUM 9.2 MG/DL (8.5-10.1); CREATININE SERUM 0.98 MG/DL (0.60-1.30); POTASSIUM 4.6 MMOL/L (3.6-5.0); TOTAL PROTEIN 6.4 GM/DL (6.4-8.2)
[2022-10-08] MEDS ORDERED: HEParin 1000 UNIT/ML (10ML VIAL) FOR BOLUS ONE (10:17)
[2022-10-08] MEDS ORDERED: fentaNYL INJECTION 100 MCG/2 ML VIAL ONE (10:17)
[2022-10-08] MEDS ORDERED: VERAPAMIL 5 MG/2 ML (CALAN) VIAL IV ONE (10:17)
[2022-10-08] MEDS ORDERED: MIDAZOLAM INJ 5 MG/5 ML VIAL ONE (10:17)
[2022-10-08] MEDS ORDERED: NITRO DRIP 25000 MCG/D5W 250 ML IV ONE (10:17)
[2022-10-08] MEDS ORDERED: HYDROmorphone INJECTION 2 MG/ML VIAL ONE (10:47)
[2022-10-08] MEDS ORDERED: NALOXONE 0.4 MG/ML 1 ML VIAL ONE (10:56)
[2022-10-08] MEDS ORDERED: CLOPIDOGREL 300 MG TABLET PO ONE (11:50)
[2022-10-08] MEDS ORDERED: ASPIRIN 325 MG TABLET ONE (12:02)
[2022-10-08 12:30] VITALS: BP 121/76
[2022-10-08 12:45] VITALS: BP 134/75
[2022-10-08 13:00] VITALS: BP 153/85
[2022-10-08 13:15] VITALS: BP 142/88
[2022-10-08 13:45] VITALS: BP 152/86
[2022-10-14] MEDS ORDERED: ASPI-1238 PO (06:20)
[2022-10-14] MEDS ORDERED: PANT40TA52 PO (06:20)
[2022-10-14] MEDS ORDERED: BACL10TA PO (06:20)
[2022-10-14] MEDS ORDERED: ACHD5005 PO (06:20)
[2022-10-14] MEDS ORDERED: DICL20GE TOP (06:20)
[2022-10-14] MEDS ORDERED: CLOP75TA28 PO (06:20)
[2022-10-14] MEDS ORDERED: AMLO2.5T4 PO (06:20)
== END 2022-10-08 13:50 ==
LOC: CATH 07:46 → SDC 12:10 → CATH 13:50
PROVIDERS: ATTEND Internal Medicine Cardiovascular Disease
DX: I25.10 Atherosclerotic heart disease of native coronary artery without angina pectoris (principal); I10 Essential (primary) hypertension; E78.5 Hyperlipidemia, unspecified; S82.142A Displaced bicondylar fracture of left tibia, initial encounter for closed fracture; N39.0 Urinary tract infection, site not specified; M19.90 Unspecified osteoarthritis, unspecified site; E11.9 Type 2 diabetes mellitus without complications; W19.XXXA Unspecified fall, initial encounter; Z79.899 Other long term (current) drug therapy; Z87.891 Personal history of nicotine dependence; Z85.038 Personal history of other malignant neoplasm of large intestine
CPT/HCPCS: 71045; 80053; 80061; 85027; 85347; 85610; 85730; 87081; 93005; 93458; 93571; C1725; C1769; C1874; C1887; C1894; C9600; 36415

== ENCOUNTER 2022-12-17 20:52 | Observation (INO) | payer MEDICARE, OTHER ==
[~2022-12-17] VITALS: Ht 160.2 cm; Wt 78.3 kg
[~2022-12-17 20:52] MED LIST changes: +AMLO2.5T4 PO; +ASPI-1238 PO; +BACL10TA PO; +CLOP75TA28 PO; +DICL20GE TOP; -MECL-149 PO; +MECL-291 PO; +PANT40TA52 PO
[2022-12-17] MEDS ORDERED: ONDANSETRON INJECTION 4 MG/2 ML (SDV) IVP STA (21:22)
[2022-12-17] MEDS ORDERED: KETOROLAC INJ 15 MG/ML VIAL IVP STA (21:22)
[2022-12-17] MEDS ORDERED: NS IV 1000 ML 1,000 ML IV STA ×2 (21:22→22:27)
--- NOTE | 2022-12-17 21:28 | ED General ---
General Stated Complaint: NAUSEA,VOMITTING,ALL OVER BODY PAIN Source of Information: Patient History of Present Illness Date Seen by Provider: Dec 17, 2022 Time Seen by Provider: 21:10 Initial Comments 72-year-old female presenting with complaints of 1 week of not feeling well. She has had nausea, vomiting, diarrhea. She states that she has chronic diarrhea ever since she had a colon resection for cancer. She today was having low back pain which made her concerned that she might have a UTI. She has been vomiting throughout the day. She had an episode on the toilet this evening where she broke out in a sweat in addition to vomiting and having diarrhea. She was seen in urgent care earlier today and given some Zofran but it has not controlled her vomiting. She provided a urine specimen and had a abdomen x-ray taken at that time. Reportedly the abdomen x-ray had shown that her bowels were moving slowly. She had urine that was diluted but they were concerned she might have a UTI. She was not started on any antibiotics. She is allergic to penicillin and sulfa antibiotics. Timing/Duration: 1 Week Severity: Severe Modifying Factors: worse with Eating, worse with Movement Associated Systoms: No Chest Pain, No Cough; Diaphoresis, Fever/Chills; No Headaches; Loss of Appetite, Malaise, Nausea/Vomiting; No Rash, No Seizure, No Shortness of Air, No Syncope; Weakness Allergies and Home Medications Allergies Coded Allergies: Penicillins (Verified Allergy, Mild, HIVES, 10/06/22) Sulfa (Sulfonamide Antibiotics) (Verified Allergy, Mild, HIVES, 10/06/22) Tetanus Vaccines and Toxoid (Verified Allergy, Unknown, 10/06/22) aspirin (Verified Adverse Reaction, Unknown, 10/09/22) GI problems 30 years ago Patient Home Medication List Home Medication List Reviewed: Yes Amlodipine Besylate (Amlodipine Besylate) 2.5 Mg Tablet, 2.5 MG PO DAILY Prescribed by: SHAINA BROCK on 10/14/22619 Aspirin (Aspirin EC) 81 Mg Tablet.dr, 81 MG PO DAILY Prescribed by: SHAINA BROCK on 10/14/22619 Baclofen (Baclofen) 10 Mg Tablet, 10 MG PO Q6HR PRN for back pain Prescribed by: SHAINA BROCK on 10/14/2220 Cetirizine HCl (Cetirizine HCl) 10 Mg Tablet, 10 MG PO DAILY PRN for ALLERGY SYMPTOMS, (Reported) Entered as Reported by: JERMAN ENCARNACION on 10/03/22 154 Citalopram Hydrobromide (Citalopram HBr) 20 Mg Tablet, 20 MG PO DAILY, (Reported) Entered as Reported by: JERMAN ENCARNACION on 10/03/22 154 Clopidogrel Bisulfate (Clopidogrel) 75 Mg Tablet, 75 MG PO DAILY Prescribed by: SHAINA BROCK on 10/14/22619 Diclofenac Sodium (Voltaren Arthritis Pain) 1 % Gel..gram., 0 GM TOP QID PRN for PAIN-MILD (1-4) Prescribed by: SHAINA BROCK on 10/14/22 06 Hydrocodone/Acetaminophen (Hydrocodone-Acetamin 5-325 mg) 5 Mg-325 Mg Tablet, 1 TAB PO Q6H PRN for PAIN-MODERATE (5-7) Prescribed by: SHAINA BROCK on 10/14/22 06 Losartan Potassium (Losartan Potassium) 25 Mg Tablet, 50 MG PO DAILY, (Reported) Entered as Reported by: JERMAN ENCARNACION on 10/03/22 154 Meclizine HCl (Meclizine HCl) 25 Mg Tablet, 25 MG PO Q8H PRN for NAUSEA/VOMITING, (Reported) Entered as Reported by: JERMAN ENCARNACION on 10/03/22 154 Meloxicam (Meloxicam) 15 Mg Tablet, 15 MG PO DAILY, (Reported) Entered as Reported by: FIONA HERNANDEZ on 09/15/22 1203 Nitrofurantoin Monohyd/M-Cryst (Macrobid 100 mg Capsule) 100 Mg Capsule, 1 TAB PO BID Prescribed by: YAMILA HSU on 12/17/222206 Pantoprazole Sodium (Pantoprazole Sodium) 40 Mg Tablet.dr, 40 MG PO DAILY Prescribed by: SHAINA BROCK on 10/14/22 06 Review of Systems Review of Systems Constitutional: chills, diaphoresis (This evening on the toilet while vomiting and having diarrhea), fever (Subjective), malaise, weakness EENTM: nose congestion (Mild) Respiratory: No cough, No short of breath Cardiovascular: No chest pain Gastrointestinal: No abdominal pain; diarrhea, nausea, vomiting Genitourinary: decreased output Musculoskeletal: back pain (Low back pain this evening making her think she might have a UTI), other (Complains of hurting all over and generalized body aches) Skin: No rash Psychiatric/Neurological: Headache, Weakness Past [id number]-Lkxprb-Ajvgqw Hx Patient Social History Tobacco Use?: No Use of E-Cig and/or Vaping dev: No Substance use?: No Alcohol Use?: No Immunizations Up To Date First/Initial COVID19 Vaccinat: JUNE 2020 Second COVID19 Vaccination Hernando: JULY 2020 Third COVID19 Vaccination Date: NO Seasonal Allergies Seasonal Allergies: Yes Past Medical History Surgery/Hospitalization HX: Colon CA (in remission); HTN; Depression/Anxiety Surgeries: Yes (wrist sx-CTR, colon resection) Appendectomy, Section, Gallbladder, Hysterectomy, Tonsillectomy Respiratory: No Currently Using CPAP: No Currently Using BIPAP: No Cardiac: No Hypertension Neurological: No Sexually Transmitted Disease: No HIV/AIDS: No Genitourinary: No Gastrointestinal: Yes (colon ca) Musculoskeletal: Yes Gout Endocrine: No HEENT: No Cancer: Yes Colon What Type of Treatment Did You: Surgical Intervention Psychosocial: Yes Depression Integumentary: No Blood Disorders: No Physical Exam Vital Signs Vital Signs - First Documented 12/17/22 21:05 Temp 36.6 Pulse 99 Resp 18 B/P (MAP) 130/73 (92) Pulse Ox 99 O2 Delivery Room Air Capillary Refill : Height, Weight, BMI Height: '" Weight: lbs. oz. kg; 31.67 BMI Method: General Appearance: Other (Appears to not feel well. Has a slightly disheveled appearance.) HEENT: PERRL/EOMI, Pharynx Normal Respiratory: Chest Non Tender, Lungs Clear, Normal Breath Sounds, No Accessory Muscle Use, No Respiratory Distress Cardiovascular: Regular Rate, Rhythm, Normal Peripheral Pulses Gastrointestinal: Normal Bowel Sounds, No Pulsatile Mass, Non Tender, Soft Rectal: Deferred Extremity: Normal Capillary Refill, No Pedal Edema, Other (Knee immobilizer on the left lower extremity for her tibia fracture) Neurologic/Psychiatric: Alert, Oriented x3, No Motor/Sensory Deficits, drilling contractor II- XII Norm as Tested Skin: Warm/Dry, Pallor Focused Exam Lactate Level 12/17/22 21:05: Lactic Acid Level 1.27 Lactic Acid Level Laboratory Tests Test 12/17/22 21:05 Lactic Acid Level 1.27 MMOL/L (0.50-2.00) Progress/Results/Core Measures Suspected Sepsis SIRS Temperature: Pulse: Respiratory Rate: Laboratory Tests 12/17/22 21:05: White Blood Count 13.2H Blood Pressure / Mean: 12/17/22 21:05: Lactic Acid Level 1.27 Laboratory Tests 12/17/22 21:05: Creatinine 1.33H, Platelet Count 271, Total Bilirubin 0.6 Results/Orders Lab Results Laboratory Tests Test 12/17/22 21:05 Range/Units White Blood Count 13.2 H 4.3-11.0 10^3/uL Red Blood Count 4.45 3.80-5.11 10^6/uL Hemoglobin 13.9 11.5-16.0 g/dL Hematocrit 41 35-52 % Mean Corpuscular Volume 92 80-99 fL Mean Corpuscular Hemoglobin 31 25-34 pg Mean Corpuscular Hemoglobin Concent 34 32-36 g/dL Red Cell Distribution Width 14.4 10.0-14.5 % Platelet Count 271 130-400 10^3/uL Mean Platelet Volume 9.2 9.0-12.2 fL Immature Granulocyte % (Auto) 1 % Neutrophils (%) (Auto) 86 H 42-75 % Lymphocytes (%) (Auto) 9 L 12-44 % Monocytes (%) (Auto) 4 0-12 % Eosinophils (%) (Auto) 0 0-10 % Basophils (%) (Auto) 1 0-10 % Neutrophils # (Auto) 11.4 H 1.8-7.8 10^3/uL Lymphocytes # (Auto) 1.2 1.0-4.0 10^3/uL Monocytes # (Auto) 0.5 0.0-1.0 10^3/uL Eosinophils # (Auto) 0.0 0.0-0.3 10^3/uL Basophils # (Auto) 0.1 0.0-0.1 10^3/uL Immature Granulocyte # (Auto) 0.1 0.0-0.1 10^3/uL Neutrophils % (Manual) 82 % Lymphocytes % (Manual) 13 % Monocytes % (Manual) 5 % Platelet Estimate ADEQUATE Blood Morphology Comment OK Urine Color YELLOW Urine Clarity CLOUDY Urine pH 5.5 5-9 Urine Specific [place] 1.020 1.016-1.022 Urine Protein NEGATIVE NEGATIVE Urine Glucose (UA) NEGATIVE NEGATIVE Urine Ketones NEGATIVE NEGATIVE Urine Nitrite POSITIVE H NEGATIVE Urine Bilirubin NEGATIVE NEGATIVE Urine Urobilinogen 0.2 < = 1.0 MG/DL Urine Leukocyte Esterase 2+ H NEGATIVE Urine RBC (Auto) TRACE-I H NEGATIVE Urine RBC 5-10 H /HPF Urine WBC 25-50 H /HPF Urine Squamous Epithelial Cells RARE /HPF Urine Crystals NONE /LPF Urine Bacteria MODERATE H /HPF Urine Casts NONE /LPF Urine Mucus NEGATIVE /LPF Urine Culture Indicated YES Sodium Level 124 *L 135-145 MMOL/L Potassium Level 4.8 3.6-5.0 MMOL/L Chloride Level 91 L 98-107 MMOL/L Carbon Dioxide Level 16 L 21-32 MMOL/L Anion Gap 17 H 5-14 MMOL/L Blood Urea Nitrogen 31 H 7-18 MG/DL Creatinine 1.33 H 0.60-1.30 MG/DL Estimat Glomerular Filtration Rate 43 BUN/Creatinine Ratio 23 Glucose Level 126 H 70-105 MG/DL Lactic Acid Level 1.27 0.50-2.00 MMOL/L Calcium Level 10.5 H 8.5-10.1 MG/DL Corrected Calcium 8.5-10.1 MG/DL Total Bilirubin 0.6 0.1-1.0 MG/DL Aspartate Amino Transf (AST/SGOT) 31 5-34 U/L Alanine Aminotransferase (ALT/SGPT) 28 0-55 U/L Alkaline Phosphatase 182 H 40-136 U/L C-Reactive Protein 0.53 H <0.50 MG/DL Total Protein 9.0 H 6.4-8.2 GM/DL Albumin 4.8 H 3.2-4.5 GM/DL Influenza Type A (RT-PCR) Not Detected Not Detecte Influenza Type B (RT-PCR) Not Detected Not Detecte SARS-CoV-2 RNA (RT-PCR) Not Detected Not Detecte My Orders Orders - YAMILA HSU MD Cbc And Automated Diff (12/17/22 21:21) Comprehensive Metabolic Panel (12/17/22 21:21) Blood Culture (12/17/22 21:21) Ua Culture If Indicated (12/17/22 21:21) Ed Iv/Invasive Line Start (12/17/22 21:21) Crp Fs (12/17/22 21:21) Lactic Acid Analyzer (12/17/22 21:21) Covid 19 Inhouse Test (12/17/22 21:21) Influenza A And B By Pcr (12/17/22 21:21) Ns Iv 1000 Ml (Ns Iv 1000 Ml) (12/17/22 21:22) Ketorolac Injection (Ketorolac Injection (12/17/22 21:22) Ondansetron Injection (Ondansetron Inj (12/17/22 21:22) Urine Culture (12/17/22 21:05) Ceftriaxone Iv/Im (Ceftriaxone Iv/Im) (12/17/22 21:54) Manual Differential (12/17/22 21:05) Prochlorperazine Injection (Prochlorpera (12/17/22 22:20) Ed Admission (Communication) (12/17/22 22:21) Ns Iv 1000 Ml (Ns Iv 1000 Ml) (12/17/22 22:27) Ns Iv 1000 Ml (Ns Iv 1000 Ml) (12/17/22 22:30) Vital Signs/I&O 12/17/22 21:05 Temp 36.6 Pulse 99 Resp 18 B/P (MAP) 130/73 (92) Pulse Ox 99 O2 Delivery Room Air Capillary Refill : Progress Note #1: Progress Note Differential diagnosis of urinary tract infection, pyelonephritis, sepsis, influenza, COVID. Establish peripheral IV access and send labs for complete blood count, comprehensive metabolic profile, CRP, blood cultures, lactic acid. Urinalysis to look for signs of infection. Nasal swab to check for COVID and influenza. Administer normal saline 1 L IV fluid bolus for hydration, Toradol 15 mg IV for generalized body pain, Zofran 4 mg IV for nausea and vomiting. Progress Note #2: Time: 21:54 Progress Note Urinalysis had a specific gravity of 1.020 and was positive for nitrites and 2+ leukocyte esterase. She had 25-50 white blood cells with moderate bacteria. We will start her on antibiotics for UTI with Rocephin 1 g IV. Progress Note #3: Time: 22:04 Progress Note Complete Blood count shows WBC elevation to 13.2 with left shift. Swab for Covid and Flu negative. Awaiting comprehensive metabolic profile and Lactic acid. Albert green hemodynamically stable and feeling little better as fluids infuse and after getting Zofran and Toradol. 2211 Comprehensive metabolic profile shows sodium down to 124. Her potassium looks okay at 4.8. She does look dehydrated with a elevated BUN to 31 and creatinine up to 1.33. Glucose was 126. CRP was just above normal at 0.53. Her lactic acid was normal at 1.27. Patient has had prior hyponatremia episodes with sodiums that he got lower than 124. Her most recent sodiums were around 130. We will treat with the antibiotics here as well as continue Macrobid. We will discuss with the patient option admission for additional hydration versus going home and continuing to push fluids. [address] Cosme, the on-call hospitalist for [facility]. Reviewed patient presentation and history as well as her labs showing signs of UTI but not sepsis. She does have dehydration and hyponatremia as well. We will place in observation admission to continue fluids and nausea medicine as well as antibiotics. She has received Rocephin and IV fluids here in the ED. Zofran was not helping her nausea so she also received Compazine. Progress Note #4: Time: 00:22 Progress Note Although EMS was notified of transfer of the patient at 2240 when the room assignment was available they said they were waiting for the other ambulance to get back in [facility] from transfer to [facility]. However when they still have not come for the patient after midnight they were called again. At that point the advised that they were too tired from multiple EMS calls and were not available for any further ambulance calls tonight due to fatigue. This was verified with the community health director at 0022. They will try to have a crew take the patient at 0700 to [place]. Patient was notified of the delay in transfer and did not have any family or anyone else to be able to transport her to [place] and was agreeable with waiting in [facility] getting treatment until EMS transport was available. Departure Communication (Admissions) Time/Spoke to Admitting Phy: 22:[address] Cosme, the on-call hospitalist for [facility]. Reviewed patient presentation and history as well as her labs showing signs of UTI but not sepsis. She does have dehydration and hyponatremia as well. We will place in observation admission to continue fluids and nausea medicine as well as antibiotics. She has received Rocephin and IV fluids here in the ED. Zofran was not helping her nausea so she also received Compazine. Impression Primary Impression: Acute cystitis with hematuria Additional Impressions: Nausea vomiting and diarrhea Hyponatremia Disposition: 30 STILL A PATIENT Condition: Stable Admissions Decision to Admit Reason: Admit from ER (General) Decision to Admit/Date: Dec 17, 2022 Time/Decision to Admit Time: 22:22 Departure-Patient Inst. Referrals: ODALYS OWEN MD (PCP/Family) Primary Care Physician Patient Instructions: Hyponatremia (DC), Nausea and Vomiting, Adult ED, Urinary Tract Infection, Adult ED Add. Discharge Instructions: Take antibiotics until gone. Have your labs rechecked within a week to see what your sodium is doing. Tonight it is down to 124. Normal is 135-150. Try to keep sipping on fluids and staying hydrated. Scripts Nitrofurantoin Monohyd/M-Cryst (Macrobid 100 mg Capsule) 100 Mg Capsule 1 TAB PO BID for UTI for 7 Days, #14 CAP 0 Refills Prov: YAMILA HSU MD 12/17/22 YAMILA HSU MD Dec 17, 2022 21:28
[2022-12-17 21:45] LABS: BILIRUBIN,URINE NEGATIVE (NEGATIVE); CLARITY,URINE CLOUDY; COLOR,URINE YELLOW; GLUCOSE, URINE (UA) NEGATIVE (NEGATIVE); KETONES,URINE NEGATIVE (NEGATIVE); LEUKOCYTE ESTERASE ,URINE 2+ (NEGATIVE); NITRITE,URINE POSITIVE (NEGATIVE); PH,URINE 5.5 (5-9); PROTEIN,URINE NEGATIVE (NEGATIVE)
[2022-12-17 21:49] LABS: BACTERIA,URINE MODERATE /HPF; SQUAMOUS EPITHELIAL CELL,UR RARE /HPF; WBC,URINE 25-50 /HPF
[2022-12-17 21:53] LABS: POTASSIUM 4.8 MMOL/L (3.6-5.0)
[2022-12-17 21:54] LABS: BASOPHILS # (AUTO) 0.1 10^3/uL (0.0-0.1); BASOPHILS % (AUTO) 1 % (0-10); EOSINOPHILS % (AUTO) 0 % (0-10); HEMATOCRIT 41 % (35-52); HEMOGLOBIN 13.9 g/dL (11.5-16.0); LYMPHOCYTES # (AUTO) 1.2 10^3/uL (1.0-4.0); LYMPHOCYTES % (AUTO) 9 % (12-44); MEAN CORPUSCULAR HEMOGLOBIN 31 pg (25-34); MEAN CORPUSCULAR HGB CONC 34 g/dL (32-36); MEAN CORPUSCULAR VOLUME 92 fL (80-99); MEAN PLATELET VOLUME 9.2 fL (9.0-12.2); MONOCYTES # (AUTO) 0.5 10^3/uL (0.0-1.0); MONOCYTES % (AUTO) 4 % (0-12); NEUTROPHILS # (AUTO) 11.4 10^3/uL (1.8-7.8); NEUTROPHILS % (AUTO) 86 % (42-75); PLATELET COUNT 271 10^3/uL (130-400); WHITE BLOOD COUNT 13.2 10^3/uL (4.3-11.0)
[2022-12-17] MEDS ORDERED: cefTRIAXone IV/IM 1,000 MG in NS (IVPB) 50 ML 50 ML IV STA (21:54)
[2022-12-17] MEDS ORDERED: NITR-65 PO (22:07)
[2022-12-17 22:08] LABS: CHLORIDE 91 MMOL/L (98-107); SODIUM 124 MMOL/L (135-145)
[2022-12-17 22:09] LABS: ALANINE AMINOTRANSFERASE 28 U/L (0-55); ALBUMIN 4.8 GM/DL (3.2-4.5); ALKALINE PHOSPHATASE 182 U/L (40-136); BILIRUBIN,TOTAL 0.6 MG/DL (0.1-1.0); BUN/CREATININE RATIO 23; CALCIUM 10.5 MG/DL (8.5-10.1); CARBON DIOXIDE 16 MMOL/L (21-32); CREATININE SERUM 1.33 MG/DL (0.60-1.30); GFR ESTIMATED 43; GLUCOSE 126 MG/DL (70-105)
[2022-12-17 22:13] LABS: LYMPHOCYTES % (MANUAL) 13 %; MONOCYTES % (MANUAL) 5 %; NEUTROPHILS % (MANUAL) 82 %; PLATELET ESTIMATE ADEQUATE; RBC MORPH OK
[2022-12-17] MEDS ORDERED: PROCHLORPERAZINE INJ 10 MG/2ML VIAL IV STA (22:20)
[2022-12-17] MEDS ORDERED: NS IV 1000 ML 1,000 ML ONE (22:30)
[2022-12-18] MEDS ORDERED: PROCHLORPERAZINE INJ 10 MG/2ML VIAL ONE (02:43)
[2022-12-18] MEDS ORDERED: PROMETHAZINE INJ 25 MG/ML VIAL IVP STA (04:07)
[2022-12-18] MEDS ORDERED: diphenhydrAMINE INJ 50 MG/ML VIAL IVP ONE (04:15)
[2022-12-18] MEDS ORDERED: DroPERidol INJECTION 5 MG/2 ML (ED ONLY!) IV STA (07:23)
[2022-12-18 07:43] LABS: POTASSIUM 4.4 MMOL/L (3.6-5.0)
[2022-12-18 07:44] LABS: CALCIUM 9.1 MG/DL (8.5-10.1)
[2022-12-18 07:50] LABS: CREATININE SERUM 1.1 MG/DL (0.60-1.30)
[2022-12-18 08:56] VITALS: BP 129/77
[2022-12-18] MEDS ORDERED: ACETAMINOPHEN 325 MG TABLET PO PRN (09:30)
[2022-12-18] MEDS ORDERED: PROCHLORPERAZINE INJ 10 MG/2ML VIAL IV PRN (09:30)
[2022-12-18] MEDS ORDERED: DICL100G60 TP (09:57)
[2022-12-18] MEDS ORDERED: CITA20TA9 PO (09:57)
[2022-12-18] MEDS ORDERED: ACHD5005 PO (09:57)
[2022-12-18] MEDS ORDERED: MECL-291 PO (09:57)
[2022-12-18] MEDS ORDERED: BACL10TA PO (09:57)
[2022-12-18] MEDS ORDERED: MELO15TA39 PO (09:57)
[2022-12-18] MEDS ORDERED: ONDA4TAB11 PO (09:57)
[2022-12-18] MEDS ORDERED: AMLO2.5T4 PO (09:57)
[2022-12-18] MEDS ORDERED: CLOP75TA28 PO (09:57)
[2022-12-18] MEDS ORDERED: LOSA50TA63 PO (09:57)
[2022-12-18] MEDS ORDERED: ASPI-1238 PO (09:57)
[2022-12-18] MEDS ORDERED: CETI10TA17 PO (09:57)
[2022-12-18] MEDS ORDERED: ACET325T38 PO (09:57)
[2022-12-18] MEDS ORDERED: DOCU100T7 PO (09:57)
[2022-12-18] MEDS: NS IV 1000 ML 1,000 ML IV SCH (09:58)
[2022-12-18 11:22] VITALS: BP 137/78
--- NOTE | 2022-12-18 15:14 | History & Physical ---
HPI History of Present Illness: 72 yo F that presented to ER with worsening diarrhea, Nausea and vomiting. States that she has not been able to keep much down in the last few days. She has chronic diarrhea since partial colon resection 2/2 to colon cancer but it has been worse the last few day. She was found to have UTI in ER. This AM she is no longer having nausea or vomiting. Still has a low appetite and has not been up out of bed. Diarrhea as slowed down. Source: patient Exam Limitations: no limitations Date seen by provider: Dec 18, 2022 Time Seen by Provider: 09:30 Attending Physician Nadir Levine MD PCP Admitting Physician: Bekah Cosme MD Attending Physician: Bekah Cosme MD Consult Date of Admission Dec 18, 2022 at 08:40 Home Medications Home Medications Reviewed patient Home Medication Reconciliation performed by pharmacy medication reconciliations research instrumentation technician and/or nursing. Patients Allergies have been reviewed. Allergies Coded Allergies: Penicillins (Verified Allergy, Mild, HIVES, 10/06/22) Sulfa (Sulfonamide Antibiotics) (Verified Allergy, Mild, HIVES, 10/06/22) Tetanus Vaccines and Toxoid (Verified Allergy, Unknown, 10/06/22) aspirin (Verified Adverse Reaction, Unknown, 10/09/22) GI problems 30 years ago [id number]-[id number]-Rwqpon Hx Patient Social History Smoking Status: Former Smoker 2nd Hand Smoke Exposure: Yes Recent Hopitalizations: No Alcohol Use?: No Tobacco type used: Cigarettes Immunizations Up To Date Influenza Vaccine Up-to-Date: No; Not Current First/Initial COVID19 Vaccinat: JUNE 2020 Second COVID19 Vaccination Hernando: JULY 2020 Third COVID19 Vaccination Date: NO Past Medical History HTN Anemia Depression Review of Systems (CHC) Constitutional: no symptoms reported; No chills, No fever; malaise, weakness EENTM: no symptoms reported; No nose congestion, No nose pain, No throat pain Respiratory: no symptoms reported; No cough, No dyspnea on exertion, No short of breath Cardiovascular: no symptoms reported; No chest pain, No edema, No palpitations Gastrointestinal: abdominal pain, diarrhea, loss of appetite; No nausea, No vomiting Genitourinary: No dysuria; frequency Musculoskeletal: no symptoms reported Skin: no symptoms reported Psychiatric/Neurological: No Symptoms Reported Reviewed Test Results Reviewed Test Results Lab Laboratory Tests Test 12/17/22 21:05 12/18/22 07:19 Range/Units White Blood Count 13.2 H 4.3-11.0 10^3/uL Red Blood Count 4.45 3.80-5.11 10^6/uL Hemoglobin 13.9 11.5-16.0 g/dL Hematocrit 41 35-52 % Mean Corpuscular Volume 92 80-99 fL Mean Corpuscular Hemoglobin 31 25-34 pg Mean Corpuscular Hemoglobin Concent 34 32-36 g/dL Red Cell Distribution Width 14.4 10.0-14.5 % Platelet Count 271 130-400 10^3/uL Mean Platelet Volume 9.2 9.0-12.2 fL Immature Granulocyte % (Auto) 1 % Neutrophils (%) (Auto) 86 H 42-75 % Lymphocytes (%) (Auto) 9 L 12-44 % Monocytes (%) (Auto) 4 0-12 % Eosinophils (%) (Auto) 0 0-10 % Basophils (%) (Auto) 1 0-10 % Neutrophils # (Auto) 11.4 H 1.8-7.8 10^3/uL Lymphocytes # (Auto) 1.2 1.0-4.0 10^3/uL Monocytes # (Auto) 0.5 0.0-1.0 10^3/uL Eosinophils # (Auto) 0.0 0.0-0.3 10^3/uL Basophils # (Auto) 0.1 0.0-0.1 10^3/uL Immature Granulocyte # (Auto) 0.1 0.0-0.1 10^3/uL Neutrophils % (Manual) 82 % Lymphocytes % (Manual) 13 % Monocytes % (Manual) 5 % Platelet Estimate ADEQUATE Blood Morphology Comment OK Urine Color YELLOW Urine Clarity CLOUDY Urine pH 5.5 5-9 Urine Specific [place] 1.020 1.016-1.022 Urine Protein NEGATIVE NEGATIVE Urine Glucose (UA) NEGATIVE NEGATIVE Urine Ketones NEGATIVE NEGATIVE Urine Nitrite POSITIVE H NEGATIVE Urine Bilirubin NEGATIVE NEGATIVE Urine Urobilinogen 0.2 < = 1.0 MG/DL Urine Leukocyte Esterase 2+ H NEGATIVE Urine RBC (Auto) TRACE-I H NEGATIVE Urine RBC 5-10 H /HPF Urine WBC 25-50 H /HPF Urine Squamous Epithelial Cells RARE /HPF Urine Crystals NONE /LPF Urine Bacteria MODERATE H /HPF Urine Casts NONE /LPF Urine Mucus NEGATIVE /LPF Urine Culture Indicated YES Sodium Level 124 *L 128 L 135-145 MMOL/L Potassium Level 4.8 4.4 3.6-5.0 MMOL/L Chloride Level 91 L 102 98-107 MMOL/L Carbon Dioxide Level 16 L 13 L 21-32 MMOL/L Anion Gap 17 H 13 5-14 MMOL/L Blood Urea Nitrogen 31 H 31 H 7-18 MG/DL Creatinine 1.33 H 1.10 0.60-1.30 MG/DL Estimat Glomerular Filtration Rate 43 53 BUN/Creatinine Ratio 23 28 Glucose Level 126 H 121 H 70-105 MG/DL Lactic Acid Level 1.27 0.50-2.00 MMOL/L Calcium Level 10.5 H 9.1 8.5-10.1 MG/DL Corrected Calcium 8.5-10.1 MG/DL Total Bilirubin 0.6 0.1-1.0 MG/DL Aspartate Amino Transf (AST/SGOT) 31 5-34 U/L Alanine Aminotransferase (ALT/SGPT) 28 0-55 U/L Alkaline Phosphatase 182 H 40-136 U/L C-Reactive Protein 0.53 H <0.50 MG/DL Total Protein 9.0 H 6.4-8.2 GM/DL Albumin 4.8 H 3.2-4.5 GM/DL Influenza Type A (RT-PCR) Not Detected Not Detecte Influenza Type B (RT-PCR) Not Detected Not Detecte SARS-CoV-2 RNA (RT-PCR) Not Detected Not Detecte Physical Exam-(CHC) Physical Exam Vital Signs VS - Last 72 Hours, by Label 12/17/22 12/18/22 12/18/22 12/18/22 21:05 07:48 08:56 09:40 Temp 36.6 36.4 36.6 Pulse 99 78 103 Resp 18 16 16 B/P (MAP) 130/73 (92) 126/71 129/77 (94) Pulse Ox 99 99 97 O2 Delivery Room Air Room Air Room Air Room Air 12/18/22 12/18/22 11:22 13:14 Temp 36.3 Pulse 102 90 Resp 16 B/P (MAP) 137/78 (97) Pulse Ox 100 O2 Delivery Room Air Capillary Refill : Less Than 3 Seconds General Appearance: WD/WN, no apparent distress HEENT: PERRL/EOMI Neck: non-tender, full range of motion, supple Respiratory: chest non-tender, lungs clear, normal breath sounds, no respiratory distress, no accessory muscle use Cardiovascular: normal peripheral pulses, regular rate, rhythm, no murmur Gastrointestinal: normal bowel sounds, non tender, soft Back: no CVA tenderness, no vertebral tenderness Extremities: normal range of motion, non-tender, no pedal edema, no calf tenderness, normal capillary refill Neurologic/Psychiatric: branch associate teller II-XII nml as tested, alert, oriented x 3 Skin: normal color, warm/dry Lymphatic: no adenopathy Assessment/Plan Assessment/Plan Admission Status: Observation (1) Acute cystitis with hematuria Status: Acute Assessment & Plan: - Rocephin, c/s pending, push oral hydration (2) Hyponatremia Status: Acute Assessment & Plan: - likely 2/2 to dehydration due to improvement, will repeat CMP in AM (3) Acute renal insufficiency Status: Acute Assessment & Plan: - Improving with IVFs, push oral hydration (4) CAD (coronary artery disease) Status: Chronic Assessment & Plan: - Maintained on DAPT Qualifiers: Qualified Codes: I25.10 - Atherosclerotic heart disease of [place] coronary artery without angina pectoris (5) H/O malignant neoplasm of colon BEKAH COSME MD Dec 18, 2022 15:14
[2022-12-18 16:08] VITALS: BP 156/73
[2022-12-18] MEDS ORDERED: HYDROcodone/ACETAMINOPHEN 5 MG/325 MG TABLET PO PRN (17:15)
[2022-12-18 19:35] VITALS: BP 173/79
[2022-12-18] MEDS ORDERED: cefTRIAXone 1 GM/NS 50 ML IVPB IV SCH ×2 (21:00)
[2022-12-18 23:24] VITALS: BP 153/75
[2022-12-19 03:48] VITALS: BP 148/67
[2022-12-19] MEDS: NS IV 1000 ML 1,000 ML IV SCH (05:12)
[2022-12-19 05:48] LABS: BASOPHILS # (AUTO) 0.1 10^3/uL (0.0-0.1); BASOPHILS % (AUTO) 1 % (0-10); EOSINOPHILS # (AUTO) 0.1 10^3/uL (0.0-0.3); EOSINOPHILS % (AUTO) 0 % (0-10); HEMATOCRIT 36 % (35-52); HEMOGLOBIN 12.4 g/dL (11.5-16.0); LYMPHOCYTES # (AUTO) 1.5 10^3/uL (1.0-4.0); LYMPHOCYTES % (AUTO) 11 % (12-44); MEAN CORPUSCULAR HEMOGLOBIN 32 pg (25-34); MEAN CORPUSCULAR HGB CONC 35 g/dL (32-36); MEAN CORPUSCULAR VOLUME 91 fL (80-99); MONOCYTES % (AUTO) 8 % (0-12); NEUTROPHILS # (AUTO) 10.8 10^3/uL (1.8-7.8); NEUTROPHILS % (AUTO) 80 % (42-75); PLATELET COUNT 234 10^3/uL (130-400); WHITE BLOOD COUNT 13.6 10^3/uL (4.3-11.0)
--- NOTE | 2022-12-19 06:10 | Progress Note ---
Focused Exam Lactate Level 12/17/22 21:05: Lactic Acid Level 1.27 Objective Exam Last Set of Vital Signs Vital Signs Date Time Temp Pulse Resp B/P (MAP) Pulse Ox O2 Delivery O2 Flow Rate FiO2 12/19/22 03:48 35.9 107 20 148/67 (94) 99 Room Air Capillary Refill : Less Than 3 Seconds I&O Intake and Output 12/19/22 00:00 Intake Total 2800 ml Balance 2800 ml Intake Oral 1800 ml IV Total 1000 ml # Voids 7 Daily Weight Change No Results/Procedures Lab Laboratory Tests 12/18/22 07:19: Sodium Level 128L, Potassium Level 4.4, Chloride Level 102, Carbon Dioxide Level 13L, Anion Gap 13, Blood Urea Nitrogen 31H, Creatinine 1.10, Estimat Glomerular Filtration Rate 53, BUN/Creatinine Ratio 28, Glucose Level 121H, Calcium Level 9.1 12/19/22 05:31: White Blood Count 13.6H, Red Blood Count 3.93, Hemoglobin 12.4, Hematocrit 36, Mean Corpuscular Volume 91, Mean Corpuscular Hemoglobin 32, Mean Corpuscular Hemoglobin Concent 35, Red Cell Distribution Width 14.1, Platelet Count 234, Mean Platelet Volume 9.0, Immature Granulocyte % (Auto) 0, Neutrophils (%) (Auto) 80H, Lymphocytes (%) (Auto) 11L, Monocytes (%) (Auto) 8, Eosinophils (%) (Auto) 0, Basophils (%) (Auto) 1, Neutrophils # (Auto) 10.8H, Lymphocytes # (Auto) 1.5, Monocytes # (Auto) 1.0, Eosinophils # (Auto) 0.1, Basophils # (Auto) 0.1, Immature Granulocyte # (Auto) 0.1 Microbiology 12/17/22 Blood Culture - Preliminary, Resulted 12/17/22 Urine Culture - Preliminary, Resulted Gram Negative Bacillus 1 Assessment/Plan Assessment/Plan (1) Acute cystitis with hematuria Status: Acute Assessment & Plan: - Rocephin, c/s pending, push oral hydration (2) Hyponatremia Status: Acute Assessment & Plan: - likely 2/2 to dehydration due to improvement, will repeat CMP in AM (3) Acute renal insufficiency Status: Acute Assessment & Plan: - Improving with IVFs, push oral hydration (4) CAD (coronary artery disease) Status: Chronic Assessment & Plan: - Maintained on DAPT Qualifiers: Qualified Codes: I25.10 - Atherosclerotic heart disease of [place] coronary artery without angina pectoris (5) H/O malignant neoplasm of colon ROXIE PEÑA MD, RESIDENT Dec 19, 2022 06:10
[2022-12-19 06:12] LABS: BILIRUBIN,TOTAL 0.4 MG/DL (0.1-1.0); CALCIUM 9.5 MG/DL (8.5-10.1); CREATININE SERUM 0.84 MG/DL (0.60-1.30); POTASSIUM 4.7 MMOL/L (3.6-5.0); TOTAL PROTEIN 7.2 GM/DL (6.4-8.2)
[2022-12-19 07:35] VITALS: BP 158/74
[2022-12-19] MEDS ORDERED: LOSARTAN 50 MG TABLET PO SCH (09:00)
[2022-12-19] MEDS ORDERED: CLOPIDOGREL 75 MG TABLET PO SCH (09:00)
[2022-12-19] MEDS ORDERED: ASPIRIN enteric coated 81MG TABLET PO SCH (09:00)
[2022-12-19] MEDS ORDERED: CITALOPRAM 20 MG TABLET PO SCH (09:00)
[2022-12-19] MEDS ORDERED: CEFP100T2 PO (10:04)
--- NOTE | 2022-12-19 10:06 | Discharge Summary ---
ROXIE PEÑA MD, RESIDENT 12/19/22 1006: Discharge Summary Hospital Course Problems Reviewed?: Yes Problems/Diagnosis: (1) Acute cystitis with hematuria Status: Acute Assessment & Plan: Patient recovering well today. -Will discharge home with 4 more days of cefpodoxime -Will follow cultures tomorrow to determine if antibiotic change is necessary (2) Hyponatremia Status: Acute Assessment & Plan: Improving. Sodium has increased to 131 today. Likely secondary to dehydration. (3) Acute renal insufficiency Status: Resolved Resolution Date/Time: 12/19/22 @ 10:23 Assessment & Plan: Improved and resolved today. Continue oral hydration. Discharge home today. 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 Hospital Course Date of Admission: Dec 18, 2022 at 08:40 Admission Diagnosis : Family Physician/Provider: Naidr Levine MD Date of Discharge: 12/19/22 Discharge Diagnosis: [Acute cystitis] Hospital Course: [Patient is a 72-year-old female with a history of partial colon resection who presented with worsening diarrhea, nausea and vomiting that started a few days prior to presentation. In the ED she was noted to have a UTI as well as significant hyponatremia to 124. She was thus admitted for further management. Hyponatremia resolved with fluid resuscitation and patient was treated with ceftriaxone with overall improvement of her symptoms. She was stable prior to discharge and was discharged home on cefpodoxime to complete a 5-day course. Urine culture was growing gram-negative bacillus prior to discharge but sensitivities were still pending. We will follow those up and change antibiotic regimen if indicated.] Labs and Pending Lab Test: Laboratory Tests 12/19/22 05:31: White Blood Count 13.6H, Red Blood Count 3.93, Hemoglobin 12.4, Hematocrit 36, Mean Corpuscular Volume 91, Mean Corpuscular Hemoglobin 32, Mean Corpuscular Hemoglobin Concent 35, Red Cell Distribution Width 14.1, Platelet Count 234, Mean Platelet Volume 9.0, Immature Granulocyte % (Auto) 0, Neutrophils (%) (Auto) 80H, Lymphocytes (%) (Auto) 11L, Monocytes (%) (Auto) 8, Eosinophils (%) (Auto) 0, Basophils (%) (Auto) 1, Neutrophils # (Auto) 10.8H, Lymphocytes # (Auto) 1.5, Monocytes # (Auto) 1.0, Eosinophils # (Auto) 0.1, Basophils # (Auto) 0.1, Immature Granulocyte # (Auto) 0.1, Sodium Level 131L, Potassium Level 4.7, Chloride Level 106, Carbon Dioxide Level 15L, Anion Gap 10, Blood Urea Nitrogen 16, Creatinine 0.84, Estimat Glomerular Filtration Rate 74, BUN/Creatinine Ratio 19, Glucose Level 123H, Calcium Level 9.5, Corrected Calcium 9.5, Total Bilirubin 0.4, Aspartate Amino Transf (AST/SGOT) 21, Alanine Aminotransferase (ALT/SGPT) 20, Alkaline Phosphatase 117, Total Protein 7.2, Albumin 4.0 Microbiology 12/17/22 Blood Culture - Preliminary, Resulted 12/17/22 Urine Culture - Preliminary, Resulted Gram Negative Bacillus 1 Home Meds Active Reported Diclofenac Sodium 1 % Gel..gram. 1 Applic TP TID PRN Baclofen 10 Mg Tablet 10 Mg PO Q6H PRN Meclizine HCl 25 Mg Tablet 25 Mg PO DAILY PRN Stool Softener (Docusate Sodium) 100 Mg Tablet 100 Mg PO DAILY PRN Cetirizine HCl 10 Mg Tablet 10 Mg PO DAILY PRN Aspirin EC (Aspirin) 81 Mg Tablet.dr 81 Mg PO DAILY Clopidogrel (Clopidogrel Bisulfate) 75 Mg Tablet 75 Mg PO DAILY Losartan Potassium 50 Mg Tablet 50 Mg PO DAILY Citalopram HBr (Citalopram Hydrobromide) 20 Mg Tablet 20 Mg PO DAILY Meloxicam 15 Mg Tablet 15 Mg PO DAILY Amlodipine Besylate 2.5 Mg Tablet 2.5 Mg PO HS Hydrocodone-Acetamin 5-325 mg (Hydrocodone/Acetaminophen) 5 Mg-325 Mg Tablet 1 Tab PO Q6H PRN Tylenol (Acetaminophen) 325 Mg Tablet 650 Mg PO Q6H PRN Ondansetron Odt (Ondansetron) 4 Mg Tab.rapdis 4 Mg PO Q4H PRN Assessment/Pt DC Instructions Please see electronic discharge instructions given to patient. Discharge Diet: No Restrictions Activity as Tolerated: Yes Discharge Physical Examination Allergies: Coded Allergies: Penicillins (Verified Allergy, Mild, HIVES, 10/06/22) Sulfa (Sulfonamide Antibiotics) (Verified Allergy, Mild, HIVES, 10/06/22) Tetanus Vaccines and Toxoid (Verified Allergy, Unknown, 10/06/22) aspirin (Verified Adverse Reaction, Unknown, 10/09/22) GI problems 30 years ago General Appearance: No Apparent Distress HEENT: Normal ENT Inspection Respiratory: Chest Non Tender, Lungs Clear, Normal Breath Sounds, No Accessory Muscle Use, No Respiratory Distress Cardiovascular: Regular Rate, Rhythm, No Edema, No Murmur Gastrointestinal: Normal Bowel Sounds Neurologic/Psychiatric: Alert, Oriented x3 FRANCY MORGAN MD 12/19/22 1116: Discharge Summary Discharge Physical Examination Allergies: Coded Allergies: Penicillins (Verified Allergy, Mild, HIVES, 10/06/22) Sulfa (Sulfonamide Antibiotics) (Verified Allergy, Mild, HIVES, 10/06/22) Tetanus Vaccines and Toxoid (Verified Allergy, Unknown, 10/06/22) aspirin (Verified Adverse Reaction, Unknown, 10/09/22) GI problems 30 years ago Supervisory-Addendum Brief Supervisory Addendum I personally performed the fam portions of the visit, discussed case with resident and concur with resident documentation of history, physical exam, assessment and treatment plan unless otherwise noted. ROXIE PEÑA MD, RESIDENT Dec 19, 2022 10:06 FRANCY MORGAN MD Dec 19, 2022 11:16
[2022-12-19 11:33] VITALS: BP 163/76
== END 2022-12-19 10:04 | disposition home or self-care (01) ==
LOC: EDUNIT# 20:52 → ER FS 20:53 → 4TH 12-18 08:40 → UNDOADMOB 12-18 08:40 → 4TH 12-18 09:00 → UNDODISOB 12-19 10:04
PROVIDERS: ADMIT Family Medicine; ATTEND Family Medicine
DX: N30.01 Acute cystitis with hematuria (principal); E87.1 Hypo-osmolality and hyponatremia; N28.9 Disorder of kidney and ureter, unspecified; I25.10 Atherosclerotic heart disease of native coronary artery without angina pectoris; R59.0 Localized enlarged lymph nodes; R11.2 Nausea with vomiting, unspecified; Z85.038 Personal history of other malignant neoplasm of large intestine; Z87.891 Personal history of nicotine dependence; Z28.310 Unvaccinated for COVID-19
CPT/HCPCS: 36415; 80048; 80053; 81000; 83605; 85007; 85025; 85027; 86141; 87040; 87077; 87088; 87186; 87636; 96361; 96365; 96375; 96376; G0378

== ENCOUNTER 2023-01-19 13:34 | Outpatient (RCR) | payer MEDICARE, OTHER ==
[~2023-01-19 13:34] MED LIST changes: +ACET325T38 PO; +CEFP100T2 PO; +DICL100G60 TP; +DOCU100T7 PO; +NITR-65 PO
[2023-01-19 14:03] LABS: BASOPHILS # (AUTO) 0.1 10^3/uL (0.0-0.1); BASOPHILS % (AUTO) 1 % (0-10); EOSINOPHILS # (AUTO) 0.2 10^3/uL (0.0-0.3); EOSINOPHILS % (AUTO) 2 % (0-10); HEMATOCRIT 34 % (35-52); HEMOGLOBIN 11.4 g/dL (11.5-16.0); LYMPHOCYTES # (AUTO) 1.6 10^3/uL (1.0-4.0); LYMPHOCYTES % (AUTO) 19 % (12-44); MEAN CORPUSCULAR HEMOGLOBIN 31 pg (25-34); MEAN CORPUSCULAR HGB CONC 33 g/dL (32-36); MEAN CORPUSCULAR VOLUME 95 fL (80-99); MEAN PLATELET VOLUME 9.2 fL (9.0-12.2); MONOCYTES # (AUTO) 0.7 10^3/uL (0.0-1.0); MONOCYTES % (AUTO) 8 % (0-12); NEUTROPHILS # (AUTO) 5.7 10^3/uL (1.8-7.8); NEUTROPHILS % (AUTO) 70 % (42-75); PLATELET COUNT 238 10^3/uL (130-400); WHITE BLOOD COUNT 8.2 10^3/uL (4.3-11.0)
[2023-01-19 14:54] LABS: ALBUMIN 3.9 GM/DL (3.2-4.5); BILIRUBIN,TOTAL 0.4 MG/DL (0.1-1.0); CALCIUM 9.1 MG/DL (8.5-10.1); CREATININE SERUM 0.98 MG/DL (0.60-1.30); POTASSIUM 3.8 MMOL/L (3.6-5.0); TOTAL PROTEIN 7.1 GM/DL (6.4-8.2)
== END 2023-01-22 | disposition home or self-care (01) ==
LOC: ONC 13:34
PROVIDERS: ATTEND Internal Medicine Hematology & Oncology
DX: Z45.2 Encounter for adjustment and management of vascular access device (principal); C18.9 Malignant neoplasm of colon, unspecified; D50.9 Iron deficiency anemia, unspecified; E83.42 Hypomagnesemia; E11.9 Type 2 diabetes mellitus without complications
CPT/HCPCS: 80053; 82378; 85025; G0463; 36591; 99214